=== PATIENT | female | born 1940 | race Caucasian/White ===

== ENCOUNTER → 2017-01-28 | Outpatient (CLI) | payer MEDICARE ==
--- NOTE | 2017-01-28 14:11 | BD ---
EXAMINATION TYPE: MG DEXA axial skeleton. DATE OF EXAM: 01/28/2017 COMPARISON: NONE CLINICAL HISTORY: Height: 62.2 IN Weight: 262 LBS FRAX RISK QUESTIONS: Alcohol (3 or more units per day): NO Family History (Parent hip fracture): NO Glucocorticoids (More than 3mos): NO (Ex: prednisone, prednisolone, methylprednisolone, dexamethasone, and hydrocortisone). History of Fracture in Adulthood: YES FINGER AGE 73 Secondary Osteoporosis: 1. Type 1 Diabetes: NO 2. Hyperthyroidism: NO 3. Menopause before 45: NO 4. Malnutrition: NO 5. Chronic liver disease: NO Rheumatoid Arthritis: NO Current Tobacco Use: NO RISK FACTORS HISTORY OF: Active: YES Diet low in dairy products/other sources of calcium: YES Postmenopausal woman: AGE 45 Frequent falls: YES PT HAS HISTORY OF FRACTURE OF FINGER AGE 73. MEDICATIONS: Thyroid Medications: YES Which medication: Levothyroxine How Lon + YRS Additional Medications: VIT D,LEVOTHYROXINE, CENTRUM, POTASSIUM, BUPROPIN, FISH OIL, VIT B12, FIBER 5 00, LOW DOSE ASPIRIN, [place] SOD, METOPROLOL, LOSARTAN HCTZ, ALLOPURINAL, STOOL SOFTENER, ALLERG Y RELIEF, GLIMEPIRIDE, GABAPENTIN, WELLBUTRIN, LASIX, AMLODIPINE EXAM MEASUREMENTS: Bone mineral densitometry was performed using the [facility]. Bone mineral density as measured about the Lumbar spine is: ----- L1-L4(G/cm2): 1.442 T Score Values are as follows: ----- L2: 3.6 ----- L3: 1.8 ----- L4: 1.3 ----- L1-L4: 2.2 Bone mineral density BASELINE Bone mineral density about the R hip (g/cm2): 0.820 Bone mineral density about the L hip (g/cm2): 0.854 T Score values are as follows: -----R Neck: -1.6 -----L Neck: -1.3 -----R Total: -0.5 -----L Total: -0.3 Bone mineral density BASELINE IMPRESSION: Localized osteopenia involving the right femoral neck. NOTE: T-SCORE=SD OF THE YOUNG ADULT MEAN.
--- NOTE | 2017-01-29 09:56 | MM ---
Reason for exam: screening (asymptomatic). Last mammogram was performed 1 year and 5 months ago. History: Patient is postmenopausal, history of other cancer, and had first child at age 35. Benign US biopsy breast VAD LT of the left breast, March 17, 2015. Benign right mammotome panel of the right breast, April 10, 2010. Took estrogen beginning at age 45. Took progesterone beginning at age 45. Physical Findings: A clinical breast exam by your physician is recommended on an annual basis and results should be correlated with mammographic findings. MG Screening Mammo w CAD Bilateral CC and MLO view(s) were taken. Prior study comparison: August 31, 2015, bilateral MG 3d diag mammo w/cad KENNY. March 17, 2015, left breast MG diagnostic mammo LT w CAD. There are scattered fibroglandular densities. No significant changes when compared with prior studies. ASSESSMENT: Benign, BI-RAD 2 RECOMMENDATION: Routine screening mammogram of both breasts in 1 year. Manage on a clinical basis with regard to pain in the right breast.
== END | disposition home or self-care (01) ==
LOC: RADMAMWWP 10:00
PROVIDERS: ATTEND Family Medicine
DX: Z12.31 Encounter for screening mammogram for malignant neoplasm of breast (principal); M85.80 Other specified disorders of bone density and structure, unspecified site; N95.1 Menopausal and female climacteric states; Z78.0 Asymptomatic menopausal state
CPT/HCPCS: 77080; G0202

== ENCOUNTER → 2017-10-16 | Outpatient (CLI) | payer MEDICARE ==
--- NOTE | 2017-10-16 10:24 | US ---
EXAMINATION TYPE: US carotid duplex BILAT DATE OF EXAM: 10/16/2017 COMPARISON: NONE CLINICAL HISTORY: R42 Vertigo. Vertigo, HTN, DM EXAM MEASUREMENTS: RIGHT: Peak Systolic Velocity (PSV) cm/sec ----- Right CCA: 52.7 ----- Right ICA: 61.6 ----- Right ECA: 93.3 ICA/CCA ratio: 1.2 RIGHT: End Diastole cm/sec ----- Right CCA: 13.7 ----- Right ICA: 17.4 ----- Right ECA: 9.7 LEFT: Peak Systolic Velocity (PSV) cm/sec ----- Left CCA: 62.1 ----- Left ICA: 54.6 ----- Left ECA: 97.3 ICA/CCA ratio: 0.9 LEFT: End Diastole cm/sec ----- Left CCA: 13.1 ----- Left ICA: 14.5 ----- Left ECA: 11.7 VERTEBRALS (direction of flow): Right Vertebral: Antegrade Left Vertebral: Antegrade Rhythm: Normal Difficult study due to patient's thick neck and deep vessels IMPRESSION: No elevated velocities, no significant stenosis. Criteria for Assigning % of Stenosis / Diameter reduction (Estimation based on the indirect measurements of the internal carotid artery velocities (ICA PSV). 1. Normal (no stenosis)=ICA PSV < 125 cm/s: ratio < 2.0: ICA EDV<40 cm/s. 2. Less than 50% stenosis=ICA PSV < 125 cm/s: ratio < 2.0: ICA EDV<40 cm/s. 3. 50 to 69% stenosis=ICA PSV of 125 to 230 cm/s: ration 2.0 ? 4.0: ICA EDV 40-100 cm/s. 4. Greater than 70% stenosis to near occlusion= ICA PSV > 230 cm/s: ratio > 4.0: ICA EDV > 100 cm/s. 5. Near occlusion= ICA PSV velocities may be low or undetectable: variable ratio and ICA EDV. 6. Total occlusion=unable to detect flow.
== END | disposition home or self-care (01) ==
LOC: RADUSWWP 09:27
PROVIDERS: ATTEND Family Medicine
DX: R42 Dizziness and giddiness (principal)
CPT/HCPCS: 93880

== ENCOUNTER → 2017-10-18 | Outpatient (CLI) | payer MEDICARE ==
--- NOTE | 2017-10-18 11:02 | MR ---
EXAMINATION TYPE: MR brain wo/w con DATE OF EXAM: 10/18/2017 COMPARISON: NONE HISTORY: Sixth [abducent] nerve palsy, left eye TECHNIQUE: Multiplanar, multisequence images of the brain and brainstem is performed without and with IV contras t, utilizing 12 mL intravenous Gadavist . FINDINGS: Diffusion weighted images demonstrate no evidence of a recent infarct or other diffusion ab normality. There is mild generalized degenerative change. There are numerous areas of abnormal signal involving the white matter bilaterally measuring greater than 20. No callosal lesions. No enhancing lesions. Th ere are changes of chronic sinusitis with nasal septal deviation noted. Abnormal signal within the left thalamus most likely related to prominent Virchow-Kash space or zena te lacunar infarction. Venous angioma left occipital parietal junction. Midline structures demonstrate normal morphology. The craniocervical junction appears within normal limits. Post contrast images demonstrate no abnormal enhancement. The dural venous sinuses appear pa tent. The visualized sinuses are clear and the globes are intact. IMPRESSION: 1. Mild degenerative change and findings compatible with nonspecific diffuse white matter changes mos t typical remote microvascular anemia. 2. Incidental note is made of a venous angioma within the left occipital parietal junction
== END | disposition home or self-care (01) ==
LOC: RADMRIMAIN 08:27
PROVIDERS: ATTEND Family Medicine
DX: G31.9 Degenerative disease of nervous system, unspecified (principal); H49.22 Sixth [abducent] nerve palsy, left eye
CPT/HCPCS: 82565; 84520; 70553; A9581

== ENCOUNTER → 2017-11-06 | Outpatient (CLI) | payer MEDICARE ==
--- NOTE | 2017-11-08 16:38 | EEG ---
ELECTROENCEPHALOGRAM REPORT ATTENDING PHYSICIAN: Dr. Bo and Dr. Fam. VNG INDICATIONS: Dizziness, vertigo, sudden onset in August 2017, improving. Dizziness can be provoked by positional changes such as going from a lying to a seated position, looking up or head back position, bending over or head down position or other movements of the head. Has difficulty with hearing bilaterally starting less than 5 years ago with ringing in both ears of a steady nature. VNG FINDINGS: Saccades shows intact peak velocities accuracies and latencies. Gaze with fixation shows no nystagmus in any of the directions of gaze including centrally with vision denied. Tracking is fairly smooth without significant break-ups. Optokinetic nystagmus shows no significant asymmetry. Static position testing shows no nystagmus in any of the positions tested with eyes open and then with vision denied. Shirley-Hallpike maneuvers were not able to be done due to patient back and neck issues. Caloric testing shows a 28% unilateral left caloric weakness. Fixation index negative. IMPRESSION: Mild chronic, well-compensated left vestibulopathy. Other features of this VNG are unremarkable. Note that [place]-Hallpike maneuver could not be done due to neck and back issues. MMODL / IJN: [id number] /
== END | disposition home or self-care (01) ==
LOC: NEUROMAIN 08:46
PROVIDERS: ATTEND Family Medicine
DX: H81.22 Vestibular neuronitis, left ear (principal)
CPT/HCPCS: 92537; 92540

== ENCOUNTER → 2018-05-05 | Outpatient (CLI) | payer MEDICARE ==
--- NOTE | 2018-05-07 11:03 | MM ---
Reason for exam: screening (asymptomatic). Last mammogram was performed 1 year and 3 months ago. History: Patient is postmenopausal, history of other cancer, and had first child at age 35. Benign US biopsy breast VAD LT of the left breast, March 17, 2015. Benign right mammotome panel of the right breast, April 10, 2010. Took estrogen beginning at age 45. Took progesterone beginning at age 45. Physical Findings: A clinical breast exam by your physician is recommended on an annual basis and results should be correlated with mammographic findings. MG 3D Screening Mammo W/Cad Bilateral CC and MLO view(s) were taken. Prior study comparison: January 28, 2017, bilateral MG screening mammo w CAD. August 31, 2015, bilateral MG 3d diag mammo w/cad KENNY. There are scattered fibroglandular densities. There is chronic nodularity in the left breast. Prominent axillary adipose tissue. Scattered groups of calcifications are unchanged. No significant changes when compared with prior studies. ASSESSMENT: Benign, BI-RAD 2 RECOMMENDATION: Routine screening mammogram of both breasts in 1 year. Manage on a clinical basis with regard to lateral left breast pain.
== END ==
LOC: RADMAMWWP 12:29
PROVIDERS: ATTEND Family Medicine
DX: Z12.31 Encounter for screening mammogram for malignant neoplasm of breast (principal)
CPT/HCPCS: 77063; 77067

== ENCOUNTER → 2019-05-26 | Outpatient (CLI) | payer MEDICARE ==
--- NOTE | 2019-05-26 14:48 | BD ---
EXAMINATION TYPE: Axial Bone Density DATE OF EXAM: 05/26/2019 COMPARISON: 2017 CLINICAL HISTORY: N 95.1 Height: 5 FT 2 1/2IN Weight: 248 FRAX RISK QUESTIONS: History of Fracture in Adulthood: YES Secondary Osteoporosis: 3. Menopause before 45: YES RISK FACTORS HISTORY OF: Active: NO Postmenopausal woman: PT THINKS HER TOTAL HYST AGE 43 Take estrogen and/or progesterone medications: SHE DID TAKE HRT FOR A WHILE NO LONGER TAKES Lost more than 2 inches in height since high school: YES Poor Health: FAIR MEDICATIONS: Thyroid Medications: YES Which medication: SYNTHROID How Long: OVER 7 YEARS Additional Medications: VIT D, LEVOTHYROXINE, MUSCLE RELAXER, BABY ASPIRIN, METOPROLOL, LOSARTAN, ALL OPURINAL, ALLERGY RELIEF, GLIMEPIRIDE, WELLBUTRIN, AMLODIPINE Additional History: EXAM MEASUREMENTS: Bone mineral densitometry was performed using the [employer] [facility]. Bone mineral density as measured about the Lumbar spine is: ----- L1-L4(G/cm2): 1.488 T Score Values are as follows: ----- L2: 3.6 ----- L3: 2.4 ----- L4: 1.7 ----- L1-L4: 2.6 Bone mineral density has: INCREASED 3.1 % since study of: 2016 Bone mineral density about the R hip (g/cm2): 0.808 Bone mineral density about the L hip (g/cm2): 0.864 T Score values are as follows: -----R Neck: -1.7 -----L Neck: -1.2 -----R Total: -0.5 -----L Total: -0.4 Bone mineral density has: DECREASED -0.6 % since study of: 2017 IMPRESSION: Osteopenia (T Score between -2.5 and -1). There is slightly increased risk of fracture and the patient may be considered for treatment. Re-Screen 2-5 years. NOTE: T-SCORE=SD OF THE YOUNG ADULT MEAN.
--- NOTE | 2019-05-29 09:36 | MM ---
Reason for exam: screening (asymptomatic). Last mammogram was performed 1 year and 1 month ago. History: Patient is postmenopausal, history of other cancer, and had first child at age 35. Benign US biopsy breast VAD LT of the left breast, March 17, 2015. Benign right mammotome panel of the right breast, April 10, 2010. Took estrogen beginning at age 45. Took progesterone beginning at age 45. Physical Findings: A clinical breast exam by your physician is recommended on an annual basis and results should be correlated with mammographic findings. MG 3D Screening Mammo W/Cad Bilateral CC and MLO view(s) were taken. Prior study comparison: May 05, 2018, bilateral MG 3d screening mammo w/cad. January 28, 2017, bilateral MG screening mammo w CAD. There is chronic nodularity bilaterally. No significant changes when compared with prior studies. ASSESSMENT: Benign, BI-RAD 2 RECOMMENDATION: Routine screening mammogram of both breasts in 1 year.
== END | disposition home or self-care (01) ==
LOC: RADMAMWWP 13:25
PROVIDERS: ATTEND Family Medicine
DX: M85.80 Other specified disorders of bone density and structure, unspecified site (principal); N95.1 Menopausal and female climacteric states; Z12.31 Encounter for screening mammogram for malignant neoplasm of breast; Z85.89 Personal history of malignant neoplasm of other organs and systems
CPT/HCPCS: 77063; 77067; 77080

== ENCOUNTER → 2020-02-08 | Outpatient (CLI) | payer MEDICARE ==
--- NOTE | 2020-02-08 13:02 | XR ---
EXAMINATION TYPE: XR cervical spine limited DATE OF EXAM: 02/08/2020 TECHNIQUE: Frontal, lateral, swimmers, and open mouth view of the cervical spine are obtained. HISTORY: M54.12 Cervical Radiculopathy fall injury 4 weeks ago with pain. COMPARISON: None FINDINGS: The cervical spine is visualized only from C1 thru mid C6 level despite attempted swimmer 's view due to osseous overlap. There is slight grade 1 anterolisthesis C4 on C5. There is mild disc space narrowing and spurring C4-C5 level. There is moderate disc space narrowing and spurring C5-C6 l evel. Suboptimal evaluation of C6 vertebra and below levels. Vertebral body heights are maintained. M ultilevel uncovertebral facet degenerative changes are felt bilaterally. C1-C2 articulation satisfact ory and open mouth frontal view. Overlying soft tissue unremarkable. IMPRESSION: As above.
== END | disposition home or self-care (01) ==
LOC: RADXRMAIN 12:18
PROVIDERS: ATTEND Family Medicine
DX: M99.71 Connective tissue and disc stenosis of intervertebral foramina of cervical region (principal); M43.12 Spondylolisthesis, cervical region; M47.22 Other spondylosis with radiculopathy, cervical region
CPT/HCPCS: 72040

== ENCOUNTER → 2020-10-11 | Outpatient (CLI) | payer MEDICARE ==
--- NOTE | 2020-10-13 14:15 | MM ---
Reason for exam: screening (asymptomatic). Last mammogram was performed 1 year and 4 months ago. History: Patient is postmenopausal, has history of other cancer at age 58, and had first child at age 35. Benign US biopsy breast VAD LT of the left breast, March 17, 2015. Benign right mammotome panel of the right breast, April 10, 2010. Took estrogen beginning at age 45. Took progesterone beginning at age 45. Physical Findings: A clinical breast exam by your physician is recommended on an annual basis and results should be correlated with mammographic findings. MG 3D Screening Mammo W/Cad Bilateral CC and MLO view(s) were taken. Prior study comparison: May 26, 2019, bilateral MG 3d screening mammo w/cad. May 05, 2018, bilateral MG 3d screening mammo w/cad. The breast tissue is heterogeneously dense. This may lower the sensitivity of mammography. Previous mammotome biopsy in the left breast. There is chronic nodularity in the left breast. Scattered benign round and punctate calcifications. Possible architectural distortion on 3D images 9 o'clock right breast. ASSESSMENT: Incomplete: need additional imaging evaluation, BI-RAD 0 RECOMMENDATION: Special view mammogram of the right breast. (3D) If lesion persists on supplemental views, image directed ultrasound is recommended. [facility] will attempt to contact patient to return for supplemental views and ultrasound if indicated.
== END | disposition home or self-care (01) ==
LOC: RADMAMWWP 10:50
PROVIDERS: ATTEND Family Medicine
DX: Z12.31 Encounter for screening mammogram for malignant neoplasm of breast (principal)
CPT/HCPCS: 77063; 77067

== ENCOUNTER → 2020-10-17 | Outpatient (CLI) | payer MEDICARE ==
--- NOTE | 2020-10-17 11:12 | MM ---
Reason for exam: additional evaluation requested from abnormal screening. Last mammogram was performed less than 1 month ago. History: Patient is postmenopausal, has history of other cancer at age 58, and had first child at age 35. Benign US biopsy breast VAD LT of the left breast, March 17, 2015. Benign right mammotome panel of the right breast, April 10, 2010. Took estrogen beginning at age 45. Took progesterone beginning at age 45. Physical Findings: Nurse Summary: 1cm nodule in the right breast at 9 o'clock (nurse db). MG 3D Work Up W/Cad RT Spot compression CC, spot compression MLO, and ML view(s) were taken of the right breast. Prior study comparison: October 11, 2020, bilateral MG 3d screening mammo w/cad. May 26, 2019, bilateral MG 3d screening mammo w/cad. The breast tissue is heterogeneously dense. This may lower the sensitivity of mammography. 9-10 o'clock architectural distortion persists. These results were verbally communicated with the patient and result sheet given to the patient on 10/17/20. ASSESSMENT: Incomplete: need additional imaging evaluation, BI-RAD 0 RECOMMENDATION: Ultrasound of the right breast.
--- NOTE | 2020-10-17 11:15 | USB ---
Reason for exam: additional evaluation requested from abnormal screening. History: Patient is postmenopausal, has history of other cancer at age 58, and had first child at age 35. Benign US biopsy breast VAD LT of the left breast, March 17, 2015. Benign right mammotome panel of the right breast, April 10, 2010. Took estrogen beginning at age 45. Took progesterone beginning at age 45. US Breast Workup RT Right complete breast ultrasound includes all four quadrants, the retroareolar region and axilla. Finding demonstrates a 0.3 x 0.3 x 0.3cm cystic, benign lesion at 8 o'clock and a 1.0 x 1.8 x 0.8cm irregular, solid, hypoechoic, vascular lesion at 9 o'clock. No axillary adenopathy. These results were verbally communicated with the patient and result sheet given to the patient on 10/17/20. ASSESSMENT: Highly suggestive of malignancy, BI-RAD 5 RECOMMENDATION: Surgical consultation and ultrasound core biopsy of the right breast. Called office with mammographic findings and has scheduled an appointment for the patient for 11/14/20 at 3:[address] Fam. Biopsy scheduled for 11/02/20 at 10:30. PRELIMINARY REPORT CALLED AND FAXED TO DR. FAM ON 10/17/20.
== END ==
LOC: RADMAMWWP 08:35
PROVIDERS: ATTEND Family Medicine
DX: N60.01 Solitary cyst of right breast (principal); R92.2 Inconclusive mammogram; Z78.0 Asymptomatic menopausal state
CPT/HCPCS: 77065; 76641; G0279; 77061

== ENCOUNTER → 2020-11-02 | Day surgery (SDC) | payer MEDICARE ==
[2020-11-02 10:08] VITALS: RESP 12
[2020-11-02 11:30] VITALS: BP 149/86; PULSE 75; TEMP 98.7
--- NOTE | 2020-11-02 11:52 | USB ---
EXAMINATION TYPE: US biopsy breast VAD RT DATE OF EXAM: 11/02/2020 CLINICAL HISTORY: R92.8 abnormal mammogram. TECHNIQUE: Ultrasound guided vaccuum assisted core biopsy of right breast. COMPARISON: 10/17/2020 FINDINGS: The ultrasound guided core biopsy procedure was explained to the patient. The risks, benefits, alternatives were discussed. An informed consent was then obtained. Timeout was performed. The patient was placed in supine positioning for imaging and for the procedure. The overlying skin was prepped with betadine and sterilely draped in usual sterile fashion. Lidocaine 1% was used as anesthetic into the skin and deeper breast tissue up to area of concern in the breast. A small skin eli was made with surgical scalpel. Under ultrasound guidance, a 12-gauge vacuum assisted biopsy device was used to obtain 5 core samples. A biopsy clip was left in lesion. Wing clip was utilized. Sample container was evaluated. There appears to be inadequate sample present. Vacuum-assisted Celero needle was utilized to obtain 3 additional core samples. Entire samples were placed in the sample container labeled and transferred to pathology for additional evaluation. Good hemostasis was obtained with direct pressure. Mild bleeding was evident at the entrance site measuring less than 10 mL. This was controlled with direct pressure. Discharge instructions were discussed with the patient. The patient will follow up with the referring physician for results. Postprocedure mammogram: The patient was transferred to mammography for physician ordered post procedure mammogram for clip placement verification. The clip is in the expected region of the biopsy. The patient tolerated the procedure well without any immediate complication. The patient was discharged to home in stable condition. IMPRESSION: 1. Successful ultrasound guided biopsy right breast. Recommendations: 1. Recommendations are pending pathology results. Pathology Results: Malignant RIGHT BREAST, CORE BIOPSY: Invasive lobular carcinoma, Grade 1, with focal lobular carcinoma in situ (LCIS). See Surgical Pathology Cancer Case Summary and Comment. Recommendation Surgical consult of the right breast. BAUDILIO
== END ==
LOC: RADUSWWP 09:31
PROVIDERS: ATTEND Family Medicine
DX: D05.01 Lobular carcinoma in situ of right breast (principal); Z17.0 Estrogen receptor positive status [ER+]
CPT/HCPCS: 88305; 88342; 88341; 77065; 19083; A4648; J2001

== ENCOUNTER → 2020-11-15 | Outpatient (CLI) | payer MEDICARE ==
--- NOTE | 2020-11-15 15:20 | XR ---
EXAMINATION TYPE: XR chest 2V DATE OF EXAM: 11/15/2020 COMPARISON: 03/25/2014 HISTORY: 80-year-old female preoperative exam for breast surgery, CAD, DM2. TECHNIQUE: Frontal and lateral views FINDINGS: Heart upper limits of normal in size. Mild atherosclerotic arch calcifications. Some strandy atelecta sis in the lower lungs. Mild interstitial prominence is unchanged. No consolidation or pleural effusi on. Patient within the mid thoracic spine. IMPRESSION: Borderline heart size. Some strandy atelectasis in the lower lungs. No definite acute process.
== END | disposition home or self-care (01) ==
LOC: RADXRMAIN 11:43
PROVIDERS: ATTEND Family Medicine
DX: Z01.818 Encounter for other preprocedural examination (principal); I25.10 Atherosclerotic heart disease of native coronary artery without angina pectoris
CPT/HCPCS: 71046

== ENCOUNTER → 2020-11-17 | Outpatient (CLI) | payer MEDICARE ==
[2020-11-17 15:14] VITALS: BP 150/84; PULSE 66; RESP 20; TEMP 97.4
--- NOTE | 2020-11-17 16:27 | P.GSHP ---
History of Present Illness H&P Date: 11/17/20 Chief Complaint: right breast invasive lobular cancer Delmi Kaur is an 80 year old female seen in consultation for Dr. Fam regarding the radiographic abnormality noted in her right breast which was biopsy-proven to be invasive lobular carcinoma. She underwent a bilateral screening mammogram and 220 321. This was felt to be incomplete and special views of the right breast were recommended. The area of concern was some possible architectural distortion at the 9 o'clock position of the right breast. Spot compression views were then obtained of the right breast and 3121. The distortion persisted and an ultrasound was recommended. An ultrasound was performed on the same date. This revealed a 0.3 cystic lesion at 8:00 and a 1 x 1.8 x 0.8 cm irregular solid lesion at 9:00. The lesion at 9:00 was recommended to [place]. [place] [address]. This was positive for invasive lobular carcinoma grade 1. The tumor is ER +100%, P a +90%, and HER-2/michelet negative. The patient had not felt any lumps masses or nodules in her breast. She is not complaining of any nipple discharge or skin changes. This was a routine screening mammogram. No lesions of concern were noted at this time in the left breast. She has had a stereotactic core biopsy of the left breast in the remote past but this was benign. Caffeine: tea occasional nicotine: none chocolate: daily hormones: not at this time; used to take Premarin following a hysterectomy a pproximately 3 years, she stopped many years ago Family history: mother: bone cancer, lung cancer patient: SCC face and shoulder Hormonal History: menarche: 9 M2, breast fed: yes, first live : 35 menopause: hysterectomy at 43 took both ovaries, no cancer BCP: used for about 3 years Surgical History: 1. hysterectomy bilateral oophrectomys 2. bilateral knee replacement 3. left little finger 4. gallbladder 5. appy 6. SCC face, and shoulder Medical History: 1. asthma 2. HTN 3. DM 4. gout 5. arthritis 6. CPAP 7. depression 8. early dementia 9. chronic kidney disease Social History: nicotine: (age [age] occasional) not now alcohol: stopped at 53; used to drink occasional drugs: none - Constitutional Constitutional: Denies chills, Denies fever - EENT Comment: wears glasses Eyes: denies blurred vision, denies pain Ears: bilateral: decreased hearing, tinnitus Ears, nose, mouth and throat: Denies headache, Denies sore throat - Breasts Breasts: bilateral: as per HPI - Cardiovascular Comment: enlarged heart, HTN - Respiratory Comment: sleep apnea, asthma - Gastrointestinal Gastrointestinal: Reports constipation - Genitourinary (Female) Comment: chronic kidney disease stage 3 Genitourinary: Denies dysuria, Denies hematuria - Menstruation Menstruation: Reports post hysterectomy - Musculoskeletal Musculoskeletal: Reports myalgias - Integumentary Comment: dry skin, yeast infections - Neurological Neurological: Reports weakness - Psychiatric Psychiatric: Reports depression - Endocrine Comment: diabetic, hypothyroid Endocrine: Denies fatigue, Denies weight change - Hematologic/Lymphatic Comment: aspirin daily - Allergic/Immunologic Allergic/Immunologic: Reports as per HPI Past Medical History Past Medical History: Asthma, Chest Pain / Angina, Diabetes Mellitus, Hyperlipidemia, Hypertension, Sleep Apnea/CPAP/BIPAP, Thyroid Disorder Additional Past Medical History / Comment(s): hx mograines, gout arthritis, diverticulitis, skin cancer History of Any Multi-Drug Resistant Organisms: None Reported Past Surgical History: Cholecystectomy, Heart Catheterization, Hysterectomy, Joint Replacement Additional Past Surgical History / Comment(s): mena knee replacements, cataracts, fx finger left hand,skin cancer removed left and right ear forehead nose shoulder Past Anesthesia/Blood Transfusion Reactions: Previous Problems w/ Anesthesia, Motion Sickness Additional Past Anesthesia/Blood Transfusion Reaction / Comment(s): high BP Past Psychological History: Depression Smoking Status: Never smoker Past Alcohol Use History: Occasional Past Drug Use History: None Reported - Past Family History Mother Family Medical History: Cancer Additional Family Medical History / Comment(s): bone cancer Medications and Allergies Home Medications Medication Instructions Recorded Confirmed Type Aspirin 81 mg PO DAILY 03/29/14 11/17/20 History Docusate [Colace] 100 mg PO DAILY 03/29/14 11/17/20 History Glimepiride [Amaryl] 2 mg PO HS 03/29/14 11/17/20 History Levothyroxine Sodium [Synthroid] 100 mcg PO DAILY 03/29/14 11/17/20 History Losartan/Hydrochlorothiazide 100 mg PO DAILY 03/29/14 11/17/20 History [Losartan-Hctz 100-25 mg Tab] Metoprolol Succinate [Toprol XL] 50 mg PO DAILY 03/29/14 11/17/20 History Montelukast [Singulair] 10 mg PO DAILY 03/29/14 11/17/20 History Zyrtec(Dose Unknown) 10 mg PO DAILY 03/29/14 11/17/20 History allopurinoL [Zyloprim] 300 mg PO DAILY 03/29/14 11/17/20 History amLODIPine/ATORVASTATIN [Caduet 10 1 each PO HS 03/29/14 11/17/20 History mg-10 mg Tablet] buPROPion HCL [Wellbutrin] 200 mg PO DAILY 03/29/14 11/17/20 History traMADol HCL [Ultram] 1 tab PO DAILY 10/17/20 11/17/20 History Ammonium Lactate Cream [Lac-Hydrin 1 applic TOPICAL BID 11/17/20 11/17/20 History 12% Cream] Cholecalciferol [Vitamin D3 (25 25 mcg PO DAILY 11/17/20 11/17/20 History Mcg = 1000 Iu)] Cranberry Fruit Extract [Cranberry] 200 mg PO DAILY 11/17/20 11/17/20 History Cyclobenzaprine [Flexeril] 5 mg PO HS 11/17/20 11/17/20 History Fish Oil/Dha/Epa [Fish Oil 1,200 1 each PO DAILY 11/17/20 11/17/20 History mg Fish Oil] Fluticasone Propionate [Flonase 1 spray EA NOSTRIL DAILY 11/17/20 11/17/20 History Allergy Relief] Furosemide [Lasix] 20 mg PO DAILY 11/17/20 11/17/20 History Inulin/Chromium Picolinate [Fiber 1 each PO DAILY 11/17/20 11/17/20 History Gummies Chew] Multivitamin/Iron/Folic Acid 1 each PO DAILY 11/17/20 11/17/20 History [Centrum Women Tablet] Potassium Chloride ER [K-Dur 10] 10 meq PO BID 11/17/20 11/17/20 History Allergies Allergy/AdvReac Type Severity Reaction Status Date / Time shellfish derived Allergy Unknown Verified 11/17/20 15:01 adhesive AdvReac blisters Verified 11/17/20 15:01 gluten AdvReac Unknown Verified 11/17/20 15:01 Penicillins AdvReac Rash/Hives Verified 11/17/20 15:01 antibiotics AdvReac Diarrhea Uncoded 11/17/20 15:01 Surgical - Exam Vital Signs Temp Pulse Resp BP Pulse Ox 97.4 F L 66 20 150/84 97 11/17/20 15:11 11/17/20 15:11 11/17/20 15:11 11/17/20 15:11 11/17/20 15:11 BMI 46.1 - General no distress - Eyes wears glasses - ENT decreased hearing normal nares - Neck no masses, trachea midline - Respiratory normal respiratory effort, clear to auscultation - Cardiovascular Rhythm: regular Heart Sounds: normal: S1, S2 - Integumentary normal turgor - Neurologic no disoriented, no combative - Musculoskeletal uses a walker - Psychiatric oriented to time, oriented to person, oriented to place, speech is normal, memory intact breast exam: BRA: 48C inspection: Grade 3 ptosis bilateral Palpation: Right breast: fibrocystic changes, 9 o'clock position is approximately 2 cm area of nodularity, ecchymosis is noted at this site Right axilla: No adenopathy of concern Left breast: Fibrocystic changes, no dominant masses or nodules of concern Left axilla: No adenopathy of concern Results Mammogram and ultrasound results reviewed personally with Dr. Albarran Assessment and Plan Assessment: Impression: 1. Stage I a right breast invasive lobular carcinoma Multiple medical problems 1. asthma 2. HTN 3. DM 4. gout 5. arthritis 6. CPAP 7. depression 8. early dementia 9. chronic kidney disease Plan: 1. needle localization lumpectomy, onco-plastic tissue transfer, sentinel node injection, sentinel node biopsy, possible axillary node dissection 2. Medical clearance 3. Presentation of case at tumor board The benefits of the procedure discussed with the patient and her daughter. Options including mastectomy versus lumpectomy were discussed and the patient would like to have a lumpectomy if possible. She understands if the margins were positive we may need to do further tissue resection. [place] node injection sentinel node biopsy with possible axillary node dissection to be performed. The understand and wish to proceed. CC: Dr. Fam Dx: 1. right breast cancer 2. asthma 3. DM 4. gout 5. HTN 6. arthrits 7. CPAP 8. depression 9. early dementia 9. chronic kidney disease Data reviewed: Mammogram and ultrasound. Because of reviewed with Dr. Deion Fam office note reviewed Pathology report reviewed Presentation of case at tumor board Management: After discussion and clearance the patient most likely undergo a needle localization lumpectomy with onco-plastic tissue transfer, sentinel node injection sentinel node biopsy possible axillary node dissection.
== END ==
LOC: WWCWWP 14:42
PROVIDERS: ATTEND Surgery
DX: C50.911 Malignant neoplasm of unspecified site of right female breast (principal); J45.909 Unspecified asthma, uncomplicated; I12.9 Hypertensive chronic kidney disease with stage 1 through stage 4 chronic kidney disease, or unspecified chronic kidney disease; N18.9 Chronic kidney disease, unspecified; E11.22 Type 2 diabetes mellitus with diabetic chronic kidney disease; M10.9 Gout, unspecified; M19.90 Unspecified osteoarthritis, unspecified site; F32.9 Major depressive disorder, single episode, unspecified; F03.90 Unspecified dementia, unspecified severity, without behavioral disturbance, psychotic disturbance, mood disturbance, and anxiety; Z17.0 Estrogen receptor positive status [ER+]; E78.5 Hyperlipidemia, unspecified; Z99.89 Dependence on other enabling machines and devices; E03.9 Hypothyroidism, unspecified

== ENCOUNTER → 2020-12-16 | Outpatient (CLI) | payer MEDICARE | END | disposition home or self-care (01) | LOC: RADMRIMAIN 15:14 | PROVIDERS: ATTEND Surgery | DX: Z53.9 Procedure and treatment not carried out, unspecified reason (principal) ==

== ENCOUNTER → 2020-12-23 | Outpatient (CLI) | payer MEDICARE ==
[2020-12-23 10:35] VITALS: BP 131/80; PULSE 62; RESP 14; TEMP 97
--- NOTE | 2020-12-23 10:57 | P.PN ---
Subjective Progress Note Date: 12/23/20 Principal diagnosis: stage IA invasive lobular carcinoma right breast Natasha is an 80 year old female seen in consultation for Dr. Fam regarding the radiographic abnormality noted in her right breast which was biopsy-proven to be invasive lobular carcinoma. She underwent a bilateral screening mammogram on 220 321. This was felt to be incomplete and special views of the right breast were recommended. The area of concern was some possible architectural distortion at the 9 o'clock position of the right breast. Spot compression views were then obtained of the right breast on 3121. The distortion persisted and an ultrasound was recommended. An ultrasound was performed on the same date. This revealed a 0.3 cystic lesion at 8:00 and a 1 x 1.8 x 0.8 cm irregular solid lesion at 9:00. The lesion at 9:00 was recommended to be [place]. [place] [address]. This was positive for invasive lobular carcinoma grade 1. The tumor is ER +100%, DC +90%, and HER-2/michelet negative. The patient had not felt any lumps masses or nodules in her breast. She is not complaining of any nipple discharge or skin changes. This was a routine screening mammogram. No lesions of concern were noted at this time in the left breast. She has had a stereotactic core biopsy of the left breast in the remote past but this was benign. The patient's mammogram and ultrasound results were reviewed with Dr. Albarran from radiology. An attempt at an MRI was made secondary to the fact that this was invasive lobular carcinoma and difficult to see on the mammogram, however the patient was unable to physically get on the MRI table. Therefore the MRI was canceled. Secondary to the fact that this is an invasive lobular carcinoma was not seen well on the mammogram is been recommended that she have an ultrasound of the left breast was fully evaluate Breast as well. The patient has been scheduled for a lumpectomy on the right side however prior to proceeding we would like to get the ultrasound of the left breast as well for complete evaluation. Impression/Plan 1. Stage IA right breast invasive lobular carcinoma not seen well on mammogram seen best on ultrasound 2. Patient unable to undergo MRI secondary difficulty being situated on the MRI table therefore after review with radiology we have recommended that an ultrasound be performed of the left breast. As long as this is stable not showing any new lesions will proceed with lumpectomy on the right side. Patient and her daughter understand this and this is been scheduled for the near future. 3. Patient was medically cleared by Dr. Fam 4. Needle localization lumpectomy, plastic tissue transfer, sentinel node injection sentinel node biopsy possible axillary node dissection A skin benefits of the procedure discussed with the patient and her daughter. They understand and wish to proceed. CC: Dr. Fam Objective - Vital Signs Vital signs: Vital Signs Temp 97 F L 12/23/20 10:28 Pulse 62 12/23/20 10:28 Resp 14 12/23/20 10:28 BP 131/80 12/23/20 10:28 Pulse Ox 93 L 12/23/20 10:28 Intake & Output 12/22/20 12/23/20 12/23/20 18:59 06:59 18:59 Weight 106.594 kg
--- NOTE | 2020-12-23 12:03 | USB ---
Reason for exam: clinical finding. History: Patient is postmenopausal, has history of breast cancer at age 80, has history of other cancer at age 58, and had first child at age 35. Malignant US biopsy breast VAD RT of the right breast, November 02, 2020. Benign US biopsy breast VAD LT of the left breast, March 17, 2015. Benign right mammotome panel of the right breast, April 10, 2010. Took estrogen beginning at age 45. Took progesterone beginning at age 45. US Breast LT Technologist: Gerri Dexter Left complete breast ultrasound includes all four quadrants, the retroareolar region and axilla. Finding demonstrates no cystic or solid lesion seen. These results were verbally communicated with the patient and result sheet given to the patient on 12/23/20. ASSESSMENT: Negative, BI-RAD 1
== END ==
LOC: WWCWWP 10:00
PROVIDERS: ATTEND Surgery
DX: C50.911 Malignant neoplasm of unspecified site of right female breast (principal); Z17.0 Estrogen receptor positive status [ER+]; Z87.891 Personal history of nicotine dependence

== ENCOUNTER 2021-01-24 07:32 | Day surgery (SDC) | payer MEDICARE ==
--- NOTE | 2021-01-20 17:17 | P.PN ---
Subjective Progress Note Date: 01/20/21 Principal diagnosis: Stage IA invasive lobular carcinoma right breast ill is an 80 year old female seen in consultation for Dr. Fam regarding the radiographic abnormality noted in her right breast which was biopsy-proven to be invasive lobular carcinoma. She underwent a bilateral screening mammogram and . This was felt to be incomplete and special views of the right breast were recommended. The area of concern was some possible architectural distortion at the 9 o'clock position of the right breast. Spot compression views were then obtained of the right breast on 3120. The distortion persisted and an ultrasound was recommended. An ultrasound was performed on the same date. This revealed a 0.3 cystic lesion at 8:00 and a 1 x 1.8 x 0.8 cm irregular solid lesion at 9:00. The lesion at 9:00 was recommended to be biopsied. Biopsy was performed on . This was positive for invasive lobular carcinoma grade 1. The tumor is ER +100%, P a +90%, and HER-2/michelet negative. The patient had not felt any lumps masses or nodules in her breast. She is not complaining of any nipple discharge or skin changes. This was a routine screening mammogram. No lesions of concern were noted at this time in the left breast. She has had a stereotactic core biopsy of the left breast in the remote past but this was benign. An attempt at an MRI was made however secondary to the patient's inability to plan the MRI table this was canceled. Ultrasound of the right breast was performed and 3120 this revealed the 1 x 1.8 x 0.8 cm irregular solid lesion at 9:00. No other lesions of concern were identified. The left breast ultrasound was performed on 5720 and this was felt to be benign. She was evaluated by medical oncology and it was felt that she was ready for surgical intervention prior to any neoadjuvant therapy. Caffeine: tea occasional nicotine: none chocolate: daily hormones: not at this time; used to take Premarin following a hysterectomy approximately 3 years, she stopped many years ago Family history: mother: bone cancer, lung cancer patient: SCC face and shoulder Hormonal History: menarche: 9 M2, breast fed: yes, first live : 35 menopause: hysterectomy at 43 took both ovaries, no cancer BCP: used for about 3 years Surgical History: 1. hysterectomy bilateral oophrectomys 2. bilateral knee replacement 3. left little finger 4. gallbladder 5. appy 6. SCC face, and shoulder Medical History: 1. asthma 2. HTN 3. DM 4. gout 5. arthritis 6. CPAP 7. depression 8. early dementia 9. chronic kidney disease Social History: nicotine: (age [age] occasional) not now alcohol: stopped at 53; used to drink occasional drugs: none - Constitutional Constitutional: Denies chills, Denies fever - EENT Comment: wears glasses Eyes: denies blurred vision, denies pain Ears: bilateral: decreased hearing, tinnitus Ears, nose, mouth and throat: Denies headache, Denies sore throat - Breasts Breasts: bilateral: as per HPI - Cardiovascular Comment: enlarged heart, HTN - Respiratory Comment: sleep apnea, asthma - Gastrointestinal Gastrointestinal: Reports constipation - Genitourinary (Female) Comment: chronic kidney disease stage 3 Genitourinary: Denies dysuria, Denies hematuria - Menstruation Menstruation: Reports post hysterectomy - Musculoskeletal Musculoskeletal: Reports myalgias - Integumentary Comment: dry skin, yeast infections - Neurological Neurological: Reports weakness - Psychiatric Psychiatric: Reports depression - Endocrine Comment: diabetic, hypothyroid Endocrine: Denies fatigue, Denies weight change - Hematologic/Lymphatic Comment: aspirin daily - Allergic/Immunologic Allergic/Immunologic: Reports as per HPI Objective - Exam BMI 46.1 - Constitutional General appearance: Present: cooperative - EENT Eyes: Present: EOMI ENT: Present: hard of hearing - Neck Neck: Present: normal ROM - Respiratory Respiratory: bilateral: CTA - Cardiovascular Rhythm: regular Heart sounds: normal: S1, S2 - Integumentary Integumentary: Present: normal turgor - Musculoskeletal Musculoskeletal Comment(s): uses a walker - Psychiatric Psychiatric: Present: A&O x's 3, appropriate affect, intact judgment & insight - Additional findings Additional findings: Breast examination: Matt: 40 8C Inspection: Grade 3 ptosis bilaterally Palpation: Right breast: Fibrocystic changes 9 o'clock position approximately 2 cm area of nodularity, ecchymosis noted at the site Right axilla: No adenopathy of concern Left breast: Fibrocystic changes, no dominant masses or nodules of concern Left axilla: No adenopathy of concern Mammogram and ultrasound reviewed personally with Dr. Albarran Assessment and Plan Assessment: Impression: 1. Stage IA right breast invasive lobular carcinoma 2. Asthma 3. Hypertension 4. Diabetes 5. Gout 6. Arthritis 7. CPAP 8. Depression 9. Early dementia 10. Chronic kidney disease Plan: 1. right breast Needle localization excisional lumpectomy, possible onco- plastic tissue transfer, sentinel node injection, sentinel node biopsy, possible axillary node dissection 2. Medical clearance from Dr. Fam Benefits and risks of the procedure were discussed with the patient and her daughter. Options including mastectomy versus lumpectomy were discussed and the patient will like to have a lumpectomy if possible. She understands if the margins are positive we may need to do further tissue resection. [place] node injection and sentinel node biopsy with possible axillary node dissection are to be performed. The understand and wish to proceed. They understand she may need radiation therapy following the lumpectomy. She was seen by medical oncology and not felt to be a candidate for systemic chemotherapy and therefore an oncotype dx was not performed. She will have possible endocrine therapy post procedure.
[2021-01-23 09:28] VITALS: BMI 45.7
[~2021-01-24 07:32] MED LIST: DEXAMETHASONE SOD PHOSPHATE 4 MG/ML 1 ML VIAL IV ONE; HEPARIN SODIUM,PORCINE/PF 5,000 UNIT/0.5 ML SYRINGE SQ PRN; LACTATED RINGERS 1,000 ML IV SCH; LIDOCAINE 1% (10MG/ML) FOR IV START INTRADERMA PRN; MIDAZOLAM 2 MG/2 ML VIAL IV PRN; ONDANSETRON 4 MG/2 ML VIAL IVP ONE; Pre Op ABX Message 1 EACH MISC MISCELLANE ONE
[2021-01-24] MEDS ORDERED: ALPRAZolam 0.25 MG TAB ONE (08:11)
[2021-01-24 08:50] LABS: Glucose,Whole Blood 133 mg/dL (75-99)
[2021-01-24] MEDS ORDERED: LIDOCAINE 1% INJ 10MG/ML (20 ML MDV) SQ ONE (08:58)
--- NOTE | 2021-01-24 09:32 | P.NAPBC ---
NAPBC Queries - NAPBC Queries Was patient's case review presented at [facility] tumor board? If no, comment.: Yes Was patient's pathology reviewed at [facility]? If no, comment.: Yes Was breast conservation surgery offered? If no, comment.: Yes Was sentinel node biopsy offered? If no, comment.: Yes Was diagnosis confirmed by percutaneous core biopsy? If no, comment.: Yes Is patient mastectomy patient?: No Clinical Stage: stage 1A
[2021-01-24] MEDS ORDERED: ROCURONIUM 10 MG/ML (5 ML VIAL) IV ONE (09:49)
[2021-01-24] MEDS ORDERED: SUCCINYLCHOLINE CHLORIDE VIAL 200 MG/10 ML VIAL IV ONE (09:49)
[2021-01-24] MEDS ORDERED: ePHEDrine SULFATE/0.9% NACL/PF 50 MG/5 ML SYRINGE IV ONE (09:49)
[2021-01-24] MEDS ORDERED: KETAMINE 10 MG/ML 20 ML VIAL ONE (09:49)
[2021-01-24] MEDS ORDERED: PROPOFOL 10 MG/ML 20 ML VIAL IV ONE (09:49)
[2021-01-24] MEDS ORDERED: fentaNYL (PF) 50 MCG/ML 2 ML AMP ONE (09:49)
[2021-01-24] MEDS ORDERED: LIDOCAINE 1% INJ 10MG/ML (20 ML MDV) ONE (09:49)
[2021-01-24] MEDS ORDERED: PHENYLEPHRINE-0.9% NACL SYG 1,000 MCG/10 ML SYRINGE ONE (09:49)
[2021-01-24] MEDS ORDERED: METHYLENE BLUE 50 MG/10 ML AMPUL MISCELLANE ONE (10:30)
--- NOTE | 2021-01-24 11:31 | NM ---
EXAMINATION TYPE: NM sentinel node injection DATE OF EXAM: 01/24/2021 COMPARISON: NONE INDICATION: Abnormal mammogram. Informed consent was obtained. A timeout was performed. The area around the right nipple was cleansed with alcohol. In a single dose, a total of 3 uCi Tech netium 99m Tilmanocept was injected. The patient tolerated the procedure very well. IMPRESSIONS: 1. Successful injection for sentinel node evaluation.
--- NOTE | 2021-01-24 11:34 | MM ---
EXAMINATION TYPE: MG pre op needle loc RT DATE OF EXAM: 01/24/2021 COMPARISON: NONE CLINICAL HISTORY: Biopsy-proven malignancy right breast TECHNIQUE: Needle localization with wire placement and surgical excision of area of concern in the right breast. FINDINGS: The procedure of needle localization with wire placement for surgical excision was explained to the patient. Risk, benefits, and alternatives were discussed. An informed consent was then obtained. A timeout was performed. The overlying skin was prepped and draped in usual sterile fashion. Lidocaine 1% was used as anesthetic into the skin and subcutaneous tissue up to the level of area of concern. A 5 cm needle was used. This was placed via a lateral approach under mammographic guidance. Subsequent 90 degrees mammogram show the needle to be in satisfactory position relative to the targeted area. The wire was placed through the needle and the needle was withdrawn. The wire was fixed to patient's skin. Images were marked for surgeon. The patient tolerated the procedure well without any immediate complication. Specimen: The wire and the targeted wing clip is identified within the specimen mammogram. IMPRESSION: 1. Successful wire localization and excision. Recommendations: 1. Recommendations are pending pathology results. Pathology Results: Malignant A. RIGHT BREAST, LUMPECTOMY: Invasive lobular carcinoma involving the posterior/lateral and superior margins. Other margins negative for malignancy. 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 Focal ADH less than 1 mm from the anterior margin. See Surgical Pathology Cancer Case Summary and Comment. B. RIGHT AXILLARY SENTINAL LYMPH NODE: Lymph node positive for isolated tumor cells. CK7 and JERSON immunoperoxidase stains are confirmatory (controls appropriate). C. RIGHT AXILLARY CONTENTS: Two lymph nodes negative for metastasis. CK7 and JERSON immunoperoxidase stains are confirmatory (controls appropriate). D. RIGHT BREAST, NEW POSTERIOR SURFACE, EXCISION: Focal atypical lobular hyperplasia (ALH), fibrocystic changes including usual type ductal hyperplasia, and small intraductal papilloma. Negative for invasive malignancy. Recommendation Surgical consult of the right breast. GIOVANNAD
--- NOTE | 2021-01-24 11:50 | P.OP ---
Date of Procedure: 01/24/21 Preoperative Diagnosis: Right breast invasive lobular carcinoma Postoperative Diagnosis: Same Procedure(s) Performed: Needle localization right breast lumpectomy, onco-plastic tissue transfer 62 cm, methylene blue injection for lymphatic mapping, sentinel node biopsy Anesthesia: CHELSEY Surgeon: Elizabeth Bustamante Estimated Blood Loss (ml): 10 IV fluids (ml): 700 Pathology: other ([place] node biopsy, breast tissue) Condition: stable Disposition: same day Indications for Procedure: Invasive lobular carcinoma right breast Operative Findings: Dense breast tissue Description of Procedure: Natasha is an 80-year-old white female who was diagnosed with invasive lobular right breast cancer. Risk and benefits of lumpectomy versus mastectomy were discussed with the patient she understood and wished to proceed. The patient was first seen in the radiology department. The radioactive substance was injected in the periareolar area for sentinel node biopsy. Localization was performed of the invasive lobular cancer. The patient was then brought to the operative suite and following induction of anesthesia the neoprobe was used to interrogate the axilla. No increased radioactivity was identified. 10 mL of half percent methylene blue was injected in the periareolar area. The breast was massaged. Following this the breast and axilla were prepped and draped in a sterile fashion. An incision was made in the axilla. This was carried down to the axillary fatty tissue. A blue lymph node was identified. Upon identification interrogation of the node did reveal it to be radioactive. The lymph node was removed. The blue sentinel node 10 second radioactive count was 280, the background radioactive count was 11. Following this the wound was well irrigated. The deep tissues were closed using 3-0 Vicryl suture. The skin was closed using 4-0 Monocryl and then a nylon skin suture. The nylon skin suture secondary to the fact that the patient states she is ALLERGIC to adhesives. The breast was then approached. The area of the needle localization was evaluated. An incision was made and was brought into the area of bladder. The tissue was excised widely around the needle. Radiograph of the specimen revealed the area of concern had been removed as well as the clip. Dissection was performed down to the pectoralis muscle posteriorly and a new posterior margin was obtained. The tissues were then mobilized. Superiorly the tissue was mobilized 6 cm x 2 cm inferiorly 3.5 cm x 4 cm in size of the specimen was a centimeters by 4.5 cm. onco-plastic tissue mobolized was 62 cm. Was then examined for hemostasis. Titanium clips were placed. Surgicel and pyriform was placed. The superior inferior pillars were brought together and secured using 3-0 Vicryl suture. This was followed by closure of the subcutaneous tissue with 3-0 Vicryl suture. The skin was closed with 4-0 Monocryl followed by Steri- Strips. The patient tolerated the procedure in stable condition. All instrument and sponge counts were correct at the end of the case.
--- NOTE | 2021-01-24 11:57 | P.DS ---
Providers Attending physician: Elizabeth Bustamante Primary care physician: Milvia Fam Plan - Discharge Summary Discharge Rx Participant: No New Discharge Prescriptions: No Action Aspirin 81 mg PO DAILY buPROPion HCL [Wellbutrin] 200 mg PO DAILY amLODIPine/ATORVASTATIN [Caduet 10 mg-10 mg Tablet] 1 each PO HS Montelukast [Singulair] 10 mg PO HS Metoprolol Succinate [Toprol XL] 50 mg PO DAILY allopurinoL [Zyloprim] 300 mg PO DAILY Levothyroxine Sodium [Synthroid] 100 mcg PO DAILY Glimepiride [Amaryl] 2 mg PO DAILY Docusate [Colace] 100 mg PO DAILY traMADol HCL [Ultram] 1 tab PO DAILY Inulin/Chromium Picolinate [Fiber Gummies Chew] 1 each PO DAILY Cyclobenzaprine [Flexeril] 5 mg PO HS PRN PRN Reason: Muscle Pain Cranberry Fruit Extract [Cranberry] 200 mg PO DAILY Fish Oil/Dha/Epa [Fish Oil 1,200 mg Fish Oil] 1 each PO DAILY Galantamine [Razadyne] 4 mg PO AC-BID Carboxymethylcellulose Sodium [Refresh Tears] 15 ml BOTH EYES DAILY PRN PRN Reason: dry eyes Fluticasone Propionate [Flonase Allergy Relief] 1 spray EA NOSTRIL DAILY Multivitamin/Iron/Folic Acid [Centrum Women Tablet] 1 each PO DAILY Furosemide [Lasix] 20 mg PO MOWEFR Potassium Chloride ER [K-Dur 10] 10 meq PO DAILY Ammonium Lactate Cream [Lac-Hydrin 12% Cream] 1 applic TOPICAL BID PRN PRN Reason: Dry Skin Losartan Potassium [Cozaar] 100 mg PO DAILY Glimepiride [Amaryl] 1 mg PO HS Cyanocobalamin (Vitamin B-12) [Vitamin B-12] 1,000 mcg PO DAILY Cetirizine HCl [Zyrtec] 10 mg PO DAILY Discharge Medication List Aspirin 81 mg PO DAILY 03/29/14 [History] Docusate [Colace] 100 mg PO DAILY 03/29/14 [History] Glimepiride [Amaryl] 2 mg PO DAILY 03/29/14 [History] Levothyroxine Sodium [Synthroid] 100 mcg PO DAILY 03/29/14 [History] Metoprolol Succinate [Toprol XL] 50 mg PO DAILY 03/29/14 [History] Montelukast [Singulair] 10 mg PO HS 03/29/14 [History] allopurinoL [Zyloprim] 300 mg PO DAILY 03/29/14 [History] amLODIPine/ATORVASTATIN [Caduet 10 mg-10 mg Tablet] 1 each PO HS 03/29/14 [History] buPROPion HCL [Wellbutrin] 200 mg PO DAILY 03/29/14 [History] traMADol HCL [Ultram] 1 tab PO DAILY 10/17/20 [History] Ammonium Lactate Cream [Lac-Hydrin 12% Cream] 1 applic TOPICAL BID PRN 11/17/20 [History] Cranberry Fruit Extract [Cranberry] 200 mg PO DAILY 11/17/20 [History] Cyclobenzaprine [Flexeril] 5 mg PO HS PRN 11/17/20 [History] Fish Oil/Dha/Epa [Fish Oil 1,200 mg Fish Oil] 1 each PO DAILY 11/17/20 [History] Fluticasone Propionate [Flonase Allergy Relief] 1 spray EA NOSTRIL DAILY 11/17/20 [History] Furosemide [Lasix] 20 mg PO MOWEFR 11/17/20 [History] Inulin/Chromium Picolinate [Fiber Gummies Chew] 1 each PO DAILY 11/17/20 [History] Multivitamin/Iron/Folic Acid [Centrum Women Tablet] 1 each PO DAILY 11/17/20 [History] Potassium Chloride ER [K-Dur 10] 10 meq PO DAILY 11/17/20 [History] Carboxymethylcellulose Sodium [Refresh Tears] 15 ml BOTH EYES DAILY PRN 01/23/21 [History] Cetirizine HCl [Zyrtec] 10 mg PO DAILY 01/23/21 [History] Cyanocobalamin (Vitamin B-12) [Vitamin B-12] 1,000 mcg PO DAILY 01/23/21 [History] Galantamine [Razadyne] 4 mg PO AC-BID 01/23/21 [History] Glimepiride [Amaryl] 1 mg PO HS 01/23/21 [History] Losartan Potassium [Cozaar] 100 mg PO DAILY 01/23/21 [History] Follow up Appointment(s)/Referral(s): Elizabeth Bustamante MD [STAFF PHYSICIAN] - 1 Week Activity/Diet/Wound Care/Special Instructions: may shower after 48 ours wear bra at all times so nor drive if taking narcotic pain medication Discharge Disposition: HOME SELF-CARE
[2021-01-24 12:08] VITALS: TEMP 97
[2021-01-24 12:15] LABS: Glucose,Whole Blood 120 mg/dL (75-99)
[2021-01-24 12:17] VITALS: RESP 16
[2021-01-24] MEDS: HYDROmorphone 0.5 MG/0.5 ML SYRINGE IVP PRN ×3 (12:24→12:47)
[2021-01-24 13:57] VITALS: BP 111/67; PULSE 61
[2021-01-24] MEDS ORDERED: ONDANSETRON 4 MG/2 ML VIAL IVP ONE (14:20)
[2021-01-24] MEDS ORDERED: ONDANSETRON 4 MG/2 ML VIAL ONE (14:24)
--- NOTE | 2021-02-02 10:09 | MM ---
MG Surgical Specimen RT EXAMINATION TYPE: MG pre op needle loc RT DATE OF EXAM: 01/24/2021 COMPARISON: NONE CLINICAL HISTORY: Biopsy-proven malignancy right breast TECHNIQUE: Needle localization with wire placement and surgical excision of area of concern in the right breast. FINDINGS: The procedure of needle localization with wire placement for surgical excision was explained to the patient. Risk, benefits, and alternatives were discussed. An informed consent was then obtained. A timeout was performed. The overlying skin was prepped and draped in usual sterile fashion. Lidocaine 1% was used as anesthetic into the skin and subcutaneous tissue up to the level of area of concern. A 5 cm needle was used. This was placed via a lateral approach under mammographic guidance. Subsequent 90 degrees mammogram show the needle to be in satisfactory position relative to the targeted area. The wire was placed through the needle and the needle was withdrawn. The wire was fixed to patient's skin. Images were marked for surgeon. The patient tolerated the procedure well without any immediate complication. Specimen: The wire and the targeted wing clip is identified within the specimen mammogram. IMPRESSION: 1. Successful wire localization and excision. Recommendations: 1. Recommendations are pending pathology results. RECOMMENDATION: Surgical consultation of the right breast. BAUDILIO
== END 2021-01-24 15:00 | disposition home or self-care (01) ==
LOC: OR 07:32
PROVIDERS: ATTEND Surgery
DX: C50.911 Malignant neoplasm of unspecified site of right female breast (principal); Z17.0 Estrogen receptor positive status [ER+]; I51.7 Cardiomegaly; J45.909 Unspecified asthma, uncomplicated; I13.0 Hypertensive heart and chronic kidney disease with heart failure and stage 1 through stage 4 chronic kidney disease, or unspecified chronic kidney disease; E11.22 Type 2 diabetes mellitus with diabetic chronic kidney disease; N18.30 Chronic kidney disease, stage 3 unspecified; I50.30 Unspecified diastolic (congestive) heart failure; G47.30 Sleep apnea, unspecified; E03.9 Hypothyroidism, unspecified; M10.9 Gout, unspecified; M19.90 Unspecified osteoarthritis, unspecified site; F32.9 Major depressive disorder, single episode, unspecified; F03.90 Unspecified dementia, unspecified severity, without behavioral disturbance, psychotic disturbance, mood disturbance, and anxiety; M79.10 Myalgia, unspecified site; H93.19 Tinnitus, unspecified ear; Z80.1 Family history of malignant neoplasm of trachea, bronchus and lung; Z80.8 Family history of malignant neoplasm of other organs or systems; Z90.710 Acquired absence of both cervix and uterus; Z90.722 Acquired absence of ovaries, bilateral; Z96.653 Presence of artificial knee joint, bilateral; Z98.890 Other specified postprocedural states; Z90.49 Acquired absence of other specified parts of digestive tract; Z90.89 Acquired absence of other organs; Z87.891 Personal history of nicotine dependence; K59.00 Constipation, unspecified; Z91.048 Other nonmedicinal substance allergy status; Z79.82 Long term (current) use of aspirin; Z79.890 Hormone replacement therapy; Z79.4 Long term (current) use of insulin; Z79.899 Other long term (current) drug therapy; Z88.5 Allergy status to narcotic agent; Z88.0 Allergy status to penicillin; Z88.8 Allergy status to other drugs, medicaments and biological substances
CPT/HCPCS: 19301; 38525; 88342; 88307; 88341; 76098; 38792; A9520; J0330; J1100; J2405; J2001; J3010; J2370; J2704; Q9968; J1170; J1644

== ENCOUNTER 2021-01-25 09:40 | Emergency (ER) | payer MEDICARE ==
[2021-01-25 09:45] VITALS: BP 134/67; PULSE 79; RESP 18; TEMP 97.5
[2021-01-25] MEDS ORDERED: KETOROLAC 15 MG/ML 1 ML VIAL IM STA (10:06)
--- NOTE | 2021-01-25 10:09 | ED ---
General Adult HPI - General Chief complaint: Extremity Injury, Lower Stated complaint: leg pain, post surgery Time Seen by Provider: 01/25/21 09:48 Source: patient, RN notes reviewed Mode of arrival: ambulatory Limitations: no limitations - History of Present Illness Initial comments: 80-year-old female with a past medical history of asthma, skin cancer, diabetes mellitus, hyperlipidemia, hypertension presents to the emergency room for right leg pain. Patient reports this just started this morning. She reports that the pain rates from her buttock down to her right foot. Patient states she has had sciatica in the past and this does feel similar. Patient recently had lumpectomy and her doctor recommended they rule out blood clot. Patient denies any chest pain or shortness of breath.Patient has no other complaints at this time including shortness of breath, chest pain, abdominal pain, nausea or vomiting, headache, or visual changes. - Related Data Home Medications Medication Instructions Recorded Confirmed Aspirin 81 mg PO DAILY 03/29/14 01/23/21 Docusate [Colace] 100 mg PO DAILY 03/29/14 01/23/21 Glimepiride [Amaryl] 2 mg PO DAILY 03/29/14 01/23/21 Levothyroxine Sodium [Synthroid] 100 mcg PO DAILY 03/29/14 01/23/21 Metoprolol Succinate [Toprol XL] 50 mg PO DAILY 03/29/14 01/23/21 Montelukast [Singulair] 10 mg PO HS 03/29/14 01/23/21 allopurinoL [Zyloprim] 300 mg PO DAILY 03/29/14 01/23/21 amLODIPine/ATORVASTATIN [Caduet 10 1 each PO HS 03/29/14 01/23/21 mg-10 mg Tablet] buPROPion HCL [Wellbutrin] 200 mg PO DAILY 03/29/14 01/23/21 traMADol HCL [Ultram] 1 tab PO DAILY 10/17/20 01/23/21 Ammonium Lactate Cream [Lac-Hydrin 1 applic TOPICAL BID PRN 11/17/20 01/23/21 12% Cream] Cranberry Fruit Extract [Cranberry] 200 mg PO DAILY 11/17/20 01/23/21 Cyclobenzaprine [Flexeril] 5 mg PO HS PRN 11/17/20 01/23/21 Fish Oil/Dha/Epa [Fish Oil 1,200 1 each PO DAILY 11/17/20 01/23/21 mg Fish Oil] Fluticasone Propionate [Flonase 1 spray EA NOSTRIL DAILY 11/17/20 01/23/21 Allergy Relief] Furosemide [Lasix] 20 mg PO MOWEFR 11/17/20 01/23/21 Inulin/Chromium Picolinate [Fiber 1 each PO DAILY 11/17/20 01/23/21 Gummies Chew] Multivitamin/Iron/Folic Acid 1 each PO DAILY 11/17/20 01/23/21 [Centrum Women Tablet] Potassium Chloride ER [K-Dur 10] 10 meq PO DAILY 11/17/20 01/23/21 Carboxymethylcellulose Sodium 15 ml BOTH EYES DAILY PRN 01/23/21 01/23/21 [Refresh Tears] Cetirizine HCl [Zyrtec] 10 mg PO DAILY 01/23/21 01/23/21 Cyanocobalamin (Vitamin B-12) 1,000 mcg PO DAILY 01/23/21 01/23/21 [Vitamin B-12] Galantamine [Razadyne] 4 mg PO AC-BID 01/23/21 01/23/21 Glimepiride [Amaryl] 1 mg PO HS 01/23/21 01/23/21 Losartan Potassium [Cozaar] 100 mg PO DAILY 01/23/21 01/23/21 Allergies Allergy/AdvReac Type Severity Reaction Status Date / Time shellfish derived Allergy Unknown Verified 01/25/21 09:41 adhesive AdvReac blisters Verified 01/25/21 09:41 gluten AdvReac Unknown Verified 01/25/21 09:41 Penicillins AdvReac Rash/Hives Verified 01/25/21 09:41 antibiotics AdvReac Diarrhea Uncoded 01/24/21 08:02 Review of Systems ROS Statement: Those systems with pertinent positive or pertinent negative responses have been documented in the HPI. ROS Other: All systems not noted in ROS Statement are negative. Past Medical History Past Medical History: Asthma, Cancer, Chest Pain / Angina, Diabetes Mellitus, Hyperlipidemia, Hypertension, Memory Impairment, Sleep Apnea/CPAP/BIPAP, Thyroid Disorder Additional Past Medical History / Comment(s): hx migraines,gout, arthritis, diverticulitis, skin cancer, has cpap, vertigo History of Any Multi-Drug Resistant Organisms: None Reported Past Surgical History: Cholecystectomy, Heart Catheterization, Hysterectomy, Joint Replacement Additional Past Surgical History / Comment(s): mena knee replacements, cataracts, fx finger left hand,skin cancer removed left and right ear forehead nose shoulder, colonoscopy, lt breast biopsy, rt breast biopsy, R breast lumpectomy Past Anesthesia/Blood Transfusion Reactions: Previous Problems w/ Anesthesia, Motion Sickness Additional Past Anesthesia/Blood Transfusion Reaction / Comment(s): high BP. daughter PONV Past Psychological History: Depression Smoking Status: Never smoker Past Alcohol Use History: None Reported Past Drug Use History: None Reported - Past Family History Mother Family Medical History: Blood Disorder, Cancer Additional Family Medical History / Comment(s): bone cancer Sister(s) Family Medical History: Blood Disorder General Exam Limitations: no limitations General appearance: alert, in no apparent distress Head exam: Present: atraumatic, normocephalic, normal inspection Eye exam: Present: normal appearance, PERRL, EOMI. Absent: scleral icterus, conjunctival injection, periorbital swelling ENT exam: Present: normal exam Neck exam: Present: normal inspection, full ROM. Absent: tenderness Respiratory exam: Present: normal lung sounds bilaterally. Absent: respiratory distress, wheezes Cardiovascular Exam: Present: regular rate, normal rhythm, normal heart sounds GI/Abdominal exam: Present: soft, normal bowel sounds. Absent: distended, tenderness, guarding, rebound, rigid Extremities exam: Present: normal capillary refill (Capillary refill less than 2 seconds, DP pulse 2+ right lower extremity), other (Sensation intact right foot.). Absent: full ROM (Patient has about 45 flexion of the right hip which elicits pain.), tenderness (No tenderness of the right hip knee or calf.), calf tenderness (No tenderness in the calf, negative Homans sign. No edema or erythema. No increased warmth.) Course Vital Signs 01/25/21 09:42 Temperature 97.5 F L Pulse Rate 79 Respiratory 18 Rate Blood Pressure 134/67 O2 Sat by Pulse 98 Oximetry Medical Decision Making - Medical Decision Making Vitals are stable. Patient is well appearing. Neurovascular status intact in the right lower extremity. She does have some pain with movement of the right hip. X-ray showed no fracture however there is arthritis and chronic changes. Lumbar spine x-ray was obtained given I suspect her symptoms are radicular in nature. This did show significant chronic changes in the back which patient is aware of. Ultrasound was obtained which showed no acute DVT. Patient with assessment to follow up with primary care. Will return here for any worsening symptoms., Patient was evaluated by Dr. Zimmer. Disposition Clinical Impression: Leg pain Disposition: HOME SELF-CARE Condition: Good Instructions (If sedation given, give patient instructions): Leg Pain (ED) Additional Instructions: Please take Tylenol for pain. Please follow-up with your primary care doctor. If symptoms worsen return to the emergency room. Is patient prescribed a controlled substance at d/c from ED?: No Referrals: Milvia Fam MD [Primary Care Provider] - 1-2 days Time of Disposition: 12:02
--- NOTE | 2021-01-25 10:40 | XR ---
EXAMINATION TYPE: XR Hip Complete RT DATE OF EXAM: 01/25/2021 CLINICAL HISTORY: Pain. TECHNIQUE: AP and frogleg views of the right hip are obtained. COMPARISON: None. FINDINGS: There is no acute fracture/dislocation evident in the right hip. Mild to moderate axial kelvin int space loss right hip with mild acetabular spurring. Right-sided pelvic phleboliths. IMPRESSION: As above.
--- NOTE | 2021-01-25 10:42 | XR ---
EXAMINATION TYPE: XR lumbar spine 2 or 3V DATE OF EXAM: 01/25/2021 CLINICAL HISTORY: Low back pain. TECHNIQUE: Frontal and lateral images of the lumbar spine are obtained. COMPARISON: None FINDINGS: There are 6 lumbar type vertebral bodies identified. The lumbar spine shows dextroconvex scoliosis centered at L4-L5 level. There is grade 1 anterolisthesis L5 on L6. Slight grade 1 retrolis thesis L6 on S1. Mild to moderate disc space narrowing L6-S1 level. [id number] disc space narro wing with vacuum disc phenomenon and mild to moderate spurring about L2-L3 and L3-L4 levels. Multilev el spinous process hypertrophy. Multilevel mild to moderate anterior and lateral spurring. Multilevel facet arthropathy in the mid to lower lumbar spine. Moderate to severe calcified plaque of overlying abdominal aorta. IMPRESSION: As above.
--- NOTE | 2021-01-25 11:49 | US ---
EXAMINATION TYPE: US venous doppler duplex LE RT DATE OF EXAM: 01/25/2021 10:48 AM COMPARISON: None. CLINICAL HISTORY: pain. No redness. No swelling. Pain. No hx DVT. On baby aspirin. SIDE PERFORMED: Right TECHNIQUE: The lower extremity deep venous system is examined utilizing real time linear array sonog laura with graded compression, doppler sonography and color-flow sonography. VESSELS IMAGED: Common Femoral Vein Deep Femoral Vein Greater Saphenous Vein * Femoral Vein Popliteal Vein Small Saphenous Vein * Proximal Calf Veins (* superficial vessels) Suboptimal visualization due to patient body habitus Right Leg: Negative for acute DVT Grayscale, color doppler, spectral doppler imaging performed of the deep veins of the right lower ext remity. There is normal flow, compressibility, vascular waveforms. IMPRESSION: Suboptimal study without acute DVT in the right lower extremity identified.
== END 2021-01-25 12:13 | disposition home or self-care (01) ==
LOC: EC 09:40
DX: M25.551 Pain in right hip (principal); E11.9 Type 2 diabetes mellitus without complications; E78.5 Hyperlipidemia, unspecified; I10 Essential (primary) hypertension; F32.9 Major depressive disorder, single episode, unspecified; J45.909 Unspecified asthma, uncomplicated; G47.30 Sleep apnea, unspecified; M19.90 Unspecified osteoarthritis, unspecified site; G43.909 Migraine, unspecified, not intractable, without status migrainosus; Z79.4 Long term (current) use of insulin; Z79.82 Long term (current) use of aspirin; Z88.0 Allergy status to penicillin
CPT/HCPCS: 72100; 73502; 93971; 99284; 96372; J1885; 96374

== ENCOUNTER → 2021-02-03 | Outpatient (CLI) | payer MEDICARE ==
[2021-02-03 14:17] VITALS: BP 135/80; PULSE 75; RESP 18; TEMP 98.2
--- NOTE | 2021-02-03 14:28 | P.PN ---
Subjective Progress Note Date: 02/03/21 Principal diagnosis: Invasive lobular carcinoma right breast Natasha is postop day #10 blade breast lumpectomy and sentinel node biopsy. Pathology revealed isolated tumor cells in sentinel lymph node, and posterior lateral and superior margins positive for invasive lobular carcinoma. She tolerated the operation without difficulty. She did have methylene blue injection at the site of methylene blue there is some erythema of the breast. Objective - Vital Signs Vital signs: Vital Signs Temp 98.2 F 02/03/21 14:14 Pulse 75 02/03/21 14:14 Resp 18 02/03/21 14:14 BP 135/80 02/03/21 14:14 Pulse Ox 96 02/03/21 14:14 Intake & Output 02/02/21 02/03/21 02/03/21 18:59 06:59 18:59 Weight 112.491 kg - Exam BMI 43.9 - Constitutional General appearance: Present: cooperative - Respiratory Respiratory: bilateral: CTA - Cardiovascular Rhythm: regular Heart sounds: normal: S1, S2 - Integumentary Integumentary Comment(s): Mild erythema at the methylene blue injection site, other incisions clean and dry - Musculoskeletal Musculoskeletal Comment(s): uses a walker - Psychiatric Psychiatric: Present: A&O x's 3, appropriate affect, intact judgment & insight Assessment and Plan Assessment: Impression: 1. Patient status post right breast lumpectomy and sentinel node biopsy. Pathology positive superior and lateral margins posterior margin had been reexcised I discussed with the patient the option of reexcision of the superior and lateral margin versus mastectomy. She understands of lateral superior margin would be positive then a mastectomy would be recommended. She would prefer to attempt a lumpectomy. Plan: 1. Reexcision of superior and lateral lumpectomy margins 2. Clearance from Dr. Fam 3. At this time patient is going to be given a prescription for Keflex secondary to some erythema near the methylene blue injection site CC: Dr. Fam
== END ==
LOC: WWCWWP 13:31
PROVIDERS: ATTEND Surgery
DX: C50.911 Malignant neoplasm of unspecified site of right female breast (principal); Z98.890 Other specified postprocedural states; Z88.0 Allergy status to penicillin; Z88.1 Allergy status to other antibiotic agents; Z91.048 Other nonmedicinal substance allergy status; Z91.018 Allergy to other foods; Z91.013 Allergy to seafood; Z87.891 Personal history of nicotine dependence

== ENCOUNTER → 2021-02-09 | Outpatient (CLI) | payer MEDICARE ==
--- NOTE | 2021-02-09 10:32 | P.PN ---
Progress Note - Text Progress Note Date: 02/09/21 Invasive lobular carcinoma right breast Natasha is postop day # 16 right breast lumpectomy and sentinel node biopsy. Pathology revealed isolated tumor cells in sentinel lymph node, and posterior lateral and superior margins positive for invasive lobular carcinoma. She tolerated the operation without difficulty. She did have methylene blue injection at the site of methylene blue there is some erythema of the breast. She is not complaining of any fever or chills. She is not complaining of any pain or changes in the breast. lungs : clear heart: RRR incision: Right breast decreased erythema Right axillary incision clean and dry Impression: 1. Remove sutures right axilla 2. Reexcision of lumpectomy site lateral and superior margin 3. Follow-up approximately one week prior to reexcision of the lumpectomy site CC: Dr. Fam
[2021-02-09 11:10] VITALS: BP 127/67; PULSE 76; RESP 20; TEMP 97.5
== END ==
LOC: WWCWWP 10:22
PROVIDERS: ATTEND Surgery
DX: Z48.02 Encounter for removal of sutures (principal); C50.911 Malignant neoplasm of unspecified site of right female breast; Z87.891 Personal history of nicotine dependence; Z88.0 Allergy status to penicillin; Z88.1 Allergy status to other antibiotic agents; Z91.048 Other nonmedicinal substance allergy status; Z91.018 Allergy to other foods; Z91.013 Allergy to seafood

== ENCOUNTER 2021-03-16 10:11 | Day surgery (SDC) | payer MEDICARE ==
--- NOTE | 2021-03-10 13:16 | P.PN ---
Subjective Progress Note Date: 03/10/21 Principal diagnosis: Invasive lobular carcinoma status post lumpectomy posterior lateral and superior margins were positive on resection Natasha is an 80 year old female seen in consultation for Dr. Fam regarding the radiographic abnormality noted in her right breast which was biopsy-proven to be invasive lobular carcinoma. She underwent a bilateral screening mammogram and [id number]. This was felt to be incomplete and special views of the right breast were recommended. The area of concern was some possible architectural distortion at the 9 o'clock position of the right breast. Spot compression views were then obtained of the right breast and 3121. The distortion pe rsisted and an ultrasound was recommended. An ultrasound was performed on the same date. This revealed a 0.3 cystic lesion at 8:00 and a 1 x 1.8 x 0.8 cm irregular solid lesion at 9:00. The lesion at 9:00 was recommended to [place]. [place] [address]. This was positive for invasive lobular carcinoma grade 1. The tumor is ER +100%, P a +90%, and HER-2/michelet negative. The patient had not felt any lumps masses or nodules in her breast. She is not complaining of any nipple discharge or skin changes. This was a routine screening mammogram. No lesions of concern were noted at this time in the left breast. She has had a stereotactic core biopsy of the left breast in the remote past but this was benign. She underwent a lumpectomy and sentinel node biopsy and 6821. The posterior/lateral and superior margins of the lumpectomy were positive for invasive lobular carcinoma. [place] node biopsy revealed isolated tumor cells 2 additional nodes were negative for cancer Her case was presented at tumor board and after presentation it was recommended that she undergo reexcision of the positive margins. Caffeine: tea occasional nicotine: none chocolate: daily hormones: not at this time; used to take Premarin following a hysterectomy approximately 3 years, she stopped many years ago Family history: mother: bone cancer, lung cancer patient: SCC face and shoulder Hormonal History: menarche: 9 M2, breast fed: yes, first live : 35 menopause: hysterectomy at 43 took both ovaries, no cancer BCP: used for about 3 years Surgical History: 1. hysterectomy bilateral oophrectomys 2. bilateral knee replacement 3. left little finger 4. gallbladder 5. appy 6. SCC face, and shoulder Medical History: 1. asthma 2. HTN 3. DM 4. gout 5. arthritis 6. CPAP 7. depression 8. early dementia 9. chronic kidney disease Social History: nicotine: (age [age] occasional) not now alcohol: stopped at 53; used to drink occasional drugs: none - Constitutional Constitutional: Denies chills, Denies fever - EENT Comment: wears glasses Eyes: denies blurred vision, denies pain Ears: bilateral: decreased hearing, tinnitus Ears, nose, mouth and throat: Denies headache, Denies sore throat - Breasts Breasts: bilateral: as per HPI - Cardiovascular Comment: enlarged heart, HTN - Respiratory Comment: sleep apnea, asthma - Gastrointestinal Gastrointestinal: Reports constipation - Genitourinary (Female) Comment: chronic kidney disease stage 3 Genitourinary: Denies dysuria, Denies hematuria - Menstruation Menstruation: Reports post hysterectomy - Musculoskeletal Musculoskeletal: Reports myalgias - Integumentary Comment: dry skin, yeast infections - Neurological Neurological: Reports weakness - Psychiatric Psychiatric: Reports depression - Endocrine Comment: diabetic, hypothyroid Endocrine: Denies fatigue, Denies weight change - Hematologic/Lymphatic Comment: aspirin daily - Allergic/Immunologic Allergic/Immunologic: Reports as per HPI Objective - Exam BMI: 46.1 - Constitutional General appearance: Present: morbidly obese - EENT EENT Comment(s): wears glasses ENT: Present: hard of hearing - Respiratory Respiratory: bilateral: CTA - Cardiovascular Heart sounds: normal: S1, S2 - Integumentary Integumentary: Present: normal turgor - Musculoskeletal Musculoskeletal Comment(s): Uses a walker - Psychiatric Psychiatric: Present: A&O x's 3, appropriate affect, intact judgment & insight - Additional findings Additional findings: Breast examination Matt: 48 mL Inspection: Grade 3 ptosis bilaterally Palpation: Right breast status post lumpectomy and sentinel node biopsy No evidence of infection Right axilla: Incision healing well Left breast: Fibrocystic changes or dominant masses or nodules of concern Left axilla: No adenopathy of concern Assessment and Plan Assessment: Impression: 1. asthma 2. HTN 3. DM 4. gout 5. arthritis 6. CPAP 7. depression 8. early dementia 9. chronic kidney disease 10. Status post lumpectomy for invasive lobular right breast cancer positive po sterior lateral and superior margin Plan: Reexcision of posterior lateral and superior margin from lumpectomy site right breast Her case was presented at tumor board and this was the recommendation Possible onco plastic tissue transfer Risk and benefits of the procedure discussed with the patient and her daughter. The risks include but are not limited to bleeding, infection, reaction to the a nesthetic. Additionally if the margins were to be positive again may be recommended she undergo a mastectomy. They understand and wish to proceed.
[2021-03-14 13:15] VITALS: BMI 45.3
[~2021-03-16 10:11] MED LIST changes: -DEXAMETHASONE SOD PHOSPHATE 4 MG/ML 1 ML VIAL IV ONE; -LIDOCAINE 1% (10MG/ML) FOR IV START INTRADERMA PRN; -MIDAZOLAM 2 MG/2 ML VIAL IV PRN
[2021-03-16 10:55] LABS: Glucose,Whole Blood 114 mg/dL (75-99)
[2021-03-16] MEDS ORDERED: fentaNYL (PF) 50 MCG/ML 2 ML AMP ONE (11:54)
[2021-03-16] MEDS ORDERED: HEPARIN SODIUM,PORCINE 5,000 UNIT/ML 1 ML VIAL ONE (11:54)
[2021-03-16] MEDS ORDERED: SUCCINYLCHOLINE CHLORIDE 100 MG/5 ML SYR IV ONE (11:54)
[2021-03-16] MEDS ORDERED: PHENYLEPHRINE-0.9% NACL SYG 1,000 MCG/10 ML SYRINGE ONE (11:54)
[2021-03-16] MEDS ORDERED: LIDOCAINE 1% INJ 10MG/ML (20 ML MDV) ONE (11:54)
[2021-03-16] MEDS ORDERED: PROPOFOL 10 MG/ML 20 ML VIAL IV ONE (11:54)
[2021-03-16] MEDS ORDERED: SODIUM CHLORIDE 0.9% 100 ML with ceFAZolin 2,000 MG IV ONE ×2 (12:10)
--- NOTE | 2021-03-16 12:45 | P.OP ---
Date of Procedure: 03/16/21 Preoperative Diagnosis: Invasive lobular carcinoma status post lumpectomy with positive posterior superior and lateral margins/posterior dissection was onto the pectoralis muscle Postoperative Diagnosis: Excision superior and lateral margins Procedure(s) Performed: Reexcision of lumpectomy margin superior and lateral Anesthesia: CHELSEY Surgeon: Elizabeth Bustamante Estimated Blood Loss (ml): 5 IV fluids (ml): 700 Pathology: other (Breast tissue) Condition: stable Disposition: same day Indications for Procedure: Prior lumpectomy invasive lobular carcinoma with positive superior-lateral and posterior margins/posterior margins could not be obtained as there were down to the pectoralis muscle Operative Findings: Fibrofatty breast tissue/lumpectomy cavity Description of Procedure: The patient was taken to the operative suite and following induction of anesthesia the right breast was prepped and draped in a sterile fashion. An incision was made through the prior incision site and carried down to the lumpectomy cavity. Reexcision of the superior and lateral margins was performed. This was dissected down to the pectoralis muscle posterior dissection had previously been to the pectoralis muscle. Following this the deep tissues were brought together by a 3-0 Vicryl suture. This was followed by 4-0 Monocryl and a running nylon skin suture. This was done after assured that hemostasis was attained. The patient tolerated the procedure in stable condition. The specimen was sent for pathology after was painted for orientation.
--- NOTE | 2021-03-16 12:46 | P.DS ---
Providers Attending physician: Elizabeth Bustamante Primary care physician: Milvia Fam Plan - Discharge Summary Discharge Rx Participant: Yes New Discharge Prescriptions: No Action Aspirin 81 mg PO DAILY buPROPion HCL [Wellbutrin] 200 mg PO DAILY amLODIPine/ATORVASTATIN [Caduet 10 mg-10 mg Tablet] 1 each PO HS Montelukast [Singulair] 10 mg PO HS Metoprolol Succinate [Toprol XL] 50 mg PO DAILY allopurinoL [Zyloprim] 300 mg PO DAILY Levothyroxine Sodium [Synthroid] 100 mcg PO DAILY Glimepiride [Amaryl] 2 mg PO DAILY Docusate [Colace] 100 mg PO DAILY traMADol HCL [Ultram] 50 mg PO DAILY PRN PRN Reason: Pain Cyclobenzaprine [Flexeril] 5 mg PO HS PRN PRN Reason: Muscle Pain Cranberry Fruit Extract [Cranberry] 200 mg PO DAILY Fish Oil/Dha/Epa [Fish Oil 1,200 mg Fish Oil] 1 each PO DAILY Galantamine [Razadyne] 4 mg PO AC-BID Carboxymethylcellulose Sodium [Refresh Tears] 15 ml BOTH EYES DAILY PRN PRN Reason: dry eyes Fiber Tablet 1 tab PO DAILY Fluticasone Propionate [Flonase Allergy Relief] 1 spray EA NOSTRIL DAILY Multivitamin/Iron/Folic Acid [Centrum Women Tablet] 1 each PO DAILY Furosemide [Lasix] 20 mg PO MOWEFR Losartan Potassium [Cozaar] 100 mg PO HS Glimepiride [Amaryl] 0.5 mg PO HS Cyanocobalamin (Vitamin B-12) [Vitamin B-12] 1,000 mcg PO DAILY Cetirizine HCl [Zyrtec] 10 mg PO DAILY Potassium Chloride 10 meq PO DAILY Discharge Medication List Aspirin 81 mg PO DAILY 03/29/14 [History] Docusate [Colace] 100 mg PO DAILY 03/29/14 [History] Glimepiride [Amaryl] 2 mg PO DAILY 03/29/14 [History] Levothyroxine Sodium [Synthroid] 100 mcg PO DAILY 03/29/14 [History] Metoprolol Succinate [Toprol XL] 50 mg PO DAILY 03/29/14 [History] Montelukast [Singulair] 10 mg PO HS 03/29/14 [History] allopurinoL [Zyloprim] 300 mg PO DAILY 03/29/14 [History] amLODIPine/ATORVASTATIN [Caduet 10 mg-10 mg Tablet] 1 each PO HS 03/29/14 [History] buPROPion HCL [Wellbutrin] 200 mg PO DAILY 03/29/14 [History] traMADol HCL [Ultram] 50 mg PO DAILY PRN 10/17/20 [History] Cranberry Fruit Extract [Cranberry] 200 mg PO DAILY 11/17/20 [History] Cyclobenzaprine [Flexeril] 5 mg PO HS PRN 11/17/20 [History] Fish Oil/Dha/Epa [Fish Oil 1,200 mg Fish Oil] 1 each PO DAILY 11/17/20 [History] Fluticasone Propionate [Flonase Allergy Relief] 1 spray EA NOSTRIL DAILY 11/17/20 [History] Furosemide [Lasix] 20 mg PO MOWEFR 11/17/20 [History] Multivitamin/Iron/Folic Acid [Centrum Women Tablet] 1 each PO DAILY 11/17/20 [History] Carboxymethylcellulose Sodium [Refresh Tears] 15 ml BOTH EYES DAILY PRN 01/23/21 [History] Cetirizine HCl [Zyrtec] 10 mg PO DAILY 01/23/21 [History] Cyanocobalamin (Vitamin B-12) [Vitamin B-12] 1,000 mcg PO DAILY 01/23/21 [History] Galantamine [Razadyne] 4 mg PO AC-BID 01/23/21 [History] Glimepiride [Amaryl] 0.5 mg PO HS 01/23/21 [History] Losartan Potassium [Cozaar] 100 mg PO HS 01/23/21 [History] Fiber Tablet 1 tab PO DAILY 03/14/21 [History] Potassium Chloride 10 meq PO DAILY 03/15/21 [History] Follow up Appointment(s)/Referral(s): Elizabeth Bustamante MD [STAFF PHYSICIAN] - 1 Week Activity/Diet/Wound Care/Special Instructions: do not drive today or if taking narcotic pain medication may shower after 48 hours wear bra at all times Discharge Disposition: HOME SELF-CARE
[2021-03-16 13:05] VITALS: RESP 16; TEMP 96.8
[2021-03-16] MEDS: HYDROmorphone 0.5 MG/0.5 ML SYRINGE IVP PRN ×3 (13:09→13:35)
[2021-03-16 13:15] LABS: Glucose,Whole Blood 102 mg/dL (75-99)
[2021-03-16] MEDS ORDERED: diphenhydrAMINE 50 MG/ML 1 ML VIAL ONE (14:07)
[2021-03-16] MEDS ORDERED: diphenhydrAMINE 50 MG/ML 1 ML VIAL IVP ONE (14:12)
[2021-03-16] MEDS ORDERED: NALBUPHINE 10 MG/ML (1 ML AMP) IV ONE (14:40)
[2021-03-16] MEDS ORDERED: LACTATED RINGERS 1,000 ML IV ONE (15:00)
[2021-03-16 15:14] VITALS: BP 127/74; PULSE 52
== END 2021-03-16 15:50 | disposition home or self-care (01) ==
LOC: OR 10:11
PROVIDERS: ATTEND Surgery
DX: C50.911 Malignant neoplasm of unspecified site of right female breast (principal); I10 Essential (primary) hypertension; E78.5 Hyperlipidemia, unspecified; G47.33 Obstructive sleep apnea (adult) (pediatric); E11.9 Type 2 diabetes mellitus without complications; N28.9 Disorder of kidney and ureter, unspecified; Z88.0 Allergy status to penicillin; Z79.84 Long term (current) use of oral hypoglycemic drugs; Z79.82 Long term (current) use of aspirin; Z79.890 Hormone replacement therapy
CPT/HCPCS: 19301; 84132; J1200; J1644; J2300; J2405; J0690; J2001; J3010; J2370; J0330; J2704; J1170; 88307

== ENCOUNTER → 2021-03-23 | Outpatient (CLI) | payer MEDICARE ==
[2021-03-23 12:18] VITALS: BP 145/76; PULSE 62; RESP 18; TEMP 97.7
--- NOTE | 2021-03-23 12:19 | P.PN ---
Subjective Progress Note Date: 03/23/21 Principal diagnosis: Invasive lobular carcinoma right breast, sentinel node biopsy isolated tumor cells Natasha is an 80-year-old white female status post right breast lumpectomy and sentinel node biopsy. The right breast lumpectomy was initially performed on 68. She was noted to have posterior lateral and superior margins positive for invasive lobular carcinoma. She went back to surgery on 720 [id number]. Pathology of the right lateral reexcision margin did not reveal any residual invasive cancer, pathology of the superior margin did not reveal any residual cancer. The posterior margin was onto the chest wall. The patient in the immediate postoperative period developed hives question there was question as to what this was related to. These have subsequently resolved. She used Benadryl cream. The hives were on the mid chest and left chest. Objective - Constitutional General appearance: Present: cooperative - EENT Eyes: Present: EOMI ENT: Present: hearing grossly normal - Neck Neck: Present: normal ROM - Respiratory Respiratory: bilateral: CTA - Cardiovascular Heart sounds: normal: S1, S2 - Integumentary Integumentary Comment(s): incision clean and dry - Psychiatric Psychiatric: Present: A&O x's 3, appropriate affect, intact judgment & insight Assessment and Plan Assessment: Impression: Patient status post right breast lumpectomy and sentinel node biopsy Lumpectomy for invasive lobular carcinoma, sentinel node isolated tumor cells Plan: Follow-up with radiation oncology Patient will follow with Dr. Valladares she was started on an antiestrogen, anestrazole Follow-up here in 4 months CC: Dr. Fam
== END ==
LOC: WWCWWP 11:55
PROVIDERS: ATTEND Surgery
DX: Z08 Encounter for follow-up examination after completed treatment for malignant neoplasm (principal); Z98.890 Other specified postprocedural states; Z85.3 Personal history of malignant neoplasm of breast; Z87.891 Personal history of nicotine dependence; Z88.1 Allergy status to other antibiotic agents; Z91.040 Latex allergy status; Z88.8 Allergy status to other drugs, medicaments and biological substances; Z91.013 Allergy to seafood; Z91.048 Other nonmedicinal substance allergy status; Z91.018 Allergy to other foods; Z88.0 Allergy status to penicillin

== ENCOUNTER → 2021-07-28 | Outpatient (CLI) | payer MEDICARE ==
[2021-07-28 13:44] VITALS: BP 111/56; PULSE 63; RESP 20; TEMP 98.1
--- NOTE | 2021-07-28 14:08 | P.PN ---
Subjective Progress Note Date: 07/28/21 Principal diagnosis: invasive lobular cancer right breast Natasha is an 81 year old white female status post right breast lumpectomy and sentinel node biopsy on 6820. She was noted to have posterior lateral and superior margins positive for invasive lobular carcinoma. She went back to surgery on . Pathology of the right lateral excision margin did not reveal any residual invasive cancer, pathology of the superior margin did not reveal any residual cancer. The posterior margin was on the chest wall. She completed radiation therapy approximately 6 weeks ago. At this time she is not complaining of any lumps masses or nodules in either breast. She is not complaining of any breast discomfort or nipple discharge. She has not started back on Arimidex. Caffeine: tea occasional nicotine: none chocolate: daily hormones: not at this time; used to take Premarin following a hysterectomy approximately 3 years, she stopped many years ago Family history: mother: bone cancer, lung cancer patient: SCC face and shoulder Hormonal History: menarche: 9 M2, breast fed: yes, first live : 35 menopause: hysterectomy at 43 took both ovaries, no cancer BCP: used for about 3 years Surgical History: 1. hysterectomy bilateral oophrectomys 2. bilateral knee replacement 3. left little finger 4. gallbladder 5. appy 6. SCC face, and shoulder 7. right breast lumpectomy and SNB Medical History: 1. asthma 2. HTN 3. DM 4. gout 5. arthritis 6. CPAP 7. depression 8. early dementia 9. chronic kidney disease Social History: nicotine: (age [age] occasional) not now alcohol: stopped at 53; used to drink occasional drugs: none - Constitutional Constitutional: Denies chills, Denies fever - EENT Comment: wears glasses Eyes: denies blurred vision, denies pain Ears: bilateral: decreased hearing, tinnitus Ears, nose, mouth and throat: Denies headache, Denies sore throat - Breasts Breasts: bilateral: as per HPI - Cardiovascular Comment: enlarged heart, HTN - Respiratory Comment: sleep apnea, asthma - Gastrointestinal Gastrointestinal: Reports constipation - Genitourinary (Female) Comment: chronic kidney disease stage 3 Genitourinary: Denies dysuria, Denies hematuria - Menstruation Menstruation: Reports post hysterectomy - Musculoskeletal Musculoskeletal: Reports myalgias - Integumentary Comment: dry skin, yeast infections - Neurological Neurological: Reports weakness - Psychiatric Psychiatric: Reports depression - Endocrine Comment: diabetic, hypothyroid Endocrine: Denies fatigue, Denies weight change - Hematologic/Lymphatic Comment: aspirin daily - Allergic/Immunologic Allergic/Immunologic: Reports as per HPI Objective - Vital Signs Vital signs: Vital Signs Temp 98.1 F 07/28/21 13:41 Pulse 63 07/28/21 13:41 Resp 20 07/28/21 13:41 BP 111/56 07/28/21 13:41 Pulse Ox 97 07/28/21 13:41 Intake & Output 07/27/21 07/28/21 07/28/21 18:59 06:59 18:59 Weight 104.78 kg - Exam BMI 42.3 - Constitutional General appearance: Present: cooperative - EENT Eyes: Present: EOMI ENT: Present: hearing grossly normal - Neck Neck: Present: normal ROM - Respiratory Respiratory: bilateral: CTA - Cardiovascular Heart sounds: normal: S1, S2 - Integumentary Integumentary: Present: normal turgor - Musculoskeletal Musculoskeletal Comment(s): uses a walker - Psychiatric Psychiatric Comment(s): seen with her daughter Psychiatric: Present: A&O x's 3, appropriate affect, intact judgment & insight - Additional findings Additional findings: Breast exam: 48C inspection: Asymmetry of the breast related to right lumpectomy and patient therapy Palpation: Right breast: Well-healed scar from prior surgery, no dominant masses or nodules of concern redundant right axillary tissue Right axilla: No adenopathy of concern Left breast: No dominant masses or nodules of concern Left axilla: No adenopathy of concern Redundant left axillary tissue symmetric to that on the right Assessment and Plan Assessment: Impression: 1. Invasive lobular carcinoma right breast status post sentinel node biopsy isolated tumor cells identified and lumpectomy patient status post radiation therapy 2. Patient was previously on an aromatase inhibitor is going to follow with medical oncology to restart this 3. asthma 4. HTN 5. diabetes 6. BMI 42.3 7. ? pinched nerve left shoulder Plan: 1. MRI of left shoulder 2. Follow-up with medical oncology 3. Bilateral mammogram in October 2021 4. Follow-up here in 4 months CC: Dr. Fam
== END ==
LOC: WWCWWP 12:49
PROVIDERS: ATTEND Surgery
DX: C50.911 Malignant neoplasm of unspecified site of right female breast (principal); J45.909 Unspecified asthma, uncomplicated; Z98.890 Other specified postprocedural states; M19.90 Unspecified osteoarthritis, unspecified site; F32.A Depression, unspecified; I12.9 Hypertensive chronic kidney disease with stage 1 through stage 4 chronic kidney disease, or unspecified chronic kidney disease; E11.22 Type 2 diabetes mellitus with diabetic chronic kidney disease; N18.9 Chronic kidney disease, unspecified; Z87.891 Personal history of nicotine dependence; Z92.3 Personal history of irradiation; Z88.1 Allergy status to other antibiotic agents; Z91.041 Radiographic dye allergy status; Z88.8 Allergy status to other drugs, medicaments and biological substances; Z91.048 Other nonmedicinal substance allergy status; Z91.018 Allergy to other foods; Z88.0 Allergy status to penicillin; Z91.013 Allergy to seafood

== ENCOUNTER → 2021-08-02 | Outpatient (CLI) | payer MEDICARE ==
[2021-08-02 20:48] LABS: African American GFR (CKD) 68.5 (60.0-200.0); Non-African American GFR(CKD) 59.1 (60.0-200.0)
== END | disposition home or self-care (01) ==
LOC: LABWHC1 13:22
PROVIDERS: ATTEND Family Medicine
DX: M54.12 Radiculopathy, cervical region (principal)
CPT/HCPCS: 36415; 82565; 84520

== ENCOUNTER → 2021-08-04 | Outpatient (CLI) | payer MEDICARE ==
--- NOTE | 2021-08-05 04:34 | MR ---
EXAMINATION TYPE: MR cervical spine wo con DATE OF EXAM: 08/04/2021 COMPARISON: None HISTORY: Breast cancer, and skin cancer. Neck and left shoulder pain Multiplanar multiecho imaging of the cervical spine without contrast. The cervical vertebra have normal alignment. There is some degenerative disc space narrowing at C5-6 with spurring of the endplates. There is small posterior cervical disc herniation at C5-6. There is d evelopmentally adequate spinal canal. Spinal canal measures 8 mm at C5-6 which is the narrowest point . The cervical spinal cord shows normal signal pattern. There is no edema. Brainstem is intact. There is no compression fracture. There is mild multilevel hypertrophic cervical facet arthropathy. There is no cervical paraspinal mass. I see no focal bone destruction. IMPRESSION: C5-6 spondylotic changes with small posterior disc herniation. No spinal stenosis. No evidence of met astatic disease.
--- NOTE | 2021-08-05 05:11 | MR ---
EXAMINATION TYPE: MR brain wo/w con DATE OF EXAM: 08/04/2021 COMPARISON: October 18, 2017 HISTORY: Breast cancer, and skin cancer. Neck and left shoulder pain CONTRAST: Standard multiplanar, multisequence MRI departmental protocol images were obtained without contrast a nd with 10 mL intravenous Gadavist gadolinium contrast. There is diffuse cerebral cortical atrophy. There is no mass effect nor midline shift. Diffusion imag es show no evidence of an acute infarct. There is patchy numerous foci of increased signal in the per iventricular white matter measuring up to 1 cm. Total number is more than 30. The brainstem is intact . Cerebellum is intact. The contrast images show no pathologic enhancement. There is normal enhanceme nt of the venous sinuses. Sella turcica is intact. There is no pathologic meningeal enhancement. IMPRESSION: Cerebral atrophy. Moderate white matter signal changes consistent with microvascular ischemia or demy elinating disease. No significant change compared to old exam. No evidence of metastatic disease.
== END | disposition home or self-care (01) ==
LOC: RADMRIMAIN 17:01
PROVIDERS: ATTEND Family Medicine
DX: C50.919 Malignant neoplasm of unspecified site of unspecified female breast (principal); M47.812 Spondylosis without myelopathy or radiculopathy, cervical region; M50.222 Other cervical disc displacement at C5-C6 level; G31.9 Degenerative disease of nervous system, unspecified
CPT/HCPCS: 70553; 72141; A9585

== ENCOUNTER → 2021-09-21 | Outpatient (CLI) | payer MEDICARE ==
--- NOTE | 2021-09-21 15:23 | BD ---
EXAMINATION TYPE: Axial Bone Density DATE OF EXAM: 09/21/2021 COMPARISON: 05.26.2019 CLINICAL HISTORY: 81 YR OLD FEMALE.......ICD-10 CODE: MENOPAUSAL Height: 61.5 PT IN WHEELIE WALKER, UNSTEADY Weight: 248 FRAX RISK QUESTIONS: Glucocorticoids (More than 3mos): YES (Ex: prednisone, prednisolone, methylprednisolone, dexamethasone, and hydrocortisone). 5. Chronic liver disease: 50/50 SLUGGISH RISK FACTORS HISTORY OF: Postmenopausal woman: AT AGE 43 YRS OLD, HYST Take estrogen and/or progesterone medications: YES, FOR ABOUT 5 YRS Lost more than 2 inches in height since high school: YES Frequent falls: YES, WALKER, UNSTEADY Hyperparathyroidism: NO Adrenal Insufficiency: NO MEDICATIONS: Prednisone or other steroids: YES, ASTHMA FOR MANY YRS Thyroid Medications: YES, SYNTHROID, FOR 25 YRS Additional Medications: BP MEDS, WELLBUTRIN, HX OF RADIATION, RT BREAST CANCER, ANASTROZOLE, DIABETIC MED, STATIN FOR CHOLESTEROL, VIT D AND CALCIUM IN MULTIVITAMIN, TYLENOL, ARTHRITIS, CBD OINTMENT, BI OFREEZE Additional History: ARTHRITIS, ANXIETY, DIABETES, HX OF BREAST CA, CHOLESTEROL, HYPERTENSION, EXAM MEASUREMENTS: Bone mineral densitometry was performed using the [employer] System. Bone mineral density as measured about the Lumbar spine is: ----- L1-L4(G/cm2): 1.488 T Score Values are as follows: ----- L1: 2.9 ----- L2: 3.3 ----- L3: 2.6 ----- L4: 1.6 ----- L1-L4: 2.6 Bone mineral density has: Decreased -0.8% since study of: 05.26.2019 Bone mineral density about the R hip (g/cm2): 0.923 Bone mineral density about the L hip (g/cm2): 0.957 T Score values are as follows: -----R Neck: -1.2 -----L Neck: -1.1 -----R Total: -0.7 -----L Total: -0.4 Bone mineral density has: Decreased -1.5% since study of: 05.26.2019 FRAX: THERE IS A 15.1% CHANCE FOR A MAJOR OSTEOPOROTIC FX AND A 3.7% FOR HIP.....PROBABILITY FOR FX IN 10 YRS TIME IMPRESSION: Osteopenia (T Score between -2.5 and -1). There is slightly increased risk of fracture and the patient may be considered for treatment. Re-Screen 2-5 years. NOTE: T-SCORE=SD OF THE YOUNG ADULT MEAN.
== END | disposition home or self-care (01) ==
LOC: RADBDWWP 10:01
PROVIDERS: ATTEND Internal Medicine Hematology & Oncology
DX: M85.89 Other specified disorders of bone density and structure, multiple sites (principal); C50.811 Malignant neoplasm of overlapping sites of right female breast; Z79.810 Long term (current) use of selective estrogen receptor modulators (SERMs); Z78.0 Asymptomatic menopausal state
CPT/HCPCS: 77080

== ENCOUNTER → 2022-03-16 | Outpatient (CLI) | payer MEDICARE ==
[2022-03-16 10:21] VITALS: BP 137/77; PULSE 67; RESP 17; TEMP 97.9
--- NOTE | 2022-03-16 10:56 | P.PN ---
Subjective Progress Note Date: 03/16/22 Principal diagnosis: invasive lobular carcinoma left breast [id number]- invasive lobular cancer right breast Natasha is an 81 year old white female status post right breast lumpectomy and sentinel node biopsy on 6820. She was noted to have posterior lateral and superior margins positive for invasive lobular carcinoma. She went back to surgery on . Pathology of the right lateral excision margin did not reveal any residual invasive cancer, pathology of the superior margin did not reveal any residual cancer. The posterior margin was on the chest wall. She completed radiation therapy approximately 6 weeks ago. note from medical oncology 09-04-21 reviewed She had a bilateral mammogram and 5422 at [facility] and was reportedly normal. I do not have the official report. She is not complaining of any new lumps masses or nodules of concern in either breast. She does complain of some discomfort in the right breast as well as a rash under the right arm. Taking Arimidex with no problems. Caffeine: tea occasional nicotine: none chocolate: daily hormones: not at this time; used to take Premarin following a hysterectomy approximately 3 years, she stopped many years ago Family history: mother: bone cancer, lung cancer patient: SCC face and shoulder Hormonal History: menarche: 9 M2, breast fed: yes, first live : 35 menopause: hysterectomy at 43 took both ovaries, no cancer BCP: used for about 3 years Surgical History: 1. hysterectomy bilateral oophrectomys 2. bilateral knee replacement 3. left little finger 4. gallbladder 5. appy 6. SCC face, and shoulder 7. right breast lumpectomy and SNB Medical History: 1. asthma 2. HTN 3. DM 4. gout 5. arthritis 6. CPAP 7. depression 8. early dementia 9. chronic kidney disease Social History: nicotine: (age [age] occasional) not now alcohol: stopped at 53; used to drink occasional drugs: none - Constitutional Constitutional: Denies chills, Denies fever - EENT Comment: wears glasses Eyes: denies blurred vision, denies pain Ears: bilateral: decreased hearing, tinnitus Ears, nose, mouth and throat: Denies headache, Denies sore throat - Breasts Breasts: bilateral: as per HPI - Cardiovascular Comment: enlarged heart, HTN - Respiratory Comment: sleep apnea, asthma - Gastrointestinal Gastrointestinal: Reports constipation - Genitourinary (Female) Comment: chronic kidney disease stage 3 Genitourinary: Denies dysuria, Denies hematuria - Menstruation Menstruation: Reports post hysterectomy - Musculoskeletal Musculoskeletal: Reports myalgias - Integumentary Comment: dry skin, yeast infections - Neurological Neurological: Reports weakness - Psychiatric Psychiatric: Reports depression - Endocrine Comment: diabetic, hypothyroid Endocrine: Denies fatigue, Denies weight change - Hematologic/Lymphatic Comment: aspirin daily - Allergic/Immunologic Allergic/Immunologic: Reports as per HPI Objective - Vital Signs Vital signs: Vital Signs Temp 97.9 F 03/16/22 10:18 Pulse 67 03/16/22 10:18 Resp 17 03/16/22 10:18 BP 137/77 03/16/22 10:18 Pulse Ox 98 03/16/22 10:18 FiO2 Intake & Output 03/15/22 03/16/22 03/16/22 18:59 06:59 18:59 Weight 108.862 kg - Exam BMI: 45.3 - Constitutional General appearance: Present: cooperative - EENT Eyes: Present: EOMI ENT: Present: hearing grossly normal - Neck Neck: Present: normal ROM - Respiratory Respiratory: bilateral: CTA - Cardiovascular Heart sounds: normal: S1, S2 - Integumentary Integumentary: Present: normal turgor - Musculoskeletal Musculoskeletal Comment(s): uses a walker - Psychiatric Psychiatric: Present: A&O x's 3, appropriate affect, intact judgment & insight - Additional findings Additional findings: Breast Exam: BRA: 48C inspection: Fungal infection under both breasts and in the axillas, asymmetry secondary to prior surgery and radiation therapy right breast smaller than the left breast Palpation: Right breast: Multi-positional exam no dominant masses or nodules of concern Right axilla: Fungal infection no adenopathy of concern Left breast: Examination no dominant masses or nodules of concern, fibrocystic breast changes Left axilla: Fungal infection no adenopathy of concern Assessment and Plan Assessment: Impression: 1. asthma 2. HTN 3. DM 4. gout 5. arthritis 6. CPAP 7. depression 8. early dementia 9. chronic kidney disease 10. Status post lumpectomy right breast for invasive lobular carcinoma no evidence of recurrence Plan: Continue anastrozole Repeat mammogram in 1 year Follow-up. 6 months Continue to follow with medical and radiation oncology CC: Dr. Salinas
== END ==
LOC: WWCWWP 10:08
PROVIDERS: ATTEND Surgery
DX: Z08 Encounter for follow-up examination after completed treatment for malignant neoplasm (principal); Z85.3 Personal history of malignant neoplasm of breast; R92.8 Other abnormal and inconclusive findings on diagnostic imaging of breast; J45.909 Unspecified asthma, uncomplicated; M19.90 Unspecified osteoarthritis, unspecified site; Z99.89 Dependence on other enabling machines and devices; F32.A Depression, unspecified; E11.22 Type 2 diabetes mellitus with diabetic chronic kidney disease; I12.9 Hypertensive chronic kidney disease with stage 1 through stage 4 chronic kidney disease, or unspecified chronic kidney disease; N18.9 Chronic kidney disease, unspecified; M10.9 Gout, unspecified; Z88.1 Allergy status to other antibiotic agents; Z88.0 Allergy status to penicillin; Z91.041 Radiographic dye allergy status; Z91.018 Allergy to other foods; Z88.8 Allergy status to other drugs, medicaments and biological substances; Z87.891 Personal history of nicotine dependence

== ENCOUNTER → 2022-04-02 | Outpatient (CLI) | payer MEDICARE ==
--- NOTE | 2022-04-02 17:05 | CT ---
EXAMINATION TYPE: CT angio neck CT DLP: 419.50 mGycm, Automated exposure control for dose reduction was used. DATE OF EXAM: 04/02/2022 4:30 PM COMPARISON: None. CLINICAL INDICATION:Female, 81 years old with history of R42 VERTIGO; PHH, vertigo and dizziness. Pt also states she has a lump on RT back side of neck TECHNIQUE: Axially acquired helical CT angiogram of the neck was obtained with contrast utilizing 60 cc of Isovue-370 administered intravenously. Axial images are supplemented with 3D reconstructions wh ich were post-processed at an independent workstation. NASCET criteria used. FINDINGS: CTA NECK: Right Carotid System: The common carotid artery and external carotid artery are patent. The carotid bifurcation demonstrate s mild calcified plaque with no evidence of hemodynamically significant stenosis. Medial deviation of common carotid artery. The remaining portions of the internal carotid artery demonstrate normal size without significant narrowing. Left Carotid System: The common carotid artery and external carotid artery are patent. The carotid bifurcation demonstrate s mild calcified and noncalcified plaque with no evidence of hemodynamically significant stenosis. Me dial deviation of the common carotid artery. The remaining portions of the internal carotid artery de monstrate normal size without significant narrowing. Vertebral arteries are patent without evidence hemodynamically significant stenosis. There is a three-vessel aortic arch. The origins of the great vessels are patent. Mild calcified and noncalcified plaque at the origin of the left subclavian artery. No evidence of hemodynamically signi ficant stenosis. Multilevel degenerative changes of the cervical spine. A few subcentimeter hypoattenuating thyroid no dules identified with one demonstrating peripheral dystrophic calcification in the inferior left lowe r lobe. IMPRESSION: No evidence of dissection of the cervical internal carotid arteries or vertebral arteries or any evid ence of significant stenosis at the carotid bifurcations.
== END | disposition home or self-care (01) ==
LOC: RADCTMAIN 14:13
PROVIDERS: ATTEND Family Medicine
DX: R42 Dizziness and giddiness (principal); R22.1 Localized swelling, mass and lump, neck
CPT/HCPCS: 82565; 84520; 70498; 36415; Q9967

== ENCOUNTER → 2022-09-06 | Outpatient (CLI) | payer MEDICARE ==
--- NOTE | 2022-09-06 10:51 | P.PN ---
Subjective Progress Note Date: 09/06/22 invasive lobular cancer right breast Natasha is an 81 year old white female status post right breast lumpectomy and sentinel node biopsy on 6820. She was noted to have posterior lateral and superior margins positive for invasive lobular carcinoma. She went back to surgery on . Pathology of the right lateral excision margin did not reveal any residual invasive cancer, pathology of the superior margin did not reveal any residual cancer. The posterior margin was on the chest wall. She completed radiation therapy. She had a bilateral mammogram on [address] [facility] which was BIRADS 2. She is not complaining of any new lumps masses or nodules of concern in either breast. She does complain of some discomfort in the right breast as well as a rash under the right arm. Note from [id number] Dr. Jolly reviewed. Secondary to osteopenia she was recommended to start on Prolia in addition to calcium and vitamin D3. Taking Arimidex with no problems. She has not noted any new lumps masses or nodules of concern on either breast or chest wall. She does have redundant axillary tissue bilaterally. She states she has not been eating well and having difficulty sleeping recently. She has lost 15 pounds since the surgery. Caffeine: tea occasional nicotine: none chocolate: daily hormones: not at this time; used to take Premarin following a hysterectomy approximately 3 years, she stopped many years ago Family history: mother: bone cancer, lung cancer patient: SCC face and shoulder Hormonal History: menarche: 9 M2, breast fed: yes, first live : 35 menopause: hysterectomy at 43 took both ovaries, no cancer BCP: used for about 3 years Surgical History: 1. hysterectomy bilateral oophrectomys 2. bilateral knee replacement 3. left little finger 4. gallbladder 5. appy 6. SCC face, and shoulder 7. right breast lumpectomy and SNB Medical History: 1. asthma 2. HTN 3. DM 4. gout 5. arthritis 6. CPAP 7. depression 8. early dementia 9. chronic kidney disease Social History: nicotine: (age [age] occasional) not now alcohol: stopped at 53; used to drink occasional drugs: none - Constitutional Constitutional: Denies chills, Denies fever - EENT Comment: wears glasses Eyes: denies blurred vision, denies pain Ears: bilateral: decreased hearing, tinnitus Ears, nose, mouth and throat: Denies headache, Denies sore throat - Breasts Breasts: bilateral: as per HPI - Cardiovascular Comment: enlarged heart, HTN - Respiratory Comment: sleep apnea, asthma - Gastrointestinal Gastrointestinal: Reports constipation - Genitourinary (Female) Comment: chronic kidney disease stage 3 Genitourinary: Denies dysuria, Denies hematuria - Menstruation Menstruation: Reports post hysterectomy - Musculoskeletal Musculoskeletal: Reports myalgias - Integumentary Comment: dry skin, yeast infections - Neurological Neurological: Reports weakness - Psychiatric Psychiatric: Reports depression - Endocrine Comment: diabetic, hypothyroid Endocrine: Denies fatigue, Denies weight change - Hematologic/Lymphatic Comment: aspirin daily - Allergic/Immunologic Allergic/Immunologic: Reports as per HPI Objective - Constitutional General appearance: Present: cooperative - EENT Eyes: Present: EOMI ENT: Present: hearing grossly normal - Neck Neck: Present: normal ROM - Respiratory Respiratory: bilateral: CTA - Cardiovascular Rhythm: regular Heart sounds: normal: S1, S2 - Gastrointestinal General gastrointestinal: Present: soft - Integumentary Integumentary: Present: normal turgor - Musculoskeletal Musculoskeletal: Present: gait normal - Psychiatric Psychiatric: Present: A&O x's 3, appropriate affect, intact judgment & insight - Additional findings Additional findings: Breast Exam: BRA: 48C inspection: Fungal infection under both breasts and in the axillas resolved asymmetry secondary to prior surgery and radiation therapy right breast smaller than the left breast Palpation: Right breast: Multi-positional exam no dominant masses or nodules of concern Right axilla: no adenopathy of concern Left breast: Examination no dominant masses or nodules of concern, fibrocystic breast changes Left axilla: no adenopathy of concern Assessment and Plan Assessment: Impression: Invasive lobular carcinoma right breast No evidence of recurrence Plan: Bilateral mammogram in December 2022 with a physician exam at that time Continue aromatase inhibitor Continue to follow with medical oncology and radiation oncology CC: Dr. Fam
[2022-09-06 10:57] VITALS: BP 128/69; PULSE 73; RESP 17; TEMP 97.9
== END ==
LOC: WWCWWP 09:58
PROVIDERS: ATTEND Surgery
DX: D05.01 Lobular carcinoma in situ of right breast (principal); J45.909 Unspecified asthma, uncomplicated; M19.90 Unspecified osteoarthritis, unspecified site; Z99.89 Dependence on other enabling machines and devices; F32.1 Major depressive disorder, single episode, moderate; N18.9 Chronic kidney disease, unspecified; Z88.0 Allergy status to penicillin; Z91.041 Radiographic dye allergy status; Z91.013 Allergy to seafood; Z91.048 Other nonmedicinal substance allergy status; Z88.1 Allergy status to other antibiotic agents; I12.9 Hypertensive chronic kidney disease with stage 1 through stage 4 chronic kidney disease, or unspecified chronic kidney disease; Z88.8 Allergy status to other drugs, medicaments and biological substances; E11.22 Type 2 diabetes mellitus with diabetic chronic kidney disease

== ENCOUNTER → 2023-02-07 | Outpatient (CLI) | payer MEDICARE ==
[2023-02-07 11:30] VITALS: BP 128/74; PULSE 63; RESP 19; TEMP 97.9
--- NOTE | 2023-02-07 11:40 | P.PN ---
Subjective Progress Note Date: 02/07/23 invasive lobular cancer right breast stage IA Natasha is an 81 year old white female status post right breast lumpectomy and sentinel node biopsy on 6820. She was noted to have posterior lateral and superior margins positive for invasive lobular carcinoma. She went back to surgery on . Pathology of the right lateral excision margin did not reveal any residual invasive cancer, pathology of the superior margin did not reveal any residual cancer. The posterior margin was on the chest wall. She completed radiation therapy. She had a bilateral mammogram on at [facility] which was BIRADS 2. She is not complaining of any new lumps masses or nodules of concern in either breast. She does complain of some discomfort in the right breast as well as a rash under the right arm. Secondary to osteopenia she was recommended to start on alendronate in addition to calcium and vitamin D3. Taking Arimidex with no problems. She has not noted any new lumps masses or nodules of concern on either breast or chest wall. She does have redundant axillary tissue bilaterally. She is seen with her daughter. Caffeine: tea occasional nicotine: none chocolate: daily hormones: not at this time; used to take Premarin following a hysterectomy approximately 3 years, she stopped many years ago Family history: mother: bone cancer, lung cancer patient: SCC face and shoulder Hormonal History: menarche: 9 M2, breast fed: yes, first live : 35 menopause: hysterectomy at 43 took both ovaries, no cancer BCP: used for about 3 years Surgical History: 1. hysterectomy bilateral oophrectomys 2. bilateral knee replacement 3. left little finger 4. gallbladder 5. appy 6. SCC face, and shoulder 7. right breast lumpectomy and SNB Medical History: 1. asthma 2. HTN 3. DM 4. gout 5. arthritis 6. CPAP 7. depression 8. early dementia 9. chronic kidney disease Social History: nicotine: (age [age] occasional) not now alcohol: stopped at 53; used to drink occasional drugs: none - Constitutional Constitutional: Denies chills, Denies fever - EENT Comment: wears glasses Eyes: denies blurred vision, denies pain Ears: bilateral: decreased hearing, tinnitus Ears, nose, mouth and throat: Denies headache, Denies sore throat - Breasts Breasts: bilateral: as per HPI - Cardiovascular Comment: enlarged heart, HTN - Respiratory Comment: sleep apnea, asthma - Gastrointestinal Gastrointestinal: Reports constipation - Genitourinary (Female) Comment: chronic kidney disease stage 3 Genitourinary: Denies dysuria, Denies hematuria - Menstruation Menstruation: Reports post hysterectomy - Musculoskeletal Musculoskeletal: Reports myalgias - Integumentary Comment: dry skin, yeast infections - Neurological Neurological: Reports weakness - Psychiatric Psychiatric: Reports depression - Endocrine Comment: diabetic, hypothyroid Endocrine: Denies fatigue, Denies weight change - Hematologic/Lymphatic Comment: aspirin daily - Allergic/Immunologic Allergic/Immunologic: Reports as per HPI Objective - Vital Signs Vital signs: Vital Signs Temp 97.9 F 02/07/23 11:27 Pulse 63 02/07/23 11:27 Resp 19 02/07/23 11:27 BP 128/74 02/07/23 11:27 Pulse Ox 95 02/07/23 11:27 FiO2 Intake & Output 02/06/23 02/07/23 02/07/23 18:59 06:59 18:59 Weight 108.862 kg - Constitutional General appearance: Present: cooperative - EENT Eyes: Present: EOMI ENT: Present: hearing grossly normal - Neck Neck: Present: normal ROM - Respiratory Respiratory: bilateral: CTA - Cardiovascular Rhythm: regular Heart sounds: normal: S1, S2 - Gastrointestinal General gastrointestinal: Present: soft - Integumentary Integumentary: Present: normal turgor - Musculoskeletal Musculoskeletal Comment(s): uses a walker - Psychiatric Psychiatric: Present: A&O x's 3, appropriate affect, intact judgment & insight - Additional findings Additional findings: Breast Exam: BRA: 48C inspection: asymmetry secondary to prior surgery and radiation therapy right breast smaller than the left breast Palpation: Right breast: Multi-positional exam no dominant masses or nodules of concern Right axilla: no adenopathy of concern Left breast: Examination no dominant masses or nodules of concern, fibrocystic breast changes Left axilla: no adenopathy of concern fungal infection under both breast Assessment and Plan Assessment: Impression: Invasive lobular carcinoma right breast No evidence of recurrence Plan: Bilateral mammogram in December 2022 with a physician exam at that time Continue aromatase inhibitor Continue to follow with medical oncology and radiation oncology nystatin under each breast CC: Dr. Fam
== END ==
LOC: WWCWWP 11:04
PROVIDERS: ATTEND Surgery
DX: C50.911 Malignant neoplasm of unspecified site of right female breast (principal); J45.909 Unspecified asthma, uncomplicated; I12.9 Hypertensive chronic kidney disease with stage 1 through stage 4 chronic kidney disease, or unspecified chronic kidney disease; E11.22 Type 2 diabetes mellitus with diabetic chronic kidney disease; N18.9 Chronic kidney disease, unspecified; M10.9 Gout, unspecified; C76.0 Malignant neoplasm of head, face and neck; M19.90 Unspecified osteoarthritis, unspecified site; F32.A Depression, unspecified; G47.33 Obstructive sleep apnea (adult) (pediatric); Z99.89 Dependence on other enabling machines and devices; F03.90 Unspecified dementia, unspecified severity, without behavioral disturbance, psychotic disturbance, mood disturbance, and anxiety; Z92.3 Personal history of irradiation; Z96.653 Presence of artificial knee joint, bilateral; Z87.891 Personal history of nicotine dependence; Z88.0 Allergy status to penicillin; Z91.048 Other nonmedicinal substance allergy status; Z91.018 Allergy to other foods; Z88.1 Allergy status to other antibiotic agents; Z91.013 Allergy to seafood; Z88.8 Allergy status to other drugs, medicaments and biological substances; Z79.899 Other long term (current) drug therapy; Z79.890 Hormone replacement therapy; Z79.82 Long term (current) use of aspirin; Z79.84 Long term (current) use of oral hypoglycemic drugs

== ENCOUNTER 2023-04-27 09:26 | Observation (INO) | payer MEDICARE ==
[2023-04-27] MEDS ORDERED: MORPHINE SULFATE 2 MG/ML SYRINGE IVP STA ×2 (09:59→11:40)
--- NOTE | 2023-04-27 10:06 | ED ---
General Adult HPI - General Chief complaint: Weakness Stated complaint: Left arm Time Seen by Provider: 04/27/23 09:52 Source: patient, family, RN notes reviewed Mode of arrival: wheelchair Limitations: physical limitation - History of Present Illness Initial comments: Patient is a pleasant 82-year-old female presenting to the emergency Department with several complaints. Onset of symptoms was this morning. Patient has discomfort of her left upper arm. Patient states it is increased with movement. Patient has mild ache in her chest when questioned regarding this. Patient did have some difficulty with walking today. Patient states she felt weak. Patient needed to hold onto family member to help her with walking. - Related Data Home Medications Medication Instructions Recorded Confirmed Aspirin 81 mg PO DAILY 03/29/14 02/07/23 Docusate [Colace] 100 mg PO HS 03/29/14 02/07/23 Glimepiride [Amaryl] 2 mg PO DAILY 03/29/14 02/07/23 Metoprolol Succinate [Toprol XL] 50 mg PO DAILY 03/29/14 02/07/23 Montelukast [Singulair] 10 mg PO HS 03/29/14 02/07/23 amLODIPine/ATORVASTATIN [Caduet 10 1 tab PO HS 03/29/14 02/07/23 mg-10 mg Tablet] traMADol HCL [Ultram] 50 mg PO Q8H PRN 10/17/20 02/07/23 Cranberry Fruit Extract [Cranberry] 200 mg PO DAILY 11/17/20 02/07/23 Fish Oil/Dha/Epa [Fish Oil 1,200 1 cap PO BID 11/17/20 02/07/23 mg Fish Oil] Fluticasone Propionate [Flonase 1 spray EA NOSTRIL DAILY PRN 11/17/20 02/07/23 Allergy Relief] Furosemide [Lasix] 20 mg PO MOWEFR 11/17/20 02/07/23 Carboxymethylcellulose Sodium 1 drop BOTH EYES QID PRN 01/23/21 02/07/23 [Refresh Tears] Cetirizine HCl [Zyrtec] 10 mg PO HS 01/23/21 02/07/23 Cyanocobalamin (Vitamin B-12) 1,000 mcg PO MOTUWETHFR 01/23/21 02/07/23 [Vitamin B-12] Losartan Potassium [Cozaar] 100 mg PO HS 01/23/21 02/07/23 Fiber Tablet 500 mg PO DAILY 03/14/21 02/07/23 Potassium Chloride [Potassium 20 meq PO MOWEFR 03/15/21 02/07/23 Chloride ER] Anastrozole [Arimidex] 1 mg PO HS 03/23/21 02/07/23 Meclizine [Antivert] 12.5 mg PO TID PRN 03/16/22 02/07/23 Menthol [Biofreeze] 1 applic TOPICAL QID PRN 03/16/22 02/07/23 Acetaminophen Tab [Tylenol Tab] 1,000 mg PO Q6HR PRN 09/30/22 02/07/23 Alendronate Sodium [Fosamax] 70 mg PO Q7D 09/30/22 02/07/23 Cholecalciferol [Vitamin D3 (25 50 mcg PO DAILY 09/30/22 02/07/23 Mcg = 1000 Iu)] Galantamine HBr [Galantamine ER] 16 mg PO HS 09/30/22 02/07/23 Glimepiride [Amaryl] 1 mg PO HS 09/30/22 02/07/23 Gluten Digestive Aid 1 tab PO DAILY PRN 09/30/22 02/07/23 Levothyroxine Sodium [Synthroid] 100 mcg PO DAILY 09/30/22 02/07/23 Multivit-Min/Iron/Folic/Lutein 1 tab PO DAILY 09/30/22 02/07/23 [Centrum Silver Women Tablet] Pioglitazone [Actos] 15 mg PO DAILY 09/30/22 02/07/23 allopurinoL 300 mg PO DAILY 09/30/22 02/07/23 buPROPion HCL [Wellbutrin SR] 200 mg PO DAILY 09/30/22 02/07/23 Previous Rx's Medication Instructions Recorded Nystatin/Triamcin 1 applic TOPICAL PC-BID #30 gram 02/07/23 [Nystatin-Triamcinolone Cream] Allergies Allergy/AdvReac Type Severity Reaction Status Date / Time amoxicillin Allergy Unknown TAKEN FROM Verified 04/27/23 09:32 DR OLIVER'S NOTES Iodine and Iodide Containing Allergy Unknown TESTED Verified 04/27/23 09:32 Produc POSITIVE FOR SHELLFISH prednisone Allergy Unknown TAKEN FROM Verified 04/27/23 09:32 DR FISHER NOTES shellfish derived Allergy TESTED Verified 04/27/23 09:32 POSITIVE WITH ALLERGY TESTING. adhesive AdvReac blisters, Verified 04/27/23 09:32 itching gluten AdvReac vomiting, Verified 04/27/23 09:32 diarrhea Penicillins AdvReac Rash/Hives Verified 04/27/23 09:32 antibiotics AdvReac Diarrhea Uncoded 04/27/23 09:32 Review of Systems ROS Statement: Those systems with pertinent positive or pertinent negative responses have been documented in the HPI. ROS Other: All systems not noted in ROS Statement are negative. Constitutional: Denies: fever Eyes: Denies: eye pain ENT: Denies: ear pain Respiratory: Denies: dyspnea Cardiovascular: Reports: as per HPI Endocrine: Denies: fatigue Gastrointestinal: Denies: abdominal pain Genitourinary: Denies: dysuria Musculoskeletal: Denies: back pain Neurological: Reports: as per HPI, weakness. 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 History of Any Multi-Drug Resistant Organisms: None Reported Past Surgical History: Appendectomy, Breast Surgery, Cholecystectomy, Heart Catheterization, Hysterectomy, Joint Replacement Additional Past Surgical History / Comment(s): mena knee replacements, cataracts, surgery for fx finger left hand,skin cancer removed ears, forehead, nose & shoulder, colonoscopy, lt breast biopsy, rt breast biopsy, R breast lumpectomy Past Anesthesia/Blood Transfusion Reactions: Previous Problems w/ Anesthesia, Motion Sickness Additional Past Anesthesia/Blood Transfusion Reaction / Comment(s): high BP. daughter PONV Past Psychological History: Depression Smoking Status: Never smoker Past Alcohol Use History: None Reported Past Drug Use History: None Reported - Past Family History Mother Family Medical History: Blood Disorder, Cancer Additional Family Medical History / Comment(s): bone cancer , pt unsure if mother or sister had blood disorder with "vitamin k" Sister(s) Family Medical History: Blood Disorder General Exam Limitations: physical limitation General appearance: alert, in no apparent distress Head exam: Present: normocephalic Eye exam: Present: normal appearance ENT exam: Present: normal oropharynx Neck exam: Present: normal inspection. Absent: tenderness, meningismus Respiratory exam: Present: normal lung sounds bilaterally Cardiovascular Exam: Present: regular rate, normal rhythm Expanded Peripheral pulses: 2+: Radial (R), Radial (L), Posterior Tibialis (R), Posterior Tibialis (L) GI/Abdominal exam: Present: soft. Absent: tenderness Extremities exam: Present: full ROM (Mild discomfort with range of motion), tenderness (Mild tenderness left upper arm. Moderate tenderness left sh oulder.). Absent: pedal edema, calf tenderness Neurological exam: Present: alert, oriented X3, CN II-XII intact. 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 Low QRS voltage. Poor R-wave progression. Nonspecific T waves.), sinus rhythm Medical Decision Making - Medical Decision Making Was pt. sent in by a medical professional or institution (, PA, STENCIL CUTTER MACHINE, urgent care, hospital, or usp...) When possible be specific @ -No Did you speak to anyone other than the patient for history (EMS, parent, family, police, friend...)? What history was obtained from this source @ -Family is present and helps right history including difficulty with walking this morning Did you review nursing and triage notes (agree or disagree)? Why? @ -I reviewed and agree with nursing and triage notes Were old charts reviewed (outside hosp., previous admission, EMS record, old EKG, old radiological studies, urgent care reports/EKG's, usp records)? Report findings @ -No old charts were reviewed Differential Diagnosis (chest pain, altered mental status, abdominal pain women, abdominal pain men, vaginal bleeding, weakness, fever, dyspnea, syncope, headache, dizziness, GI bleed, back pain, seizure, CVA, palpatations, mental health, musculoskeletal)? @ -Differential Chest Pain: Stable Angina, Unstable Angina, STEMI, NSTEMI Aortic Dissection, Pneumothorax, Musculoskeletal, Esophageal Spasm GERD, Cholecystitis, Pancreatitis, Zoster, thi s is not meant to be an all-inclusive list. EKG interpreted by me (3pts min.). @ -As above X-rays interpreted by me (1pt min.). @ -Chest x-ray does not reveal acute osseous. X-ray left shoulder shows arth ritic changes without acute process. CT interpreted by me (1pt min.). @ -Report reviewed U/S interpreted by me (1pt. min.). @ -None done What testing was considered but not performed or refused? (CT, X-rays, U/S, labs)? Why? @ -None What meds were considered but not given or refused? Why? @ -None Did you discuss the management of the patient with other professionals (professionals i.e. , PA, STENCIL CUTTER MACHINE, lab, RT, psych nurse, social worker masters, hunting and fishing guide, teacher, first officer, case hardener)? Give summary @ -Case was discussed with Dr. Phan who did evaluate patient and will admit covering Dr. Oliver Was smoking cessation discussed for >3mins.? @ -No Was critical care preformed (if so, how long)? @ -No Were there social determinants of health that impacted care today? How? (Homelessness, low income, unemployed, alcoholism, drug addiction, transportation, low edu. Level, literacy, decrease access to med. care, senior living, rehab)? @ -No Was there de-escalation of care discussed even if they declined (Discuss DNR or withdrawal of care, Hospice)? DNR status @ -No What co-morbidities impacted this encounter? (DM, HTN, Smoking, COPD, CAD, Cancer, CVA, ARF, Chemo, Hep., AIDS, mental health diagnosis, sleep apnea, morbid obesity)? @ -None Was patient admitted / discharged? Hospital course, mention meds given and route, prescriptions, significant lab abnormalities, going to OR and other pertinent info. @ -Patient reevaluated and resting comfortably in bed. Patient states she though feels unwell however unable to describe any symptoms. Patient and family updated on results and plan. Patient will be admitted. Admission orders written. Undiagnosed new problem with uncertain prognosis? @ -No Drug Therapy requiring intensive monitoring for toxicity (Heparin, Nitro, Insulin, Cardizem)? @ -No Were any procedures done? @ -No Diagnosis/symptom? @ -Chest pain, weakness Acute, or Chronic, or Acute on Chronic? @ -Acute, acute Uncomplicated (without systemic symptoms) or Complicated (systemic symptoms)? @ -default Side effects of treatment? @ -No Exacerbation, Progression, or Severe Exacerbation? @ -No Poses a threat to life or bodily function? How? (Chest pain, [place], [place], pneumonia, PE, COPD, DKA, ARF, appy, cholecystitis, CVA, Diverticulitis, Homicidal, S uicidal, threat to staff... and all critical care pts) @ -No - Lab Data Result diagrams: 04/27/23 10:51 04/27/23 10:51 Lab Results 04/27/23 04/27/23 04/27/23 Range/Units 10:51 10:51 10:51 WBC 4.5 (3.8-10.6) k/uL RBC 4.70 (3.80-5.40) m/uL Hgb 13.6 (11.4-16.0) gm/dL Hct 42.0 (34.0-46.0) % MCV 89.3 (80.0-100.0) fL MCH 29.0 (25.0-35.0) pg MCHC 32.5 (31.0-37.0) g/dL RDW 15.0 (11.5-15.5) % Plt Count 238 (150-450) k/uL MPV 8.7 Neutrophils % 58 % Lymphocytes % 25 % Monocytes % 12 % Eosinophils % 3 % Basophils % 0 % Neutrophils # 2.6 (1.3-7.7) k/uL Lymphocytes # 1.1 (1.0-4.8) k/uL Monocytes # 0.5 (0-1.0) k/uL Eosinophils # 0.1 (0-0.7) k/uL Basophils # 0.0 (0-0.2) k/uL PT 9.7 (9.0-12.0) sec INR 0.9 (<1.2) APTT 24.0 (22.0-30.0) sec Sodium 141 (137-145) mmol/L Potassium 4.3 (3.5-5.1) mmol/L Chloride 108 H (98-107) mmol/L Carbon Dioxide 22 (22-30) mmol/L Anion Gap 11 mmol/L BUN 20 H (7-17) mg/dL Creatinine 0.98 (0.52-1.04) mg/dL Est GFR (CKD-EPI)AfAm 61 (>60 ml/min/1.73 sqM) Est GFR (CKD-EPI)NonAf 53 (>60 ml/min/1.73 sqM) Glucose 105 H (74-99) mg/dL Plasma Lactic Acid Adalberto (0.7-2.0) mmol/L Calcium 10.0 (8.4-10.2) mg/dL Magnesium 2.0 (1.6-2.3) mg/dL Total Bilirubin 0.8 (0.2-1.3) mg/dL AST 33 (14-36) U/L ALT 23 (4-34) U/L Alkaline Phosphatase 71 (38-126) U/L Troponin I (0.000-0.034) ng/mL Total Protein 7.4 (6.3-8.2) g/dL Albumin 4.3 (3.5-5.0) g/dL 04/27/23 04/27/23 Range/Units 10:51 10:51 WBC (3.8-10.6) k/uL RBC (3.80-5.40) m/uL Hgb (11.4-16.0) gm/dL Hct (34.0-46.0) % MCV (80.0-100.0) fL MCH (25.0-35.0) pg MCHC (31.0-37.0) g/dL RDW (11.5-15.5) % Plt Count (150-450) k/uL MPV Neutrophils % % Lymphocytes % % Monocytes % % Eosinophils % % Basophils % % Neutrophils # (1.3-7.7) k/uL Lymphocytes # (1.0-4.8) k/uL Monocytes # (0-1.0) k/uL Eosinophils # (0-0.7) k/uL Basophils # (0-0.2) k/uL PT (9.0-12.0) sec INR (<1.2) APTT (22.0-30.0) sec Sodium (137-145) mmol/L Potassium (3.5-5.1) mmol/L Chloride (98-107) mmol/L Carbon Dioxide (22-30) mmol/L Anion Gap mmol/L BUN (7-17) mg/dL Creatinine (0.52-1.04) mg/dL Est GFR (CKD-EPI)AfAm (>60 ml/min/1.73 sqM) Est GFR (CKD-EPI)NonAf (>60 ml/min/1.73 sqM) Glucose (74-99) mg/dL Plasma Lactic Acid Adalberto 1.6 (0.7-2.0) mmol/L Calcium (8.4-10.2) mg/dL Magnesium (1.6-2.3) mg/dL Total Bilirubin (0.2-1.3) mg/dL AST (14-36) U/L ALT (4-34) U/L Alkaline Phosphatase (38-126) U/L Troponin I <0.012 (0.000-0.034) ng/mL Total Protein (6.3-8.2) g/dL Albumin (3.5-5.0) g/dL Disposition Clinical Impression: Chest pain, Weakness Disposition: ADMITTED IP TO THIS HOSP Is patient prescribed a controlled substance at d/c from ED?: No Referrals: Milvia Oliver MD [Primary Care Provider] - 1-2 days Time of Disposition: 12:36
[2023-04-27 11:16] LABS: Basophils % (A) 0 %; Eosinophils # (A) 0.1 k/uL (0-0.7); Eosinophils % (A) 3 %; HGB 13.6 gm/dL (11.4-16.0); Lymphocytes # (A) 1.1 k/uL (1.0-4.8); Lymphocytes % (A) 25 %; MCHC 32.5 g/dL (31.0-37.0); MCV 89.3 fL (80.0-100.0); Mean Platelet Volume 8.7; Monocytes # (A) 0.5 k/uL (0-1.0); Monocytes % (A) 12 %; Neutrophils # (A) 2.6 k/uL (1.3-7.7); Neutrophils % (A) 58 %; Platelet Count 238 k/uL (150-450); WBC 4.5 k/uL (3.8-10.6)
[2023-04-27 11:30] LABS: INR 0.9 (<1.2); Prothrombin Time 9.7 sec (9.0-12.0)
[2023-04-27 11:35] LABS: ALT 23 U/L (4-34); AST 33 U/L (14-36); African American GFR (CKD) 61 (>60 ml/min/1.73 sqM); Albumin 4.3 g/dL (3.5-5.0); Alkaline Phosphatase 71 U/L (38-126); Anion Gap 11 mmol/L; Blood Urea Nitrogen 20 mg/dL (7-17); Carbon Dioxide 22 mmol/L (22-30); Chloride 108 mmol/L (98-107); Glucose 105 mg/dL (74-99); Non-African American GFR(CKD) 53 (>60 ml/min/1.73 sqM); Potassium 4.3 mmol/L (3.5-5.1); Sodium 141 mmol/L (137-145); Total Bilirubin 0.8 mg/dL (0.2-1.3); Total Protein 7.4 g/dL (6.3-8.2)
--- NOTE | 2023-04-27 12:11 | CT ---
EXAMINATION TYPE: CT brain wo con DATE OF EXAM: 04/27/2023 COMPARISON: 04/06/2010 INDICATION: Weakness. DLP: 1232.4 mGycm, Automated exposure control for dose reduction was used. CONTRAST: None CT of the brain is performed utilizing 3 mm thick sections through the posterior fossa and 3 mm thick sections through the remaining calvarium. Study is performed within 24 hours of arrival to the hosp ital. No abnormal hyperdensity is present to suggest an acute intracranial hemorrhage. No mass lesion is evident. No acute infarcts are evident. There is periventricular white matter hypodensity, likely on the basis of chronic white matter ischemic changes. Findings are progressive from the comparison Ventricles and sulci are prominent for the patient age. Paranasal sinuses and mastoid air cells within the [id number] are clear. IMPRESSION: 1. Atrophy with chronic appearing periventricular white matter ischemic-type changes.
--- NOTE | 2023-04-27 12:12 | XR ---
EXAMINATION TYPE: XR shoulder complete LT DATE OF EXAM: 04/27/2023 COMPARISON: 09/30/2022 HISTORY: Pain TECHNIQUE: Shoulder examined in 3 projections. FINDINGS: The humeral head articulates with the glenoid. There is loss of the glenohumeral junction. Some subch ondral cyst formation may be within the humeral head. Large humeral head spurs are present. The acromio-clavicular junction is normal. No acute fractures or dislocations are evident. A follow up study can be performed 7-10 days from acute trauma for continued pain. MRI can be perfor med if soft tissue evaluation would be of benefit. IMPRESSION: 1. 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 2. No acute osseous abnormality radiographically apparent
--- NOTE | 2023-04-27 12:14 | XR ---
EXAMINATION TYPE: XR chest 2V DATE OF EXAM: 04/27/2023 COMPARISON: 11/15/2020 INDICATION: Weakness, chest pain TECHNIQUE: Frontal and lateral views of the chest are obtained. FINDINGS: The heart size is normal. The pulmonary vasculature is normal. No suspicious focal consolidations are evident.. IMPRESSION: 1. No acute pulmonary process.
[2023-04-27] MEDS ORDERED: NALOXONE 0.4 MG/ML 1 ML VIAL IV PRN (12:36)
[2023-04-27] MEDS ORDERED: MORPHINE SULFATE 4 MG/ML SYRINGE IV PRN (12:36)
[2023-04-27] MEDS ORDERED: traMADol 50 MG TAB PO PRN ×2 (12:36→18:22)
[2023-04-27] MEDS ORDERED: ASPIRIN 325 MG TAB PO SCH (12:45)
--- NOTE | 2023-04-27 12:55 | HP ---
HISTORY AND PHYSICAL CHIEF COMPLAINT: Weakness and left arm pain. HISTORY OF PRESENT ILLNESS: This is an 82-year-old woman with past medical history of multiple medical problems, was admitted with discomfort in the left arm as well as significant weakness. The patient came to [facility], was admitted for further treatment. Workup is underway. There is no history of any fever, rigors, or chills. The patient also felt unsteady. PAST MEDICAL HISTORY: Reviewed, include asthma, diabetes mellitus, hypertension multiple medical issues reviewed. Rest of history and rest of chart are also reviewed. HOME MEDICATIONS: Reviewed, include Ultram, dose and rest of medications reviewed. ALLERGIES: Multiple allergies reviewed and include amoxicillin, rest of allergies reviewed. FAMILY HISTORY: History of blood disorder, bone cancer. SOCIAL HISTORY: No history of smoking. REVIEW OF SYSTEMS: 14-point review of systems is negative except as mentioned earlier. PHYSICAL EXAMINATION: VITAL SIGNS: Pulse is 101, blood pressure n, respirations 20. HEENT: Conjunctivae normal. Oral mucosa is dry. NECK: No jugular venous distention. CARDIOVASCULAR: S1, S2. LUNGS: Decreased breath sounds at the bases. No rhonchi. No crackles. ABDOMEN: Soft and nontender. LEGS: No edema. NERVOUS SYSTEM: Diffusely weak. No focal deficit. SKIN: No ulcer, rash, or bleeding. LABORATORY DATA: Labs are awaited. ASSESSMENT: 1. Generalized weakness, for evaluation, rule out transient ischemic attack. 2. Left arm discomfort, rule out coronary artery disease. 3. History of diabetes mellitus type 2. 4. History of asthma. 5. Hypertension. 6. Hyperlipidemia. 7. Multiple complex medical issues. RECOMMENDATIONS AND DISCUSSION: This is an 82-year-old woman, who presented with multiple complex medical issues. We will monitor the patient closely. We will obtain the basic labs including troponin, EKG, and x-rays. Obtain Cardiology and Neurology consultations. Prognosis guarded because of multiple complex medical issues. See orders for details. Discussed with the ER physician. Discussed with family. Further recommendations to follow. MMODL / IJN: [id number] / MTDD
[2023-04-27 18:09] LABS: Glucose,Whole Blood 85 mg/dL (70-110)
[2023-04-27] MEDS ORDERED: MECLIZINE 12.5 MG TAB PO PRN (18:22)
[2023-04-27] MEDS ORDERED: MAG HYDROX/AL HYDROX/SIMETH 30 ML CUP PO PRN (18:57)
[2023-04-27] MEDS: CYANOCOBALAMIN 500 MCG TAB PO SCH (18:59)
[2023-04-27] MEDS: SODIUM CHLORIDE 0.9% 1,000 ML IV SCH (19:19)
[2023-04-27] MEDS ORDERED: AMLODIPINE PO SCH (21:00)
[2023-04-27] MEDS ORDERED: ATORVASTATIN PO SCH (21:00)
[2023-04-27] MEDS ORDERED: FAMOTIDINE 20 MG TAB PO SCH (21:00)
[2023-04-27] MEDS: ANASTROZOLE 1 MG TAB PO SCH (21:49)
[2023-04-27] MEDS: buPROPion SR 100 MG TABLET.ER PO SCH (21:49)
[2023-04-27] MEDS: GLIMEPIRIDE 1 MG TAB PO SCH (21:49)
[2023-04-27] MEDS: FAMOTIDINE 20 MG TAB PO SCH (21:53)
[2023-04-27] MEDS: amLODIPine 10 MG TAB PO SCH (21:53)
[2023-04-27] MEDS: MONTELUKAST 10 MG TAB PO SCH (21:53)
[2023-04-27] MEDS: LOSARTAN 50 MG TAB PO SCH (21:53)
[2023-04-27] MEDS: ATORVASTATIN 10 MG TAB PO SCH (21:55)
[2023-04-28 05:44] LABS: Glucose,Whole Blood 100 mg/dL (70-110)
[2023-04-28] MEDS: LEVOTHYROXINE 100 MCG TAB PO SCH (06:50)
[2023-04-28] MEDS: allopurinoL 300 MG TAB PO SCH (08:33)
[2023-04-28] MEDS: ASPIRIN 81 MG PO SCH (08:33)
[2023-04-28] MEDS: MULTIVITAMINS, THERA 1 EACH TAB PO SCH (08:33)
[2023-04-28] MEDS: GLIMEPIRIDE 2 MG TAB PO SCH (08:33)
[2023-04-28] MEDS: CYANOCOBALAMIN 500 MCG TAB PO SCH (08:34)
[2023-04-28] MEDS: METOPROLOL SUCCINATE (ER) 50 MG TAB.ER.24H PO SCH (08:34)
[2023-04-28] MEDS: PIOGLITAZONE 15 MG TAB PO SCH (08:38)
[2023-04-28] MEDS: buPROPion SR 100 MG TABLET.ER PO SCH ×2 (08:38→20:31)
[2023-04-28] MEDS: CHOLECALCIFEROL 25 MCG (1000 IU) TABLET PO SCH (08:41)
[2023-04-28] MEDS: SODIUM CHLORIDE 0.9% 1,000 ML IV SCH (09:46)
[2023-04-28 11:37] LABS: Glucose,Whole Blood 89 mg/dL (70-110)
--- NOTE | 2023-04-28 12:48 | P.CRDCN ---
History of Present Illness Consult date: 04/28/23 Consult reason: chest pain Chief complaint: left arm and left leg pain History of present illness: History of present illness: Patient is a pleasant 82-year-old female with significant past medical history of hypertension, diabetes type 2, asthma, restless leg syndrome, and vertigo who presents with left arm and left leg discomfort. She reports that the other night her left leg was cramping and she wasn't feeling right. She was then having left arm and shoulder pain, however, this is not new for her. She does r eport having a fall a couple weeks ago due to dizziness and feeling off balance. Denies any syncopal or near syncopal events. She denies having any chest pain or pressure. She does report feeling short of breath now and she relates to anxiety or her allergies. She is still having some pain in her left leg. Head CT was negative with no acute findings. Left shoulder x-ray with no acute findings, shows arthritis. Chest x-ray with no acute findings. EKG was sinus rhythm with no significant ST or T wave changes. Troponins were negative 3. She did have a prior heart catheterization March [address] Shah with no significant disease, 3540% LAD stenosis. REVIEW OF SYSTEMS: No fever or chills. No cough or expectoration. No diaphoresis. Patient denies headache, dizziness, blurred vision, double vision. Patient denies any stomach discomfort. No nausea, vomiting. No hematochezia. No hematemesis. Denies any black stools or blood in his stools. Denies dysuria or hematuria. Reports left arm and left leg pains. No muscle weakness or numbness. No chest pain or pressure. PHYSICAL EXAMINATION: This is a 82-year-old female in no apparent distress at the time of my examination. HEENT: Head is atraumatic, normocephalic. Pupils are equal, round. Sclerae anicteric. Conjunctivae are clear. Mucous membranes of the mouth are moist. Neck is supple. There is no jugular venous distention. No carotid bruit is heard. CHEST EXAMINATION: Lungs are clear to auscultation, on 2L NC. No chest wall tenderness is noted on palpation or with deep breathing. HEART EXAMINATION: Heart regular rate and rhythm. S1, S2 heard. No murmurs, gallops or rub. ABDOMEN: Soft, nontender. Bowel sounds are heard. No organomegaly noted. EXTREMITIES: 2+ peripheral pulses with no evidence of peripheral edema and no calf tenderness noted. NEUROLOGIC EXAMINATION: Patient is awake, alert and oriented x3. IMPRESSION AND PLAN: Hypertension Diabetes type 2 Dizziness, likely related to vertigo Shortness of breath Restless leg syndrome PLAN: EKG with no significant findings, troponins are negative, symptoms are less likely cardiac in nature. Okay to proceed with cardiac workup as an outpatient with echocardiogram and stress testing. However, patient would like to have this done inpatient if she is still in the hospital tomorrow. If patient is still in the hospital for Lexiscan stress test in a.m. as well as echo. Given shortness of breath, DC IV fluids and check BNP. I am dictating on behalf of Dr. Jose R Singh's history/physical and assessment/plan. 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 History of Any Multi-Drug Resistant Organisms: None Reported Past Surgical History: Appendectomy, Breast Surgery, Cholecystectomy, Heart Catheterization, Hysterectomy, Joint Replacement Additional Past Surgical History / Comment(s): mena knee replacements, cataracts, surgery for fx finger left hand,skin cancer removed ears, forehead, nose & shoulder, colonoscopy, lt breast biopsy, rt breast biopsy, R breast lumpectomy Past Anesthesia/Blood Transfusion Reactions: Previous Problems w/ Anesthesia, Motion Sickness Additional Past Anesthesia/Blood Transfusion Reaction / Comment(s): high BP. daughter PONV Past Psychological History: Depression Smoking Status: Never smoker Past Alcohol Use History: None Reported Additional Past Alcohol Use History / Comment(s): smoked age 16 -19. Past Drug Use History: None Reported - Past Family History Mother Family Medical History: Blood Disorder, Cancer Additional Family Medical History / Comment(s): bone cancer , pt unsure if mother or sister had blood disorder with "vitamin k" Sister(s) Family Medical History: Blood Disorder Medications and Allergies Home Medications Medication Instructions Recorded Confirmed Type Aspirin 81 mg PO DAILY 03/29/14 04/27/23 History Glimepiride [Amaryl] 2 mg PO DAILY 03/29/14 04/27/23 History Metoprolol Succinate [Toprol XL] 25 mg PO DAILY 03/29/14 04/27/23 History Montelukast [Singulair] 10 mg PO HS 03/29/14 04/27/23 History amLODIPine/ATORVASTATIN [Caduet 10 1 tab PO HS 03/29/14 04/27/23 History mg-10 mg Tablet] traMADol HCL [Ultram] 50 mg PO Q8H PRN 10/17/20 04/27/23 History Fluticasone Propionate [Flonase 1 spr EA NOSTRIL HS 11/17/20 04/27/23 History Allergy Relief] Furosemide [Lasix] 20 mg PO DAILY 11/17/20 04/27/23 History Carboxymethylcellulose Sodium 1 drop BOTH EYES QID PRN 01/23/21 04/27/23 History [Refresh Tears] Cetirizine HCl [Zyrtec] 10 mg PO DAILY 01/23/21 04/27/23 History Cyanocobalamin (Vitamin B-12) [facility] 01/23/21 04/27/23 History [Vitamin B-12] Losartan Potassium [Cozaar] 100 mg PO HS 01/23/21 04/27/23 History Potassium Chloride [Potassium 20 meq PO DAILY PRN 03/15/21 04/27/23 History Chloride ER] Anastrozole [Arimidex] 1 mg PO HS 03/23/21 04/27/23 History Meclizine [Antivert] 12.5 mg PO BID PRN 03/16/22 04/27/23 History Menthol [Biofreeze] 1 applic TOPICAL QID PRN 03/16/22 04/27/23 History Alendronate Sodium [Fosamax] 70 mg PO MO 09/30/22 04/27/23 History Cholecalciferol [Vitamin D3 (25 50 mcg PO DAILY 09/30/22 04/27/23 History Mcg = 1000 Iu)] Galantamine HBr [Galantamine ER] 16 mg PO HS 09/30/22 04/27/23 History Glimepiride [Amaryl] 1 mg PO HS 09/30/22 04/27/23 History Levothyroxine Sodium [Synthroid] 100 mcg PO DAILY 09/30/22 04/27/23 History Multivit-Min/Iron/Folic/Lutein 1 tab PO DAILY 09/30/22 04/27/23 History [Centrum Silver Women Tablet] Pioglitazone [Actos] 15 mg PO DAILY 09/30/22 04/27/23 History allopurinoL 300 mg PO DAILY 09/30/22 04/27/23 History buPROPion HCL [Wellbutrin SR] 200 mg PO BID 09/30/22 04/27/23 History Nystatin/Triamcin 1 applic TOPICAL PC-BID #30 gram 02/07/23 04/27/23 Rx [Nystatin-Triamcinolone Cream] Citrucel Caplets 1 tab PO DAILY 04/27/23 04/27/23 History Cranberry 4200mg W/Vitamin C 1 tab PO DAILY 04/27/23 04/27/23 History Lanolin/Mineral Oil [Eucerin 1 applic TOPICAL DAILY 04/27/23 04/27/23 History Original Lotion] rOPINIRole HCL [Requip] 0.5 mg PO BID@1800,2100 04/27/23 04/27/23 History Allergies Allergy/AdvReac Type Severity Reaction Status Date / Time amoxicillin Allergy Unknown TAKEN FROM Verified 04/27/23 14:39 DR OLIVER'S NOTES Iodine and Iodide Containing Allergy Unknown TESTED Verified 04/27/23 14:39 Produc POSITIVE FOR SHELLFISH prednisone Allergy Unknown TAKEN FROM Verified 04/27/23 14:39 DR FISHER NOTES adhesive Allergy blisters, Verified 04/27/23 14:39 itching shellfish derived Allergy TESTED Verified 04/27/23 14:39 POSITIVE WITH ALLERGY TESTING. gluten AdvReac vomiting, Verified 04/27/23 14:39 diarrhea Penicillins AdvReac Rash/Hives Verified 04/27/23 14:39 antibiotics AdvReac Diarrhea Uncoded 04/27/23 14:39 Physical Exam Vitals: Vital Signs Temp Pulse Pulse Resp BP BP Pulse Ox 04/28/23 11:56 97.4 F L 67 16 124/71 99 04/28/23 09:43 99 04/28/23 08:00 67 18 04/28/23 07:00 97.7 F 83 16 132/79 100 04/28/23 04:00 98.2 F 82 18 126/60 97 04/28/23 02:00 69 18 04/28/23 00:00 97.6 F 69 18 155/82 97 04/27/23 21:35 97.8 F 86 18 139/76 96 04/27/23 21:04 88 20 133/82 96 04/27/23 16:45 98.0 F 89 18 158/84 94 L 04/27/23 14:29 97.7 F 84 20 155/73 97 Intake and Output 04/27/23 04/28/23 04/28/23 22:59 06:59 14:59 Intake Total 240 Output Total 0 400 Balance 0 -400 240 Intake: Oral 240 Output: Urine 0 400 Other: Voiding Method External Catheter # Voids 0 1 # Bowel Movements 0 Weight 109.316 kg Results 04/27/23 10:51 04/27/23 10:51 Cardiac Enzymes 04/27/23 04/27/23 Range/Units 15:40 21:14 Troponin I <0.012 0.013 (0.000-0.034) ng/mL Current Medications Generic Name Dose Route Start Last Admin Trade Name Freq PRN Reason Stop Dose Admin Acetaminophen 650 mg 04/27/23 12:36 Acetaminophen Tab 325 Mg Tab PO Q6HR PRN Mild Pain or Fever > 100.5 Al Hydroxide/Mg Hydroxide 30 ml 04/27/23 18:57 Mag Hydrox/Al Hydrox/Simeth 30 Ml Cup PO Q4HR PRN GI Upset Allopurinol 300 mg 04/28/23 09:00 04/28/23 08:33 Allopurinol 300 Mg Tab PO 300 mg DAILY PAULINE Administration Amlodipine Besylate 10 mg 04/27/23 21:00 04/27/23 21:53 Amlodipine 10 Mg Tab PO 10 mg HS PAULINE Administration Anastrozole 1 mg 04/27/23 21:00 04/27/23 21:49 Anastrozole 1 Mg Tab PO 1 mg HS PAULINE Administration Aspirin 81 mg 04/28/23 09:00 04/28/23 08:33 Aspirin 81 Mg PO 81 mg DAILY PAULINE Administration Atorvastatin Calcium 10 mg 04/27/23 21:00 04/27/23 21:55 Atorvastatin 10 Mg Tab PO Not Given HS PAULINE Bupropion HCl 200 mg 04/27/23 21:00 04/28/23 08:38 Bupropion Sr 100 Mg Tablet.Er PO 200 mg BID PAULINE Administration Cholecalciferol 50 mcg 04/28/23 09:00 04/28/23 08:41 Cholecalciferol 25 Mcg (1000 Iu) Tablet PO 50 mcg DAILY PAULINE Administration Cyanocobalamin 1,000 mcg 04/27/23 18:30 04/28/23 08:34 Cyanocobalamin 500 Mcg Tab PO 1,000 mcg SuSa@0900 PAULINE Administration Famotidine 20 mg 04/27/23 21:00 04/27/23 21:53 Famotidine 20 Mg Tab PO 20 mg HS PAULINE Administration Glimepiride 2 mg 04/28/23 09:00 04/28/23 08:33 Glimepiride 2 Mg Tab PO 2 mg DAILY PAULINE Administration Glimepiride 1 mg 04/27/23 21:00 04/27/23 21:49 Glimepiride 1 Mg Tab PO 1 mg HS PAULINE Administration Levothyroxine Sodium 100 mcg 04/28/23 06:30 04/28/23 06:50 Levothyroxine 100 Mcg Tab PO 100 mcg 0630 PAULINE Administration Losartan Potassium 100 mg 04/27/23 21:00 04/27/23 21:53 Losartan 50 Mg Tab PO 100 mg HS PAULINE Administration Meclizine HCl 12.5 mg 04/27/23 18:22 Meclizine 12.5 Mg Tab PO BID PRN Vertigo Metoprolol Succinate 50 mg 04/28/23 09:00 04/28/23 08:34 Metoprolol Succinate (Er) 50 Mg Tab.Er.24h PO 50 mg DAILY PAULINE Administration Montelukast Sodium 10 mg 04/27/23 21:00 04/27/23 21:53 Montelukast 10 Mg Tab PO 10 mg HS PAULINE Administration Morphine Sulfate 4 mg 04/27/23 12:36 Morphine Sulfate 4 Mg/Ml Syringe IV Q4HR PRN Severe Pain (Scale 7 to 10) Multivitamins 1 each 04/28/23 09:00 04/28/23 08:33 Multivitamins, Thera 1 Each Tab PO 1 each DAILY PAULINE Administration Naloxone HCl 0.2 mg 04/27/23 12:36 Naloxone 0.4 Mg/Ml 1 Ml Vial IV Q2M PRN Opioid Reversal Pioglitazone HCl 15 mg 04/28/23 09:00 04/28/23 08:38 Pioglitazone 15 Mg Tab PO 15 mg DAILY PAULINE Administration Ropinirole HCl 0.5 mg 04/27/23 21:00 04/27/23 21:50 Ropinirole Hcl 0.25 Mg Tab PO 0.5 mg BID@1800,2100 PAULINE Administration Tramadol HCl 50 mg 04/27/23 18:22 Tramadol 50 Mg Tab PO Q8H PRN Pain Intake and Output 04/27/23 04/28/23 04/28/23 22:59 06:59 14:59 Intake Total 240 Output Total 0 400 Balance 0 -400 240 Intake: Oral 240 Output: Urine 0 400 Other: Voiding Method External Catheter # Voids 0 1 # Bowel Movements 0 Weight 109.316 kg 04/27/23 10:51 04/27/23 10:51
[2023-04-28 13:06] LABS: African American GFR (CKD) 71 (>60 ml/min/1.73 sqM); Anion Gap 11 mmol/L; Blood Urea Nitrogen 18 mg/dL (7-17); Calcium 9.6 mg/dL (8.4-10.2); Carbon Dioxide 19 mmol/L (22-30); Chloride 110 mmol/L (98-107); Glucose 79 mg/dL (74-99); HCT 39.9 % (34.0-46.0); HGB 13.3 gm/dL (11.4-16.0); MCH 29.8 pg (25.0-35.0); MCHC 33.4 g/dL (31.0-37.0); MCV 89.1 fL (80.0-100.0); Mean Platelet Volume 10.6; Non-African American GFR(CKD) 62 (>60 ml/min/1.73 sqM); Platelet Count 185 k/uL (150-450); Potassium 5.3 mmol/L (3.5-5.1); RBC 4.48 m/uL (3.80-5.40); RDW 14.7 % (11.5-15.5); Sodium 140 mmol/L (137-145); WBC 4.3 k/uL (3.8-10.6)
[2023-04-28 13:28] LABS: Glucose,Whole Blood 151 mg/dL (70-110)
[2023-04-28 14:29] LABS: Eosinophils # (M) 0.09 k/uL (0-0.7); Lymphocytes # (M) 0.99 k/uL (1.0-4.8); Monocytes # (M) 0.69 k/uL (0-1.0); Neutrophils # (M) 2.54 k/uL (1.3-7.7); Neutrophils % (M) 59 %; Nucleated Red Blood Cells 0 /100 WBC (0-0); RBC Morphology Normal; Total Cells Counted 100
[2023-04-28] MEDS ORDERED: POTASSIUM CHLORIDE ER 20 MEQ TAB.ER PO PRN (15:02)
--- NOTE | 2023-04-28 16:04 | P.CNNES ---
History of Present Illness Consult date: 04/28/23 History of Present Illness: The pt is an 82 y/o female who is seen in neurologic consultation on 2022, in collaboration with Lucy Guerrier, via teleneurology. The pt reportedly presented to the ER with complaints of left arm and leg pain and difficulty ambulating. The pt reported generalized weakness. The pt states that she had sudden tightening and shaking of her left leg. She then began to have pain and difficulty ambulating. The pt reports ongoing issues with her left shoulder-pain and limited movements. However, in addition to these old issues, the pt reports decreased strength in her left hand. Today, the pt reports continued tingling of her left lower extremity. It seems that these are all old issues, which have worsened recently. The pt reports falling recently, secondary to lightheadedness. CT scan of the brain was performed in the ER. There is no evidence of acute hemorrhage or infarct. 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 History of Any Multi-Drug Resistant Organisms: None Reported Past Surgical History: Appendectomy, Breast Surgery, Cholecystectomy, Heart Catheterization, Hysterectomy, Joint Replacement Additional Past Surgical History / Comment(s): mena knee replacements, cataracts, surgery for fx finger left hand,skin cancer removed ears, forehead, nose & shoulder, colonoscopy, lt breast biopsy, rt breast biopsy, R breast lumpectomy Past Anesthesia/Blood Transfusion Reactions: Previous Problems w/ Anesthesia, Motion Sickness Additional Past Anesthesia/Blood Transfusion Reaction / Comment(s): high BP. daughter PONV Past Psychological History: Depression Smoking Status: Never smoker Past Alcohol Use History: None Reported Additional Past Alcohol Use History / Comment(s): smoked age 16 -19. Past Drug Use History: None Reported - Past Family History Mother Family Medical History: Blood Disorder, Cancer Additional Family Medical History / Comment(s): bone cancer , pt unsure if mother or sister had blood disorder with "vitamin k" Sister(s) Family Medical History: Blood Disorder Medications and Allergies Home Medications Medication Instructions Recorded Confirmed Type Aspirin 81 mg PO DAILY 03/29/14 04/27/23 History Glimepiride [Amaryl] 2 mg PO DAILY 03/29/14 04/27/23 History Metoprolol Succinate [Toprol XL] 25 mg PO DAILY 03/29/14 04/27/23 History Montelukast [Singulair] 10 mg PO HS 03/29/14 04/27/23 History amLODIPine/ATORVASTATIN [Caduet 10 1 tab PO HS 03/29/14 04/27/23 History mg-10 mg Tablet] traMADol HCL [Ultram] 50 mg PO Q8H PRN 10/17/20 04/27/23 History Fluticasone Propionate [Flonase 1 spr EA NOSTRIL HS 11/17/20 04/27/23 History Allergy Relief] Furosemide [Lasix] 20 mg PO DAILY 11/17/20 04/27/23 History Carboxymethylcellulose Sodium 1 drop BOTH EYES QID PRN 01/23/21 04/27/23 History [Refresh Tears] Cetirizine HCl [Zyrtec] 10 mg PO DAILY 01/23/21 04/27/23 History Cyanocobalamin (Vitamin B-12) 1,000 mcg PO [facility]USA 01/23/21 04/27/23 History [Vitamin B-12] Losartan Potassium [Cozaar] 100 mg PO HS 01/23/21 04/27/23 History Potassium Chloride [Potassium 20 meq PO DAILY PRN 03/15/21 04/27/23 History Chloride ER] Anastrozole [Arimidex] 1 mg PO HS 03/23/21 04/27/23 History Meclizine [Antivert] 12.5 mg PO BID PRN 03/16/22 04/27/23 History Menthol [Biofreeze] 1 applic TOPICAL QID PRN 03/16/22 04/27/23 History Alendronate Sodium [Fosamax] 70 mg PO MO 09/30/22 04/27/23 History Cholecalciferol [Vitamin D3 (25 50 mcg PO DAILY 09/30/22 04/27/23 History Mcg = 1000 Iu)] Galantamine HBr [Galantamine ER] 16 mg PO HS 09/30/22 04/27/23 History Glimepiride [Amaryl] 1 mg PO HS 09/30/22 04/27/23 History Levothyroxine Sodium [Synthroid] 100 mcg PO DAILY 09/30/22 04/27/23 History Multivit-Min/Iron/Folic/Lutein 1 tab PO DAILY 09/30/22 04/27/23 History [Centrum Silver Women Tablet] Pioglitazone [Actos] 15 mg PO DAILY 09/30/22 04/27/23 History allopurinoL 300 mg PO DAILY 09/30/22 04/27/23 History buPROPion HCL [Wellbutrin SR] 200 mg PO BID 09/30/22 04/27/23 History Nystatin/Triamcin 1 applic TOPICAL PC-BID #30 gram 02/07/23 04/27/23 Rx [Nystatin-Triamcinolone Cream] Citrucel Caplets 1 tab PO DAILY 04/27/23 04/27/23 History Cranberry 4200mg W/Vitamin C 1 tab PO DAILY 04/27/23 04/27/23 History Lanolin/Mineral Oil [Eucerin 1 applic TOPICAL DAILY 04/27/23 04/27/23 History Original Lotion] rOPINIRole HCL [Requip] 0.5 mg PO BID@1800,2100 04/27/23 04/27/23 History Allergies Allergy/AdvReac Type Severity Reaction Status Date / Time amoxicillin Allergy Unknown TAKEN FROM Verified 04/27/23 14:39 DR OLIVER'S NOTES Iodine and Iodide Containing Allergy Unknown TESTED Verified 04/27/23 14:39 Produc POSITIVE FOR SHELLFISH prednisone Allergy Unknown TAKEN FROM Verified 04/27/23 14:39 DR FISHER NOTES adhesive Allergy blisters, Verified 04/27/23 14:39 itching shellfish derived Allergy TESTED Verified 04/27/23 14:39 POSITIVE WITH ALLERGY TESTING. gluten AdvReac vomiting, Verified 04/27/23 14:39 diarrhea Penicillins AdvReac Rash/Hives Verified 04/27/23 14:39 antibiotics AdvReac Diarrhea Uncoded 04/27/23 14:39 Physical Examination - Vital Signs Vital Signs: Vital Signs Temp Pulse Pulse Resp BP BP Pulse Ox 04/28/23 09:43 99 04/28/23 07:00 97.7 F 83 16 132/79 100 04/28/23 04:00 98.2 F 82 18 126/60 97 04/28/23 02:00 69 18 04/28/23 00:00 97.6 F 69 18 155/82 97 04/27/23 21:35 97.8 F 86 18 139/76 96 04/27/23 21:04 88 20 133/82 96 04/27/23 16:45 98.0 F 89 18 158/84 94 L 04/27/23 14:29 97.7 F 84 20 155/73 97 04/27/23 11:42 74 Intake and Output 04/27/23 04/28/23 04/28/23 22:59 06:59 14:59 Intake Total 240 Output Total 0 400 Balance 0 -400 240 Intake: Oral 240 Output: Urine 0 400 Other: Voiding Method External Catheter # Voids 0 1 # Bowel Movements 0 Weight 109.316 kg General: The pt is seated in the bedside chair. She is obese and in no acute distress. HEENT: Atraumatic, normocephalic. There is no scleral icterus. Fundus not visualized. Mucous membranes moist Neck: Supple, without carotid bruits Heart: Regular rate and rhythm. No murmur Lungs: Essentially clear to auscultation Extremities: Without edema Neurological examination Mental status: The pt is awake, alert and oriented to name, date of , age, year, month, location. Speech is clear. There is no dysarthria or anomia. Cranial Nerves: Pupils are equal at 4mm and reactive. Visual burns are full to confrontation. Extraocular movements are intact. Facial sensation is intact. There is no facial asymmetry. Hearing is grossly intact. Uvula and palate are midline. Shoulder shrug is symmetric. Tongue protrudes midline. Motor: Strength (right/left) Compliance Mgr 5/5. Triceps 5/4. Biceps 4/3. Hip flexors 5/5. Sensation: Decreased touch to left arm and leg. There is no extinction with double simultaneous stimulation. Coordination: Finger to nose, rapid alternating movements and heel to peralta testing is intact. There is no pronator drift. Deep Tendon reflexes: 2+/4+ in the right upper extremity. 3+/4+ in the left upper. Lowers unobtainable. Plantar responses are downgoing Gait: Wide based with walker assistance Toward the end of the exam, the pt suddenly stopped talking. She appeared to be awake and alert. She was able to respond appropriately. She reported feeling a sudden "hot, then cold" sensation. She also reportedly felt dizzy. Vitals at that time: HR 67-O2 sat 97% on 3 liters-134/82-blood sugar 151 Results - Laboratory Findings CBC and BMP: 04/28/23 11:57 04/28/23 11:57 Abnormal Lab Findings: Abnormal Labs 04/27/23 10:51 Chloride 108 H BUN 20 H Glucose 105 H - Diagnostic Findings Comments: CT scan of brain was personally reviewed Assessment and Plan Assessment: 1. The pt is an 82 y/o female presenting with left upper and lower extremity pain and associated difficulty ambulating Exam and symptoms suggest possible right cerebral ischemia 2. Possible orthostatic hypotension 3. Possible muscle spasm left lower extremity 4. Hx of Diabetes Mellitus 5. Hx HTN 6. Hx RLS Plan: 1. Agree with stroke work up 2. Orthostatic vitals have been ordered 3. Appreciate cardiology input 4. MRI brain has been ordered Thank you for allowing us to participate in the care of this pt. Dr. Remington Charles will assume neurologic coverage of this pt as of 2022 Time with Patient: Greater than 30 (55 minutes were spent caring for this pt today, including obtaining a history, examining the pt, reviewed imaging, labs, chart documentation, placing orders and creating this note)
[2023-04-28 16:26] LABS: Glucose,Whole Blood 98 mg/dL (70-110)
[2023-04-28 20:01] LABS: Glucose,Whole Blood 101 mg/dL (70-110)
[2023-04-28] MEDS: FAMOTIDINE 20 MG TAB PO SCH (20:30)
[2023-04-28] MEDS: DONEPEZIL 10 MG TAB PO SCH (20:30)
[2023-04-28] MEDS: ATORVASTATIN 10 MG TAB PO SCH (20:30)
[2023-04-28] MEDS: ANASTROZOLE 1 MG TAB PO SCH (20:31)
[2023-04-28] MEDS: amLODIPine 10 MG TAB PO SCH (20:31)
[2023-04-28] MEDS: GLIMEPIRIDE 1 MG TAB PO SCH (20:31)
[2023-04-28] MEDS: LOSARTAN 50 MG TAB PO SCH (20:31)
[2023-04-28] MEDS: MONTELUKAST 10 MG TAB PO SCH (20:32)
[2023-04-28] MEDS: FLUTICASONE 50MCG/SPRAY NASAL 16GM EA NOSTRIL SCH (20:43)
--- NOTE | 2023-04-29 02:13 | PN ---
PROGRESS NOTE DATE OF SERVICE: 04/28/2023 SUBJECTIVE: This is an 82-year-old woman, who was admitted with generalized weakness, being evaluated by Cardiology, Neurology. No chest pain. No palpitation. OBJECTIVE: VITAL SIGNS: Pulse is 67, blood pressure 130/70, respirations 16. CHEST: Clear to auscultation. CARDIOVASCULAR: S1, S2. ABDOMEN: Soft. NERVOUS SYSTEM: Nonfocal. LABORATORY DATA: Reviewed. ASSESSMENT: 1. Generalized weakness, for evaluation, rule out transient ischemic attack. 2. Left arm discomfort, rule out coronary artery disease. 3. Diabetes mellitus, type 2. 4. Asthma. 5. Hypertension. 6. Hyperlipidemia. 7. Multiple medical issues. RECOMMENDATIONS: Recommend to continue current management and continue symptomatic treatment. Closely follow with Neurology and Cardiology. Guarded prognosis. Further recommendations to follow. MMODL / IJN: [id number] /
[2023-04-29] MEDS: ACETAMINOPHEN TAB 325 MG TAB PO PRN (03:58)
[2023-04-29 05:58] LABS: Glucose,Whole Blood 88 mg/dL (70-110)
[2023-04-29] MEDS: LEVOTHYROXINE 100 MCG TAB PO SCH (06:18)
[2023-04-29] MEDS: CHOLECALCIFEROL 25 MCG (1000 IU) TABLET PO SCH ×2 (08:12→08:13)
[2023-04-29] MEDS: GLIMEPIRIDE 2 MG TAB PO SCH (08:12)
[2023-04-29] MEDS: METOPROLOL SUCCINATE (ER) 50 MG TAB.ER.24H PO SCH (08:12)
[2023-04-29] MEDS: MULTIVITAMINS, THERA 1 EACH TAB PO SCH (08:13)
[2023-04-29] MEDS: ASPIRIN 81 MG PO SCH (08:13)
[2023-04-29] MEDS: allopurinoL 300 MG TAB PO SCH (08:13)
[2023-04-29] MEDS: FUROSEMIDE 20 MG TAB PO SCH (08:13)
[2023-04-29] MEDS: buPROPion SR 100 MG TABLET.ER PO SCH ×2 (08:14→20:00)
[2023-04-29] MEDS: PIOGLITAZONE 15 MG TAB PO SCH (08:14)
[2023-04-29 08:18] LABS: Basophils % (A) 0 %; Eosinophils # (A) 0.1 k/uL (0-0.7); Eosinophils % (A) 2 %; HCT 41.7 % (34.0-46.0); HGB 13.6 gm/dL (11.4-16.0); Lymphocytes # (A) 1.2 k/uL (1.0-4.8); Lymphocytes % (A) 28 %; MCH 29.8 pg (25.0-35.0); MCHC 32.6 g/dL (31.0-37.0); MCV 91.3 fL (80.0-100.0); Monocytes # (A) 0.5 k/uL (0-1.0); Monocytes % (A) 11 %; Neutrophils # (A) 2.5 k/uL (1.3-7.7); Neutrophils % (A) 56 %; Platelet Count 227 k/uL (150-450); RBC 4.57 m/uL (3.80-5.40); RDW 14.6 % (11.5-15.5); WBC 4.5 k/uL (3.8-10.6)
[2023-04-29 08:45] LABS: African American GFR (CKD) 65 (>60 ml/min/1.73 sqM); Anion Gap 11 mmol/L; Blood Urea Nitrogen 19 mg/dL (7-17); Carbon Dioxide 24 mmol/L (22-30); Chloride 106 mmol/L (98-107); Glucose 82 mg/dL (74-99); Non-African American GFR(CKD) 56 (>60 ml/min/1.73 sqM); Potassium 4.3 mmol/L (3.5-5.1); Sodium 141 mmol/L (137-145)
[2023-04-29] MEDS ORDERED: Alendronate Sodium [Fosamax] 70 MG Tablet PO SCH (10:00)
[2023-04-29 11:05] LABS: Glucose,Whole Blood 92 mg/dL (70-110)
[2023-04-29 15:27] LABS: Glucose,Whole Blood 124 mg/dL (70-110)
[2023-04-29 16:03] LABS: Appearance,Urine Cloudy (Clear); Bacteria,Urine Rare /hpf; Bilirubin,Urine Negative (Negative); Blood,Urine Negative (Negative); Color,Urine Colorless; Glucose,Urine (UA) Negative (Negative); Hyaline Casts,Urine 1 /lpf (0-2); Ketones,Urine Negative (Negative); Leukocyte Esterase,Urine Large (Negative); Mucus,Urine Rare /hpf; Nitrite,Urine Negative (Negative); Protein,Urine Negative (Negative); RBC,Urine 3 /hpf (0-5); Specific Gravity,Urine 1.009 (1.001-1.035); Squamous Epithelial Cell,Urine <1 /hpf (0-4); Urobilinogen,Urine <2.0 mg/dL (<2.0); WBC,Urine 14 /hpf (0-5)
[2023-04-29 16:46] LABS: Glucose,Whole Blood 118 mg/dL (70-110)
--- NOTE | 2023-04-29 17:23 | P.PN ---
Subjective Progress Note Date: 04/29/23 I am seeing the patient for the first time during this admission. She is accompanied with her daughter who is at bedside. Please refer to Dr. Morales's notes for further details. Per the patient she came in because of pain in left foot. She has chronic lower back. Per Dr. Morales's note it seems she had left sided pain associated with weakness but per nurse who had for the past 3 days she had generalized weakness and no focal deficit. Per the daughter who she resides with, stated she was complaining of pain and was standing up and had no focal deficits. She has old left shoulder pain. Denies of any focal weakness. It seems that overnight she was confused and was talking about bugs and is tadeo r today. Also per nurse she had acute UTI. Objective - Vital Signs Vital signs: Vital Signs Temp 97.4 F L 04/29/23 12:00 Pulse 57 L 04/29/23 12:00 Resp 16 04/29/23 12:00 BP 103/64 04/29/23 12:00 Pulse Ox 95 04/29/23 12:00 FiO2 Intake & Output 04/28/23 04/29/23 04/29/23 18:59 06:59 18:59 Intake Total 240 350 598 Output Total 1150 300 Balance 240 -800 298 Intake: Oral 240 350 598 Output: Urine 1150 300 Other: Voiding Method Toilet External Catheter # Voids 1 - Exam GENERAL: The patient is sitting in a recliner chair and is not in acute distress. NEUROLOGICAL: Higher mental function: The patient is awake, alert, oriented to self, place and time. Initially she mentioned her daughter was her mother then later laugh and stated no that's my daughter. She is able to name objects correctly (pen and watch). Patient is following simple commands. No aphasia and no neglect. Cranial nerves: The pupils are round, equal and reactive to light. Visual burns are full to confrontation throughout. Extraocular movement is iI felt she has some ?nystagmus looking to left. Facial sensation is normal to touch throughout. The facial strength is normal throughout. Hearing is very hard of hearing bilaterally. Tongue is midline and moved [id number] without any difficulty. No dysarthria is noted. Motor: The strength is 5 over 5 throughout. Normal tone and bulk. Cerebellum: Normal finger to nose bilaterally. Sensation: Sensation is normal to touch throughout. SOME OF THE WORK-UP DURING THIS ADMISSION CONSISTED OF: Orthostatic vitals: BP lying 103/64, sitting 141/82 and standing is 136/78 Potassium is 5.3 U/A: cloudy, large, urine wbc 14 CT head is reported as Atrophy with chronic appearing periventricular white matter ischemic type changes. I personally reviewed it and felt she had old lacunar stroke over the left thalamus. - Labs CBC & Chem 7: 04/29/23 07:10 04/29/23 07:10 Labs: Abnormal Lab Results - Last 24 Hours (Table) 04/29/23 04/29/23 04/29/23 Range/Units 07:10 15:14 15:20 BUN 19 H (7-17) mg/dL POC Glucose (mg/dL) 124 H (70-110) mg/dL Urine Appearance Cloudy H (Clear) Ur Leukocyte Esterase Large H (Negative) Urine WBC 14 H (0-5) /hpf Urine WBC Clumps Occasional H (None) /hpf Urine Bacteria Rare H (None) /hpf Urine Mucus Rare H (None) /hpf 04/29/23 Range/Units 16:44 BUN (7-17) mg/dL POC Glucose (mg/dL) 118 H (70-110) mg/dL Urine Appearance (Clear) Ur Leukocyte Esterase (Negative) Urine WBC (0-5) /hpf Urine WBC Clumps (None) /hpf Urine Bacteria (None) /hpf Urine Mucus (None) /hpf Assessment and Plan Assessment: Left sided pain due to her left shoulder pain and chronic low back pain. Unsure if truly head left sided weakness. Per daughter she was standing up at home and did not have any weakness. 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 If she does have acute/subacute ischemic stroke, I will get rest of stroke work-up. I ordered TSH, ammonia level, Vitamin B12/folte and routine EEG because of confusion. She is on ASA 81mg daily, Lipitor 10mg qhs. Continue neuro checks. PT and OT are consulted. Will defer the rest of medical management to the primary team. The plan is discussed with patient, her daughter who is at bedside and her nurse. Time with Patient: Less than 30
[2023-04-29 19:56] LABS: Glucose,Whole Blood 112 mg/dL (70-110)
[2023-04-29] MEDS: amLODIPine 10 MG TAB PO SCH (19:59)
[2023-04-29] MEDS: ANASTROZOLE 1 MG TAB PO SCH (19:59)
[2023-04-29] MEDS: ATORVASTATIN 10 MG TAB PO SCH (19:59)
[2023-04-29] MEDS: GLIMEPIRIDE 1 MG TAB PO SCH (20:00)
[2023-04-29] MEDS: DONEPEZIL 10 MG TAB PO SCH (20:00)
[2023-04-29] MEDS: FAMOTIDINE 20 MG TAB PO SCH (20:00)
[2023-04-29] MEDS: MONTELUKAST 10 MG TAB PO SCH (20:00)
[2023-04-29] MEDS: LOSARTAN 50 MG TAB PO SCH (20:00)
[2023-04-29] MEDS: FLUTICASONE 50MCG/SPRAY NASAL 16GM EA NOSTRIL SCH (20:06)
--- NOTE | 2023-04-30 06:02 | PN ---
PROGRESS NOTE SUBJECTIVE: This is an 82-year-old lady. Ms. Wu is in sinus rhythm, comfortable. She came in with very atypical symptoms of sharp pains in the chest which have resolved. She complains of generalized weakness, was seen by Neurology. No focal neurological deficits. Troponins are unremarkable. EKG does not reveal acute changes. She was advised that after discharge she will have stress testing as outpatient, but if she is here, consider a Lexiscan stress test, but the patient is quite asymptomatic, no further chest pain. I am recommending that she can be discharged after checking oxygen saturation on room air and increasing activity. She will follow with Dr. Singh in 1 week. She is asymptomatic. Resting comfortably without symptoms at the time of my evaluation. She does have comorbid conditions in the form of type 2 diabetes, hypertension, hyperlipidemia, and nonspecific ST-T changes on the EKG. OBJECTIVE: VITAL SIGNS: Stable. NECK: No JVD. CARDIOVASCULAR: S1, S2 heard normally. Short systolic murmur in left sternal border. LUNGS: Clear. ABDOMEN: Soft, nontender. EXTREMITIES: Lower extremities reveal palpable pulses. No edema. CENTRAL NERVOUS SYSTEM: Normal. MMODL / IJN: [id number] /
[2023-04-30 06:22] LABS: Glucose,Whole Blood 101 mg/dL (70-110)
[2023-04-30] MEDS: LEVOTHYROXINE 100 MCG TAB PO SCH (06:54)
[2023-04-30] MEDS: MULTIVITAMINS, THERA 1 EACH TAB PO SCH (08:27)
[2023-04-30] MEDS: ASPIRIN 81 MG PO SCH (08:27)
[2023-04-30] MEDS: GLIMEPIRIDE 2 MG TAB PO SCH (08:28)
[2023-04-30] MEDS: allopurinoL 300 MG TAB PO SCH (08:28)
[2023-04-30] MEDS: METOPROLOL SUCCINATE (ER) 25 MG TAB.ER.24H PO SCH (08:28)
[2023-04-30] MEDS: FUROSEMIDE 20 MG TAB PO SCH (08:28)
[2023-04-30] MEDS: buPROPion SR 100 MG TABLET.ER PO SCH ×2 (08:29→20:47)
[2023-04-30] MEDS: PIOGLITAZONE 15 MG TAB PO SCH (08:29)
[2023-04-30 09:04] LABS: Basophils % (A) 0 %; Eosinophils # (A) 0.1 k/uL (0-0.7); Eosinophils % (A) 3 %; HCT 41.8 % (34.0-46.0); HGB 13.5 gm/dL (11.4-16.0); Lymphocytes % (A) 27 %; MCH 29.1 pg (25.0-35.0); MCHC 32.4 g/dL (31.0-37.0); MCV 90.1 fL (80.0-100.0); Mean Platelet Volume 8.5; Monocytes # (A) 0.5 k/uL (0-1.0); Monocytes % (A) 12 %; Neutrophils # (A) 2.1 k/uL (1.3-7.7); Neutrophils % (A) 56 %; Platelet Count 235 k/uL (150-450); RBC 4.64 m/uL (3.80-5.40); RDW 14.6 % (11.5-15.5); WBC 3.8 k/uL (3.8-10.6)
[2023-04-30 09:44] LABS: African American GFR (CKD) 59 (>60 ml/min/1.73 sqM); Anion Gap 11 mmol/L; Blood Urea Nitrogen 21 mg/dL (7-17); Calcium 9.7 mg/dL (8.4-10.2); Carbon Dioxide 23 mmol/L (22-30); Chloride 105 mmol/L (98-107); Glucose 99 mg/dL (74-99); Non-African American GFR(CKD) 51 (>60 ml/min/1.73 sqM); Potassium 4.5 mmol/L (3.5-5.1); Sodium 139 mmol/L (137-145)
--- NOTE | 2023-04-30 10:05 | P.PN ---
Subjective Progress Note Date: 04/29/23 Patient is a 82-year-old female presents to ER with complaints of generalized weakness. Patient also complaining of left shoulder pain and chronic back pain. Denied any complaints of fever or chills. No compressive chest pain. Patient does require 2 L oxygen via nasal cannula. Does use CPAP at home. 04/29/2023 Patient is currently sitting in a chair. Awake alert and oriented 3. Denied any complaints of chest pain or shortness of breath. Currently maintaining sinus rhythm. Cardiology recommends outpatient follow-up for stress test. Patient is symptomatic otherwise. No nausea vomiting. Patient is still requiring 2 L oxygen via nasal cannula. Patient is not on home oxygen. Patient was confused overnight but mentation is better this morning.. BUN 19 and creatinine 0.94. Urinalysis showed cloudy with large leukocyte esterase with elevated WBCs. Patient was started on antibiotics, ceftriaxone 1 g every 24 hours. Neurology recommends MRI which was ordered. Current medications reviewed. Objective - Vital Signs Vital signs: Vital Signs Temp 98 F 04/30/23 08:00 Pulse 66 04/30/23 08:00 Resp 18 04/30/23 08:00 BP 130/74 04/30/23 08:00 Pulse Ox 96 04/30/23 08:00 FiO2 Intake & Output 04/29/23 04/30/23 04/30/23 18:59 06:59 18:59 Intake Total 598 50 180 Output Total 300 900 Balance 298 -850 180 Intake: IV 50 0.9 50 Oral 598 180 Output: Urine 300 900 Other: Voiding Method Toilet # Voids 1 - Exam PHYSICAL EXAMINATION: Patient is lying in the bed comfortably, no acute distress, awake alert and oriented.. HEENT: Normocephalic. Neck is supple. Pupils reactive. Nostrils clear. Oral c avity is moist. Neck reveals no JVD, carotid bruits, or thyromegaly. CHEST EXAMINATION: Trachea is central. Symmetrical expansion. Lung burns clear to auscultation and percussion. CARDIAC: Normal S1, S2 with no gallops. No murmurs ABDOMEN: Soft. Bowel sounds normal. No organomegaly. No abdominal bruits. Extremities: reveal no edema. No clubbing or cyanosis Neurologically awake, alert, oriented 2-3 with well-coordinated movements. No focal deficits noted Skin: No rash or skin lesions. Psychiatric: Coperative. Nonsuicidal Musculoskeletal: No joint swelling or deformity. Normal range of motion. - Labs CBC & Chem 7: 04/30/23 07:33 04/30/23 07:33 Labs: Abnormal Lab Results - Last 24 Hours (Table) 04/29/23 04/29/23 04/29/23 Range/Units 15:14 15:20 16:44 BUN (7-17) mg/dL POC Glucose (mg/dL) 124 H 118 H (70-110) mg/dL Urine Appearance Cloudy H (Clear) Ur Leukocyte Esterase Large H (Negative) Urine WBC 14 H (0-5) /hpf Urine WBC Clumps Occasional H (None) /hpf Urine Bacteria Rare H (None) /hpf Urine Mucus Rare H (None) /hpf 04/29/23 04/30/23 Range/Units 19:55 07:33 BUN 21 H (7-17) mg/dL POC Glucose (mg/dL) 112 H (70-110) mg/dL Urine Appearance (Clear) Ur Leukocyte Esterase (Negative) Urine WBC (0-5) /hpf Urine WBC Clumps (None) /hpf Urine Bacteria (None) /hpf Urine Mucus (None) /hpf Assessment and Plan Assessment: left-sided pain and left shoulder pain. No focal weakness Altered mental status possible delirium. Improving. Acute urinary tract infection Hyperkalemia resolved history of left thalamus lacunar stroke due to chronic small wasn't disease. Chronic low back pain [id number] Anxiety restless leg syndrome asthma Obstructive sleep apnea on CPAP at home Morbid obesity BMI 41.4 DVT prophylaxis with heparin subcu Plan: patient will be continued on aspirin and statins. Stroke workup including EEG a nd MRI of the brain was ordered. B12, folate and TSH levels within normal limits. Ammonia level is not elevated. Cardiology and neurology is on board. Cardiology recommends outpatient follow- up for stress test. Patient will be continued on ceftriaxone .urine culture will be sent.follow up closely. Time with Patient: Greater than 30
[2023-04-30 11:36] LABS: Glucose,Whole Blood 112 mg/dL (70-110)
--- NOTE | 2023-04-30 15:15 | P.PN ---
Subjective Progress Note Date: 04/30/23 I am following up with the patient and the she feels she is about the same. She denies of any new weakness numbness visual disturbance difficulty getting her words out. Objective - Vital Signs Vital signs: Vital Signs Temp 97.7 F 04/30/23 12:00 Pulse 58 L 04/30/23 12:00 Resp 18 04/30/23 12:00 BP 127/76 04/30/23 12:00 Pulse Ox 97 04/30/23 12:00 FiO2 Intake & Output 04/29/23 04/30/23 04/30/23 18:59 06:59 18:59 Intake Total 598 50 360 Output Total 300 900 200 Balance 298 -850 160 Intake: IV 50 0.9 50 Oral 598 360 Output: Urine 300 900 200 Other: Voiding Method Toilet # Voids 1 - Exam GENERAL: The patient is sitting in a recliner chair and is not in acute distress. NEUROLOGICAL: Higher mental function: The patient is awake, alert, oriented to self, place and time. Initially she mentioned her daughter was her mother then later laugh and stated no that's my daughter. She is able to name objects correctly (pen and watch). Patient is following simple commands. No aphasia and no neglect. Cranial nerves: The pupils are round, equal and reactive to light. Visual burns are full to confrontation throughout. Extraocular movement is iI felt she has some ?nystagmus looking to left. Facial sensation is normal to touch throughout. The facial strength is normal throughout. Hearing is very hard of hearing bilaterally. Tongue is midline and moved [id number] without any difficulty. No dysarthria is noted. Motor: The strength is 5 over 5 throughout. Normal tone and bulk. Cerebellum: Normal finger to nose bilaterally. Sensation: Sensation is normal to touch throughout. SOME OF THE WORK-UP DURING THIS ADMISSION CONSISTED OF: Orthostatic vitals: BP lying 103/64, sitting 141/82 and standing is 136/78 Potassium is 5.3 B12 742 Folate is 28.40 Ammonia level is 13. U/A: cloudy, large, urine wbc 14 CT head is reported as Atrophy with chronic appearing periventricular white matter ischemic type changes. I personally reviewed it and felt she had old lacunar stroke over the left thalamus. - Labs CBC & Chem 7: 04/30/23 07:33 04/30/23 07:33 Labs: Abnormal Lab Results - Last 24 Hours (Table) 04/29/23 04/29/23 04/29/23 Range/Units 15:14 15:20 16:44 BUN (7-17) mg/dL POC Glucose (mg/dL) 124 H 118 H (70-110) mg/dL Urine Appearance Cloudy H (Clear) Ur Leukocyte Esterase Large H (Negative) Urine WBC 14 H (0-5) /hpf Urine WBC Clumps Occasional H (None) /hpf Urine Bacteria Rare H (None) /hpf Urine Mucus Rare H (None) /hpf 04/29/23 04/30/23 04/30/23 Range/Units 19:55 07:33 11:33 BUN 21 H (7-17) mg/dL POC Glucose (mg/dL) 112 H 112 H (70-110) mg/dL Urine Appearance (Clear) Ur Leukocyte Esterase (Negative) Urine WBC (0-5) /hpf Urine WBC Clumps (None) /hpf Urine Bacteria (None) /hpf Urine Mucus (None) /hpf Assessment and Plan Assessment: Left sided pain due to her left shoulder pain and chronic low back pain. Unsure if truly head left sided weakness. Per daughter she was standing up at home and did not have any weakness. 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 If she does have acute/subacute ischemic stroke, I will get rest of stroke work-up. Pending TSH and routine EEG because of confusion. She is on ASA 81mg daily, Lipitor 10mg qhs. Continue neuro checks. PT and OT are consulted. Will defer the rest of medical management to the primary team. Time with Patient: Less than 30
[2023-04-30 16:20] LABS: Glucose,Whole Blood 67 mg/dL (70-110)
[2023-04-30 20:25] LABS: Glucose,Whole Blood 134 mg/dL (70-110)
[2023-04-30] MEDS: MONTELUKAST 10 MG TAB PO SCH (20:46)
[2023-04-30] MEDS: LOSARTAN 50 MG TAB PO SCH (20:46)
[2023-04-30] MEDS: amLODIPine 10 MG TAB PO SCH (20:46)
[2023-04-30] MEDS: ATORVASTATIN 10 MG TAB PO SCH (20:46)
[2023-04-30] MEDS: FLUTICASONE 50MCG/SPRAY NASAL 16GM EA NOSTRIL SCH (20:47)
[2023-04-30] MEDS: GLIMEPIRIDE 1 MG TAB PO SCH (20:47)
[2023-04-30] MEDS: FAMOTIDINE 20 MG TAB PO SCH (20:47)
[2023-04-30] MEDS: ANASTROZOLE 1 MG TAB PO SCH (20:47)
[2023-04-30] MEDS: DONEPEZIL 10 MG TAB PO SCH (20:47)
--- NOTE | 2023-04-30 21:57 | EEG ---
ELECTROENCEPHALOGRAM REPORT CLINICAL HISTORY: This is an 82-year-old woman with altered mental status. The video EEG is obtained to evaluate for seizure and epileptiform activity. RELEVANT MEDICATIONS: 1. Wellbutrin. 2. Aricept. 3. Ropinirole. EEG TYPE: A routine 21-channel EEG is performed with video using the 10/20 electrode placement system. DESCRIPTION: Wakefulness, drowsiness, and stage II sleep architecture are obtained. During awake state, the background consists of low voltage of 10 Hz activity, that is somewhat poorly modulated and sustained. During stage II sleep, there is diffuse K complex with sleep spindles. There is no focal slowing. INTERICTAL AND ICTAL: None. ACTIVATION PROCEDURE: Photic stimulation did evoke a posterior driving response at 12 Hz activity. There is no abnormality during the photic stimulation. Hyperventilation is not performed. CLINICAL INTERPRETATION: This is a normal routine EEG during awake and sleep state. There is no focal slowing, epileptiform discharges, or seizure on the EEG. A normal routine EEG does not rule out underlying epilepsy. Clinical correlation is recommended. MAIA / BLADIMIR: [id number] /
[2023-05-01] MEDS: LEVOTHYROXINE 100 MCG TAB PO SCH (05:57)
[2023-05-01 06:27] LABS: Glucose,Whole Blood 106 mg/dL (70-110)
--- NOTE | 2023-05-01 07:18 | CA ---
Transthoracic Echo Report Name: Natasha Wu Age: 82 Gender: F : 1940 Exam Date: 04/30/2023 13:50 Exam Location: [facility] Ht (in): 64 Wt (lb): 241 Ordering Physician: Kyler Phan MD Attending/Referring Phys: Sales Management Trainee Noel Munroe Procedure CPT: Indications: possible TIA Cardiac Hx: Technical Quality: Fair Contrast 1: Total Dose (mL): Contrast 2: Total Dose (mL): MEASUREMENTS (Male / Female) Normal Values 2D ECHO LV Diastolic Diameter PLAX 4.8 cm 4.2 - 5.9 / 3.9 - 5.3 cm LV Systolic Diameter PLAX 3.7 cm IVS Diastolic Thickness 0.8 cm 0.6 - 1.0 / 0.6 - 0.9 cm LVPW Diastolic Thickness 1.1 cm 0.6 - 1.0 / 0.6 - 0.9 cm LV Relative Wall Thickness 0.4 RV Internal Dim ED PLAX 3.3 cm LVOT Diameter 2.3 cm Aortic Root Diameter 3.2 cm LA Systolic Diameter LX 3.4 cm 3.0 - 4.0 / 2.7 - 3.8 cm LV Diastolic Volume MOD BP 42.3 cm??? 67 - 155 / 56 - 104 cm??? LV Systolic Volume MOD BP 25.5 cm??? - 58 / 19 - 49 cm??? LV Ejection Fraction MOD BP 39.7 % >= 55 % LV Cardiac Index MOD BP 420.0 cm???/min???m??? LV Diastolic Volume MOD 4C 44.9 cm??? LV Systolic Volume MOD 4C 22.4 cm??? LV Ejection Fraction MOD 4C 50.1 % LV Cardiac Index MOD 4C 562.9 cm???/min???m??? LV Diastolic Length 4C 6.9 cm LV Systolic Length 4C 6.1 cm LV Diastolic Volume MOD 2C 36.4 cm??? LV Systolic Volume MOD 2C 22.4 cm??? LV Ejection Fraction MOD 2C 38.5 % LV Cardiac Index MOD 2C 351.0 cm???/min???m??? LV Diastolic Length 2C 6.3 cm LV Systolic Length 2C 6.0 cm LA Volume 48.7 cm??? 18 - 58 / 22 - 52 cm??? Ascending Aorta Diameter 2.9 cm DOPPLER AV Peak Velocity 120.7 cm/s AV Peak Gradient 5.8 mmHg AV Mean Velocity 86.2 cm/s AV Mean Gradient 3.4 mmHg AV Velocity Time Integral 29.8 cm LVOT Peak Velocity 79.6 cm/s LVOT Peak Gradient 2.5 mmHg LVOT Velocity Time Integral 19.3 cm LVOT Stroke Volume 77.7 cm??? LVOT Stroke Volume Index 36.7 ml/m??? LVOT Cardiac Index 1942.3 cm???/min???m??? AV Area Cont Eq vti 2.6 cm??? AV Area Cont Eq pk 2.7 cm??? MV Peak Velocity 103.2 cm/s MV Peak Gradient 4.3 mmHg MV Mean Velocity 51.1 cm/s MV Mean Gradient 1.4 mmHg MV Velocity Time Integral 48.3 cm MR Peak Velocity 320.8 cm/s MR Peak Gradient 41.2 mmHg Mitral E Point Velocity 91.1 cm/s Mitral A Point Velocity 94.3 cm/s Mitral E to A Ratio 1.0 MV Deceleration Time 338.4 ms MV E' Velocity 5.1 cm/s Mitral E to MV E' Ratio 17.7 TR Peak Velocity 272.6 cm/s TR Peak Gradient 29.7 mmHg Right Ventricular Systolic Press 34.7 mmHg PV Peak Velocity 82.7 cm/s PV Peak Gradient 2.7 mmHg FINDINGS Left Ventricle Normal LV size and wall thickness. Left ventricular ejection fraction is estimated at 50-55 %. Right Ventricle Normal right ventricular size. RVSP= 35mmHg. Right Atrium Normal right atrial size. Left Atrium Normal left atrial size. LA volume index= 23ml/m2 Mitral Valve Structurally normal mitral valve. No mitral stenosis, trace regurgitation. Aortic Valve Trileaflet aortic valve. No aortic valve stenosis or regurgitation. Tricuspid Valve Structurally normal tricuspid valve. Mild TR. Pulmonic Valve Pulmonic valve not well visualized. Trace PI. Pericardium Normal pericardium. Aorta Normal size aortic root and proximal ascending aorta. CONCLUSIONS Negative agitated saline study. Left ventricle systolic function borderline normal Mild tricuspid with trace pulmonic and mitral regurgitation Previewed by: Dr. Rafy Sofia MD (Electronically Signed) Final Date: 01 May 2023 07:17
[2023-05-01] MEDS: GLIMEPIRIDE 2 MG TAB PO SCH (08:16)
[2023-05-01] MEDS: ASPIRIN 81 MG PO SCH (08:16)
[2023-05-01] MEDS: allopurinoL 300 MG TAB PO SCH (08:16)
[2023-05-01] MEDS: buPROPion SR 100 MG TABLET.ER PO SCH (08:16)
[2023-05-01] MEDS: PIOGLITAZONE 15 MG TAB PO SCH (08:16)
[2023-05-01] MEDS: METOPROLOL SUCCINATE (ER) 25 MG TAB.ER.24H PO SCH (08:16)
[2023-05-01] MEDS: FUROSEMIDE 20 MG TAB PO SCH (08:16)
[2023-05-01] MEDS: CHOLECALCIFEROL 25 MCG (1000 IU) TABLET PO SCH (08:16)
[2023-05-01] MEDS: ACETAMINOPHEN TAB 325 MG TAB PO PRN (08:17)
[2023-05-01] MEDS: MULTIVITAMINS, THERA 1 EACH TAB PO SCH (08:17)
[2023-05-01 08:22] VITALS: BP 131/80; PULSE 64; RESP 16; TEMP 98
--- NOTE | 2023-05-01 10:08 | MR ---
EXAMINATION TYPE: MR brain wo con DATE OF EXAM: 05/01/2023 7:06 AM CLINICAL INDICATION:Female, 82 years old with history of CVA; PHH, CVA COMPARISON: 08/04/2021, CT 04/27/2023. TECHNIQUE: Multi planar, multi sequence imaging was performed through the brain including: T1, T2, In version recovery, Diffusion weighted imaging, and gradient echo imaging. No gadolinium was given. FINDINGS: The yoo-white junctions, ventricular system, and cisterns appear unremarkable. Scattered foci of hi gh T2 signal intensity are seen within the periventricular white matter. Midline structures show no a bnormality. Diffusion-weighted imaging shows no evidence of restricted diffusion. The susceptibility weighted images do not reveal any evidence for micro-hemorrhage. Left posterior parietal/occipital de velopmental venous anomaly. The bone marrow signal is within normal limits. Paranasal sinuses and mastoid air cells: No significant paranasal sinus disease. Visualized orbits: Orbital contents are intact. IMPRESSION: 1. No evidence of intracranial mass or acute/subacute infarct. 2. Nonspecific white matter changes, likely secondary to small vessel ischemic disease. 3. 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
[2023-05-01 11:26] LABS: Glucose,Whole Blood 173 mg/dL (70-110)
--- NOTE | 2023-05-01 11:51 | P.PN ---
Subjective Progress Note Date: 05/01/23 I am following up with the patient and she feels she is doing about the same today compared to yesterday. Denies of any new neurological issues. Denies of any focal deficit. Objective - Vital Signs Vital signs: Vital Signs Temp 98.0 F 05/01/23 08:20 Pulse 64 05/01/23 08:20 Resp 16 05/01/23 08:20 BP 131/80 05/01/23 08:20 Pulse Ox 97 05/01/23 08:20 FiO2 Intake & Output 04/30/23 05/01/23 05/01/23 18:59 06:59 18:59 Intake Total 540 250 200 Output Total 200 Balance 340 250 200 Intake: IV 20 Invasive Line 1 10 Invasive Line 3 10 Oral 540 250 180 Output: Urine 200 Other: Voiding Method Toilet # Voids 1 1 - Exam GENERAL: The patient is sitting in a recliner chair and is not in acute distress . NEUROLOGICAL: Higher mental function: The patient is awake, alert, oriented to self, place and time. Initially she mentioned her daughter was her mother then later laugh and stated no that's my daughter. She is able to name objects correctly (pen and watch). Patient is following simple commands. No aphasia and no neglect. Cranial nerves: The pupils are round, equal and reactive to light. Visual burns are full to confrontation throughout. Extraocular movement is iI felt she has some ?nystagmus looking to left. Facial sensation is normal to touch throughout. The facial strength is normal throughout. Hearing is very hard of hearing bilaterally. Tongue is midline and moved [id number] without any difficulty. No dysarthria is noted. Motor: The strength is 5 over 5 throughout. Normal tone and bulk. Cerebellum: Normal finger to nose bilaterally. Sensation: Sensation is normal to touch throughout. SOME OF THE WORK-UP DURING THIS ADMISSION CONSISTED OF: Orthostatic vitals: BP lying 103/64, sitting 141/82 and standing is 136/78 Potassium is 5.3 B12 742 Folate is 28.40 Ammonia level is 13. TSH: 1.270 U/A: cloudy, large, urine wbc 14 CT head is reported as Atrophy with chronic appearing periventricular white matter ischemic type changes. I personally reviewed it and felt she had old lacunar stroke over the left thalamus. Routine EEG on 04/30/2023 is normal MR the brain is reported as no evidence of intracranial mass or acute/subacute infarct. Nonspecific white matter changes likely secondary due to small vessel ischemic disease. 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 2-D echo was reported as negative agitated saline study. Left ventricle systolic function borderline normal. Mild tricuspid with trace pulmonary and m itral regurgitation. - Labs CBC & Chem 7: 04/30/23 07:33 04/30/23 07:33 Labs: Abnormal Lab Results - Last 24 Hours (Table) 04/30/23 04/30/23 05/01/23 Range/Units 16:18 20:22 11:25 POC Glucose (mg/dL) 67 L 134 H 173 H (70-110) mg/dL Assessment and Plan Assessment: Left sided pain due to her left shoulder pain and chronic low back pain. Unsure if truly had left sided weakness. Per daughter she was standing up at home and did not have any weakness. 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 She is on ASA 81mg daily, Lipitor 10mg qhs. Continue neuro checks. PT and OT are consulted. Will defer the rest of medical management to the primary team. There is no further neurological workup. I'll sign off. Please reconsult as needed. Time with Patient: Less than 30
== END 2023-05-01 11:58 | disposition home or self-care (01) ==
LOC: EC 09:26 → 6NMEDSUR 12:37 → 3SCARD 20:55
PROVIDERS: ADMIT Hospitalist; ATTEND Hospitalist
DX: I10 Essential (primary) hypertension (principal); E11.9 Type 2 diabetes mellitus without complications; R42 Dizziness and giddiness; R06.02 Shortness of breath; G25.81 Restless legs syndrome; H91.90 Unspecified hearing loss, unspecified ear; E78.5 Hyperlipidemia, unspecified; R41.3 Other amnesia; M19.90 Unspecified osteoarthritis, unspecified site; Z87.448 Personal history of other diseases of urinary system; E07.9 Disorder of thyroid, unspecified; G47.30 Sleep apnea, unspecified; M10.9 Gout, unspecified; Z85.828 Personal history of other malignant neoplasm of skin; Z85.3 Personal history of malignant neoplasm of breast; I12.9 Hypertensive chronic kidney disease with stage 1 through stage 4 chronic kidney disease, or unspecified chronic kidney disease; E11.22 Type 2 diabetes mellitus with diabetic chronic kidney disease; N18.30 Chronic kidney disease, stage 3 unspecified; R29.6 Repeated falls; F32.A Depression, unspecified; E66.9 Obesity, unspecified; Z68.41 Body mass index [BMI] 40.0-44.9, adult; Z79.84 Long term (current) use of oral hypoglycemic drugs; Z79.82 Long term (current) use of aspirin; Z79.891 Long term (current) use of opiate analgesic; Z79.83 Long term (current) use of bisphosphonates; Z79.890 Hormone replacement therapy; Z79.899 Other long term (current) drug therapy; Z88.0 Allergy status to penicillin; Z88.8 Allergy status to other drugs, medicaments and biological substances; Z91.048 Other nonmedicinal substance allergy status; Z91.09 Other allergy status, other than to drugs and biological substances; Z90.49 Acquired absence of other specified parts of digestive tract; Z86.11 Personal history of tuberculosis; Z87.19 Personal history of other diseases of the digestive system; Z90.710 Acquired absence of both cervix and uterus; Z96.653 Presence of artificial knee joint, bilateral; Z98.49 Cataract extraction status, unspecified eye; Z80.8 Family history of malignant neoplasm of other organs or systems; Z83.2 Family history of diseases of the blood and blood-forming organs and certain disorders involving the immune mechanism
CPT/HCPCS: 96365; 96366; 99285; 36415; 94760 ×2; 95819; 93005; 93306; 97116; 97162; 97530; 97166; 83880; 80053; 80048 ×3; 84443; 82607; 82140; 82746; 83605; 83735; 84484; 85025 ×4; 85610; 85730; 81001; 73030; 71046; 70450; 70551; G0378 ×6; S0106 ×5; J0696 ×2; S0170 ×4; J2270

== ENCOUNTER 2023-05-07 04:39 | Emergency (ER) | payer MEDICARE ==
[2023-05-07] MEDS ORDERED: ONDANSETRON 4 MG/2 ML VIAL IVP STA (06:20)
[2023-05-07] MEDS ORDERED: HYDROmorphone 0.5 MG/0.5 ML SYRINGE IVP STA (06:20)
--- NOTE | 2023-05-07 06:34 | ED ---
Back Pain HPI - General Chief Complaint: Back Pain/Injury Stated Complaint: Back pain Time Seen by Provider: 05/07/23 05:57 Source: family, RN notes reviewed Limitations: no limitations - History of Present Illness Initial Comments: 82-year-old female presents emergency department she went low back pain. Patient states she was recently in the hospital for UTI, weakness. Patient was discharged last week and states that she fell into or Saturday. She states that she started getting worse with the weekend Department where she has very limited mobility, pain of her lower back from her fall. Patient denies any chest pain shortness of breath. Patient states his been treated for UTI which is not sent home on oral antibiotics. - Related Data Home Medications Medication Instructions Recorded Confirmed Aspirin 81 mg PO DAILY 03/29/14 04/27/23 Glimepiride [Amaryl] 2 mg PO DAILY 03/29/14 04/27/23 Montelukast [Singulair] 10 mg PO HS 03/29/14 04/27/23 amLODIPine/ATORVASTATIN [Caduet 10 1 tab PO HS 03/29/14 04/27/23 mg-10 mg Tablet] traMADol HCL [Ultram] 50 mg PO Q8H PRN 10/17/20 04/27/23 Fluticasone Propionate [Flonase 1 spr EA NOSTRIL HS 11/17/20 04/27/23 Allergy Relief] Furosemide [Lasix] 20 mg PO DAILY 11/17/20 04/27/23 Carboxymethylcellulose Sodium 1 drop BOTH EYES QID PRN 01/23/21 04/27/23 [Refresh Tears] Cyanocobalamin (Vitamin B-12) 1,000 mcg PO SUSA 01/23/21 04/27/23 [Vitamin B-12] Losartan Potassium [Cozaar] 100 mg PO HS 01/23/21 04/27/23 Potassium Chloride [Potassium 20 meq PO DAILY PRN 03/15/21 04/27/23 Chloride ER] Anastrozole [Arimidex] 1 mg PO HS 03/23/21 04/27/23 Meclizine [Antivert] 12.5 mg PO BID PRN 03/16/22 04/27/23 Menthol [Biofreeze] 1 applic TOPICAL QID PRN 03/16/22 04/27/23 Alendronate Sodium [Fosamax] 70 mg PO MO 09/30/22 04/27/23 Cholecalciferol [Vitamin D3 (25 50 mcg PO DAILY 09/30/22 04/27/23 Mcg = 1000 Iu)] Galantamine HBr [Galantamine ER] 16 mg PO HS 09/30/22 04/27/23 Glimepiride [Amaryl] 1 mg PO HS 09/30/22 04/27/23 Levothyroxine Sodium [Synthroid] 100 mcg PO DAILY 09/30/22 04/27/23 Multivit-Min/Iron/Folic/Lutein 1 tab PO DAILY 09/30/22 04/27/23 [Centrum Silver Women Tablet] Pioglitazone [Actos] 15 mg PO DAILY 09/30/22 04/27/23 allopurinoL 300 mg PO DAILY 09/30/22 04/27/23 buPROPion HCL [Wellbutrin SR] 200 mg PO BID 09/30/22 04/27/23 Citrucel Caplets 1 tab PO DAILY 04/27/23 04/27/23 Cranberry 4200mg W/Vitamin C 1 tab PO DAILY 04/27/23 04/27/23 Lanolin/Mineral Oil [Eucerin 1 applic TOPICAL DAILY 04/27/23 04/27/23 Original Lotion] rOPINIRole HCL [Requip] 0.5 mg PO BID@1800,2100 04/27/23 04/27/23 Previous Rx's Medication Instructions Recorded Nystatin/Triamcin 1 applic TOPICAL PC-BID #30 gram 02/07/23 [Nystatin-Triamcinolone Cream] Metoprolol Succinate (ER) [Toprol 25 mg PO DAILY #30 tab 05/01/23 XL] Nitrofurantoin Monohyd/M-Cryst 100 mg PO Q12HR #14 cap 05/07/23 [Macrobid] Allergies Allergy/AdvReac Type Severity Reaction Status Date / Time amoxicillin Allergy Unknown TAKEN FROM Verified 05/07/23 04:43 DR OLIVER'S NOTES Iodine and Iodide Containing Allergy Unknown TESTED Verified 05/07/23 04:43 Produc POSITIVE FOR SHELLFISH prednisone Allergy Unknown TAKEN FROM Verified 05/07/23 04:43 DR FISHER NOTES adhesive Allergy blisters, Verified 05/07/23 04:43 itching shellfish derived Allergy TESTED Verified 05/07/23 04:43 POSITIVE WITH ALLERGY TESTING. gluten AdvReac vomiting, Verified 05/07/23 04:43 diarrhea Penicillins AdvReac Rash/Hives Verified 05/07/23 04:43 antibiotics AdvReac Diarrhea Uncoded 05/07/23 04:43 Review of Systems ROS Statement: Those systems with pertinent positive or pertinent negative responses have been documented in the HPI. ROS Other: All systems not noted in ROS Statement are negative. 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 History of Any Multi-Drug Resistant Organisms: None Reported Past Surgical History: Appendectomy, Breast Surgery, Cholecystectomy, Heart Catheterization, Hysterectomy, Joint Replacement Additional Past Surgical History / Comment(s): mena knee replacements, cataracts, surgery for fx finger left hand,skin cancer removed ears, forehead, nose & shoulder, colonoscopy, lt breast biopsy, rt breast biopsy, R breast lumpectomy Past Anesthesia/Blood Transfusion Reactions: Previous Problems w/ Anesthesia, Motion Sickness Additional Past Anesthesia/Blood Transfusion Reaction / Comment(s): high BP. daughter PONV Past Psychological History: Depression Smoking Status: Never smoker Past Alcohol Use History: None Reported Past Drug Use History: None Reported - Past Family History Mother Family Medical History: Blood Disorder, Cancer Additional Family Medical History / Comment(s): bone cancer , pt unsure if mother or sister had blood disorder with "vitamin k" Sister(s) Family Medical History: Blood Disorder General Exam Limitations: no limitations General appearance: alert, in no apparent distress Head exam: Present: atraumatic, normocephalic, normal inspection Eye exam: Present: normal appearance, PERRL, EOMI. Absent: scleral icterus, conjunctival injection, periorbital swelling Respiratory exam: Present: normal lung sounds bilaterally. Absent: respiratory distress, wheezes, rales, rhonchi, stridor Cardiovascular Exam: Present: regular rate, normal rhythm, normal heart sounds. Absent: systolic murmur, diastolic murmur, rubs, gallop, clicks GI/Abdominal exam: Present: soft, normal bowel sounds. Absent: distended, tenderness, guarding, rebound, rigid Extremities exam: Present: normal inspection. Absent: full ROM (Limited range of motion lower extremity, strength 3/5 neurovascular intact) Back exam: Present: tenderness, paraspinal tenderness, vertebral tenderness. Absent: full ROM Neurological exam: Present: alert, oriented X3 Course Vital Signs 05/07/23 05/07/23 05/07/23 04:41 06:27 07:45 Temperature 97.8 F 98.5 F Pulse Rate 74 67 60 Respiratory 18 18 16 Rate Blood Pressure 148/72 133/66 134/58 O2 Sat by Pulse 95 95 100 Oximetry 05/07/23 05/07/23 08:28 09:55 Temperature 97.7 F Pulse Rate 62 63 Respiratory 18 18 Rate Blood Pressure 128/54 129/62 O2 Sat by Pulse 98 97 Oximetry Medical Decision Making - Medical Decision Making Was pt. sent in by a medical professional or institution (Dr. PA, BELT SPLICER, urgent care, hospital, or penitentiary...) When possible be specific @ -No Did you speak to anyone other than the patient for history (EMS, parent, family, police, friend...)? What history was obtained from this source @ -Documented in the room providing severe past medical history Did you review nursing and triage notes (agree or disagree)? Why? @ -I reviewed and agree with nursing and triage notes Were old charts reviewed (outside hosp., previous admission, EMS record, old EKG, old radiological studies, urgent care reports/EKG's, penitentiary records)? Report findings @ -Reviewed her recent inpatient laboratory studies, cardiology evaluation, neurology evaluation Differential Diagnosis (chest pain, altered mental status, abdominal pain women, abdominal pain men, vaginal bleeding, weakness, fever, dyspnea, syncope, headache, dizziness, GI bleed, back pain, seizure, CVA, palpatations, mental health, musculoskeletal)? @ -Fall, lumbar fracture, weakness, UTI EKG interpreted by me (3pts min.). @ -None X-rays interpreted by me (1pt min.). @ -None done CT interpreted by me (1pt min.). @ -CT lumbar spine showing degenerative changes no acute fracture. U/S interpreted by me (1pt. min.). @ -None done What testing was considered but not performed or refused? (CT, X-rays, U/S, labs)? Why? @ -None What meds were considered but not given or refused? Why? @ -None Did you discuss the management of the patient with other professionals (professionals i.e. , PA, BELT SPLICER, lab, RT, psych nurse, director social welfare, wheel cleaner, teacher, sports development officer, outpatient case manager)? Give summary @ -Case management setting up home health care and discuss other options including private duty at home. Family agrees to plan of discharge. Was smoking cessation discussed for >3mins.? @ -No Was critical care preformed (if so, how long)? @ -No Were there social determinants of health that impacted care today? How? (Homelessness, low income, unemployed, alcoholism, drug addiction, transportation, low edu. Level, literacy, decrease access to med. care, long term, rehab)? @ -No Was there de-escalation of care discussed even if they declined (Discuss DNR or withdrawal of care, Hospice)? DNR status @ -No What co-morbidities impacted this encounter? (DM, HTN, Smoking, COPD, CAD, Cancer, CVA, ARF, Chemo, Hep., AIDS, mental health diagnosis, sleep apnea, morbid obesity)? @ -None Was patient admitted / discharged? Hospital course, mention meds given and route, prescriptions, significant lab abnormalities, going to OR and other pertinent info. @ -Discharge patient discharged with home health care, visiting nurses. Patient does complain of dysuria with noted 10 white cells with urinalysis. Patient from culture will be obtained. Patient we discharged with adequate pain control return parameters discussed. Undiagnosed new problem with uncertain prognosis? @ -No Drug Therapy requiring intensive monitoring for toxicity (Heparin, Nitro, Ins ulin, Cardizem)? @ -No Were any procedures done? @ -No Diagnosis/symptom? @ -Fall, back pain, UTI Acute, or Chronic, or Acute on Chronic? @ -Acute Uncomplicated (without systemic symptoms) or Complicated (systemic symptoms)? @ -Complicated Side effects of treatment? @ -No Exacerbation, Progression, or Severe Exacerbation? @ -No Poses a threat to life or bodily function? How? (Chest pain, [place], [place], pneumonia, PE, COPD, DKA, ARF, appy, cholecystitis, CVA, Diverticulitis, Homicidal, Suicidal, threat to staff... and all critical care pts) @ -No - Lab Data Result diagrams: 05/07/23 06:22 05/07/23 06:22 Lab Results 05/07/23 05/07/23 05/07/23 Range/Units 06:22 06:22 08:03 WBC 6.6 (3.8-10.6) k/uL RBC 4.30 (3.80-5.40) m/uL Hgb 12.6 (11.4-16.0) gm/dL Hct 38.3 (34.0-46.0) % MCV 89.1 (80.0-100.0) fL MCH 29.3 (25.0-35.0) pg MCHC 32.8 (31.0-37.0) g/dL RDW 14.6 (11.5-15.5) % Plt Count 207 (150-450) k/uL MPV 8.7 Neutrophils % 62 % Lymphocytes % 17 % Monocytes % 18 % Eosinophils % 1 % Basophils % 0 % Neutrophils # 4.1 (1.3-7.7) k/uL Lymphocytes # 1.1 (1.0-4.8) k/uL Monocytes # 1.2 H (0-1.0) k/uL Eosinophils # 0.1 (0-0.7) k/uL Basophils # 0.0 (0-0.2) k/uL Sodium 137 (137-145) mmol/L Potassium 4.5 (3.5-5.1) mmol/L Chloride 105 (98-107) mmol/L Carbon Dioxide 21 L (22-30) mmol/L Anion Gap 11 mmol/L BUN 19 H (7-17) mg/dL Creatinine 0.99 (0.52-1.04) mg/dL Est GFR (CKD-EPI)AfAm 61 (>60 ml/min/1.73 sqM) Est GFR (CKD-EPI)NonAf 53 (>60 ml/min/1.73 sqM) Glucose 110 H (74-99) mg/dL Calcium 9.7 (8.4-10.2) mg/dL Magnesium 1.9 (1.6-2.3) mg/dL Total Bilirubin 0.9 (0.2-1.3) mg/dL AST 26 (14-36) U/L ALT 19 (4-34) U/L Alkaline Phosphatase 65 (38-126) U/L Total Protein 6.8 (6.3-8.2) g/dL Albumin 4.0 (3.5-5.0) g/dL Urine Color Light Yellow Urine Appearance Clear (Clear) Urine pH 5.0 (5.0-8.0) Ur Specific [place] 1.011 (1.001-1.035) Urine Protein Negative (Negative) Urine Glucose (UA) Negative (Negative) Urine Ketones Negative (Negative) Urine Blood Negative (Negative) Urine Nitrite Negative (Negative) Urine Bilirubin Negative (Negative) Urine Urobilinogen <2.0 (<2.0) mg/dL Ur Leukocyte Esterase Moderate H (Negative) Urine WBC 11 H (0-5) /hpf Ur Squamous Epith Cells 1 (0-4) /hpf Urine Mucus Rare H (None) /hpf Disposition Clinical Impression: Fall, Weakness, UTI (urinary tract infection), Back pain Disposition: HOME SELF-CARE Condition: Stable Instructions (If sedation given, give patient instructions): Acute Low Back Bree n (ED) Additional Instructions: Please return to the Emergency Department if symptoms worsen or any other concerns. Prescriptions: Nitrofurantoin Monohyd/M-Cryst [Macrobid] 100 mg PO Q12HR #14 cap Is patient prescribed a controlled substance at d/c from ED?: No Referrals: [facility], [NON-STAFF] - 1-2 days Milvia Oliver MD [Primary Care Provider] - 05/09/23 Forms: [facility], Personal Chief Librarian Branch Time of Disposition: 09:19
[2023-05-07 06:46] LABS: Basophils % (A) 0 %; Eosinophils # (A) 0.1 k/uL (0-0.7); Eosinophils % (A) 1 %; HCT 38.3 % (34.0-46.0); HGB 12.6 gm/dL (11.4-16.0); Lymphocytes # (A) 1.1 k/uL (1.0-4.8); Lymphocytes % (A) 17 %; MCH 29.3 pg (25.0-35.0); MCHC 32.8 g/dL (31.0-37.0); MCV 89.1 fL (80.0-100.0); Mean Platelet Volume 8.7; Monocytes # (A) 1.2 k/uL (0-1.0); Monocytes % (A) 18 %; Neutrophils # (A) 4.1 k/uL (1.3-7.7); Neutrophils % (A) 62 %; Platelet Count 207 k/uL (150-450); RDW 14.6 % (11.5-15.5); WBC 6.6 k/uL (3.8-10.6)
[2023-05-07 07:01] LABS: ALT 19 U/L (4-34); AST 26 U/L (14-36); African American GFR (CKD) 61 (>60 ml/min/1.73 sqM); Alkaline Phosphatase 65 U/L (38-126); Anion Gap 11 mmol/L; Blood Urea Nitrogen 19 mg/dL (7-17); Calcium 9.7 mg/dL (8.4-10.2); Carbon Dioxide 21 mmol/L (22-30); Chloride 105 mmol/L (98-107); Glucose 110 mg/dL (74-99); Magnesium 1.9 mg/dL (1.6-2.3); Non-African American GFR(CKD) 53 (>60 ml/min/1.73 sqM); Potassium 4.5 mmol/L (3.5-5.1); Sodium 137 mmol/L (137-145); Total Bilirubin 0.9 mg/dL (0.2-1.3); Total Protein 6.8 g/dL (6.3-8.2)
[2023-05-07] MEDS ORDERED: KETOROLAC 15 MG/ML 1 ML VIAL IVP STA (07:55)
[2023-05-07 08:12] LABS: Appearance,Urine Clear (Clear); Bilirubin,Urine Negative (Negative); Blood,Urine Negative (Negative); Color,Urine Light Yellow; Glucose,Urine (UA) Negative (Negative); Ketones,Urine Negative (Negative); Leukocyte Esterase,Urine Moderate (Negative); Mucus,Urine Rare /hpf; Nitrite,Urine Negative (Negative); Protein,Urine Negative (Negative); Specific Gravity,Urine 1.011 (1.001-1.035); Squamous Epithelial Cell,Urine 1 /hpf (0-4); Urobilinogen,Urine <2.0 mg/dL (<2.0); WBC,Urine 11 /hpf (0-5)
--- NOTE | 2023-05-07 08:17 | CT ---
EXAMINATION TYPE: CT lumbar spine wo con DATE OF EXAM: 05/07/2023 COMPARISON: None HISTORY: Fall, low back pain CT DLP: 1835.1 mGycm CONTRAST: None TECHNIQUE: CT of the lumbar spine is performed on a spiral scan at 3 mm thick sections. Reconstructed images are performed in the coronal and sagittal planes. FINDINGS: There is a grade 1 spondylolisthesis of L4 anteriorly on L5. Some endplate spurring from th e superior endplate of L3 is present. There is loss of disc height and vacuum disc phenomenon present L1-L2 3 L4-5 and L5-S1. Some mild narrowing of the L3-4 disc height is present. Note is made of sacr oiliac joint degenerative changes. T12-L1: No focal disc herniation or significant disc bulge is evident. No spinal canal stenosis or neural foraminal stenosis is present. There is a sclerotic lesion within the mid vertebral body of L1 . L1-L2: No focal disc herniation or significant disc bulge is evident. No spinal canal stenosis or n eural foraminal stenosis is present L2-L3: No focal disc herniation or significant disc bulge is evident. No spinal canal stenosis or n eural foraminal stenosis is present L3-L4: Disc bulge is present with anterior thecal sac flattening. Facet hypertrophy is present. Some spinal canal narrowing is present. L4-L5: Disc uncovering is present. Facet hypertrophy is present. This is contributing to severe spina l canal stenosis. Lateral recess stenosis appears to be present. L5-S1: No focal disc herniation or significant disc bulge is evident. No spinal canal stenosis or n eural foraminal stenosis is present IMPRESSION: 1. Multilevel degenerative disc changes with vacuum disc phenomenon. 2. Grade 1 spondylolisthesis of L4 anteriorly on L5 3. Spinal canal narrowing due to facet hypertrophy and disc bulging L3-4. 4. Severe Spinal canal stenosis due to disc uncovering and facet hypertrophy. 5. No acute osseous abnormality.
[2023-05-07 08:33] VITALS: RESP 18
[2023-05-07] MEDS ORDERED: ACET/COD 300 MG/30 MG STARTER PACK 6 TAB BTL PO STA (09:12)
[2023-05-07 10:03] VITALS: BP 129/62; PULSE 63; TEMP 97.7
== END 2023-05-07 10:11 | disposition home or self-care (01) ==
LOC: EC 04:39
DX: N39.0 Urinary tract infection, site not specified (principal); R53.1 Weakness; E11.22 Type 2 diabetes mellitus with diabetic chronic kidney disease; I12.9 Hypertensive chronic kidney disease with stage 1 through stage 4 chronic kidney disease, or unspecified chronic kidney disease; N18.30 Chronic kidney disease, stage 3 unspecified; J45.909 Unspecified asthma, uncomplicated; E78.5 Hyperlipidemia, unspecified; M19.90 Unspecified osteoarthritis, unspecified site; E07.9 Disorder of thyroid, unspecified; M10.9 Gout, unspecified; F32.A Depression, unspecified; Z79.82 Long term (current) use of aspirin; Z79.84 Long term (current) use of oral hypoglycemic drugs; Z79.890 Hormone replacement therapy; Z79.899 Other long term (current) drug therapy; Z88.0 Allergy status to penicillin; Z88.1 Allergy status to other antibiotic agents; Z88.8 Allergy status to other drugs, medicaments and biological substances; Z91.013 Allergy to seafood; Z91.041 Radiographic dye allergy status; Z91.09 Other allergy status, other than to drugs and biological substances; Z90.49 Acquired absence of other specified parts of digestive tract; W19.XXXA Unspecified fall, initial encounter
CPT/HCPCS: 36415; 80053; 83735; 85025; 81001; 87086; 72131; 99284; 96374; 96375 ×2; J2405; J1885; J1170

== ENCOUNTER → 2023-06-10 | Outpatient (CLI) | payer MEDICARE ==
--- NOTE | 2023-06-10 15:26 | MR ---
EXAMINATION TYPE: MR lumbar spine wo con DATE OF EXAM: 06/10/2023 COMPARISON: CT lumbar spine 05/07/2023 HISTORY: Low back pain that radiates into left and right buttocks. TECHNIQUE: Multiplanar, multisequence images of the lumbar spine were acquired without IV contrast. FINDINGS: Lumbar segments are intact. No paraspinal masses are identified. Conus medullaris has a normal appe arance. Mild levocurvature of the thoracolumbar spine with apex at L3. Grade 1 anterolisthesis of L4 on L5. Multilevel Schmorl's nodes. Benign bone island identified within the L1 vertebral body. Multil evel disc desiccation. L1-L2: No significant central canal stenosis. No disc herniation. Bilateral facet arthropathy resulti ng in mild to moderate bilateral neural foraminal stenosis. L2-L3: Broad-based disc bulge with mild effacement of the intrathecal sac. Bilateral facet arthropath y. Mild left and severe right neural foraminal stenosis. L3-L4: Broad-based disc bulge with ligamentum flavum buckling and bilateral facet arthropathy contrib uting to mild central canal stenosis. Severe right and mild left neural foraminal stenosis. L4-L5: Grade 1 anterolisthesis with broad-based disc bulge, bilateral facet arthropathy, and ligament flavum buckling resulting in severe central canal stenosis. Severe right and moderate left neural fo raminal stenosis. L5-S1: No herniation, protrusion or disc bulging. No canal stenosis is present. Bilateral facet arth ropathy resulting in mild to moderate bilateral neural foraminal stenosis. IMPRESSION: 1. No disc herniation. 2. Grade 1 anterolisthesis of L4 on L5 with broad-based disc bulge, bilateral facet arthropathy, liga ment of flavum buckling resulting in severe central canal stenosis. There is associated severe right and moderate left neural foraminal stenosis. 3. Multilevel degenerative disc disease and facet arthropathy as described above.
== END | disposition home or self-care (01) ==
LOC: RADMRIMAIN 13:23
PROVIDERS: ATTEND Family Medicine
DX: M43.16 Spondylolisthesis, lumbar region (principal); M51.26 Other intervertebral disc displacement, lumbar region; M47.816 Spondylosis without myelopathy or radiculopathy, lumbar region; M99.73 Connective tissue and disc stenosis of intervertebral foramina of lumbar region; M51.36 Other intervertebral disc degeneration, lumbar region; R29.6 Repeated falls
CPT/HCPCS: 72148

== ENCOUNTER 2024-01-03 23:09 | Emergency (ER) | payer MEDICARE ==
[2024-01-04 00:38] LABS: Basophils % (A) 0 %; Eosinophils # (A) 0.1 k/uL (0-0.7); Eosinophils % (A) 2 %; HCT 38.3 % (34.0-46.0); HGB 12.6 gm/dL (11.4-16.0); Lymphocytes # (A) 0.9 k/uL (1.0-4.8); Lymphocytes % (A) 19 %; MCH 29.2 pg (25.0-35.0); MCHC 32.8 g/dL (31.0-37.0); Mean Platelet Volume 8.6; Monocytes # (A) 0.8 k/uL (0-1.0); Monocytes % (A) 17 %; Neutrophils # (A) 2.9 k/uL (1.3-7.7); Neutrophils % (A) 59 %; Platelet Count 189 k/uL (150-450); RDW 14.9 % (11.5-15.5); WBC 4.9 k/uL (3.8-10.6)
[2024-01-04] MEDS: KETOROLAC 15 MG/ML 1 ML VIAL IVP STA (00:39)
[2024-01-04] MEDS: SODIUM CHLORIDE 0.9% 500 ML 500 ML IV ONE (00:41)
[2024-01-04 00:51] LABS: ALT 15 U/L (4-34); AST 20 U/L (14-36); African American GFR (CKD) 66 (>60 ml/min/1.73 sqM); Albumin 3.4 g/dL (3.5-5.0); Alkaline Phosphatase 73 U/L (38-126); Anion Gap 10 mmol/L; Blood Urea Nitrogen 22 mg/dL (7-17); Calcium 9.1 mg/dL (8.4-10.2); Carbon Dioxide 18 mmol/L (22-30); Chloride 108 mmol/L (98-107); Glucose 118 mg/dL (74-99); Non-African American GFR(CKD) 57 (>60 ml/min/1.73 sqM); Potassium 3.9 mmol/L (3.5-5.1); Sodium 136 mmol/L (137-145); Total Bilirubin 0.8 mg/dL (0.2-1.3); Total Protein 6.5 g/dL (6.3-8.2)
[2024-01-04 01:04] LABS: Appearance,Urine Cloudy (Clear); Bacteria,Urine Rare /hpf; Bilirubin,Urine Negative (Negative); Blood,Urine Negative (Negative); Color,Urine Yellow; Glucose,Urine (UA) Negative (Negative); Hyaline Casts,Urine 5 /lpf (0-2); Ketones,Urine Negative (Negative); Leukocyte Esterase,Urine Large (Negative); Mucus,Urine Rare /hpf; Nitrite,Urine Negative (Negative); Protein,Urine Trace (Negative); RBC,Urine 1 /hpf (0-5); Specific Gravity,Urine 1.017 (1.001-1.035); Squamous Epithelial Cell,Urine 1 /hpf (0-4); Urobilinogen,Urine <2.0 mg/dL (<2.0); WBC,Urine 27 /hpf (0-5)
[2024-01-04 01:14] VITALS: TEMP 98
[2024-01-04] MEDS: MORPHINE SULFATE 4 MG/ML SYRINGE IVP STA (01:29)
--- NOTE | 2024-01-04 01:42 | CT ---
EXAMINATION TYPE: CT lumbar spine wo con CT DLP: 1266.5 mGycm, Automated exposure control for dose reduction was used. DATE OF EXAM: 01/04/2024 12:56 AM COMPARISON: 05/06/2023. CLINICAL INDICATION:Female, 83 years old with history of pain, paresthesias; PHH, Lower back pain no injury TECHNIQUE: Multiple axial images were obtained from the midportion of T11 through the sacroiliac radha nts. Soft tissue and bone windows in coronal and sagittal planes were obtained and reviewed. 3-D ref ormats of the bones were created on a separate workstation and submitted for review. Contrast used: mL of , (None, if empty). Oral contrast used: (None, if empty). FINDINGS: Alignment: There are 5 lumbar type vertebral bodies. Grade 1 anterolisthesis of L4 and L5. Bone: No evidence of fracture is identified. Multilevel degeneration changes with osteophyte formati on, disc space narrowing, facet joint arthropathy. Discs: T12-L1: No spinal canal or neural foraminal stenosis is identified. L1-L2: Facet joint arthropathy and disc bulging result with mild spinal canal stenosis and moderate b ilateral neural foraminal stenosis. L2-L3: Facet joint arthropathy and disc bulging result with moderate spinal canal stenosis and modera te bilateral neural foraminal stenosis. L3-L4: Facet joint arthropathy and disc bulging result with moderate spinal canal stenosis and modera te to severe right and moderate left bilateral neural foraminal stenosis. L4-L5: Grade 1 anterolisthesis with moderate to severe spinal canal stenosis and moderate to severe b ilateral neural foraminal stenosis. L5-S1: Facet joint arthropathy and disc bulging result with mild spinal canal stenosis and moderate bilateral neural foraminal stenosis. Other: None IMPRESSION: Overall findings are not significantly changed from prior in 2022. 1. No evidence for spinal fracture. 2. Grade 1 anterolisthesis of L4 and L5 this results in moderate to severe spinal canal stenosis and moderate to severe bilateral neural foraminal stenosis. 3. Moderate degeneration changes throughout the spine with moderate to severe right L3-L4, moderate bilateral L2-L3 and left L3-L4 Neural foraminal stenosis. foraminal stenosis.
[2024-01-04] MEDS: Acetaminophen-Codeine 300-30mg TAB PO STA (02:02)
--- NOTE | 2024-01-04 02:23 | ED ---
Extremity Problem HPI - General Chief complaint: Extremity Problem,Nontraumatic Stated complaint: Weakness Time Seen by Provider: 01/03/24 23:46 Source: patient, family Mode of arrival: wheelchair Limitations: no limitations - History of Present Illness Initial comments: 83-year-old female presenting with chief complaint of lower back pain and lower extremity numbness. Symptoms have been worsening over the last 2 days. Patient states that her legs have been increasingly weak and she has had increasing pain with walking or any range of motion. She denies any incontinence. She denies any recent fall or injury. She states that she has had lower back pain for years. No fevers or chills. No nausea or vomiting. No abdominal pain. No chest pain or difficulty breathing. - Related Data Home Medications Medication Instructions Recorded Confirmed Aspirin 81 mg PO DAILY 03/29/14 04/27/23 Glimepiride [Amaryl] 2 mg PO DAILY 03/29/14 04/27/23 Montelukast [Singulair] 10 mg PO HS 03/29/14 04/27/23 amLODIPine/ATORVASTATIN [Caduet 10 1 tab PO HS 03/29/14 04/27/23 mg-10 mg Tablet] traMADol HCL [Ultram] 50 mg PO Q8H PRN 10/17/20 04/27/23 Fluticasone Propionate [Flonase 1 spr EA NOSTRIL HS 11/17/20 04/27/23 Allergy Relief] Furosemide [Lasix] 20 mg PO DAILY 11/17/20 04/27/23 Carboxymethylcellulose Sodium 1 drop BOTH EYES QID PRN 01/23/21 04/27/23 [Refresh Tears] Cyanocobalamin (Vitamin B-12) 1,000 mcg PO SUSA 01/23/21 04/27/23 [Vitamin B-12] Losartan Potassium [Cozaar] 100 mg PO HS 01/23/21 04/27/23 Potassium Chloride [Potassium 20 meq PO DAILY PRN 03/15/21 04/27/23 Chloride ER] Anastrozole [Arimidex] 1 mg PO HS 03/23/21 04/27/23 Meclizine [Antivert] 12.5 mg PO BID PRN 03/16/22 04/27/23 Menthol [Biofreeze] 1 applic TOPICAL QID PRN 03/16/22 04/27/23 Alendronate Sodium [Fosamax] 70 mg PO MO 09/30/22 04/27/23 Cholecalciferol [Vitamin D3 (25 50 mcg PO DAILY 09/30/22 04/27/23 Mcg = 1000 Iu)] Galantamine HBr [Razadyne ER] 16 mg PO HS 09/30/22 04/27/23 Glimepiride [Amaryl] 1 mg PO HS 09/30/22 04/27/23 Levothyroxine Sodium [Synthroid] 100 mcg PO DAILY 09/30/22 04/27/23 Multivit-Min/Iron/Folic/Lutein 1 tab PO DAILY 09/30/22 04/27/23 [Centrum Silver Women Tablet] Pioglitazone [Actos] 15 mg PO DAILY 09/30/22 04/27/23 allopurinoL 300 mg PO DAILY 09/30/22 04/27/23 buPROPion HCL [Wellbutrin SR] 200 mg PO BID 09/30/22 04/27/23 Citrucel Caplets 1 tab PO DAILY 04/27/23 04/27/23 Cranberry 4200mg W/Vitamin C 1 tab PO DAILY 04/27/23 04/27/23 Lanolin/Mineral Oil [Eucerin 1 applic TOPICAL DAILY 04/27/23 04/27/23 Original Lotion] rOPINIRole HCL [Requip] 0.5 mg PO BID@1800,2100 04/27/23 04/27/23 Previous Rx's Medication Instructions Recorded Nystatin/Triamcin 1 applic TOPICAL PC-BID #30 gram 02/07/23 [Nystatin-Triamcinolone Cream] Metoprolol Succinate (ER) [Toprol 25 mg PO DAILY #30 tab 05/01/23 XL] Nitrofurantoin Monohyd/M-Cryst 100 mg PO Q12HR #14 cap 05/07/23 [Macrobid] Allergies Allergy/AdvReac Type Severity Reaction Status Date / Time amoxicillin Allergy Unknown TAKEN FROM Verified 01/03/24 23:37 DR OLIVER'S NOTES Iodine and Iodide Containing Allergy Unknown TESTED Verified 01/03/24 23:37 Produc POSITIVE FOR SHELLFISH prednisone Allergy Unknown TAKEN FROM Verified 01/03/24 23:37 DR FISHER NOTES adhesive Allergy blisters, Verified 01/03/24 23:37 itching shellfish derived Allergy TESTED Verified 01/03/24 23:37 POSITIVE WITH ALLERGY TESTING. gluten AdvReac vomiting, Verified 01/03/24 23:37 diarrhea Penicillins AdvReac Rash/Hives Verified 01/03/24 23:37 antibiotics AdvReac Diarrhea Uncoded 01/03/24 23:37 Review of Systems ROS Statement: Those systems with pertinent positive or pertinent negative responses have been documented in the HPI. ROS Other: All systems not noted in ROS Statement are negative. 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 History of Any Multi-Drug Resistant Organisms: None Reported Past Surgical History: Appendectomy, Breast Surgery, Cholecystectomy, Heart Catheterization, Hysterectomy, Joint Replacement Additional Past Surgical History / Comment(s): mena knee replacements, cataracts, surgery for fx finger left hand,skin cancer removed ears, forehead, nose & shoulder, colonoscopy, lt breast biopsy, rt breast biopsy, R breast lumpectomy Past Anesthesia/Blood Transfusion Reactions: Previous Problems w/ Anesthesia, Motion Sickness Additional Past Anesthesia/Blood Transfusion Reaction / Comment(s): high BP. daughter PONV Past Psychological History: Depression Smoking Status: Never smoker Past Alcohol Use History: None Reported Past Drug Use History: None Reported - Past Family History Mother Family Medical History: Blood Disorder, Cancer Additional Family Medical History / Comment(s): bone cancer , pt unsure if mother or sister had blood disorder with "vitamin k" Sister(s) Family Medical History: Blood Disorder General Exam Limitations: no limitations General appearance: alert, in no apparent distress Head exam: Present: atraumatic, normocephalic Eye exam: Present: normal appearance, EOMI Neck exam: Present: normal inspection Respiratory exam: Present: normal lung sounds bilaterally. Absent: respiratory distress, wheezes, rales, rhonchi, stridor Cardiovascular Exam: Present: regular rate, normal rhythm, normal heart sounds. Absent: systolic murmur, diastolic murmur, rubs, gallop, clicks Neurological exam: Present: alert, oriented X3 Expanded Sensory exam: Lower Extremity Light Touch: Abnormal Right, Abnormal Left Motor strength exam: RLE: 4, LLE: 4 Skin exam: Present: warm, dry Course Vital Signs 01/03/24 01/04/24 01/04/24 23:31 02:42 03:04 Temperature 98.0 F Pulse Rate 90 68 62 Respiratory 20 16 16 Rate Blood Pressure 135/78 107/60 114/90 O2 Sat by Pulse 96 96 99 Oximetry Medical Decision Making - Medical Decision Making Was pt. sent in by a medical professional or institution (, PA, MEDICAL RECEPTIONIST ASSISTANT, urgent care, hospital, or long term...) When possible be specific @ -No Did you speak to anyone other than the patient for history (EMS, parent, family, police, friend...)? What history was obtained from this source @ -No Did you review nursing and triage notes (agree or disagree)? Why? @ -I reviewed and agree with nursing and triage notes Were old charts reviewed (outside hosp., previous admission, EMS record, old EKG, old radiological studies, urgent care reports/EKG's, long term records)? Report findings @ -No old charts were reviewed Differential Diagnosis (chest pain, altered mental status, abdominal pain women, abdominal pain men, vaginal bleeding, weakness, fever, dyspnea, syncope, headache, dizziness, GI bleed, back pain, seizure, CVA, palpatations, mental health, musculoskeletal)? @ - [facility] Differential Back Pain: Strain, zoster, cauda equina syndrome, epidural abscess, vertebral osteomyelitis, discitis, fracture, subluxation, disc herniation, DJD, spinal bladimir nosis, dissection, AAA, pancreatitis, peptic ulcer disease, pyelonephritis, kidney stone this is not meant to be an all-inclusive list. EKG interpreted by me (3pts min.). @ -As above X-rays interpreted by me (1pt min.). @ -None done CT interpreted by me (1pt min.). @ -CT shows no evidence for spinal fracture. Grade 1 anteriolisthesis of L4 and L5 this results in moderate to severe spinal canal stenosis and moderate to severe bilateral neural foraminal stenosis. Moderate degeneration changes throughout the spine with moderate to severe right L3-L4, moderate bilateral L2- L3, and left L3-L4 neural foraminal stenosis U/S interpreted by me (1pt. min.). @ -None done What testing was considered but not performed or refused? (CT, X-rays, U/S, labs)? Why? @ -None What meds were considered but not given or refused? Why? @ -None Did you discuss the management of the patient with other professionals (professionals i.e. , PA, MEDICAL RECEPTIONIST ASSISTANT, lab, RT, psych nurse, social work coordinator, special education preschool teacher, teacher, juvenile correctional officer, window caser)? Give summary @ -Spoke with neurosurgery at [facility] who accepted transfer Was smoking cessation discussed for >3mins.? @ -No Was critical care preformed (if so, how long)? @ -No Were there social determinants of health that impacted care today? How? (Homelessness, low income, unemployed, alcoholism, drug addiction, transportation, low edu. Level, literacy, decrease access to med. care, usp, rehab)? @ -No Was there de-escalation of care discussed even if they declined (Discuss DNR or withdrawal of care, Hospice)? DNR status @ -No What co-morbidities impacted this encounter? (DM, HTN, Smoking, COPD, CAD, Cancer, CVA, ARF, Chemo, Hep., AIDS, mental health diagnosis, sleep apnea, morbid obesity)? @ -None Was patient admitted / discharged? Hospital course, mention meds given and route, prescriptions, significant lab abnormalities, going to OR and other pertinent info. @ -83-year-old female presenting with chief complaint of lower extremity numbne ss and lower back pain worsening over the last 2 days. No new injury or trauma. History and physical exam are conducted. Pedal pulses are present and equal bilaterally. CT shows severe spinal canal stenosis at multiple levels. Patient will require transfer for stat MRI. She will be transferred to [facility]. Patient is agreeable with this plan. I discussed this case with my attending Shira prescott Undiagnosed new problem with uncertain prognosis? @ -No Drug Therapy requiring intensive monitoring for toxicity (Heparin, Nitro, Insulin, Cardizem)? @ -No Were any procedures done? @ -No Diagnosis/symptom? @ -Lower extremity numbness, severe spinal canal stenosis Acute, or Chronic, or Acute on Chronic? @ -Acute Uncomplicated (without systemic symptoms) or Complicated (systemic symptoms)? @ -Complicated Side effects of treatment? @ -No Exacerbation, Progression, or Severe Exacerbation? @ -No Poses a threat to life or bodily function? How? (Chest pain, USA, MO, pneumonia, PE, COPD, DKA, ARF, appy, cholecystitis, CVA, Diverticulitis, Homicidal, Suicidal, threat to staff... and all critical care pts) @ -Yes - Lab Data Result diagrams: 01/04/24 00:01/04/24 00:27 Lab Results 01/04/24 01/04/24 01/04/24 Range/Units : 00: 00:27 WBC 4.9 (3.8-10.6) k/uL RBC 4.30 (3.80-5.40) m/uL Hgb 12.6 (11.4-16.0) gm/dL Hct 38.3 (34.0-46.0) % MCV 89.0 (80.0-100.0) fL MCH 29.2 (25.0-35.0) pg MCHC 32.8 (31.0-37.0) g/dL RDW 14.9 (11.5-15.5) % Plt Count 189 (150-450) k/uL MPV 8.6 Neutrophils % 59 % Lymphocytes % 19 % Monocytes % 17 % Eosinophils % 2 % Basophils % 0 % Neutrophils # 2.9 (1.3-7.7) k/uL Lymphocytes # 0.9 L (1.0-4.8) k/uL Monocytes # 0.8 (0-1.0) k/uL Eosinophils # 0.1 (0-0.7) k/uL Basophils # 0.0 (0-0.2) k/uL Sodium 136 L (137-145) mmol/L Potassium 3.9 (3.5-5.1) mmol/L Chloride 108 H (98-107) mmol/L Carbon Dioxide 18 L (22-30) mmol/L Anion Gap 10 mmol/L BUN 22 H (7-17) mg/dL Creatinine 0.92 (0.52-1.04) mg/dL Est GFR (CKD-EPI)AfAm 66 (>60 ml/min/1.73 sqM) Est GFR (CKD-EPI)NonAf 57 (>60 ml/min/1.73 sqM) Glucose 118 H (74-99) mg/dL Plasma Lactic Acid Adalberto 1.9 (0.7-2.0) mmol/L Calcium 9.1 (8.4-10.2) mg/dL Total Bilirubin 0.8 (0.2-1.3) mg/dL AST 20 (14-36) U/L ALT 15 (4-34) U/L Alkaline Phosphatase 73 (38-126) U/L Total Protein 6.5 (6.3-8.2) g/dL Albumin 3.4 L (3.5-5.0) g/dL Urine Color Urine Appearance (Clear) Urine pH (5.0-8.0) Ur Specific [place] (1.001-1.035) Urine Protein (Negative) Urine Glucose (UA) (Negative) Urine Ketones (Negative) Urine Blood (Negative) Urine Nitrite (Negative) Urine Bilirubin (Negative) Urine Urobilinogen (<2.0) mg/dL Ur Leukocyte Esterase (Negative) Urine RBC (0-5) /hpf Urine WBC (0-5) /hpf Urine WBC Clumps (None) /hpf Ur Squamous Epith Cells (0-4) /hpf Urine Bacteria (None) /hpf Hyaline Casts (0-2) /lpf Urine Mucus (None) /hpf 01/04/24 Range/Units 00:37 WBC (3.8-10.6) k/uL RBC (3.80-5.40) m/uL Hgb (11.4-16.0) gm/dL Hct (34.0-46.0) % MCV (80.0-100.0) fL MCH (25.0-35.0) pg MCHC (31.0-37.0) g/dL RDW (11.5-15.5) % Plt Count (150-450) k/uL MPV Neutrophils % % Lymphocytes % % Monocytes % % Eosinophils % % Basophils % % Neutrophils # (1.3-7.7) k/uL Lymphocytes # (1.0-4.8) k/uL Monocytes # (0-1.0) k/uL Eosinophils # (0-0.7) k/uL Basophils # (0-0.2) k/uL Sodium (137-145) mmol/L Potassium (3.5-5.1) mmol/L Chloride (98-107) mmol/L Carbon Dioxide (22-30) mmol/L Anion Gap mmol/L BUN (7-17) mg/dL Creatinine (0.52-1.04) mg/dL Est GFR (CKD-EPI)AfAm (>60 ml/min/1.73 sqM) Est GFR (CKD-EPI)NonAf (>60 ml/min/1.73 sqM) Glucose (74-99) mg/dL Plasma Lactic Acid Adalberto (0.7-2.0) mmol/L Calcium (8.4-10.2) mg/dL Total Bilirubin (0.2-1.3) mg/dL AST (14-36) U/L ALT (4-34) U/L Alkaline Phosphatase (38-126) U/L Total Protein (6.3-8.2) g/dL Albumin (3.5-5.0) g/dL Urine Color Yellow Urine Appearance Cloudy H (Clear) Urine pH 5.0 (5.0-8.0) Ur Specific [place] 1.017 (1.001-1.035) Urine Protein Trace H (Negative) Urine Glucose (UA) Negative (Negative) Urine Ketones Negative (Negative) Urine Blood Negative (Negative) Urine Nitrite Negative (Negative) Urine Bilirubin Negative (Negative) Urine Urobilinogen <2.0 (<2.0) mg/dL Ur Leukocyte Esterase Large H (Negative) Urine RBC 1 (0-5) /hpf Urine WBC 27 H (0-5) /hpf Urine WBC Clumps Rare H (None) /hpf Ur Squamous Epith Cells 1 (0-4) /hpf Urine Bacteria Rare H (None) /hpf Hyaline Casts 5 H (0-2) /lpf Urine Mucus Rare H (None) /hpf Disposition Clinical Impression: Anterolisthesis of lumbar spine, Lower extremity numbness Disposition: OTHER INSTITUTION NOT DEFINED Condition: Serious Referrals: Milvia Oliver MD [Primary Care Provider] - 1-2 days Time of Disposition: 02:22 - Out of Hospital Transfer - Req. Specs Out of Hospital Transfer - Requested Specifics: Other Emergency Center ([facility])
[2024-01-04] MEDS: ONDANSETRON 4 MG/2 ML VIAL IVP STA (02:34)
[2024-01-04] MEDS: HYDROmorphone 1 MG/ML 1 ML SYRINGE IVP STA (02:38)
[2024-01-04] MEDS: cefTRIAXone IN SWFI 1,000 MG/10 ML SYRINGE IVP STA (02:51)
[2024-01-04 03:01] VITALS: RESP 16
[2024-01-04 03:50] VITALS: BP 114/90; PULSE 62
== END 2024-01-04 03:14 | disposition other institution (70) ==
LOC: EC 23:09
DX: M43.16 Spondylolisthesis, lumbar region (principal); M48.061 Spinal stenosis, lumbar region without neurogenic claudication; M51.36 Other intervertebral disc degeneration, lumbar region; Z88.0 Allergy status to penicillin; Z91.041 Radiographic dye allergy status; Z91.09 Other allergy status, other than to drugs and biological substances; Z91.013 Allergy to seafood; Z91.018 Allergy to other foods
CPT/HCPCS: 36415; 80053; 83605; 85025; 81001; 87086; 72131; 99285; 96374; 96375 ×3; J2405; J0696; J1170; J1885; 87077; 87186

== ENCOUNTER 2024-04-21 06:52 | Emergency (ER) | payer MEDICARE ==
--- NOTE | 2024-04-21 07:34 | ED ---
Back Pain HPI - General Chief Complaint: Back Pain/Injury Stated Complaint: Back Pain Time Seen by Provider: 04/21/24 07:05 Source: patient, EMS, RN notes reviewed Limitations: no limitations - History of Present Illness Initial Comments: 83-year-old female presents emergency department with chief complaint of low back pain. She states she has been moving stuff trying clean up her house over the last few days states that she is aggravated her low back pain which is chronic. Patient states she has had multiple imaging including CT MRI and has seen multiple surgeons and advised that she may require surgery at some point. Patient denies any bowel, bladder and cons retention she states she has chronic symptoms down her right leg which is unchanged she denies any new weakness. Denies abdominal pain she does admit to urinary frequency and dysuria denies fevers or chills she states she is only taken aspirin for the pain she has not taken any other pain medication is not prescribed anything. - Related Data Home Medications Medication Instructions Recorded Confirmed Aspirin 81 mg PO DAILY 03/29/14 04/27/23 Glimepiride [Amaryl] 2 mg PO DAILY 03/29/14 04/27/23 Montelukast [Singulair] 10 mg PO HS 03/29/14 04/27/23 amLODIPine/ATORVASTATIN [Caduet 10 1 tab PO HS 03/29/14 04/27/23 mg-10 mg Tablet] traMADol HCL [Ultram] 50 mg PO Q8H PRN 10/17/20 04/27/23 Fluticasone Propionate [Flonase 1 spr EA NOSTRIL HS 11/17/20 04/27/23 Allergy Relief] Furosemide [Lasix] 20 mg PO DAILY 11/17/20 04/27/23 Carboxymethylcellulose Sodium 1 drop BOTH EYES QID PRN 01/23/21 04/27/23 [Refresh Tears] Cyanocobalamin (Vitamin B-12) 1,000 mcg PO SUSA 01/23/21 04/27/23 [Vitamin B-12] Losartan Potassium [Cozaar] 100 mg PO HS 01/23/21 04/27/23 Potassium Chloride [Potassium 20 meq PO DAILY PRN 03/15/21 04/27/23 Chloride ER] Anastrozole [Arimidex] 1 mg PO HS 03/23/21 04/27/23 Meclizine [Antivert] 12.5 mg PO BID PRN 03/16/22 04/27/23 Menthol [Biofreeze] 1 applic TOPICAL QID PRN 03/16/22 04/27/23 Alendronate Sodium [Fosamax] 70 mg PO MO 09/30/22 04/27/23 Cholecalciferol [Vitamin D3 (25 50 mcg PO DAILY 09/30/22 04/27/23 Mcg = 1000 Iu)] Galantamine HBr [Razadyne ER] 16 mg PO HS 09/30/22 04/27/23 Glimepiride [Amaryl] 1 mg PO HS 09/30/22 04/27/23 Levothyroxine Sodium [Synthroid] 100 mcg PO DAILY 09/30/22 04/27/23 Multivit-Min/Iron/Folic/Lutein 1 tab PO DAILY 09/30/22 04/27/23 [Centrum Silver Women Tablet] Pioglitazone [Actos] 15 mg PO DAILY 09/30/22 04/27/23 allopurinoL 300 mg PO DAILY 09/30/22 04/27/23 buPROPion HCL [Wellbutrin SR] 200 mg PO BID 09/30/22 04/27/23 Citrucel Caplets 1 tab PO DAILY 04/27/23 04/27/23 Cranberry 4200mg W/Vitamin C 1 tab PO DAILY 04/27/23 04/27/23 Lanolin/Mineral Oil [Eucerin 1 applic TOPICAL DAILY 04/27/23 04/27/23 Original Lotion] rOPINIRole HCL [Requip] 0.5 mg PO BID@1800,2100 04/27/23 04/27/23 Previous Rx's Medication Instructions Recorded Nystatin/Triamcin 1 applic TOPICAL PC-BID #30 gram 02/07/23 [Nystatin-Triamcinolone Cream] Metoprolol Succinate (ER) [Toprol 25 mg PO DAILY #30 tab 05/01/23 XL] Nitrofurantoin Monohyd/M-Cryst 100 mg PO Q12HR #14 cap 05/07/23 [Macrobid] Ibuprofen [Motrin] 600 mg PO Q8HR PRN #20 tab 04/21/24 Nitrofurantoin Monohyd/M-Cryst 100 mg PO Q12HR #14 cap 04/21/24 [Macrobid] Allergies Allergy/AdvReac Type Severity Reaction Status Date / Time amoxicillin Allergy Unknown TAKEN FROM Verified 04/21/24 07:01 DR OLIVER'S NOTES Iodine and Iodide Containing Allergy Unknown TESTED Verified 04/21/24 07:01 Produc POSITIVE FOR SHELLFISH prednisone Allergy Unknown TAKEN FROM Verified 04/21/24 07:01 DR FISHER NOTES adhesive Allergy blisters, Verified 04/21/24 07:01 itching shellfish derived Allergy TESTED Verified 04/21/24 07:01 POSITIVE WITH ALLERGY TESTING. gluten AdvReac vomiting, Verified 04/21/24 07:01 diarrhea Penicillins AdvReac Rash/Hives Verified 04/21/24 07:01 antibiotics AdvReac Diarrhea Uncoded 04/21/24 07:01 Review of Systems ROS Statement: Those systems with pertinent positive or pertinent negative responses have been documented in the HPI. ROS Other: All systems not noted in ROS Statement are negative. 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 History of Any Multi-Drug Resistant Organisms: None Reported Past Surgical History: Appendectomy, Breast Surgery, Cholecystectomy, Heart Catheterization, Hysterectomy, Joint Replacement Additional Past Surgical History / Comment(s): mena knee replacements, cataracts, surgery for fx finger left hand,skin cancer removed ears, forehead, nose & shoulder, colonoscopy, lt breast biopsy, rt breast biopsy, R breast lumpectomy Past Anesthesia/Blood Transfusion Reactions: Previous Problems w/ Anesthesia, Motion Sickness Additional Past Anesthesia/Blood Transfusion Reaction / Comment(s): high BP. daughter PONV Past Psychological History: Depression Smoking Status: Never smoker Past Alcohol Use History: None Reported Past Drug Use History: None Reported - Past Family History Mother Family Medical History: Blood Disorder, Cancer Additional Family Medical History / Comment(s): bone cancer , pt unsure if mother or sister had blood disorder with "vitamin k" Sister(s) Family Medical History: Blood Disorder General Exam Limitations: no limitations General appearance: alert, in no apparent distress Head exam: Present: atraumatic, normocephalic, normal inspection Neck exam: Present: normal inspection. Absent: tenderness, meningismus, lymphadenopathy Respiratory exam: Present: normal lung sounds bilaterally. Absent: respiratory distress, wheezes, rales, rhonchi, stridor Cardiovascular Exam: Present: regular rate, normal rhythm, normal heart sounds. Absent: systolic murmur, diastolic murmur, rubs, gallop, clicks GI/Abdominal exam: Present: soft, normal bowel sounds. Absent: distended, tenderness, guarding, rebound, rigid Extremities exam: Present: normal inspection, full ROM, normal capillary refill, other (Patient ankle lower extremity strength equal 4/5). Absent: tenderness, pedal edema, joint swelling, calf tenderness Back exam: Present: full ROM (With range of motion), tenderness (Lumbar), paraspinal tenderness. Absent: vertebral tenderness Neurological exam: Present: alert, reflexes normal. Absent: motor sensory deficit Skin exam: Present: warm, dry, intact, normal color. Absent: rash Course Vital Signs 04/21/24 04/21/24 06:56 08:28 Temperature 97.5 F L 97.7 F Pulse Rate 57 L 61 Respiratory 18 16 Rate Blood Pressure 130/60 121/74 O2 Sat by Pulse 99 96 Oximetry Medical Decision Making - Medical Decision Making Was pt. sent in by a medical professional or institution (Dr. PA, [employer], urgent care, hospital, or assisted...) When possible be specific @ -No Did you speak to anyone other than the patient for history (EMS, parent, family, police, friend...)? What history was obtained from this source @ -No Did you review nursing and triage notes (agree or disagree)? Why? @ -I reviewed and agree with nursing and triage notes Were old charts reviewed (outside hosp., previous admission, EMS record, old EKG, old radiological studies, urgent care reports/EKG's, assisted records)? Report findings @ -Reviewed CT lumbar spine from December 2023 Differential Diagnosis (chest pain, altered mental status, abdominal pain women, abdominal pain men, vaginal bleeding, weakness, fever, dyspnea, syncope, headache, dizziness, GI bleed, back pain, seizure, CVA, palpatations, mental health, musculoskeletal)? @ -Differential Back Pain: Strain, zoster, cauda equina syndrome, epidural abscess, vertebral osteomyelitis, discitis, fracture, subluxation, disc herniation, DJD, spinal stenosis, dissection, AAA, pancreatitis, peptic ulcer disease, pyelonephritis, kidney stone, this is not meant to be an all-inclusive list. EKG interpreted by me (3pts min.). @ -none X-rays interpreted by me (1pt min.). @ -None done CT interpreted by me (1pt min.). @ -None done U/S interpreted by me (1pt. min.). @ -None done What testing was considered but not performed or refused? (CT, X-rays, U/S, labs)? Why? @ -None What meds were considered but not given or refused? Why? @ -None Did you discuss the management of the patient with other professionals (professionals i.e. , PA, [employer], lab, RT, psych nurse, social sciences research scientist, mental health case manager, teacher, special officer, heel caser)? Give summary @ -No Was smoking cessation discussed for >3mins.? @ -No Was critical care preformed (if so, how long)? @ -No Were there social determinants of health that impacted care today? How? (Homelessness, low income, unemployed, alcoholism, drug addiction, transportation, low edu. Level, literacy, decrease access to med. care, detention, rehab)? @ -No Was there de-escalation of care discussed even if they declined (Discuss DNR or withdrawal of care, Hospice)? DNR status @ -No What co-morbidities impacted this encounter? (DM, HTN, Smoking, COPD, CAD, Cancer, CVA, ARF, Chemo, Hep., AIDS, mental health diagnosis, sleep apnea, morbid obesity)? @ -None Was patient admitted / discharged? Hospital course, mention meds given and route, prescriptions, significant lab abnormalities, going to OR and other pertinent info. @ -Discharged patient feels great improved after analgesics, patient is symptomatic UTI will treat with Macrobid discharged with analgesics and close follow-up return transfer discussed patient has no red flag symptoms. Undiagnosed new problem with uncertain prognosis? @ -No Drug Therapy requiring intensive monitoring for toxicity (Heparin, Nitro, Insulin, Cardizem)? @ -No Were any procedures done? @ -No Diagnosis/symptom? @ -Lumbar pain, UTI Acute, or Chronic, or Acute on Chronic? @ -Acute Uncomplicated (without systemic symptoms) or Complicated (systemic symptoms)? @ -uncomplicated Side effects of treatment? @ -No Exacerbation, Progression, or Severe Exacerbation? @ -No Poses a threat to life or bodily function? How? (Chest pain, [place], [place], pneumonia, PE, COPD, DKA, ARF, appy, cholecystitis, CVA, Diverticulitis, Homicidal, Suicidal, threat to staff... and all critical care pts) @ -No - Lab Data Lab Results 04/21/24 Range/Units 07:48 Urine Color Light Yellow Urine Appearance Clear (Clear) Urine pH 6.0 (5.0-8.0) Ur Specific Teller 1.020 (1.001-1.035) Urine Protein Negative (Negative) Urine Glucose (UA) Negative (Negative) Urine Ketones Negative (Negative) Urine Blood Negative (Negative) Urine Nitrite Negative (Negative) Urine Bilirubin Negative (Negative) Urine Urobilinogen <2.0 (<2.0) mg/dL Ur Leukocyte Esterase Moderate H (Negative) Urine RBC 1 (0-5) /hpf Urine WBC 7 H (0-5) /hpf Ur Squamous Epith Cells 1 (0-4) /hpf Urine Mucus Rare H (None) /hpf Disposition Clinical Impression: UTI (urinary tract infection), Back pain Disposition: HOME SELF-CARE Condition: Stable Instructions (If sedation given, give patient instructions): Acute Low Back Pain (ED) Additional Instructions: Please return to the Emergency Department if symptoms worsen or any other concerns. Prescriptions: Nitrofurantoin Monohyd/M-Cryst [Macrobid] 100 mg PO Q12HR #14 cap Ibuprofen [Motrin] 600 mg PO Q8HR PRN #20 tab PRN Reason: Pain Is patient prescribed a controlled substance at d/c from ED?: No Referrals: Milvia Oliver MD [Primary Care Provider] - 1-2 days Time of Disposition: 08:32
[2024-04-21] MEDS: HYDROmorphone 1 MG/ML 1 ML SYRINGE IM STA (07:38)
[2024-04-21 08:03] LABS: Appearance,Urine Clear (Clear); Bilirubin,Urine Negative (Negative); Blood,Urine Negative (Negative); Color,Urine Light Yellow; Glucose,Urine (UA) Negative (Negative); Ketones,Urine Negative (Negative); Leukocyte Esterase,Urine Moderate (Negative); Mucus,Urine Rare /hpf; Nitrite,Urine Negative (Negative); Protein,Urine Negative (Negative); RBC,Urine 1 /hpf (0-5); Squamous Epithelial Cell,Urine 1 /hpf (0-4); Urobilinogen,Urine <2.0 mg/dL (<2.0); WBC,Urine 7 /hpf (0-5)
[2024-04-21 08:30] VITALS: BP 121/74; PULSE 61; RESP 16; TEMP 97.7
[2024-04-21] MEDS: ACET/COD 300 MG/30 MG STARTER PACK 6 TAB BTL PO STA (08:52)
== END 2024-04-21 09:00 | disposition home or self-care (01) ==
LOC: EC 06:52
CPT/HCPCS: 81001; 96372; 99283

== ENCOUNTER 2024-04-25 18:01 | Observation (INO) | payer MEDICARE ==
--- NOTE | 2024-04-25 18:12 | ED ---
General Adult HPI - General Stated complaint: back pain Time Seen by Provider: 04/25/24 18:08 - History of Present Illness Initial comments: Patient is an 83-year-old female past medical history of diabetes, chronic back pain, diabetes, hyperlipidemia, hypertension presenting for chronic back pain. Patient states that she presented to the ER about 3 days ago for similar. Pain has not changed since then however due to persistence of pain she has not been able to get out of bed for 3 days. Due to this she presents covered in urine. She does live with her daughter however her daughter has been able to get the patient out of bed to care for her. Patient taking tramadol, Tylenol at home without improvement in pain. She denies any recent trauma or falls. No new numbness or weakness no saddle anesthesia, urinary incontinence or difficulty urinating. Of note patient hypoxic for EMS 88% on room air this did occur after being given fentanyl however is a 89% on room air here. Denies chest pain or shortness of breath. Patient is currently alert and oriented x 4 however patient's daughter states that the patient is more confused than usual and the patient states that she does not feel like she is alert as she normally is. - Related Data Home Medications Medication Instructions Recorded Confirmed Montelukast [Singulair] 10 mg PO HS 03/29/14 04/25/24 amLODIPine/ATORVASTATIN [Caduet 10 1 tab PO HS 03/29/14 04/25/24 mg-10 mg Tablet] Furosemide [Lasix] 20 mg PO DAILY 11/17/20 04/25/24 Losartan Potassium [Cozaar] 100 mg PO HS 01/23/21 04/25/24 Potassium Chloride [Potassium 10 meq PO DAILY 03/15/21 04/25/24 Chloride ER] Anastrozole [Arimidex] 1 mg PO HS 03/23/21 04/25/24 Meclizine [Antivert] 12.5 mg PO DAILY 03/16/22 04/25/24 Alendronate Sodium [Fosamax] 70 mg PO MO 09/30/22 04/25/24 Galantamine HBr [Razadyne ER] 16 mg PO HS 09/30/22 04/25/24 Levothyroxine Sodium [Synthroid] 100 mcg PO DAILY 09/30/22 04/25/24 Pioglitazone [Actos] 15 mg PO DAILY 09/30/22 04/25/24 allopurinoL 300 mg PO DAILY 09/30/22 04/25/24 buPROPion HCL [Wellbutrin SR] 200 mg PO DAILY 09/30/22 04/25/24 rOPINIRole HCL [Requip] 0.5 mg PO HS 04/27/23 04/25/24 Cetirizine HCl [Zyrtec] 10 mg PO DAILY 04/25/24 04/25/24 Glimepiride [Amaryl] 2 mg PO DAILY 04/25/24 04/25/24 Metoprolol Succinate (ER) [Toprol 50 mg PO DAILY 04/25/24 04/25/24 XL] Previous Rx's Medication Instructions Recorded Ibuprofen [Motrin] 600 mg PO Q8HR PRN #20 tab 04/21/24 Nitrofurantoin Monohyd/M-Cryst 100 mg PO Q12HR #14 cap 04/21/24 [Macrobid] INSULIN ASPART (NovoLOG) [NovoLOG 0 unit SQ ACHS each 04/28/24 (formulary)] Nystatin 100,000 Unit/gm Powd 1 applic TOPICAL BID each 04/28/24 [Mycostatin Powder] Pregabalin [Lyrica] 25 mg PO BID #20 cap 04/28/24 Ramelteon 8 mg PO HS #30 tab 04/28/24 traMADol HCl [Ultram] 50 mg PO Q8H PRN #30 tab 04/28/24 Allergies Allergy/AdvReac Type Severity Reaction Status Date / Time amoxicillin Allergy Unknown TAKEN FROM Verified 04/25/24 19:24 DR OLIVER'S NOTES Iodine and Iodide Containing Allergy Unknown TESTED Verified 04/25/24 19:24 Produc POSITIVE FOR SHELLFISH prednisone Allergy Unknown TAKEN FROM Verified 04/25/24 19:24 DR FISHER NOTES adhesive Allergy blisters, Verified 04/25/24 19:24 itching shellfish derived Allergy TESTED Verified 04/25/24 19:24 POSITIVE WITH ALLERGY TESTING. gluten AdvReac vomiting, Verified 04/25/24 19:24 diarrhea Penicillins AdvReac Rash/Hives Verified 04/25/24 19:24 antibiotics AdvReac Diarrhea Uncoded 04/25/24 18:26 Review of Systems ROS Statement: Those systems with pertinent positive or pertinent negative responses have been documented in the HPI. 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 History of Any Multi-Drug Resistant Organisms: None Reported Past Surgical History: Appendectomy, Breast Surgery, Cholecystectomy, Heart Catheterization, Hysterectomy, Joint Replacement Additional Past Surgical History / Comment(s): mena knee replacements, cataracts, surgery for fx finger left hand,skin cancer removed ears, forehead, nose & shoulder, colonoscopy, lt breast biopsy, rt breast biopsy, R breast lumpectomy Past Anesthesia/Blood Transfusion Reactions: Previous Problems w/ Anesthesia, Motion Sickness Additional Past Anesthesia/Blood Transfusion Reaction / Comment(s): high BP. daughter PONV Past Psychological History: Depression Smoking Status: Never smoker Past Alcohol Use History: None Reported Past Drug Use History: None Reported - Past Family History Mother Family Medical History: Blood Disorder, Cancer Additional Family Medical History / Comment(s): bone cancer , pt unsure if mother or sister had blood disorder with "vitamin k" Sister(s) Family Medical History: Blood Disorder General Exam - General Exam Comments Initial Comments: PE: CONSTITUTIONAL: Chronically ill-appearing, smell strongly of urine, disheveled SKIN: Warm, dry, no jaundice, hives or petechiae EYES: Pupils are equally round, extraocular movements intact without nystagmus, clear conjunctiva, non-icteric sclera HENT: Normocephalic, atraumatic, moist mucus membranes, oropharynx clear without exudates NECK: , Full range of motion, normal appearance PULMONARY: Clear to auscultation without wheezes, rhonchi, or rales, normal excursion, no accessory muscle use and no stridor CARDIOVASCULAR: Regular rate, rhythm, normal S1 and S2. No appreciated murmurs, rubs or gallops. Strong radial pulses with intact distal perfusion. 1+ bilateral lower extremity edema GASTROINTESTINAL: Soft, non-tender, non-distended, no palpable masses, no rebound or guarding. No hepatosplenomegaly MUSCULOSKELETAL: Extremities have no gross deformity, no edema, redness, or sw elling. No midline spinal tenderness palpation, tenderness to patient of the right SI joint NEUROLOGIC:_a/o x 3, GCS 15, normal mentation and speech. Moves all extremities x 4 without motor or sensory deficit PSYCHIATRIC:_normal mood and affect, thought process is clear and linear Course Vital Signs 04/25/24 04/25/24 04/25/24 18:17 18:26 19:56 Temperature 98.1 F 97.4 F L Pulse Rate 71 53 L 65 Respiratory 19 19 16 Rate Blood Pressure 150/116 151/62 159/84 O2 Sat by Pulse 95 97 97 Oximetry 04/25/24 22:56 Temperature 97.1 F L Pulse Rate 57 L Respiratory 16 Rate Blood Pressure 141/69 O2 Sat by Pulse 96 Oximetry EKG Findings - EKG Comments: EKG Findings:: Sinus bradycardia, rate 49 bpm, TX interval 146 ms, QRS duration 105 ms, QT/QTc 442/413 ms, left axis deviation, no ST elevation or depression, no arrhythmia Medical Decision Making - Medical Decision Making Was pt. sent in by a medical professional or institution (, PA, HAND POLISHER, urgent care, hospital, or jail...) When possible be specific @ -No Did you speak to anyone other than the patient for history (EMS, parent, family, police, friend...)? What history was obtained from this source @ -No Did you review nursing and triage notes (agree or disagree)? Why? @ -I reviewed and agree with nursing and triage notes Were old charts reviewed (outside hosp., previous admission, EMS record, old EKG, old radiological studies, urgent care reports/EKG's, jail records)? Report findings @Reviewed ED note summary from visit on 04/21/2024, patient presented for acute on chronic low back pain, pain was controlled with oral analgesics, treated for UTI and ultimately discharged Differential Diagnosis (chest pain, altered mental status, abdominal pain women, abdominal pain men, vaginal bleeding, weakness, fever, dyspnea, syncope, headache, dizziness, GI bleed, back pain, seizure, CVA, palpatations, mental health, musculoskeletal)? @ Differential diagnosis remains broad however top considerations include sc iatica, degenerative disc disease, compression fracture this is not all inclusive list. There is no midline spinal TTP, patient has not had any recent falls or trauma and pain is chronic, has not changed from prior presentation, there for I do not feel additional imaging is indicated at this time EKG interpreted by me (3pts min.). @ -As above X-rays interpreted by me (1pt min.). @ -As noted below CT interpreted by me (1pt min.). @ -No evidence of hemorrhage U/S interpreted by me (1pt. min.). @ -None done What testing was considered but not performed or refused? (CT, X-rays, U/S, labs)? Why? @ -As noted above, considered CT lumbar spine however due to chronicity of complaint, no changes, no trauma, no midline spinal TTP, do not feel this is indicated at this point, additionally patient denies red flag symptoms including saddle anesthesia, urinary retention or incontinence, difficulty passing stool, fevers What meds were considered but not given or refused? Why? @ -None Did you discuss the management of the patient with other professionals (professionals i.e. , PA, HAND POLISHER, lab, RT, psych nurse, social science teacher, denture processor, teacher, parcel post officer, medical case manager)? Give summary @ -No Was smoking cessation discussed for >3mins.? @ -No Was critical care preformed (if so, how long)? @ -No Were there social determinants of health that impacted care today? How? (Homelessness, low income, unemployed, alcoholism, drug addiction, transportation, low edu. Level, literacy, decrease access to med. care, prison, rehab)? @ -No Was there de-escalation of care discussed even if they declined (Discuss DNR or withdrawal of care, Hospice)? @ -No What co-morbidities impacted this encounter? (DM, HTN, Smoking, COPD, CAD, Cancer, CVA, ARF, Chemo, Hep., AIDS, mental health diagnosis, sleep apnea, morbi d obesity)? @ -Obesity, hypertension, diabetes, osteoarthritis Was patient admitted / discharged? Hospital course, mention meds given and route, prescriptions, significant lab abnormalities, going to OR and other pertinent info. @ -Hospital course Patient is an 83-year-old female past medical history diabetes, hypertension, osteoarthritis, chronic back pain presenting for uncontrolled chronic back pain. Presented 3 days previously for similar and attempted to control pain at home however has been unable to. Patient has been in bed for the last 3 days and has had difficulty caring for herself secondary to this. Of note during recent ED visit UTI. Patient seen and assessed on arrival, smelled strongly of urine has urine soaked nightgown, disheveled in appearance. Exam significant for no midline spinal tenderness to palpation, tenderness to palpation of the right SI joint. Soft and nontender abdomen. Patient is alert and oriented x 4 however due to patient and daughter stated the patient is more "confused than usual" altered mental status workup will be included with patient's workup today. Pain control ordered. Comprehensive labs, CT brain and chest x-ray, EKG. I anticipate admission due to patient's inability to care for self at home due to her pain. Labs reviewed, significant for BNP of approximately 2000. Chest x-ray pending read however on my review does appear to show cardiomegaly with some pulmonary edema. Patient currently on 1 to 2 L oxygen nasal cannula. Due to inability to care for self at home due to persistent back pain and CHF exacerbation will adm it. Discussed with Dr. Munoz who kindly except for admission. Undiagnosed new problem with uncertain prognosis? @ -No Drug Therapy requiring intensive monitoring for toxicity (Heparin, Nitro, Insuli n, Cardizem)? @ -No Were any procedures done? @ -No Diagnosis/symptom? @ -Acute on chronic back pain, CHF exacerbation Acute, or Chronic, or Acute on Chronic? @ -Acute Uncomplicated (without systemic symptoms) or Complicated (systemic symptoms)? @Complicated Side effects of treatment? @ -No Exacerbation, Progression, or Severe Exacerbation? @ -Exacerbation of chronic pain Poses a threat to life or bodily function? How? (Chest pain, USA, NC, pneumonia, PE, COPD, DKA, ARF, appy, cholecystitis, CVA, Diverticulitis, Homicidal, Suicidal, threat to staff... and all critical care pts) @ -Yes, potentially, if CHF exacerbation allowed to worsen and could result in espiratory failure - Lab Data Result diagrams: 04/28/24 02:38 04/28/24 02:38 Lab Results 04/25/24 04/25/24 04/25/24 Range/Units 18:27 18:27 18:27 WBC 3.9 (3.8-10.6) k/uL RBC 4.80 (3.80-5.40) m/uL Hgb 13.9 (11.4-16.0) gm/dL Hct 42.6 (34.0-46.0) % MCV 88.8 (80.0-100.0) fL MCH 28.9 (25.0-35.0) pg MCHC 32.5 (31.0-37.0) g/dL RDW 15.2 (11.5-15.5) % Plt Count 200 (150-450) k/uL MPV 8.0 Neutrophils % 55 % Lymphocytes % 26 % Monocytes % 14 % Eosinophils % 2 % Basophils % 0 % Neutrophils # 2.1 (1.3-7.7) k/uL Lymphocytes # 1.0 (1.0-4.8) k/uL Monocytes # 0.5 (0-1.0) k/uL Eosinophils # 0.1 (0-0.7) k/uL Basophils # 0.0 (0-0.2) k/uL PT 10.3 (10.0-12.5) sec INR 0.9 (<1.2) APTT 20.0 L (22.0-30.0) sec Sodium 141 (137-145) mmol/L Potassium 3.9 (3.5-5.1) mmol/L Chloride 108 H (98-107) mmol/L Carbon Dioxide 24 (22-30) mmol/L Anion Gap 9 mmol/L BUN 20 H (7-17) mg/dL Creatinine 0.97 (0.52-1.04) mg/dL Est GFR (CKD-EPI)AfAm 62 (>60 ml/min/1.73 sqM) Est GFR (CKD-EPI)NonAf 54 (>60 ml/min/1.73 sqM) Glucose 83 (74-99) mg/dL POC Glucose (mg/dL) (70-110) mg/dL POC Glu Perioperative Tech ID Calcium 9.7 (8.4-10.2) mg/dL Ionized Calcium Manas 5.1 (4.5-5.3) mg/dL Phosphorus 3.7 (2.5-4.5) mg/dL Magnesium 1.8 (1.6-2.3) mg/dL Total Bilirubin 0.9 (0.2-1.3) mg/dL AST 33 (14-36) U/L ALT 12 (4-34) U/L Alkaline Phosphatase 58 (38-126) U/L Creatine Kinase 253 H (30-135) U/L Troponin I (0.000-0.034) ng/mL NT-Pro-B Natriuret Pep 2160 pg/mL Total Protein 7.2 (6.3-8.2) g/dL Albumin 4.1 (3.5-5.0) g/dL Salicylates <1.0 mg/dL Acetaminophen <10.0 ug/mL Serum Alcohol <10 mg/dL Influenza Type A (PCR) (Not Detectd) Influenza Type B (PCR) (Not Detectd) RSV (PCR) (Not Detectd) SARS-CoV-2 (PCR) (Not Detectd) 04/25/24 04/25/24 04/25/24 Range/Units 18:27 18:28 18:50 WBC (3.8-10.6) k/uL RBC (3.80-5.40) m/uL Hgb (11.4-16.0) gm/dL Hct (34.0-46.0) % MCV (80.0-100.0) fL MCH (25.0-35.0) pg MCHC (31.0-37.0) g/dL RDW (11.5-15.5) % Plt Count (150-450) k/uL MPV Neutrophils % % Lymphocytes % % Monocytes % % Eosinophils % % Basophils % % Neutrophils # (1.3-7.7) k/uL Lymphocytes # (1.0-4.8) k/uL Monocytes # (0-1.0) k/uL Eosinophils # (0-0.7) k/uL Basophils # (0-0.2) k/uL PT (10.0-12.5) sec INR (<1.2) APTT (22.0-30.0) sec Sodium (137-145) mmol/L Potassium (3.5-5.1) mmol/L Chloride (98-107) mmol/L Carbon Dioxide (22-30) mmol/L Anion Gap mmol/L BUN (7-17) mg/dL Creatinine (0.52-1.04) mg/dL Est GFR (CKD-EPI)AfAm (>60 ml/min/1.73 sqM) Est GFR (CKD-EPI)NonAf (>60 ml/min/1.73 sqM) Glucose (74-99) mg/dL POC Glucose (mg/dL) 90 (70-110) mg/dL POC Glu Perioperative Tech ID Pj Hansen Calcium (8.4-10.2) mg/dL Ionized Calcium Manas (4.5-5.3) mg/dL Phosphorus (2.5-4.5) mg/dL Magnesium (1.6-2.3) mg/dL Total Bilirubin (0.2-1.3) mg/dL AST (14-36) U/L ALT (4-34) U/L Alkaline Phosphatase (38-126) U/L Creatine Kinase (30-135) U/L Troponin I 0.032 (0.000-0.034) ng/mL NT-Pro-B Natriuret Pep pg/mL Total Protein (6.3-8.2) g/dL Albumin (3.5-5.0) g/dL Salicylates mg/dL Acetaminophen ug/mL Serum Alcohol mg/dL Influenza Type A (PCR) Not Detected (Not Detectd) Influenza Type B (PCR) Not Detected (Not Detectd) RSV (PCR) Not Detected (Not Detectd) SARS-CoV-2 (PCR) Not Detected (Not Detectd) Disposition Clinical Impression: Sciatica, CHF exacerbation Disposition: ADMITTED IP TO THIS HOSP
[2024-04-25 18:52] LABS: Glucose,Whole Blood 90 mg/dL (70-110)
[2024-04-25 19:01] LABS: Basophils % (A) 0 %; Eosinophils # (A) 0.1 k/uL (0-0.7); Eosinophils % (A) 2 %; HCT 42.6 % (34.0-46.0); HGB 13.9 gm/dL (11.4-16.0); Lymphocytes % (A) 26 %; MCH 28.9 pg (25.0-35.0); MCHC 32.5 g/dL (31.0-37.0); MCV 88.8 fL (80.0-100.0); Monocytes # (A) 0.5 k/uL (0-1.0); Monocytes % (A) 14 %; Neutrophils # (A) 2.1 k/uL (1.3-7.7); Neutrophils % (A) 55 %; Platelet Count 200 k/uL (150-450); RDW 15.2 % (11.5-15.5); WBC 3.9 k/uL (3.8-10.6)
[2024-04-25] MEDS: LIDOCAINE 4% PATCH TOPICAL ONE (19:07)
[2024-04-25] MEDS: SODIUM CHLORIDE 0.9% 500 ML 500 ML IV ONE (19:12)
[2024-04-25 19:14] LABS: Ionized Calcium 5.1 mg/dL (4.5-5.3)
[2024-04-25 19:18] LABS: INR 0.9 (<1.2); Prothrombin Time 10.3 sec (10.0-12.5)
[2024-04-25] MEDS: CYCLOBENZAPRINE 5 MG TAB PO STA (19:21)
[2024-04-25 19:24] LABS: ALT 12 U/L (4-34); AST 33 U/L (14-36); Acetaminophen <10.0 ug/mL; African American GFR (CKD) 62 (>60 ml/min/1.73 sqM); Albumin 4.1 g/dL (3.5-5.0); Alcohol <10 mg/dL; Alkaline Phosphatase 58 U/L (38-126); Anion Gap 9 mmol/L; Blood Urea Nitrogen 20 mg/dL (7-17); Calcium 9.7 mg/dL (8.4-10.2); Carbon Dioxide 24 mmol/L (22-30); Chloride 108 mmol/L (98-107); Creatine Kinase 253 U/L (30-135); Glucose 83 mg/dL (74-99); Magnesium 1.8 mg/dL (1.6-2.3); Non-African American GFR(CKD) 54 (>60 ml/min/1.73 sqM); Phosphorus 3.7 mg/dL (2.5-4.5); Potassium 3.9 mmol/L (3.5-5.1); Salicylate <1.0 mg/dL; Sodium 141 mmol/L (137-145); Total Bilirubin 0.9 mg/dL (0.2-1.3); Total Protein 7.2 g/dL (6.3-8.2)
[2024-04-25 19:32] LABS: NT-Pro-B-Type Natriuretic Pept 2160 pg/mL
--- NOTE | 2024-04-25 20:14 | CT ---
EXAMINATION TYPE: CT brain wo con CT DLP: 1127.4 mGycm, Automated exposure control for dose reduction was used. DATE OF EXAM: 04/25/2024 7:05 PM COMPARISON: MRI brain 05/01/2023, CT brain 04/27/2023. CLINICAL INDICATION:Female, 83 years old with history of altered mental status, ams TECHNIQUE: Brain: Axial CT images of the brain were obtained with coronal and sagittal reformats created and rev iewed. Contrast used: None. Oral contrast used: None. FINDINGS: Extra-axial spaces: No abnormal extra-axial fluid collections. Basilar cisterns are patent. Calcific ations noted along the falx. Ventricular system: Ventricles appear dilated in proportion to the degree of cerebral atrophy. Cerebral parenchyma: No increased attenuation to suggest acute intraparenchymal hemorrhage. The gra y-white matter interface appears maintained. Moderate generalized brain atrophy. Scattered hypoatte nuating areas are seen within the cerebral white matter, nonspecific but most often seen with chronic microvascular ischemic changes; moderate in degree. Removed left thalamic lacunar infarct. Similar appearance of band of hypoattenuation in the superior left cerebral hemisphere medially, likely remot e infarct in the MARTA distribution. Cerebellum: No acute abnormality. Mass effect: No evidence of mass effect or midline shift. Intracranial vasculature: Atherosclerotic calcifications of the larger arteries near the skull base. Soft tissues: No acute or concerning abnormality. Visualized orbits: Orbital contents appear grossly intact. Calvarium/osseous structures: No evidence of calvarial fracture. Paranasal sinuses and mastoid air cells: Mild scattered paranasal sinus mucosal thickening. MRI is more sensitive for detecting acute processes such as infarct, and may be considered if clinica lly warranted. IMPRESSION: 1. No CT evidence of an acute intracranial abnormality. 2. Atrophy and chronic microvascular ischemic white matter changes.
[2024-04-25] MEDS ORDERED: NALOXONE 0.4 MG/ML 1 ML VIAL IV PRN (21:56)
--- NOTE | 2024-04-25 21:56 | XR ---
EXAMINATION TYPE: XR chest 2V DATE OF EXAM: 04/25/2024 7:36 PM CLINICAL INDICATION:Female, 83 years old with history of altered mental status, hypoxia; [facility] COMPARISON: 04/27/2023 TECHNIQUE: XR chest 2V. Frontal and lateral views of the chest.. FINDINGS: Lines/Tubes/Devices: EKG leads overlie the chest. No indwelling lines are seen. Heart/mediastinum: Heart appears mildly to moderately enlarged. Mildly tortuous unfolded aorta. Pulmonary vascularity: Mild pulmonary vascular congestion. Mild diffuse increased interstitial markin gs can be seen with edema or pneumonitis, superimposed on chronic changes. Lungs/Pleura: And small bilateral pleural effusions and bibasilar atelectasis suggested. No visualize d pneumothorax. Musculoskeletal: No acute osseous abnormality demonstrated in the limits of the exam. Degenerative c hanges of the spine and shoulders, greatest in the left shoulder. Couple surgical clips suggested ove r the soft tissues of the right lateral chest wall. Other findings: None. IMPRESSION: Cardiomegaly with additional findings suggesting mild/moderate CHF. Correlate clinically with BNP.
[2024-04-25] MEDS: traMADol 50 MG TAB PO PRN (22:48)
[2024-04-25] MEDS: CEFEPIME 2 GM in SODIUM CHLORIDE 0.9% 100 ML IVPB STA (22:52)
[2024-04-25] MEDS: FUROSEMIDE 10 MG/ML 2 ML VIAL IV ONE (22:53)
[2024-04-25 22:58] LABS: Appearance,Urine Clear (Clear); Bilirubin,Urine Negative (Negative); Blood,Urine Negative (Negative); Color,Urine Colorless; Glucose,Urine (UA) Negative (Negative); Ketones,Urine 1+ (Negative); Leukocyte Esterase,Urine Negative (Negative); Nitrite,Urine Negative (Negative); PH, Urine 5.5 (5.0-8.0); Protein,Urine Negative (Negative); Specific Gravity,Urine 1.017 (1.001-1.035); Urobilinogen,Urine <2.0 mg/dL (<2.0)
[2024-04-25 23:21] LABS: Amphetamine Screen,Urine Not Detected (NotDetected); Barbiturate Screen,Urine Not Detected (NotDetected); Benzodiazepines Screen,Urine Not Detected (NotDetected); Cocaine Screen,Urine Not Detected (NotDetected); Methadone Screen, Urine Not Detected (NotDetected); Opiate Screen,Urine Not Detected (NotDetected); Oxycodone Screen, Urine Not Detected (NotDetected); Phencyclidine Screen,Urine Not Detected (NotDetected); Tricyclic Antidepressant,Urine Not Detected (NotDetected); Urn Cannabinoid Scrn Not Detected (NotDetected)
--- NOTE | 2024-04-25 23:26 | P.HPIM ---
History of Present Illness H&P Date: 04/25/24 Patient is a 83-year-old female with a PMH of chronic low back pain, hypertension, diabetes, breast cancer (in remission), CKD (stage III), hyperlipidemia, memory impairment, presents to the ED with acute on chronic lower back pain. She states this pain started 2 days ago and describes it as a constant sharp pain that radiates down the right leg all the way down to her toes. She describes it as 9/10 pain at maximal intensity. She says she feels a tingling sensation that was described as feeling like as if her foot was falling asleep. She also states that she feels some numbness down her entire right leg. She tried ibuprofen for relief without success. No exacerbating features. She has been bedridden only today and finds it difficult making it to the bathroom to urinate, so she wears a pad. She denies any urinary or fecal incontinence. Last void was this morning. Patient denies any chest pain, shortness of breath, abdominal pain, nausea, vomiting. She also denies any recent falls. Last fall was 6 months ago. EKG independently interpreted showed sinus bradycardia with rate of 49 bpm, QTc 413 ms with L axis deviation and T-wave inversions diffusely. CXR on independent interpretation displayed right-sided pleural effusion, pulmonary vascular congestion significant for pulmonary edema, cardiomegaly CT head showed no acute intracranial abnormality, atrophy and chronic nancy rovascular ischemic white matter changes UA unremarkable, 1+ ketone proBNP 2160, creatine kinase 253, troponin 0.032, CBC within normal limits, aPTT 20, INR 0.9, sodium 141, potassium 3.9, chloride 108, BUN 20, creatinine 0.97, glucose 83, T 97.4 F, NH 65, RR 16, BP 159/84, O2 sat 97% 2.5 L nasal cannula ED documentation reviewed Review of systems: Pertinent positives and negatives as discussed in HPI, a complete review of systems was performed and all other systems are negative. Social history: Tobacco: Never smoker Alcohol: Denies alcohol use Recreational drugs: Denies illicit drug use Travel: No recent travel Occupation: Did not obtain Physical examination: Vital signs reviewed General: non toxic, no distress, appears at stated age, morbidly obese Derm: no unusual rashes/lesions, warm Head: atraumatic, normocephalic, symmetric Eyes: EOMI, anicteric sclera, pupils equal round reactive to light ENT: Nose and ears atraumatic Mouth: no lip lesion, mucus membranes moist Cardiovascular: S1S2 reg, no murmur, positive dorsalis pedis pulse bilateral, no LE edema noted Lungs: CTA bilateral, no rhonchi, no rales, no accessory muscle use Abdominal: soft, nontender to palpation, no guarding Ext: muscle strength 3/5 on right lower extremity hip flexion and extension, 4/5 on left lower extremity hip flexion/extension, strength 5/5 mena LEs at the ankle, 5/5 muscle strength bilateral upper extremities, right lumbar paraspinal tenderness Neuro: CN II-XI grossly intact, no gross focal neuro deficits Psych: Alert, oriented, appropriate affect Assessment/Plan: Patient is a 83-year-old female with a PMH of chronic low back pain, hypertension, diabetes, CKD (stage III), hyperlipidemia presents to the ED with acute on chronic lower back pain. Active: #. Acute on chronic low back pain w/ RLE paresthesias and mild proximal RLE weakness (suspect due to pain) Patient denies fecal/urinary incontinence Order Lumbosacral CT scan Pain management: Acetaminophen 650 mg PO q6hr PRN, tramadol 50 mg PO q8hr PRN, lidocaine patch Continue with pregabalin 25 mg p.o. twice daily - Consult PT and Orthospine surgery #. Pulmonary edema, secondary to suspected heart failure (no prior history), mild, with acute hypoxic respiratory failure #. 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 Elevated CK levels - Monitor for now - Likely due to poor physical activity over the past few days Chronic problems: #. Hypertension Continue with amlodipine 10 mg p.o. at bedtime Hold metoprolol succinate due to bradycardia Continue with losartan potassium 100 mg p.o. at bedtime #. CKD (stage III) Continue with Lasix 40 mg p.o. bid #. Hyperlipidemia Continue with Lipitor 10 mg p.o. at bedtime #. Type 2 diabetes Hold home oral diabetic medications Insulin subcu sliding scale Monitor glucose for hypoglycemia #. Hypothyroidism Continue with Synthroid 100 mcg p.o. daily at 0630 #. Gout Continue with allopurinol 300 mg p.o. daily #. Breast cancer (in remission) Continue anastrozole 1 mg p.o. at bedtime #. Memory impairment Continue donepezil 10 mg p.o. at bedtime Continue Requip 0.5 mg p.o. at bedtime #. History of asthma Continue singular 10 mg p.o. at bedtime DVT prophylaxis: Lovenox 40 SQ daily F: N/A E: replete electrolytes PRN N: consistent carbohydrate A: fall precautions, consult PT/OT The patient is admitted with an anticipated rater than 2 midnight stay for evaluation of acute on chronic lower back pain CODE STATUS: Full code Discussed with: Patient Anticipated discharge place: Home Past Medical History Past Medical History: Asthma, Cancer, Diabetes Mellitus, Hearing Disorder / Deafness, Hyperlipidemia, Hypertension, Memory Impairment, Osteoarthritis (OA), Renal Disease, Sleep Apnea/CPAP/BIPAP, Thyroid Disorder Additional Past Medical History / Comment(s): hx migraines, sleep apnea with c- pap., gout, constipation., diverticulitis, skin cancer, breast cancer, stage 3 kidney disease., vertigo, hx falls -uses walker., states yeast infection in groin., 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 History of Any Multi-Drug Resistant Organisms: None Reported Past Surgical History: Appendectomy, Breast Surgery, Cholecystectomy, Heart Catheterization, Hysterectomy, Joint Replacement Additional Past Surgical History / Comment(s): mena knee replacements, cataracts, surgery for fx finger left hand,skin cancer removed ears, forehead, nose & shoulder, colonoscopy, lt breast biopsy, rt breast biopsy, R breast lumpectomy Past Anesthesia/Blood Transfusion Reactions: Previous Problems w/ Anesthesia, Motion Sickness Additional Past Anesthesia/Blood Transfusion Reaction / Comment(s): high BP. daughter PONV Past Psychological History: Depression Smoking Status: Never smoker Past Alcohol Use History: None Reported Past Drug Use History: None Reported - Past Family History Mother Family Medical History: Blood Disorder, Cancer Additional Family Medical History / Comment(s): bone cancer , pt unsure if mother or sister had blood disorder with "vitamin k" Sister(s) Family Medical History: Blood Disorder Medications and Allergies Home Medications Medication Instructions Recorded Confirmed Type Montelukast [Singulair] 10 mg PO HS 03/29/14 04/25/24 History amLODIPine/ATORVASTATIN [Caduet 10 1 tab PO HS 03/29/14 04/25/24 History mg-10 mg Tablet] traMADol HCL [Ultram] 50 mg PO Q8H PRN 10/17/20 04/25/24 History Furosemide [Lasix] 20 mg PO DAILY 11/17/20 04/25/24 History Losartan Potassium [Cozaar] 100 mg PO HS 01/23/21 04/25/24 History Potassium Chloride [Potassium 10 meq PO DAILY 03/15/21 04/25/24 History Chloride ER] Anastrozole [Arimidex] 1 mg PO HS 03/23/21 04/25/24 History Meclizine [Antivert] 12.5 mg PO DAILY 03/16/22 04/25/24 History Alendronate Sodium [Fosamax] 70 mg PO MO 09/30/22 04/25/24 History Galantamine HBr [Razadyne ER] 16 mg PO HS 09/30/22 04/25/24 History Levothyroxine Sodium [Synthroid] 100 mcg PO DAILY 09/30/22 04/25/24 History Pioglitazone [Actos] 15 mg PO DAILY 09/30/22 04/25/24 History allopurinoL 300 mg PO DAILY 09/30/22 04/25/24 History buPROPion HCL [Wellbutrin SR] 200 mg PO DAILY 09/30/22 04/25/24 History rOPINIRole HCL [Requip] 0.5 mg PO HS 04/27/23 04/25/24 History Ibuprofen [Motrin] 600 mg PO Q8HR PRN #20 tab 04/21/24 04/25/24 Rx Nitrofurantoin Monohyd/M-Cryst 100 mg PO Q12HR #14 cap 04/21/24 04/25/24 Rx [Macrobid] Cetirizine HCl [Zyrtec] 10 mg PO DAILY 04/25/24 04/25/24 History Glimepiride [Amaryl] 2 mg PO DAILY 04/25/24 04/25/24 History Metoprolol Succinate (ER) [Toprol 50 mg PO DAILY 04/25/24 04/25/24 History XL] Pregabalin [Lyrica] 25 mg PO BID 04/25/24 04/25/24 History Ramelteon 8 mg PO HS 04/25/24 04/25/24 History Allergies Allergy/AdvReac Type Severity Reaction Status Date / Time amoxicillin Allergy Unknown TAKEN FROM Verified 04/25/24 19:24 DR OLIVER'S NOTES Iodine and Iodide Containing Allergy Unknown TESTED Verified 04/25/24 19:24 Produc POSITIVE FOR SHELLFISH prednisone Allergy Unknown TAKEN FROM Verified 04/25/24 19:24 DR FISHER NOTES adhesive Allergy blisters, Verified 04/25/24 19:24 itching shellfish derived Allergy TESTED Verified 04/25/24 19:24 POSITIVE WITH ALLERGY TESTING. gluten AdvReac vomiting, Verified 04/25/24 19:24 diarrhea Penicillins AdvReac Rash/Hives Verified 04/25/24 19:24 antibiotics AdvReac Diarrhea Uncoded 04/25/24 18:26 Physical Exam Vitals: Vital Signs Temp Pulse Resp BP Pulse Ox 04/25/24 19:56 97.4 F L 65 16 159/84 97 04/25/24 18:26 53 L 19 151/62 97 04/25/24 18:17 98.1 F 71 19 150/116 95 Intake and Output 04/25/24 04/25/24 04/25/24 06:59 14:59 22:59 Other: Weight 124.738 kg Results CBC & Chem 7: 04/25/24 18:27 04/25/24 18:27 Labs: Abnormal Lab Results - Last 24 Hours (Table) 04/25/24 04/25/24 Range/Units 18:27 18:27 APTT 20.0 L (22.0-30.0) sec Chloride 108 H (98-107) mmol/L BUN 20 H (7-17) mg/dL Creatine Kinase 253 H (30-135) U/L
[2024-04-26 06:14] LABS: Glucose,Whole Blood 76 mg/dL (70-110)
[2024-04-26] MEDS: INSULIN ASPART (NovoLOG) 100 UNIT/ML VIAL SQ SCH (06:18)
--- NOTE | 2024-04-26 08:36 | CT ---
EXAMINATION TYPE: CT lumbar spine wo con DATE OF EXAM: 04/26/2024 8:24 AM COMPARISON: 01/04/2024 HISTORY: lb pain with paresthesias RLE CT DLP: 1430.2 mGycm Automated exposure control for dose reduction was used. Unenhanced CT of the lumbar spine was performed. Bone and soft tissue window settings are submitted as well as coronal and sagittal reconstructions. Findings: The lumbar vertebral segments are normal in height and there is no evidence of fracture. There is a stable grade 1 anterolisthesis of L4 on L5. There is stable multilevel degenerative disc disease severe at the L2-3 level, moderate at the L1-2, L4-5 and L5-S1 level and mild at the L3-4 level. There is no focal lumbar disc herniation. There is multilevel spinal stenosis, mild at the L2-3 level and severe at the L3-4 and L4-5 levels. There is diffuse osteopenia. There is moderate disc severe facet arthropathy at the L4-5 and L5-S1 levels and mild facet arthropat hy at the L1-L2 3 levels and mild facet arthropathy at the L3-4 level. There is moderate to severe bony neural foraminal encroachment at the L2-3, L3-4 and L4-5 levels on t he right and mild bony neural foraminal encroachment at the L5-S1 level on the right. The left neurof oramina are not imaged on this study on the sagittal images. IMPRESSION: 1. No significant interval change compared to previous. 2. Stable multilevel degenerative disc disease throughout the lumbar spine as described above with se akil at the L2-3 level. No lumbar disc herniations. 3. Multilevel spinal stenosis, mild at the L2-3 level and severe at the L3-4 and L4-5 levels. 4. Severe facet arthropathy in the lower lumbar spine. 5. Multilevel neural foraminal encroachment on the right is described above. The left neural foramina are not included on the sagittal images on this study.
[2024-04-26] MEDS: POTASSIUM CHLORIDE ER 10 MEQ TAB.ER.PRT PO SCH (08:42)
[2024-04-26] MEDS: FUROSEMIDE 40 MG TAB PO SCH (08:44)
[2024-04-26] MEDS: ENOXAPARIN 40 MG/0.4 ML SYRINGE SQ SCH (08:44)
[2024-04-26] MEDS: LORATADINE 10 MG TAB PO SCH (08:44)
[2024-04-26] MEDS: LEVOTHYROXINE 100 MCG TAB PO SCH (08:44)
[2024-04-26] MEDS: buPROPion SR 100 MG TABLET.ER PO SCH (08:46)
[2024-04-26] MEDS: allopurinoL 300 MG TAB PO SCH (08:46)
[2024-04-26] MEDS: PREGABALIN 25 MG CAP PO SCH (08:51)
[2024-04-26] MEDS ORDERED: PIOGLITAZONE 15 MG TAB PO SCH (09:00)
[2024-04-26] MEDS ORDERED: FUROSEMIDE 20 MG TAB PO SCH (09:00)
[2024-04-26] MEDS ORDERED: GLIMEPIRIDE 2 MG TAB PO SCH (09:00)
[2024-04-26] MEDS ORDERED: METOPROLOL SUCCINATE (ER) 25 MG TAB.ER.24H PO SCH (09:00)
[2024-04-26] MEDS: MECLIZINE 12.5 MG TAB PO SCH (09:29)
[2024-04-26 09:34] LABS: Basophils # (A) 0.01 X 10*3/uL (0.00-0.10); Basophils % (A) 0.3 %; Eosinophils # (A) 0.05 X 10*3/uL (0.04-0.35); Eosinophils % (A) 1.3 %; Lymphocytes % (A) 25.7 %; MCH 29.3 pg (27.0-32.0); MCHC 32.5 g/dL (32.0-37.0); MCV 90.1 FL (80.0-97.0); Mean Platelet Volume 11.2 FL (9.5-12.2); Monocytes # (A) 0.66 X 10*3/uL (0.20-1.00); NRBC Per 100 WBC 0 X 10*3/uL (0.00-0.01); Neutrophils # (A) 2.04 X 10*3/uL (1.80-7.70); Neutrophils % (A) 52.4 %; Platelet Count 216 X 10*3/uL (140-440); RBC 4.44 X 10*6/uL (4.10-5.20); WBC 3.89 X 10*3/uL (4.50-10.00)
[2024-04-26 10:03] LABS: BUN/Creat Ratio 18.18 Ratio (12.00-20.00); Glucose 90 mg/dL (70-110); Magnesium 1.8 mg/dL (1.5-2.4)
[2024-04-26 10:04] LABS: ALT 10 U/L (8-44); AST 24 U/L (13-35); Albumin 3.9 g/dL (3.8-4.9); Alkaline Phosphatase 56 U/L (41-126); Calcium 8.9 mg/dL (8.7-10.3); Carbon Dioxide 21.9 mmol/L (21.6-31.8); Chloride 104 mmol/L (96-109); Globulin 2.6 g/dL (1.6-3.3); Sodium 140 mmol/L (135-145); Total Bilirubin 0.4 mg/dL (0.3-1.2); Total Protein 6.5 g/dL (6.2-8.2)
[2024-04-26 12:24] LABS: Glucose,Whole Blood 78 mg/dL (70-110)
--- NOTE | 2024-04-26 12:32 | P.CNOR ---
History of Present Illness - [facility] Consult date: 04/26/24 Consult reason: low back pain History of present illness: Patient is an 83-year-old female who was admitted to [facility] with regards to low back pain and right lower extremity radicular symptoms. Imaging and lab tests were obtained while in the emergency room, our orthopedic team was consulted. Patient was evaluated today at bedside, her daughter is present. Patient's had a known history of low back pain for many years. She actually did see a neurosurgeon down at [facility] who was hoping to schedule some decompression type surgery, they had not followed up with this. Patient does live with her daughter at home, she utilizes a walker on occasion. She states over the last 3 to 4 days that the low back pain is worsened with the radicular symptoms into her right lower extremity. Patient denies any loss of bowel or bladder function, she does admit to constipation which is normal for her. She denies any left lower extremity symptoms. She denies any bilateral upper extrem ity symptoms. She denies any acute trauma at this time. Patient normally takes Lyrica at home, she also has utilize tramadol with minimal relief. 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 History of Any Multi-Drug Resistant Organisms: None Reported Past Surgical History: Appendectomy, Breast Surgery, Cholecystectomy, Heart Catheterization, Hysterectomy, Joint Replacement Additional Past Surgical History / Comment(s): mena knee replacements, cataracts, surgery for fx finger left hand,skin cancer removed ears, forehead, nose & shoulder, colonoscopy, lt breast biopsy, rt breast biopsy, R breast lumpectomy Past Anesthesia/Blood Transfusion Reactions: Previous Problems w/ Anesthesia, Motion Sickness Additional Past Anesthesia/Blood Transfusion Reaction / Comm: high BP. daughter PONV Past Psychological History: Depression Smoking Status: Never smoker Past Alcohol Use History: None Reported Past Drug Use History: None Reported - Past Family History Mother Family Medical History: Blood Disorder, Cancer Additional Family Medical History / Comment(s): bone cancer , pt unsure if mother or sister had blood disorder with "vitamin k" Sister(s) Family Medical History: Blood Disorder Medications and Allergies Home Medications Medication Instructions Recorded Confirmed Type Montelukast [Singulair] 10 mg PO HS 03/29/14 04/25/24 History amLODIPine/ATORVASTATIN [Caduet 10 1 tab PO HS 03/29/14 04/25/24 History mg-10 mg Tablet] traMADol HCL [Ultram] 50 mg PO Q8H PRN 10/17/20 04/25/24 History Furosemide [Lasix] 20 mg PO DAILY 11/17/20 04/25/24 History Losartan Potassium [Cozaar] 100 mg PO HS 01/23/21 04/25/24 History Potassium Chloride [Potassium 10 meq PO DAILY 03/15/21 04/25/24 History Chloride ER] Anastrozole [Arimidex] 1 mg PO HS 03/23/21 04/25/24 History Meclizine [Antivert] 12.5 mg PO DAILY 03/16/22 04/25/24 History Alendronate Sodium [Fosamax] 70 mg PO MO 09/30/22 04/25/24 History Galantamine HBr [Razadyne ER] 16 mg PO HS 09/30/22 04/25/24 History Levothyroxine Sodium [Synthroid] 100 mcg PO DAILY 09/30/22 04/25/24 History Pioglitazone [Actos] 15 mg PO DAILY 09/30/22 04/25/24 History allopurinoL 300 mg PO DAILY 09/30/22 04/25/24 History buPROPion HCL [Wellbutrin SR] 200 mg PO DAILY 09/30/22 04/25/24 History rOPINIRole HCL [Requip] 0.5 mg PO HS 04/27/23 04/25/24 History Ibuprofen [Motrin] 600 mg PO Q8HR PRN #20 tab 04/21/24 04/25/24 Rx Nitrofurantoin Monohyd/M-Cryst 100 mg PO Q12HR #14 cap 04/21/24 04/25/24 Rx [Macrobid] Cetirizine HCl [Zyrtec] 10 mg PO DAILY 04/25/24 04/25/24 History Glimepiride [Amaryl] 2 mg PO DAILY 04/25/24 04/25/24 History Metoprolol Succinate (ER) [Toprol 50 mg PO DAILY 04/25/24 04/25/24 History XL] Pregabalin [Lyrica] 25 mg PO BID 04/25/24 04/25/24 History Ramelteon 8 mg PO HS 04/25/24 04/25/24 History Allergies Allergy/AdvReac Type Severity Reaction Status Date / Time amoxicillin Allergy Unknown TAKEN FROM Verified 04/25/24 19:24 DR OLIVER'S NOTES Iodine and Iodide Containing Allergy Unknown TESTED Verified 04/25/24 19:24 Produc POSITIVE FOR SHELLFISH prednisone Allergy Unknown TAKEN FROM Verified 04/25/24 19:24 DR FISHER NOTES adhesive Allergy blisters, Verified 04/25/24 19:24 itching shellfish derived Allergy TESTED Verified 04/25/24 19:24 POSITIVE WITH ALLERGY TESTING. gluten AdvReac vomiting, Verified 04/25/24 19:24 diarrhea Penicillins AdvReac Rash/Hives Verified 04/25/24 19:24 antibiotics AdvReac Diarrhea Uncoded 04/25/24 18:26 Physical Examination Gen: AOx3, NAD VSS stable at this time Integument: No open lesions or sores are visualized throughout the lumbar spine Palpation: Mild tenderness in the paraspinal lumbar region ROM: Full range of motion in all major muscle groups of the bilateral lower extremities, no focal deficits Sensory Exam: Senosry exam to light touch is intact L2-S1 Motor: 4+/5 strength appreciated in the bilateral lower extremities with hip flexion, knee extension, knee flexion, plantarflexion, dorsiflexion, EHL, FHL Reflexes: 2/4 in all UE and LE Negative clonus bilaterally Special Test: Positive straight leg raise right lower extremity Results - Labs Labs: Abnormal Lab Results - Last 24 Hours (Table) 04/25/24 04/25/24 04/25/24 Range/Units 18:27 18:27 22:09 WBC (4.50-10.00) X 10*3/uL RDW (11.5-14.5) % Immature Gran # (0.00-0.04) X 10*3/uL APTT 20.0 L (22.0-30.0) sec Chloride 108 H (98-107) mmol/L Anion Gap (4.00-12.00) mmol/L BUN 20 H (7-17) mg/dL Est GFR (CKD-EPI) (>=60) Creatine Kinase 253 H (30-135) U/L Albumin/Globulin Ratio (1.60-3.17) Ratio Urine Ketones 1+ H (Negative) 04/26/24 04/26/24 Range/Units 03:16 03:16 WBC 3.89 L (4.50-10.00) X 10*3/uL RDW 15.0 H (11.5-14.5) % Immature Gran # 0.13 H (0.00-0.04) X 10*3/uL APTT (22.0-30.0) sec Chloride (98-107) mmol/L Anion Gap 14.10 H (4.00-12.00) mmol/L BUN (7-17) mg/dL Est GFR (CKD-EPI) 49 L (>=60) Creatine Kinase (30-135) U/L Albumin/Globulin Ratio 1.50 L (1.60-3.17) Ratio Urine Ketones (Negative) H & H 04/25/24 04/26/24 Range/Units 18:27 03:16 Hgb 13.9 13.0 (11.4-16.0) gm/dL Hct 42.6 40.0 (34.0-46.0) % Coagulation 04/25/24 Range/Units 18:27 INR 0.9 (<1.2) Result Diagrams: 04/26/24 03:16 04/26/24 03:16 - Diagnostic results CT Scan - lumbar: report reviewed, image reviewed Assessment and Plan Assessment: Low back pain Right lower extremity radiculopathy Multilevel lumbar spondylosis Multilevel lumbar facet arthropathy with neuroforaminal stenosis other medical comorbidities Plan: Imaging: CT scan images and reports were reviewed of the lumbar spine. No acute fractures or dislocations present. There is varying degrees of degenerative disc disease and spondylitic changes throughout the lumbar spine, worse at L2, L3, L3, L4 and L4-L5. Patient has multiple levels of facet arthropathy with neuroforaminal stenosis and mild central canal stenosis Plan: I was able to discuss the case, this to include both physical exam findings and imaging studies my attending Dr. Ascencio's and. No emergent orthopedic spine surgical intervention recommended at this time Recommending conservative measures, I did order 10 mg of IV Decadron to be given followed by 4 mg every 6 hours. We will continue to taper that during hospital stay Flexeril has been ordered by the emergency room staff, would recommend continuing Lyrica. Could also utilize Tylenol. Try to avoid narcotics PT/OT evaluation, recommend use of walker at all times GI and DVT prophylaxis per primary medical service Other medical specialty recommendations appreciated Continue to follow during hospital stay Time with Patient: Less than 30
--- NOTE | 2024-04-26 12:54 | P.HPIM ---
History of Present Illness H&P Date: 04/26/24 HISTORY OF PRESENT ILLNESS: 83-year-old with active medical history of chronic lower back pain, atherosclerotic heart disease, right-sided breast cancer postlumpectomy and ra diation, history of hypertension, hyperlipidemia, history of dementia, who also known to have history of obstructive sleep apnea, hypothyroidism, recurrent diverticulitis, history of skin cancer and history of asthma as well. She presented to the emergency department at [facility] late night on 04/25/2024 with 3 days of worsening intractable lower back pain radiating down to her right leg with slight weakness and numbness with pain quite intense could not control it with outpatient medication management. She become debilitated not been able to ambulate and walk with worsening discomfort with minimum movement. She ended up coming to the emergency department at [facility] or was seen and evaluated CT of the L-spine shows multilevel degenerative disc disease throughout the lumbar spine with severe at the L2/3 with multilevel of spinal stenosis mild at the L2-L3 with severe at the L4-L5 and L3-L4 with severe arthritis of the lumbar spine as well and multilevel neural foraminal encroachment on the right. She was started on dexamethasone pain management including tramadol and Lyrica and admitted to the hospital with CT orthospine surgery along with possible pain management. From what her description sounds like patient seen pain management in the past down at [place] and she is seeing a back specialist as well but no intervention done. With her presentation she found to have slight worsening shortness of breath troponin was negative proBNP was not done at the time UA was negative as well drug screen was completely negative. Chest x-ray shows cardiomegaly with mild to moderate CHF and early pulmonary edema. EKG showed sinus bradycardia with pulse rate running in the 40s still in sinus rhythm. REVIEW OF SYSTEMS: CONSTITUTIONAL: Elderly laying in bed no acute respiratory distress. EYES: No icterus sclerae, no conjunctivitis. EARS, NOSE, MOUTH, THROAT, and FACE: No sore throat, lymphadenopathy, carotid bruits or deformity. RESPIRATORY: Slight shortness of breath no cough or wheezes. CARDIOVASCULAR: Positive PND orthopnea palpitation no angina . PND, Orthopnea, or angina. mild bradycardia with exertional shortness of breath GASTROINTESTINAL: No Abd pain, Nausea or vomiting, no Diarrhea or constipation, No GI Bleed, no distention or masses. GENITOURINARY: Negative for Hematuria or UTI, no kidney stones. INTEGUMENT/BREAST: Negative for any muscular injury with mild osteoarthritis.. HEMATOLOGIC/LYMPHATIC: Negative for bleed or purpura. MUSCULOSKELTAL: Generalized arthralgia and myalgia specially the right lower extremity. NEURLOGICAL: Numbness and weakness in the right leg with significant normal balance and gait and memory loss. BEHAVIORAL/PSYCH: Negative. ENDOCRINE: Negative. PHYSICAL EXAMINATION: General Appearance: Alert, cooperative, no distress, appears stated age. Neck HEENT: Supple, no lymphadenopathy, no thyroid enlargement, no carotid bruits. Lungs: Decreased breath sound bilaterally fine rhonchi no crackles pause mild expiratory wheezes. Chest Wall: Decreased expansion with deep inspiration no tenderness and no deformity was found on exam, no costochondral pain or discomfort. Heart: Regular rate and rhythm, S1, S2 has S3 positive bradycardia mild systolic murmur. Back: Symmetric, no curvature, ROM normal, no CVA tenderness. Abdomen: Soft, non-tender, bowel sounds active all four quadrants, no masses, no organomegaly. Extremities: Extremities normal, atraumatic, no cyanosis or edema. mild osteoarthritis in both knees with Pulses: 2+ and symmetric. Skin: Skin color, texture, tugor normal, no rashes or lesions. Neurologic: Alert oriented with slight confusion cranial nerves II through XII intact, positive slight weakness in the right leg with abnormal balance and gait. ASSESSMENT AND PLAN: _Severe intractable lower back pain with severe spinal stenosis and severe degenerative disc disease: Started Decadron consult orthospine continue Lyrica along with tramadol titrate dose higher if needed patient benefit from physical therapy and eventually probably benefit from epidural injection. _Slight shortness of breath with mild CHF possible systolic dysfunction proBNP will be done, echocardiogram be done, still watching for any further signs of hypoxia with the current complaint of early pulmonary edema on chest x-ray might benefit from doing furosemide up to 40 mg twice a day titrate dose higher quite watch for any worsening pleural effusion or pulmonary edema. Continue monitoring and evaluation advisor will consult cardiology. _Severe bradycardia: She was on metoprolol succinate 50 mg daily which should decrease the dose to 25 if at least for now. _Hypertension: Has been on metoprolol along with losartan and amlodipine cut down metoprolol titrate losartan if needed. _Type 2 diabetes: Remain on pioglitazone 15 mg daily along with glimepiride 2 mg a day Accu-Chek sliding scales coverage to be done. _Dementia mostly Alzheimer disease still on galantamine current medication. _Hypothyroidism: Resume levothyroxine 100 mcg daily. _Chronic pain syndrome: Remain on pregabalin 25 mg twice a day along with tramadol. _History of right-sided breast cancer has been in remission remain on Arimidex still seen oncology. _Chronic depression: Will continue Wellbutrin SR 200 mg a day. _Restless leg syndrome: Has been on ropinirole 0.5 mg nightly. _Chronic recurrent UTI: Still on nitrofurantoin 100 mg daily. GI prophylaxis: Will use Pepcid 20 mg daily. DVT prophylaxis: Early mobilization and knee-high CANDY hose. CODE STATUS: Full code. Admit patient to the inpatient service for more than 2 night stay. 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 History of Any Multi-Drug Resistant Organisms: None Reported Past Surgical History: Appendectomy, Breast Surgery, Cholecystectomy, Heart Catheterization, Hysterectomy, Joint Replacement Additional Past Surgical History / Comment(s): mena knee replacements, cataracts, surgery for fx finger left hand,skin cancer removed ears, forehead, nose & shoulder, colonoscopy, lt breast biopsy, rt breast biopsy, R breast lumpectomy Past Anesthesia/Blood Transfusion Reactions: Previous Problems w/ Anesthesia, Motion Sickness Additional Past Anesthesia/Blood Transfusion Reaction / Comment(s): high BP. daughter PONV Past Psychological History: Depression Smoking Status: Never smoker Past Alcohol Use History: None Reported Past Drug Use History: None Reported - Past Family History Mother Family Medical History: Blood Disorder, Cancer Additional Family Medical History / Comment(s): bone cancer , pt unsure if mother or sister had blood disorder with "vitamin k" Sister(s) Family Medical History: Blood Disorder Medications and Allergies Home Medications Medication Instructions Recorded Confirmed Type Montelukast [Singulair] 10 mg PO HS 03/29/14 04/25/24 History amLODIPine/ATORVASTATIN [Caduet 10 1 tab PO HS 03/29/14 04/25/24 History mg-10 mg Tablet] traMADol HCL [Ultram] 50 mg PO Q8H PRN 10/17/20 04/25/24 History Furosemide [Lasix] 20 mg PO DAILY 11/17/20 04/25/24 History Losartan Potassium [Cozaar] 100 mg PO HS 01/23/21 04/25/24 History Potassium Chloride [Potassium 10 meq PO DAILY 03/15/21 04/25/24 History Chloride ER] Anastrozole [Arimidex] 1 mg PO HS 03/23/21 04/25/24 History Meclizine [Antivert] 12.5 mg PO DAILY 03/16/22 04/25/24 History Alendronate Sodium [Fosamax] 70 mg PO MO 09/30/22 04/25/24 History Galantamine HBr [Razadyne ER] 16 mg PO HS 09/30/22 04/25/24 History Levothyroxine Sodium [Synthroid] 100 mcg PO DAILY 09/30/22 04/25/24 History Pioglitazone [Actos] 15 mg PO DAILY 09/30/22 04/25/24 History allopurinoL 300 mg PO DAILY 09/30/22 04/25/24 History buPROPion HCL [Wellbutrin SR] 200 mg PO DAILY 09/30/22 04/25/24 History rOPINIRole HCL [Requip] 0.5 mg PO HS 04/27/23 04/25/24 History Ibuprofen [Motrin] 600 mg PO Q8HR PRN #20 tab 04/21/24 04/25/24 Rx Nitrofurantoin Monohyd/M-Cryst 100 mg PO Q12HR #14 cap 04/21/24 04/25/24 Rx [Macrobid] Cetirizine HCl [Zyrtec] 10 mg PO DAILY 04/25/24 04/25/24 History Glimepiride [Amaryl] 2 mg PO DAILY 04/25/24 04/25/24 History Metoprolol Succinate (ER) [Toprol 50 mg PO DAILY 04/25/24 04/25/24 History XL] Pregabalin [Lyrica] 25 mg PO BID 04/25/24 04/25/24 History Ramelteon 8 mg PO HS 04/25/24 04/25/24 History Allergies Allergy/AdvReac Type Severity Reaction Status Date / Time amoxicillin Allergy Unknown TAKEN FROM Verified 04/25/24 19:24 DR OLIVER'S NOTES Iodine and Iodide Containing Allergy Unknown TESTED Verified 04/25/24 19:24 Produc POSITIVE FOR SHELLFISH prednisone Allergy Unknown TAKEN FROM Verified 04/25/24 19:24 DR FISHER NOTES adhesive Allergy blisters, Verified 04/25/24 19:24 itching shellfish derived Allergy TESTED Verified 04/25/24 19:24 POSITIVE WITH ALLERGY TESTING. gluten AdvReac vomiting, Verified 04/25/24 19:24 diarrhea Penicillins AdvReac Rash/Hives Verified 04/25/24 19:24 antibiotics AdvReac Diarrhea Uncoded 04/25/24 18:26 Physical Exam Vitals: Vital Signs Temp Pulse Pulse Resp BP BP Pulse Ox 04/26/24 08:00 62 17 04/26/24 06:50 97.6 F 62 17 139/67 95 04/26/24 00:22 97.9 F 61 16 147/72 98 04/25/24 22:56 97.1 F L 57 L 16 141/69 96 04/25/24 19:56 97.4 F L 65 16 159/84 97 04/25/24 18:26 53 L 19 151/62 97 04/25/24 18:17 98.1 F 71 19 150/116 95 Intake and Output 04/25/24 04/26/24 04/26/24 22:59 06:59 14:59 Intake Total 0 Output Total 800 Balance -800 0 Intake: Oral 0 Output: Urine 800 Other: Voiding Method External Catheter External Catheter Weight 124.738 kg 64.5 kg Results CBC & Chem 7: 04/26/24 03:16 04/26/24 03:16 Labs: Abnormal Lab Results - Last 24 Hours (Table) 04/25/24 04/25/24 04/25/24 Range/Units 18:27 18:27 22:09 WBC (4.50-10.00) X 10*3/uL RDW (11.5-14.5) % Immature Gran # (0.00-0.04) X 10*3/uL APTT 20.0 L (22.0-30.0) sec Chloride 108 H (98-107) mmol/L BUN 20 H (7-17) mg/dL Creatine Kinase 253 H (30-135) U/L Urine Ketones 1+ H (Negative) 04/26/24 Range/Units 03:16 WBC 3.89 L (4.50-10.00) X 10*3/uL RDW 15.0 H (11.5-14.5) % Immature Gran # 0.13 H (0.00-0.04) X 10*3/uL APTT (22.0-30.0) sec Chloride (98-107) mmol/L BUN (7-17) mg/dL Creatine Kinase (30-135) U/L Urine Ketones (Negative)
[2024-04-26] MEDS: DEXAMETHASONE SOD PHOSPHATE 10 MG/ML 1 ML VIAL IVP STA (13:38)
[2024-04-26] MEDS ORDERED: DEXAMETHASONE SOD PHOSPHATE 4 MG/ML 1 ML VIAL IVP PRN (15:27)
[2024-04-26] MEDS: NYSTATIN 100,000 UNIT/GM POWD 15 GM TOPICAL SCH (16:54)
[2024-04-26 17:20] LABS: Glucose,Whole Blood 145 mg/dL (70-110)
[2024-04-26 20:05] LABS: Glucose,Whole Blood 179 mg/dL (70-110)
[2024-04-26] MEDS: DONEPEZIL 10 MG TAB PO SCH (21:56)
[2024-04-26] MEDS: MONTELUKAST 10 MG TAB PO SCH (21:56)
[2024-04-26] MEDS: ZOLPIDEM 5 MG TAB PO SCH (21:56)
[2024-04-26] MEDS: ANASTROZOLE 1 MG TAB PO SCH (21:56)
[2024-04-26] MEDS: LOSARTAN 50 MG TAB PO SCH (21:56)
[2024-04-26] MEDS: amLODIPine 10 MG TAB PO SCH (21:57)
[2024-04-26] MEDS: ATORVASTATIN 10 MG TAB PO SCH (21:57)
[2024-04-26] MEDS: DEXAMETHASONE SOD PHOSPHATE 4 MG/ML 1 ML VIAL IVP SCH (22:33)
[2024-04-27 06:02] LABS: Glucose,Whole Blood 146 mg/dL (70-110)
[2024-04-27] MEDS: ACETAMINOPHEN TAB 325 MG TAB PO PRN (08:29)
[2024-04-27] MEDS: NON FORMULARY DRUG (Alendronate Sodium [Fosamax] 70 MG Tablet) PO SCH (11:43)
[2024-04-27 11:53] LABS: Glucose,Whole Blood 241 mg/dL (70-110)
--- NOTE | 2024-04-27 12:22 | P.PN ---
Subjective Progress Note Date: 04/27/24 Principal diagnosis: Low back pain, right lower extremity radiculopathy Patient is evaluated today at bedside, she is sitting up at the side of the bed. Patient was very emotional when entering the room, after discussion with her she seems very worried about being discharged to rehab and her daughter not being around to help her. She states that her daughter is very short with her when it comes to her daily routines. Patient states that the low back pain and right lower extremity pain seems improved today. Denies any headaches, lightheadedness, chest pain or shortness of breath Objective - Vital Signs Vital signs: Vital Signs Temp 97.5 F L 04/27/24 07:00 Pulse 94 04/27/24 07:00 Resp 16 04/27/24 07:00 BP 99/63 04/27/24 07:00 Pulse Ox 96 04/27/24 07:42 FiO2 Intake & Output 04/26/24 04/27/24 04/27/24 18:59 06:59 18:59 Intake Total 708 118 Output Total 900 900 Balance -192 -900 118 Intake: Oral 708 118 Output: Urine 900 900 Stool 0 Other: Voiding Method External Catheter External Catheter External Catheter - Exam Gen: AOx3, NAD VSS stable at this time Integument: No open lesions or sores are visualized throughout the lumbar spine Palpation: Mild tenderness in the paraspinal lumbar region ROM: Full range of motion in all major muscle groups of the bilateral lower extremities, no focal deficits Sensory Exam: Senosry exam to light touch is intact L2-S1 Motor: 4+/5 strength appreciated in the bilateral lower extremities with hip flexion, knee extension, knee flexion, plantarflexion, dorsiflexion, EHL, FHL Reflexes: 2/4 in all UE and LE Negative clonus bilaterally Special Test: Positive straight leg raise right lower extremity - Labs CBC & Chem 7: 04/26/24 03:16 04/26/24 03:16 Labs: Abnormal Lab Results - Last 24 Hours (Table) 04/26/24 04/26/24 04/27/24 Range/Units 17:19 20:03 05:59 POC Glucose (mg/dL) 145 H 179 H 146 H (70-110) mg/dL 04/27/24 Range/Units 11:52 POC Glucose (mg/dL) 241 H (70-110) mg/dL Assessment and Plan Assessment: Low back pain Right lower extremity radiculopathy Multilevel lumbar spondylosis Multilevel lumbar facet arthropathy with neuroforaminal stenosis other medical comorbidities Plan: Plan: Continue conservative measures, I did decrease the Decadron to 2 mg every 6 hours, plan to transition to oral medications tomorrow Continue use of Tylenol as needed PT/OT evaluation, recommend use of walker at all times GI and DVT prophylaxis per primary medical service Other medical specialty recommendations appreciated Discussed with nursing to contact social work with regards to placement options Will continue to follow during hospital stay Time with Patient: Less than 30
--- NOTE | 2024-04-27 17:14 | CA ---
Transthoracic Echo Report Name: Natasha Wu Age: 83 Gender: F : 1940 Exam Date: 04/27/2024 14:33 Exam Location: [facility] Ht (in): 63 Wt (lb): 275 Ordering Physician: Shelton Crow MD Attending/Referring Phys: Deaf And Hard Of Hearing Teacher Etta Ko RDCS Procedure CPT: Indications: Heart failure Cardiac Hx: Technical Quality: Poor Contrast 1: Total Dose (mL): Contrast 2: Total Dose (mL): MEASUREMENTS (Male / Female) Normal Values 2D ECHO LV Diastolic Diameter PLAX 4.0 cm 4.2 - 5.9 / 3.9 - 5.3 cm LV Systolic Diameter PLAX 3.2 cm IVS Diastolic Thickness 1.2 cm 0.6 - 1.0 / 0.6 - 0.9 cm LVPW Diastolic Thickness 1.2 cm 0.6 - 1.0 / 0.6 - 0.9 cm LV Relative Wall Thickness 0.6 M-MODE Aortic Root Diameter MM 3.6 cm DOPPLER LVOT Peak Velocity 85.5 cm/s LVOT Peak Gradient 2.9 mmHg LVOT Velocity Time Integral 12.9 cm MV Area PHT 3.5 cm??? Mitral E Point Velocity 43.6 cm/s Mitral A Point Velocity 74.8 cm/s Mitral E to A Ratio 0.6 MV Deceleration Time 216.7 ms TR Peak Velocity 206.8 cm/s TR Peak Gradient 17.1 mmHg Right Ventricular Systolic Press 21.0 mmHg FINDINGS Left Ventricle Mildly increased left ventricular wall thickness. No obvious regional wall motion abnormalities. Left ventricular ejection fraction is estimated at 50-55 %. Right Ventricle Normal right ventricular size and function. Right Atrium Normal right atrial size. Left Atrium Left atrial dilatation. Mitral Valve Mitral annular calcification. Mild mitral regurgitation. Aortic Valve No aortic valve stenosis or regurgitation. Tricuspid Valve Mild tricuspid regurgitation. Pulmonic Valve Structurally normal pulmonic valve. Trace pulmonic regurgitation. Pericardium No pericardial effusion. Aorta Normal size aortic root and proximal ascending aorta. CONCLUSIONS Technically suboptimal study secondary to poor echo windows Mild mitral regurgitation Normal LV systolic function with an ejection fraction of 55% Previewed by: Dr. David Mays MD (Electronically Signed) Final Date: 27 April 2024 17:13
[2024-04-27 17:19] LABS: Glucose,Whole Blood 190 mg/dL (70-110)
[2024-04-27] MEDS: DEXAMETHASONE SOD PHOSPHATE 4 MG/ML 1 ML VIAL IVP SCH (17:32)
[2024-04-27 20:40] LABS: Glucose,Whole Blood 193 mg/dL (70-110)
--- NOTE | 2024-04-28 05:56 | P.PN ---
Subjective Progress Note Date: 04/27/24 HISTORY OF PRESENT ILLNESS: 83-year-old with active medical history of chronic lower back pain, atherosclerotic heart disease, right-sided breast cancer postlumpectomy and radiation, history of hypertension, hyperlipidemia, history of dementia, who also known to have history of obstructive sleep apnea, hypothyroidism, recurrent diverticulitis, history of skin cancer and history of asthma as well. She presented to the emergency department at [facility] late night on 04/25/2024 with 3 days of worsening intractable lower back pain radiating down to her right leg with slight weakness and numbness with pain quite intense could not control it with outpatient medication management. She become debilitated not been able to ambulate and walk with worsening discomfort with minimum movement. She ended up coming to the emergency department at [facility] or was seen and evaluated CT of the L-spine shows multilevel degenerative disc disease throughout the lumbar spine with severe at the L2/3 with multilevel of spinal stenosis mild at the L2-L3 with severe at the L4-L5 and L3-L4 with severe arthritis of the lumbar spine as well and multilevel neural foraminal encroachment on the right. She was started on dexamethasone pain management including tramadol and Lyrica and admitted to the hospital with CT orthospine surgery along with possible pain management. From what her description sounds like patient seen pain management in the past down at [place] and she is seeing a back specialist as well but no intervention done. With her presentation she found to have slight worsening shortness of breath troponin was negative proBNP was not done at the time UA was negative as well drug screen was completely negative. Chest x-ray shows cardiomegaly with mild to moderate CHF and early pulmonary edema. EKG showed sinus bradycardia with pulse rate running in the 40s still in sinus rhythm. 04/27/2024: She is resting in bed continue to have significant pain and discomfort require pain meds, still on steroid and had a little quite bit confusion without any combative behavior overnight, was seen and evaluated by orthospine: Strength has improved to some degree continue to have significant right-sided radiculopathy with weakness numbness which is again she has more problem with the right side spinal stenosis along with bulging herniation compared to the left side. No plan for aggressive management or intervention of any type at some point might require pain management with epidural injection in the meanwhile we will continue steroids for another day continue pain management and initiate physical therapy and hopefully have social sciences chair helping patient for potential going to rehab for more help with more physical therapy. REVIEW OF SYSTEMS: CONSTITUTIONAL: Elderly laying in bed no acute respiratory distress. EYES: No icterus sclerae, no conjunctivitis. EARS, NOSE, MOUTH, THROAT, and FACE: No sore throat, lymphadenopathy, carotid bruits or deformity. RESPIRATORY: Slight shortness of breath no cough or wheezes. CARDIOVASCULAR: Positive PND orthopnea palpitation no angina . PND, Orthopnea, or angina. mild bradycardia with exertional shortness of breath GASTROINTESTINAL: No Abd pain, Nausea or vomiting, no Diarrhea or constipation, No GI Bleed, no distention or masses. GENITOURINARY: Negative for Hematuria or UTI, no kidney stones. INTEGUMENT/BREAST: Negative for any muscular injury with mild osteoarthritis.. HEMATOLOGIC/LYMPHATIC: Negative for bleed or purpura. MUSCULOSKELTAL: Generalized arthralgia and myalgia specially the right lower extremity. NEURLOGICAL: Numbness and weakness in the right leg with significant normal balance and gait and memory loss. BEHAVIORAL/PSYCH: Negative. ENDOCRINE: Negative. PHYSICAL EXAMINATION: General Appearance: Alert, cooperative, no distress, appears stated age. Neck HEENT: Supple, no lymphadenopathy, no thyroid enlargement, no carotid bruits. Lungs: Decreased breath sound bilaterally fine rhonchi no crackles pause mild expiratory wheezes. Chest Wall: Decreased expansion with deep inspiration no tenderness and no deformity was found on exam, no costochondral pain or discomfort. Heart: Regular rate and rhythm, S1, S2 has S3 positive bradycardia mild systolic murmur. Back: Symmetric, no curvature, ROM normal, no CVA tenderness. Abdomen: Soft, non-tender, bowel sounds active all four quadrants, no masses, no organomegaly. Extremities: Extremities normal, atraumatic, no cyanosis or edema. mild osteoarthritis in both knees with Pulses: 2+ and symmetric. Skin: Skin color, texture, tugor normal, no rashes or lesions. Neurologic: Alert oriented with slight confusion cranial nerves II through XII intact, positive slight weakness in the right leg with abnormal balance and gait. ASSESSMENT AND PLAN: _Severe intractable lower back pain with severe spinal stenosis and severe dege nerative disc disease: Continue steroid use at this point continue pain management patient had slight reaction to it but able to tolerated well while she is in-house and inpatient, continue to see Ortho/spine and meanwhile no plan for any surgical intervention at this point we will titrate physical therapy mobility gradually and prepare hopefully for assisted rehab. _Slight shortness of breath with mild CHF: Echocardiogram was performed with ejection fraction of 50-55 percentile with no obvious regional wall motion abnormality, pretty normal valvular heart disease and no sign of pulmonary hypertension, the patient will be continue to be treated for diastolic congestive heart failure at this point remain on furosemide and again if worsening and increased edema might benefit from adding spironolactone. _Severe bradycardia: She was on metoprolol succinate 50 mg daily which should decrease the dose to 25 if at least for now. Will seem to do very well with pulse rate running in the 70s. _Hypertension: Has been on metoprolol along with losartan and amlodipine cut down metoprolol titrate losartan if needed. No need to titrate medication blood pressure is well-controlled despite her pain. _Type 2 diabetes: Remain on pioglitazone 15 mg daily along with glimepiride 2 mg a day Accu-Chek sliding scales coverage despite being on steroid her blood sugar remained in the mid to high 100s. _Dementia mostly Alzheimer disease still on galantamine current medication. _Hypothyroidism: Resume levothyroxine 100 mcg daily. _Chronic pain syndrome: Remain on pregabalin 25 mg twice a day along with tramadol. _History of right-sided breast cancer has been in remission remain on Arimidex still seen oncology. _Chronic depression: Will continue Wellbutrin SR 200 mg a day. _Restless leg syndrome: Has been on ropinirole 0.5 mg nightly. _Chronic recurrent UTI: Still on nitrofurantoin 100 mg daily. Discussion: Continue to see Ortho/spine, continue steroid, continue current medical management initiate PT OT and titrate activity ask social sciences chair to help patient probably for going to assisted rehab initially and if worsening symptoms at some point might benefit from doing epidural injection. Again no plan and plan for any surgical intervention at this point. Objective - Vital Signs Vital signs: Vital Signs Temp 97.8 F 04/27/24 02:00 Pulse 89 04/27/24 02:00 Resp 17 04/26/24 14:00 BP 125/66 04/27/24 02:00 Pulse Ox 92 L 04/27/24 02:00 FiO2 Intake & Output 04/26/24 04/26/24 04/27/24 06:59 18:59 06:59 Intake Total 708 Output Total 800 900 900 Balance -800 -192 -900 Weight 64.5 kg Intake: Oral 708 Output: Urine 800 900 900 Stool 0 Other: Voiding Method External Catheter External Catheter External Catheter - Labs CBC & Chem 7: 04/26/24 03:16 04/26/24 03:16 Labs: Abnormal Lab Results - Last 24 Hours (Table) 04/26/24 04/26/24 04/26/24 Range/Units 03:16 03:16 17:19 WBC 3.89 L (4.50-10.00) X 10*3/uL RDW 15.0 H (11.5-14.5) % Immature Gran # 0.13 H (0.00-0.04) X 10*3/uL Anion Gap 14.10 H (4.00-12.00) mmol/L Est GFR (CKD-EPI) 49 L (>=60) POC Glucose (mg/dL) 145 H (70-110) mg/dL Albumin/Globulin Ratio 1.50 L (1.60-3.17) Ratio 04/26/24 04/27/24 Range/Units 20:03 05:59 WBC (4.50-10.00) X 10*3/uL RDW (11.5-14.5) % Immature Gran # (0.00-0.04) X 10*3/uL Anion Gap (4.00-12.00) mmol/L Est GFR (CKD-EPI) (>=60) POC Glucose (mg/dL) 179 H 146 H (70-110) mg/dL Albumin/Globulin Ratio (1.60-3.17) Ratio
[2024-04-28 05:57] LABS: Glucose,Whole Blood 159 mg/dL (70-110)
[2024-04-28 07:35] VITALS: TEMP 97.7
[2024-04-28 08:36] LABS: HCT 40.6 % (37.2-46.3); HGB 13.6 g/dL (12.0-15.0); MCH 28.9 pg (27.0-32.0); MCHC 33.5 g/dL (32.0-37.0); MCV 86.2 FL (80.0-97.0); Mean Platelet Volume 11.4 FL (9.5-12.2); NRBC Per 100 WBC 0 X 10*3/uL (0.00-0.01); Platelet Count 244 X 10*3/uL (140-440); RBC 4.71 X 10*6/uL (4.10-5.20); RDW 14.8 % (11.5-14.5); WBC 5.27 X 10*3/uL (4.50-10.00)
[2024-04-28 08:54] LABS: BUN/Creat Ratio 24.61 Ratio (12.00-20.00); Blood Urea Nitrogen 44.3 mg/dL (9.0-27.0); Glucose 178 mg/dL (70-110)
[2024-04-28 08:55] LABS: ALT 9 U/L (8-44); AST 15 U/L (13-35); Albumin/Globulin Ratio 1.33 Ratio (1.60-3.17); Alkaline Phosphatase 61 U/L (41-126); Calcium 9.5 mg/dL (8.7-10.3); Carbon Dioxide 23.4 mmol/L (21.6-31.8); Chloride 98 mmol/L (96-109); Potassium 4.3 mmol/L (3.5-5.5); Sodium 137 mmol/L (135-145); Total Bilirubin 0.2 mg/dL (0.3-1.2)
[2024-04-28 12:15] LABS: Glucose,Whole Blood 185 mg/dL (70-110)
[2024-04-28 14:12] VITALS: BP 120/70; PULSE 88; RESP 17
--- NOTE | 2024-04-28 14:46 | P.DS ---
Providers Date of admission: 04/25/24 21:56 Attending physician: Poli Salinas Consults: 04/26/24 00:57 Consult Physician Urgent Consulting Provider: Woody Patino Consult Reason/Comments: LBP w/ RLE parethesias Do you want consulting provider notified?: Yes Primary care physician: [facility] Course: HISTORY OF PRESENT ILLNESS: 83-year-old with active medical history of chronic lower back pain, atherosclerotic heart disease, right-sided breast cancer postlumpectomy and radiation, history of hypertension, hyperlipidemia, history of dementia, who also known to have history of obstructive sleep apnea, hypothyroidism, recurrent diverticulitis, history of skin cancer and history of asthma as well. She presented to the emergency department at [facility] late night on 04/25/2024 with 3 days of worsening intractable lower back pain radiating down to her right leg with slight weakness and numbness with pain quite intense could not control it with outpatient medication management. She become debilitated not been able to ambulate and walk with worsening discomfort with minimum movement. She ended up coming to the emergency department at [facility] or was seen and evaluated CT of the L-spine shows multilevel degenerative disc disease throughout the lumbar spine with severe at the L2/3 with multilevel of spinal stenosis mild at the L2-L3 with severe at the L4-L5 and L3-L4 with severe arthritis of the lumbar spine as well and multilevel neural foraminal encroachment on the right. She was started on dexamethasone pain management including tramadol and Lyrica and admitted to the hospital with CT orthospine surgery along with possible pain management. From what her description sounds like patient seen pain management in the past down at [place] and she is seeing a back specialist as well but no intervention done. With her presentation she found to have slight worsening shortness of breath troponin was negative proBNP was not done at the time UA was negative as well drug screen was completely negative. Chest x-ray shows cardiomegaly with mild to moderate CHF and early pulmonary edema. EKG showed sinus bradycardia with pulse rate running in the 40s still in sinus rhythm. 04/27/2024: She is resting in bed continue to have significant pain and discomfort require pain meds, still on steroid and had a little quite bit confusion without any combative behavior overnight, was seen and evaluated by orthospine: Strength has improved to some degree continue to have significant right-sided radiculopathy with weakness numbness which is again she has more problem with the right side spinal stenosis along with bulging herniation compared to the left side. No plan for aggressive management or intervention of any type at some point might require pain management with epidural injection in the meanwhile we will continue steroids for another day continue pain management and initiate physical therapy and hopefully have social work supervisor helping patient for potential going to rehab for more help with more physical therapy. 04/28/2024: Patient is doing slightly bit better continue to have significant radiculopathy and mild weakness of the right side, was started on PT OT has done 2 days with steroid IV and discomfort and pain from her spinal stenosis and severe degenerative disc disease has improved to some degree she is still not able to walk and ambulate independent. Talk to patient about the possibility of going to correction rehab for more physical therapy she is agreeable to will continue pain management otherwise and probably eventually titrate her neuropathy management as well. REVIEW OF SYSTEMS: CONSTITUTIONAL: Elderly laying in bed no acute respiratory distress. EYES: No icterus sclerae, no conjunctivitis. EARS, NOSE, MOUTH, THROAT, and FACE: No sore throat, lymphadenopathy, carotid bruits or deformity. RESPIRATORY: Slight shortness of breath no cough or wheezes. CARDIOVASCULAR: Positive PND orthopnea palpitation no angina . PND, Orthopnea, or angina. mild bradycardia with exertional shortness of breath GASTROINTESTINAL: No Abd pain, Nausea or vomiting, no Diarrhea or constipation, No GI Bleed, no distention or masses. GENITOURINARY: Negative for Hematuria or UTI, no kidney stones. INTEGUMENT/BREAST: Negative for any muscular injury with mild osteoarthritis.. HEMATOLOGIC/LYMPHATIC: Negative for bleed or purpura. MUSCULOSKELTAL: Generalized arthralgia and myalgia specially the right lower extremity. NEURLOGICAL: Numbness and weakness in the right leg with significant normal balance and gait and memory loss. BEHAVIORAL/PSYCH: Negative. ENDOCRINE: Negative. PHYSICAL EXAMINATION: General Appearance: Alert, cooperative, no distress, appears stated age. Neck HEENT: Supple, no lymphadenopathy, no thyroid enlargement, no carotid bruits. Lungs: Decreased breath sound bilaterally fine rhonchi no crackles pause mild ex piratory wheezes. Chest Wall: Decreased expansion with deep inspiration no tenderness and no deformity was found on exam, no costochondral pain or discomfort. Heart: Regular rate and rhythm, S1, S2 has S3 positive bradycardia mild systolic murmur. Back: Symmetric, no curvature, ROM normal, no CVA tenderness. Abdomen: Soft, non-tender, bowel sounds active all four quadrants, no masses, no organomegaly. Extremities: Extremities normal, atraumatic, no cyanosis or edema. mild osteoarthritis in both knees with Pulses: 2+ and symmetric. Skin: Skin color, texture, tugor normal, no rashes or lesions. Neurologic: Alert oriented with slight confusion cranial nerves II through XII intact, positive slight weakness in the right leg with abnormal balance and gait. ASSESSMENT AND PLAN: _Severe intractable lower back pain with severe spinal stenosis and severe degenerative disc disease: Continue steroid use at this point continue pain management patient had slight reaction to it but able to tolerated well while she is in-house and inpatient, continue to see Ortho/spine and meanwhile no plan for any surgical intervention at this point we will titrate physical therapy mo bility gradually and prepare hopefully for correction rehab. _Slight shortness of breath with mild CHF: Echocardiogram was performed with ejection fraction of 50-55 percentile with no obvious regional wall motion abnormality, pretty normal valvular heart disease and no sign of pulmonary hypertension, the patient will be continue to be treated for diastolic congestive heart failure at this point remain on furosemide and again if worsening and increased edema might benefit from adding spironolactone. _Severe bradycardia: She was on metoprolol succinate 50 mg daily which should de crease the dose to 25 if at least for now. Will seem to do very well with pulse rate running in the 70s. _Hypertension: Has been on metoprolol along with losartan and amlodipine cut down metoprolol titrate losartan if needed. No need to titrate medication blood pressure is well-controlled despite her pain. _Type 2 diabetes: Remain on pioglitazone 15 mg daily along with glimepiride 2 mg a day Accu-Chek sliding scales coverage despite being on steroid her blood sugar remained in the mid to high 100s. _Dementia mostly Alzheimer disease still on galantamine current medication. _Hypothyroidism: Resume levothyroxine 100 mcg daily. _Chronic pain syndrome: Remain on pregabalin 25 mg twice a day along with tramadol. _History of right-sided breast cancer has been in remission remain on Arimidex still seen oncology. _Chronic depression: Will continue Wellbutrin SR 200 mg a day. _Restless leg syndrome: Has been on ropinirole 0.5 mg nightly. _Chronic recurrent UTI: Still on nitrofurantoin 100 mg daily. Discussion: Continue current management with Ortho/spine with steroid which will be stopped for now also continue pain management and neuropathy patient initiate physical therapy and will titrate PT OT social work supervisor helping patient to go to correction rehab. Hospital course: Patient was hospitalized on 04/25/2024 with severe worsening intractable lower back pain radiating toward the right leg along with weakness and numbness with severe radiculopathy pain impaired above for over 3 days and up not been able to ambulate and walk also has been having slight increase shortness of breath she mated to the emergency department at [facility] CT of the lumbar spine shows degenerative disc disease throughout the lumbar spine with severe level at the L2-L3 with multilevel of spinal stenosis of L2-L3, L3-L4 and, L4-L5 patient ended up seen Ortho/distribution specialist with Dr. Patino and up initiating conservative management by starting steroid IV and switch to oral at some point and continue patient on tramadol along with Lyrica. Her mobility was significantly decreased with initiate and start PT OT titrate management she started feeling slightly better patient still not able to ambulate and walk on her own. On her admission there were concern about mild congestive heart failure patient ended up having slight elevated BNP but her echocardiogram came back with no major abnormality with good ejection fraction and good valvular heart disease. Patient was diagnosed with diastolic congestive heart failure mostly chronic with acute component being on loop diuretics along with spironolactone and her current medication had felt slightly better. Medication brown between pregabalin and tramadol has done very well did not require any further pain management with any IV Dilaudid or morphine. Ambulate with help using walker with assistance patient has done very well and felt to be a good candidate for rehab in one of the correction patient be transferred to [facility] today for probably 1 to 2 weeks afterward she can benefit from doing outpatient physical therapy to go back to see Ortho/spine for follow- up and if no surgery indicated might benefit eventually from doing epidural injection. Patient is stable to be discharged today to [facility]. Time spent on patient discharge was over 35 minutes. Plan - Discharge Summary New Discharge Prescriptions: New Nystatin 100,000 Unit/gm Powd [Mycostatin Powder] 1 applic TOPICAL BID each traMADol HCl [Ultram] 50 mg PO Q8H PRN #30 tab PRN Reason: Pain INSULIN ASPART (NovoLOG) [NovoLOG (formulary)] 0 unit SQ ACHS each Continue amLODIPine/ATORVASTATIN [Caduet 10 mg-10 mg Tablet] 1 tab PO HS Montelukast [Singulair] 10 mg PO HS Meclizine [Antivert] 12.5 mg PO DAILY Levothyroxine Sodium [Synthroid] 100 mcg PO DAILY buPROPion HCL [Wellbutrin SR] 200 mg PO DAILY allopurinoL 300 mg PO DAILY Nitrofurantoin Monohyd/M-Cryst [Macrobid] 100 mg PO Q12HR #14 cap Ibuprofen [Motrin] 600 mg PO Q8HR PRN #20 tab PRN Reason: Pain Glimepiride [Amaryl] 2 mg PO DAILY Cetirizine HCl [Zyrtec] 10 mg PO DAILY Pregabalin [Lyrica] 25 mg PO BID #20 cap Furosemide [Lasix] 20 mg PO DAILY Losartan Potassium [Cozaar] 100 mg PO HS Potassium Chloride [Potassium Chloride ER] 10 meq PO DAILY Anastrozole [Arimidex] 1 mg PO HS Galantamine HBr [Razadyne ER] 16 mg PO HS Alendronate Sodium [Fosamax] 70 mg PO MO Pioglitazone [Actos] 15 mg PO DAILY rOPINIRole HCL [Requip] 0.5 mg PO HS Metoprolol Succinate (ER) [Toprol XL] 50 mg PO DAILY Ramelteon 8 mg PO HS #30 tab Discontinued traMADol HCL [Ultram] 50 mg PO Q8H PRN PRN Reason: Pain Discharge Medication List Montelukast [Singulair] 10 mg PO HS 03/29/14 [History] amLODIPine/ATORVASTATIN [Caduet 10 mg-10 mg Tablet] 1 tab PO HS 03/29/14 [History] Furosemide [Lasix] 20 mg PO DAILY 11/17/20 [History] Losartan Potassium [Cozaar] 100 mg PO HS 01/23/21 [History] Potassium Chloride [Potassium Chloride ER] 10 meq PO DAILY 03/15/21 [History] Anastrozole [Arimidex] 1 mg PO HS 03/23/21 [History] Meclizine [Antivert] 12.5 mg PO DAILY 03/16/22 [History] Alendronate Sodium [Fosamax] 70 mg PO MO 09/30/22 [History] Galantamine HBr [Razadyne ER] 16 mg PO HS 09/30/22 [History] Levothyroxine Sodium [Synthroid] 100 mcg PO DAILY 09/30/22 [History] Pioglitazone [Actos] 15 mg PO DAILY 09/30/22 [History] allopurinoL 300 mg PO DAILY 09/30/22 [History] buPROPion HCL [Wellbutrin SR] 200 mg PO DAILY 09/30/22 [History] rOPINIRole HCL [Requip] 0.5 mg PO HS 04/27/23 [History] Ibuprofen [Motrin] 600 mg PO Q8HR PRN #20 tab 04/21/24 [Rx] Nitrofurantoin Monohyd/M-Cryst [Macrobid] 100 mg PO Q12HR #14 cap 04/21/24 [Rx] Cetirizine HCl [Zyrtec] 10 mg PO DAILY 04/25/24 [History] Glimepiride [Amaryl] 2 mg PO DAILY 04/25/24 [History] Metoprolol Succinate (ER) [Toprol XL] 50 mg PO DAILY 04/25/24 [History] INSULIN ASPART (NovoLOG) [NovoLOG (formulary)] 0 unit SQ ACHS each 04/28/24 [Rx] Nystatin 100,000 Unit/gm Powd [Mycostatin Powder] 1 applic TOPICAL BID each 04/28/24 [Rx] Pregabalin [Lyrica] 25 mg PO BID #20 cap 04/28/24 [Rx] Ramelteon 8 mg PO HS #30 tab 04/28/24 [Rx] traMADol HCl [Ultram] 50 mg PO Q8H PRN #30 tab 04/28/24 [Rx] Follow up Appointment(s)/Referral(s): Milvia Fam MD [Primary Care Provider] - 1-2 days Giovanna Ribeiro NPC [Nurse Practitioner] - 2 Weeks Patient Instructions/Handouts: Pain Management in Older Adults (DC), Pelvic Fracture (DC) Discharge Disposition: TRANSFER TO SNF/ECF
[2024-04-29] MEDS ORDERED: ENOXAPARIN 30 MG/0.3 ML SYRINGE SQ SCH (09:00)
== END 2024-04-28 16:52 ==
LOC: EC 18:01 → 6NMEDSUR 21:56
PROVIDERS: ADMIT Internal Medicine Geriatric Medicine; ATTEND Internal Medicine Geriatric Medicine
DX: M51.16 Intervertebral disc disorders with radiculopathy, lumbar region (principal); M48.061 Spinal stenosis, lumbar region without neurogenic claudication; E78.5 Hyperlipidemia, unspecified; I13.0 Hypertensive heart and chronic kidney disease with heart failure and stage 1 through stage 4 chronic kidney disease, or unspecified chronic kidney disease; I50.32 Chronic diastolic (congestive) heart failure; N18.30 Chronic kidney disease, stage 3 unspecified; F32.A Depression, unspecified; E11.22 Type 2 diabetes mellitus with diabetic chronic kidney disease; R00.1 Bradycardia, unspecified; G89.4 Chronic pain syndrome; G30.9 Alzheimer's disease, unspecified; F02.80 Dementia in other diseases classified elsewhere, unspecified severity, without behavioral disturbance, psychotic disturbance, mood disturbance, and anxiety; J45.909 Unspecified asthma, uncomplicated; G25.81 Restless legs syndrome; J96.01 Acute respiratory failure with hypoxia; M10.9 Gout, unspecified; N39.0 Urinary tract infection, site not specified; G47.33 Obstructive sleep apnea (adult) (pediatric); I25.10 Atherosclerotic heart disease of native coronary artery without angina pectoris; E03.9 Hypothyroidism, unspecified; Z11.52 Encounter for screening for COVID-19; Z85.3 Personal history of malignant neoplasm of breast; Z85.828 Personal history of other malignant neoplasm of skin; Z87.440 Personal history of urinary (tract) infections; Z79.899 Other long term (current) drug therapy; Z79.83 Long term (current) use of bisphosphonates; Z79.890 Hormone replacement therapy; Z79.84 Long term (current) use of oral hypoglycemic drugs; Z79.4 Long term (current) use of insulin; Z88.0 Allergy status to penicillin
CPT/HCPCS: 36415; 70450; 71046; 72131; 80053; 80143; 80179; 80306; 80320; 81003; 82330; 82550; 83735; 83874; 83880; 84100; 84484; 85025; 85027; 85610; 85730; 87636; 93005; 93306; 94760; 96361; 96365; 96366; 96372; 96375; 96376; 99285

== ENCOUNTER 2024-05-12 18:39 | Emergency (ER) | payer MEDICARE ==
[2024-05-12 19:02] VITALS: RESP 18
--- NOTE | 2024-05-12 20:52 | ED ---
General Adult HPI - General Chief complaint: Weakness Stated complaint: Fall Time Seen by Provider: 05/12/24 19:52 Source: patient, family, EMS, RN notes reviewed Mode of arrival: EMS Limitations: no limitations - History of Present Illness Initial comments: This is an 83-year-old female presents emergency department via EMS for chief complaint of a fall and weakness. Patient was discharged today from [facility] AGAINST MEDICAL ADVICE. Patient was walking into the house when she felt her knees were giving way when she had an assisted fall onto the ground. Patient hit her right knee and is complaining of pain of her right ankle. Patient denies hitting her head at the time of this event. Patient's daughter is at bedside and denies patient hitting her head at this time either. Currently patient is denying headache, neck pain, blurry or double vision. Patient denies presyncopal symptoms at the time of the event, states that her legs felt weak. - Related Data Home Medications Medication Instructions Recorded Confirmed Montelukast [Singulair] 10 mg PO HS@209903/29/14 05/12/24 amLODIPine/ATORVASTATIN [Caduet 10 1 tab PO HS@209903/29/14 05/12/24 mg-10 mg Tablet] Furosemide [Lasix] 20 mg PO DAILY@59911/17/20 05/12/24 Losartan Potassium [Cozaar] 100 mg PO HS@209901/23/21 05/12/24 Potassium Chloride [Potassium 10 meq PO DAILY@89903/15/21 05/12/24 Chloride ER] Anastrozole [Arimidex] 1 mg PO HS@209903/23/21 05/12/24 Meclizine [Antivert] 12.5 mg PO HS@209903/16/22 05/12/24 Alendronate Sodium [Fosamax] 70 mg PO TU@89909/30/22 05/12/24 Galantamine HBr [Razadyne ER] 16 mg PO HS@209909/30/22 05/12/24 Levothyroxine Sodium [Synthroid] 100 mcg PO DAILY@59909/30/22 05/12/24 allopurinoL 300 mg PO DAILY@89909/30/22 05/12/24 buPROPion HCL [Wellbutrin SR] 200 mg PO DAILY@89909/30/2224 rOPINIRole HCL [Requip] 0.5 mg PO HS@209904/27/23 05/12/24 Cetirizine HCl [Zyrtec] 10 mg PO DAILY@89904/25/24 05/12/24 Glimepiride [Amaryl] 2 mg PO DAILY@89905/12/24 05/12/24 Metoprolol Succinate (ER) [Toprol 50 mg PO DAILY@89905/12/24 05/12/24 Xl] Pregabalin [Lyrica] 25 mg PO BID@899,209905/12/24 05/12/24 Ramelteon 8 mg PO HS@209905/12/24 05/12/24 Previous Rx's Medication Instructions Recorded traMADol HCl [Ultram] 50 mg PO Q8H PRN #30 tab 04/28/24 Allergies Allergy/AdvReac Type Severity Reaction Status Date / Time amoxicillin Allergy Unknown TAKEN FROM Verified 05/12/24 20:24 DR OLIVER'S NOTES Iodine and Iodide Containing Allergy Unknown TESTED Verified 05/12/24 20:24 Produc POSITIVE FOR SHELLFISH prednisone Allergy Unknown TAKEN FROM Verified 05/12/24 20:24 DR FISHER NOTES adhesive Allergy blisters, Verified 05/12/24 20:24 itching shellfish derived Allergy TESTED Verified 05/12/24 20: POSITIVE WITH ALLERGY TESTING. gluten AdvReac vomiting, Verified 05/12/24 20:24 diarrhea Penicillins AdvReac Rash/Hives Verified 05/12/24 20:24 antibiotics AdvReac Diarrhea Uncoded 05/12/24 19:02 Review of Systems ROS Statement: Those systems with pertinent positive or pertinent negative responses have been documented in the HPI. ROS Other: All systems not noted in ROS Statement are negative. 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 History of Any Multi-Drug Resistant Organisms: None Reported Past Surgical History: Appendectomy, Breast Surgery, Cholecystectomy, Heart Catheterization, Hysterectomy, Joint Replacement Additional Past Surgical History / Comment(s): mena knee replacements, cataracts, surgery for fx finger left hand,skin cancer removed ears, forehead, nose & shoulder, colonoscopy, lt breast biopsy, rt breast biopsy, R breast lumpectomy Past Anesthesia/Blood Transfusion Reactions: Previous Problems w/ Anesthesia, Motion Sickness Additional Past Anesthesia/Blood Transfusion Reaction / Comment(s): high BP. daughter PONV Past Psychological History: Depression Smoking Status: Never smoker Past Alcohol Use History: None Reported Past Drug Use History: None Reported - Past Family History Mother Family Medical History: Blood Disorder, Cancer Additional Family Medical History / Comment(s): bone cancer , pt unsure if mother or sister had blood disorder with "vitamin k" Sister(s) Family Medical History: Blood Disorder General Exam Limitations: no limitations General appearance: alert, in no apparent distress Head exam: Present: atraumatic, normocephalic, normal inspection Eye exam: Present: normal appearance, PERRL, EOMI. Absent: scleral icterus, conjunctival injection, periorbital swelling ENT exam: Present: normal exam, mucous membranes moist Neck exam: Present: normal inspection. Absent: tenderness, meningismus, lymphadenopathy Respiratory exam: Present: normal lung sounds bilaterally. Absent: respiratory distress, wheezes, rales, rhonchi, stridor Cardiovascular Exam: Present: regular rate, normal rhythm, normal heart sounds. Absent: systolic murmur, diastolic murmur, rubs, gallop, clicks GI/Abdominal exam: Present: soft, normal bowel sounds. Absent: distended, tenderness, guarding, rebound, rigid Right Knee exam: Present: normal inspection, full ROM (pain), tenderness, abrasion (anterior knee). Absent: swelling, ecchymosis, deformity, crepitus Ankle exam: Present: normal inspection, full ROM (pain), tenderness (anterior ankle). Absent: swelling, abrasion, laceration, ecchymosis, deformity Neurovascular tendon exam: Present: no vascular compromise Gait: not tested/not observed Neurological exam: Present: alert, oriented X3, CN II-XII intact Skin exam: Present: warm, dry, intact, normal color. Absent: rash Course Vital Signs 05/12/24 05/12/24 18:58 21:57 Temperature 97.9 F 98.3 F Pulse Rate 91 56 L Respiratory 18 18 Rate Blood Pressure 120/61 134/59 O2 Sat by Pulse 95 96 Oximetry Medical Decision Making - Medical Decision Making Was pt. sent in by a medical professional or institution (, PA, OVERLOCK ELASTIC ATTACHER, urgent care, hospital, or skilled nursing...) When possible be specific @ -No Did you speak to anyone other than the patient for history (EMS, parent, family, police, friend...)? What history was obtained from this source @ -Spoke to the patient's daughter at bedside who states the patient did not hit her head there was no loss conscious at the time of the assisted fall Did you review nursing and triage notes (agree or disagree)? Why? @ -I reviewed and agree with nursing and triage notes Were old charts reviewed (outside hosp., previous admission, EMS record, old EKG, old radiological studies, urgent care reports/EKG's, skilled nursing records)? Report findings @ -No old charts were reviewed Differential Diagnosis (chest pain, altered mental status, abdominal pain women, abdominal pain men, vaginal bleeding, weakness, fever, dyspnea, syncope, headache, dizziness, GI bleed, back pain, seizure, CVA, palpatations, mental health, musculoskeletal)? @ -Differential Musculoskeletal Muscular strain, contusion, ligament sprain, fracture, arthritis, septic arthritis, bursitis, cellulitis, muscle spasm, nerve compression, DVT, arterial occlusion, herpes zoster, electrolyte abnormality, tumor.... This is not meant to be in all inclusive list EKG interpreted by me (3pts min.). @ -None X-rays interpreted by me (1pt min.). @ -XR right ankle is negative for acute osseous abnormality with mild soft tissue swelling of the lateral malleolus x-ray of the right knee reveals no acute osseous abnormality CT interpreted by me (1pt min.). @ -None done U/S interpreted by me (1pt. min.). @ -None done What testing was considered but not performed or refused? (CT, X-rays, U/S, labs)? Why? @ -None What meds were considered but not given or refused? Why? @ -None Did you discuss the management of the patient with other professionals (professionals i.e. , PA, OVERLOCK ELASTIC ATTACHER, lab, RT, psych nurse, executive secretary social welfare, workshop manager, teacher, air intelligence officer, disease case manager)? Give summary @ -No Was smoking cessation discussed for >3mins.? @ -No Was critical care preformed (if so, how long)? @ -No Were there social determinants of health that impacted care today? How? (Homelessness, low income, unemployed, alcoholism, drug addiction, transportation, low edu. Level, literacy, decrease access to med. care, fpc, rehab)? @ -No Was there de-escalation of care discussed even if they declined (Discuss DNR or withdrawal of care, Hospice)? DNR status @ -No What co-morbidities impacted this encounter? (DM, HTN, Smoking, COPD, CAD, Cancer, CVA, ARF, Chemo, Hep., AIDS, mental health diagnosis, sleep apnea, morbid obesity)? @ -None Was patient admitted / discharged? Hospital course, mention meds given and route, prescriptions, significant lab abnormalities, going to OR and other pertinent info. @ -Discharged. 83-year-old female with weakness. Patient arrives via EMS and is currently stating that she has pain over the right knee and right ankle. On examination there is noted abrasion over the right knee with mild tenderness to palpation over the anterior ankle. There are no obvious deformities of either joint. X-rays are negative for acute process. As patient just signed out AGAINST MEDICAL ADVICE from rehabilitation center there is minimal clinical concern for further workup at this time and patient's daughter at bedside agrees with patient being discharged home with further support. All questions answe red at bedside and strict return parameters cody the patient she is verbalized understanding. Case discussed with Dr. Bueno Undiagnosed new problem with uncertain prognosis? @ -No Drug Therapy requiring intensive monitoring for toxicity (Heparin, Nitro, Insulin, Cardizem)? @ -No Were any procedures done? @ -No Diagnosis/symptom? @ -fall, Abrasion, ankle sprain Acute, or Chronic, or Acute on Chronic? @ -acute Uncomplicated (without systemic symptoms) or Complicated (systemic symptoms)? @ -Uncomplicated Side effects of treatment? @ -No Exacerbation, Progression, or Severe Exacerbation? @ -No Poses a threat to life or bodily function? How? (Chest pain, [place], [place], pneumonia, PE, COPD, DKA, ARF, appy, cholecystitis, CVA, Diverticulitis, Homicidal, Suicidal, threat to staff... and all critical care pts) @ -No Disposition Clinical Impression: Knee abrasion, Ankle sprain Disposition: HOME SELF-CARE Condition: Good Instructions (If sedation given, give patient instructions): Ankle Sprain (ED) Additional Instructions: Return to the emergency department for any new or worsening symptoms. Is patient prescribed a controlled substance at d/c from ED?: No Referrals: Milvia Oliver MD [Primary Care Provider] - 1-2 days Time of Disposition: 21:42
--- NOTE | 2024-05-12 21:21 | XR ---
EXAMINATION TYPE: XR knee complete RT DATE OF EXAM: 05/12/2024 COMPARISON: None HISTORY: Fall, pain TECHNIQUE: 3 view right knee FINDINGS: Tibial and femoral components are present. No acute fracture is evident. No joint effusion is evident. Follow up exams can be performed 710 days from acute trauma for continued pain. IMPRESSION: 1. No acute osseous abnormality right knee. Knee prosthesis in position. [facility], , 05/12/2024 9:19 PM
--- NOTE | 2024-05-12 21:28 | XR ---
EXAMINATION TYPE: XR ankle complete RT DATE OF EXAM: 05/12/2024 COMPARISON: None HISTORY: Fall, pain TECHNIQUE: 3 view right ankle FINDINGS: Ankle mortise is intact. No acute fracture or dislocation is evident. Mild soft tissue swel ling is over the lateral malleolus. Plantar calcaneal heel spurs present. Follow up exams can be performed 7-10 days from acute trauma for continued pain. IMPRESSION: 1. No acute osseous abnormality right ankle. 2. Mild soft tissue swelling over the lateral malleolus. [facility], , 05/12/2024 9:25 PM
[2024-05-12 21:59] VITALS: BP 134/59; PULSE 56; TEMP 98.3
== END 2024-05-12 21:59 | disposition home or self-care (01) ==
LOC: EC 18:39
DX: W19.XXXA Unspecified fall, initial encounter
CPT/HCPCS: 99283

== ENCOUNTER 2024-05-30 14:57 | Observation (INO) | payer MEDICARE ==
--- NOTE | 2024-05-30 15:32 | ED ---
General Adult HPI - General Chief complaint: Weakness Stated complaint: Weakness Time Seen by Provider: 05/30/24 15:06 Source: patient, family, EMS, RN notes reviewed Mode of arrival: EMS Limitations: no limitations - History of Present Illness Initial comments: Patient is an 83-year-old female presenting to the emergency department with complaints of weakness. [facility]. Patient had a questionable ankle fracture on x-rays a week or 2 ago. Patient did have a couple of falls on the day of discharge and did hurt her right knee. Patient has not walked since that time. Patient has not eaten since that time. Patient has had limited fluid intake. Patient has not taken her medications. Patient was found by EMS laying in her own urine and stool. - Related Data Home Medications Medication Instructions Recorded Confirmed Montelukast [Singulair] 10 mg PO HS 03/29/14 05/30/24 Furosemide [Lasix] 20 mg PO DAILY 11/17/20 05/30/24 Anastrozole [Arimidex] 1 mg PO DAILY 03/23/21 05/30/24 Meclizine [Antivert] 12.5 mg PO DAILY PRN 03/16/22 05/30/24 Galantamine HBr [Razadyne ER] 16 mg PO HS 09/30/22 05/30/24 Levothyroxine Sodium [Synthroid] 100 mcg PO DAILY 09/30/22 05/30/24 allopurinoL 300 mg PO DAILY 09/30/22 05/30/24 buPROPion HCL [Wellbutrin SR] 200 mg PO DAILY 09/30/22 05/30/24 rOPINIRole HCL [Requip] 0.5 mg PO HS 04/27/23 05/30/24 Cetirizine HCl [Zyrtec] 10 mg PO DAILY 04/25/24 05/30/24 Glimepiride [Amaryl] 2 mg PO DAILY 05/12/24 05/30/24 Ramelteon 8 mg PO HS 05/12/24 05/30/24 ALPRAZolam [Xanax] 0.25 mg PO TID PRN 05/30/24 05/30/24 Aspirin EC [Ecotrin Low Dose] 81 mg PO DAILY 05/30/24 05/30/24 Atorvastatin [Lipitor] 10 mg PO HS 05/30/24 05/30/24 Cholestyramine (with Sugar) 4 gm PO BID 05/30/24 05/30/24 [Cholestyramine Packet] Cranberry 25,200mg 1 tab PO DAILY 05/30/24 05/30/24 Metoprolol Tartrate [Lopressor] 50 mg PO BID 05/30/24 05/30/24 amLODIPine [Norvasc] 5 mg PO DAILY 05/30/24 05/30/24 Allergies Allergy/AdvReac Type Severity Reaction Status Date / Time amoxicillin Allergy Unknown TAKEN FROM Verified 05/12/24 20:24 DR OLIVER'S NOTES Iodine and Iodide Containing Allergy Unknown TESTED Verified 05/12/24 20:24 Produc POSITIVE FOR SHELLFISH prednisone Allergy Unknown TAKEN FROM Verified 05/12/24 20:24 DR FISHER NOTES adhesive Allergy blisters, Verified 05/12/24 20:24 itching shellfish derived Allergy TESTED Verified 05/12/24 20:24 POSITIVE WITH ALLERGY TESTING. gluten AdvReac vomiting, Verified 05/12/24 20:24 diarrhea Penicillins AdvReac Rash/Hives Verified 05/12/24 20:24 antibiotics AdvReac Diarrhea Uncoded 05/12/24 19:02 Review of Systems ROS Statement: Those systems with pertinent positive or pertinent negative responses have been documented in the HPI. ROS Other: All systems not noted in ROS Statement are negative. Constitutional: Denies: fever Eyes: Denies: eye pain ENT: Denies: ear pain Respiratory: Denies: cough Cardiovascular: Denies: chest pain Endocrine: Denies: fatigue Gastrointestinal: Denies: abdominal pain Musculoskeletal: Reports: as per HPI Neurological: Reports: as per HPI. 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 History of Any Multi-Drug Resistant Organisms: None Reported Past Surgical History: Appendectomy, Breast Surgery, Cholecystectomy, Heart Catheterization, Hysterectomy, Joint Replacement Additional Past Surgical History / Comment(s): mena knee replacements, cataracts, surgery for fx finger left hand,skin cancer removed ears, forehead, nose & shoulder, colonoscopy, lt breast biopsy, rt breast biopsy, R breast lumpectomy Past Anesthesia/Blood Transfusion Reactions: Previous Problems w/ Anesthesia, Motion Sickness Additional Past Anesthesia/Blood Transfusion Reaction / Comment(s): high BP. daughter PONV Past Psychological History: Depression Smoking Status: Never smoker Past Alcohol Use History: None Reported Past Drug Use History: None Reported - Past Family History Mother Family Medical History: Blood Disorder, Cancer Additional Family Medical History / Comment(s): bone cancer , pt unsure if mother or sister had blood disorder with "vitamin k" Sister(s) Family Medical History: Blood Disorder General Exam Limitations: no limitations General appearance: alert, in no apparent distress Head exam: Present: atraumatic Eye exam: Present: normal appearance, PERRL, EOMI ENT exam: Present: mucous membranes dry Neck exam: Present: normal inspection. Absent: tenderness Respiratory exam: Present: normal lung sounds bilaterally Cardiovascular Exam: Present: regular rate, normal rhythm GI/Abdominal exam: Present: soft. Absent: tenderness Extremities exam: Present: tenderness (Minimal tenderness right ankle. Moderate tenderness right anterior knee). Absent: calf tenderness Neurological exam: Present: alert, oriented X3, CN II-XII intact. Absent: motor sensory deficit Psychiatric exam: Present: normal affect, normal mood Skin exam: Present: normal color Course Vital Signs 05/30/24 05/30/24 05/30/24 15:04 17:08 18:00 Temperature 98.8 F Pulse Rate 98 100 108 H Respiratory 17 17 18 Rate Blood Pressure 130/73 132/76 107/53 O2 Sat by Pulse 96 98 96 Oximetry EKG Findings - EKG Results: EKG: interpreted by ERMD (Left axis. T wave flattening. Poor R wave progression.), sinus rhythm Medical Decision Making - Medical Decision Making Was pt. sent in by a medical professional or institution (, PA, MACHINE SCALLOP CUTTER, urgent care, hospital, or fdc...) When possible be specific @ -No Did you speak to anyone other than the patient for history (EMS, parent, family, police, friend...)? What history was obtained from this source @ -Daughter is present helps provide history of previous events leading up to this including recent stay and coming home from [facility] Did you review nursing and triage notes (agree or disagree)? Why? @ -I reviewed and agree with nursing and triage notes Were old charts reviewed (outside hosp., previous admission, EMS record, old EKG, old radiological studies, urgent care reports/EKG's, [facility] records)? Report findings @ -Previous x-ray reviewed of the right ankle Differential Diagnosis (chest pain, altered mental status, abdominal pain women, abdominal pain men, vaginal bleeding, weakness, fever, dyspnea, syncope, headache, dizziness, GI bleed, back pain, seizure, CVA, palpatations, mental health, musculoskeletal)? @ -Differential Weakness: Hypoglycemia, shock, sepsis, hyponatremia, anemia, infection, SD, ETOH, adverse medicine reaction, overdose, stroke, this is not meant to be an all-inclusive list. EKG interpreted by me (3pts min.). @ -As above X-rays interpreted by me (1pt min.). @ -Chest x-ray nonspecific changes. X-ray right knee unremarkable. X-ray right ankle questionable lateral malleolus fracture, minimal step-off CT interpreted by me (1pt min.). @ -None done U/S interpreted by me (1pt. min.). @ -None done What testing was considered but not performed or refused? (CT, X-rays, U/S, labs)? Why? @ -None What meds were considered but not given or refused? Why? @ -None Did you discuss the management of the patient with other professionals (professionals i.e. , PA, MACHINE SCALLOP CUTTER, lab, RT, psych nurse, social sciences research scientist, director of distance learning, teacher, foreign service officer, case packer)? Give summary @ -Case was discussed with Dr. Rao who will admit covering Dr. Oliver who Was smoking cessation discussed for >3mins.? @ -No Was critical care preformed (if so, how long)? @ -No Were there social determinants of health that impacted care today? How? (Homelessness, low income, unemployed, alcoholism, drug addiction, tra nsportation, low edu. Level, literacy, decrease access to med. care, care home, rehab)? @ -No Was there de-escalation of care discussed even if they declined (Discuss DNR or withdrawal of care, Hospice)? DNR status @ -No What co-morbidities impacted this encounter? (DM, HTN, Smoking, COPD, CAD, Cancer, CVA, ARF, Chemo, Hep., AIDS, mental health diagnosis, sleep apnea, morbid obesity)? @ -None Was patient admitted / discharged? Hospital course, mention meds given and route, prescriptions, significant lab abnormalities, going to OR and other pertinent info. @ -Patient presents unable to take care of herself at home. Patient not getting out of bed eating or walking. Patient not going to the restroom and is found lying in her own feces and urine. Patient has PENELOPE with urinary tract infection. Borderline troponin. This will be rechecked. Patient will be admitted with IV fluids and antibiotics. Admission orders written. Undiagnosed new problem with uncertain prognosis? @ -No Drug Therapy requiring intensive monitoring for toxicity (Heparin, Nitro, Insulin, Cardizem)? @ -No Were any procedures done? @ -No Diagnosis/symptom? @ -Acute kidney injury, UTI Acute, or Chronic, or Acute on Chronic? @ -Acute, acute Uncomplicated (without systemic symptoms) or Complicated (systemic symptoms)? @ -Complicated with slight elevation of troponin this will need to be rechecked Side effects of treatment? @ -No Exacerbation, Progression, or Severe Exacerbation? @ -No Poses a threat to life or bodily function? How? (Chest pain, USA, SD, pneumonia, PE, COPD, DKA, ARF, appy, cholecystitis, CVA, Diverticulitis, Homicidal, Suicidal, threat to staff... and all critical care pts) @ -Threat to renal function - Lab Data Result diagrams: 05/30/24 15:29 05/30/24 15:29 Lab Results 05/30/24 05/30/24 05/30/24 Range/Units 15:29 15:29 15:29 WBC 7.5 (3.8-10.6) k/uL RBC 4.79 (3.80-5.40) m/uL Hgb 13.7 (11.4-16.0) gm/dL Hct 41.8 (34.0-46.0) % MCV 87.2 (80.0-100.0) fL MCH 28.6 (25.0-35.0) pg MCHC 32.8 (31.0-37.0) g/dL RDW 15.0 (11.5-15.5) % Plt Count 359 (150-450) k/uL MPV 7.9 Neutrophils % 73 % Lymphocytes % 10 % Monocytes % 13 % Eosinophils % 1 % Basophils % 0 % Neutrophils # 5.5 (1.3-7.7) k/uL Lymphocytes # 0.8 L (1.0-4.8) k/uL Monocytes # 1.0 (0-1.0) k/uL Eosinophils # 0.1 (0-0.7) k/uL Basophils # 0.0 (0-0.2) k/uL PT 10.5 (10.0-12.5) sec INR 1.0 (<1.2) APTT 24.1 (22.0-30.0) sec Sodium (137-145) mmol/L Potassium (3.5-5.1) mmol/L Chloride (98-107) mmol/L Carbon Dioxide (22-30) mmol/L Anion Gap mmol/L BUN (7-17) mg/dL Creatinine (0.52-1.04) mg/dL Est GFR (CKD-EPI)AfAm (>60 ml/min/1.73 sqM) Est GFR (CKD-EPI)NonAf (>60 ml/min/1.73 sqM) Glucose (74-99) mg/dL Plasma Lactic Acid Adalberto (0.7-2.0) mmol/L Calcium (8.4-10.2) mg/dL Magnesium (1.6-2.3) mg/dL Total Bilirubin (0.2-1.3) mg/dL AST (14-36) U/L ALT (4-34) U/L Alkaline Phosphatase (38-126) U/L Troponin I (0.000-0.034) ng/mL Total Protein (6.3-8.2) g/dL Albumin (3.5-5.0) g/dL TSH (0.465-4.680) mIU/L Free T4 (0.78-2.19) ng/dL Urine Color Yellow Urine Appearance Cloudy H (Clear) Urine pH 5.5 (5.0-8.0) Ur Specific Pedro 1.026 (1.001-1.035) Urine Protein Trace H (Negative) Urine Glucose (UA) Negative (Negative) Urine Ketones 1+ H (Negative) Urine Blood Negative (Negative) Urine Nitrite Negative (Negative) Urine Bilirubin Negative (Negative) Urine Urobilinogen <2.0 (<2.0) mg/dL Ur Leukocyte Esterase Moderate H (Negative) Urine RBC 5 (0-5) /hpf Urine WBC 40 H (0-5) /hpf Ur Squamous Epith Cells 1 (0-4) /hpf Urine Mucus Many H (None) /hpf 05/30/24 05/30/24 05/30/24 Range/Units 15:29 15:29 15:29 WBC (3.8-10.6) k/uL RBC (3.80-5.40) m/uL Hgb (11.4-16.0) gm/dL Hct (34.0-46.0) % MCV (80.0-100.0) fL MCH (25.0-35.0) pg MCHC (31.0-37.0) g/dL RDW (11.5-15.5) % Plt Count (150-450) k/uL MPV Neutrophils % % Lymphocytes % % Monocytes % % Eosinophils % % Basophils % % Neutrophils # (1.3-7.7) k/uL Lymphocytes # (1.0-4.8) k/uL Monocytes # (0-1.0) k/uL Eosinophils # (0-0.7) k/uL Basophils # (0-0.2) k/uL PT (10.0-12.5) sec INR (<1.2) APTT (22.0-30.0) sec Sodium 140 (137-145) mmol/L Potassium 4.3 (3.5-5.1) mmol/L Chloride 107 (98-107) mmol/L Carbon Dioxide 22 (22-30) mmol/L Anion Gap 11 mmol/L BUN 32 H (7-17) mg/dL Creatinine 0.66 (0.52-1.04) mg/dL Est GFR (CKD-EPI)AfAm >90 (>60 ml/min/1.73 sqM) Est GFR (CKD-EPI)NonAf 81 (>60 ml/min/1.73 sqM) Glucose 99 (74-99) mg/dL Plasma Lactic Acid Adalberto 1.6 (0.7-2.0) mmol/L Calcium 9.4 (8.4-10.2) mg/dL Magnesium 2.0 (1.6-2.3) mg/dL Total Bilirubin 1.1 (0.2-1.3) mg/dL AST 32 (14-36) U/L ALT 17 (4-34) U/L Alkaline Phosphatase 88 (38-126) U/L Troponin I 0.053 H* (0.000-0.034) ng/mL Total Protein 6.6 (6.3-8.2) g/dL Albumin 3.6 (3.5-5.0) g/dL TSH 2.680 (0.465-4.680) mIU/L Free T4 2.26 H (0.78-2.19) ng/dL Urine Color Urine Appearance (Clear) Urine pH (5.0-8.0) Ur Specific Pedro (1.001-1.035) Urine Protein (Negative) Urine Glucose (UA) (Negative) Urine Ketones (Negative) Urine Blood (Negative) Urine Nitrite (Negative) Urine Bilirubin (Negative) Urine Urobilinogen (<2.0) mg/dL Ur Leukocyte Esterase (Negative) Urine RBC (0-5) /hpf Urine WBC (0-5) /hpf Ur Squamous Epith Cells (0-4) /hpf Urine Mucus (None) /hpf Disposition Clinical Impression: Acute kidney injury Disposition: ADMITTED IP TO THIS HOSP Is patient prescribed a controlled substance at d/c from ED?: No Referrals: Milvia Oliver MD [Primary Care Provider] - 1-2 days Time of Disposition: 18:56
[2024-05-30] MEDS: SODIUM CHLORIDE 0.9% 1,000 ML IV STA (15:47)
[2024-05-30 15:56] LABS: Basophils % (A) 0 %; Eosinophils # (A) 0.1 k/uL (0-0.7); Eosinophils % (A) 1 %; HCT 41.8 % (34.0-46.0); HGB 13.7 gm/dL (11.4-16.0); Lymphocytes # (A) 0.8 k/uL (1.0-4.8); Lymphocytes % (A) 10 %; MCH 28.6 pg (25.0-35.0); MCHC 32.8 g/dL (31.0-37.0); MCV 87.2 fL (80.0-100.0); Mean Platelet Volume 7.9; Monocytes % (A) 13 %; Neutrophils # (A) 5.5 k/uL (1.3-7.7); Neutrophils % (A) 73 %; Platelet Count 359 k/uL (150-450); RBC 4.79 m/uL (3.80-5.40); WBC 7.5 k/uL (3.8-10.6)
[2024-05-30 16:08] LABS: Partial Thromboplastin Time 24.1 sec (22.0-30.0); Prothrombin Time 10.5 sec (10.0-12.5)
[2024-05-30 16:11] LABS: ALT 17 U/L (4-34); African American GFR (CKD) >90 (>60 ml/min/1.73 sqM); Albumin 3.6 g/dL (3.5-5.0); Anion Gap 11 mmol/L; Blood Urea Nitrogen 32 mg/dL (7-17); Calcium 9.4 mg/dL (8.4-10.2); Carbon Dioxide 22 mmol/L (22-30); Chloride 107 mmol/L (98-107); Glucose 99 mg/dL (74-99); Non-African American GFR(CKD) 81 (>60 ml/min/1.73 sqM); Sodium 140 mmol/L (137-145); Total Bilirubin 1.1 mg/dL (0.2-1.3); Total Protein 6.6 g/dL (6.3-8.2)
[2024-05-30 16:26] LABS: T4, Free (Free Thyroxine) 2.26 ng/dL (0.78-2.19)
[2024-05-30 16:58] LABS: AST 32 U/L (14-36); Alkaline Phosphatase 88 U/L (38-126); Potassium 4.3 mmol/L (3.5-5.1)
--- NOTE | 2024-05-30 17:07 | XR ---
EXAMINATION TYPE: XR ankle complete RT DATE OF EXAM: 05/30/2024 COMPARISON: 05/12/2024 HISTORY: Pain TECHNIQUE: 3 view right ankle. Images obtained through a splint which limits evaluation. FINDINGS: There appears to be a small step-off of the lateral malleolus. Soft tissue appears normal. Ankle mortise appears intact. Plantar calcaneal heel spur is present. Vascular calcification is pres ent. IMPRESSION: 1. There appears to be a small step off of the inferior lateral malleolus. Fracture may be present. Follow-up recommended. [facility], Workstation: [facility], 05/30/2024 5:05 PM
--- NOTE | 2024-05-30 17:08 | XR ---
EXAMINATION TYPE: XR chest 2V DATE OF EXAM: 05/30/2024 COMPARISON: 04/25/2024 INDICATION: Weakness TECHNIQUE: Frontal and lateral views of the chest are obtained. FINDINGS: The heart size is normal. The pulmonary vasculature is normal. The lungs are clear. There appears to be chronic elevation of the right diaphragm. IMPRESSION: 1. No acute pulmonary process. [facility], Workstation: [facility], 05/30/2024 5:06 PM
--- NOTE | 2024-05-30 17:10 | XR ---
EXAMINATION TYPE: XR knee complete RT DATE OF EXAM: 05/30/2024 COMPARISON: 05/12/2024 HISTORY: Pain TECHNIQUE: 3 view right knee FINDINGS: Tibial femoral components are present. Moderate soft tissue swelling along the medial right knee present previously. No acute fractures or dislocations evident. Small joint effusion may be pre sent. IMPRESSION: 1. Medial soft tissue swelling, stable from comparison. 2. There may be a small joint effusion developing. [facility], Workstation: [facility], 05/30/2024 5:08 PM
[2024-05-30 18:00] LABS: Appearance,Urine Cloudy (Clear); Bilirubin,Urine Negative (Negative); Blood,Urine Negative (Negative); Color,Urine Yellow; Glucose,Urine (UA) Negative (Negative); Ketones,Urine 1+ (Negative); Leukocyte Esterase,Urine Moderate (Negative); Mucus,Urine Many /hpf; Nitrite,Urine Negative (Negative); PH, Urine 5.5 (5.0-8.0); Protein,Urine Trace (Negative); RBC,Urine 5 /hpf (0-5); Specific Gravity,Urine 1.026 (1.001-1.035); Squamous Epithelial Cell,Urine 1 /hpf (0-4); Urobilinogen,Urine <2.0 mg/dL (<2.0); WBC,Urine 40 /hpf (0-5)
[2024-05-30] MEDS ORDERED: NALOXONE 0.4 MG/ML 1 ML VIAL IV PRN (19:00)
[2024-05-30] MEDS: SODIUM CHLORIDE 0.9% 1,000 ML IV SCH (20:23)
[2024-05-30] MEDS: MORPHINE SULFATE 4 MG/ML SYRINGE IV PRN (20:25)
[2024-05-30] MEDS: ATORVASTATIN 10 MG TAB PO SCH (20:50)
[2024-05-30] MEDS: DONEPEZIL 10 MG TAB PO SCH (20:50)
[2024-05-30] MEDS: METOPROLOL TARTRATE 50 MG TAB PO SCH (20:50)
[2024-05-30] MEDS: CHOLESTYRAMINE (WITH SUGAR) 4 GM PACKET PO SCH (20:50)
[2024-05-30] MEDS: TEMAZEPAM 15 MG CAP PO SCH (20:50)
[2024-05-30] MEDS: MONTELUKAST 10 MG TAB PO SCH (20:50)
[2024-05-31 03:26] LABS: HCT 36.3 % (34.0-46.0); HGB 12.2 gm/dL (11.4-16.0); MCH 29.4 pg (25.0-35.0); MCHC 33.7 g/dL (31.0-37.0); MCV 87.1 fL (80.0-100.0); Mean Platelet Volume 9.1; Platelet Count 380 k/uL (150-450); RBC 4.17 m/uL (3.80-5.40); RDW 15.4 % (11.5-15.5); WBC 7.8 k/uL (3.8-10.6)
[2024-05-31 03:54] LABS: ALT 16 U/L (4-34); AST 27 U/L (14-36); African American GFR (CKD) >90 (>60 ml/min/1.73 sqM); Alkaline Phosphatase 84 U/L (38-126); Anion Gap 6 mmol/L; Blood Urea Nitrogen 32 mg/dL (7-17); Calcium 8.9 mg/dL (8.4-10.2); Carbon Dioxide 22 mmol/L (22-30); Chloride 108 mmol/L (98-107); Glucose 95 mg/dL (74-99); Non-African American GFR(CKD) 79 (>60 ml/min/1.73 sqM); Potassium 3.9 mmol/L (3.5-5.1); Sodium 136 mmol/L (137-145); Total Bilirubin 0.7 mg/dL (0.2-1.3); Total Protein 5.8 g/dL (6.3-8.2)
[2024-05-31 06:10] LABS: Glucose,Whole Blood 82 mg/dL (70-110)
[2024-05-31] MEDS: INSULIN ASPART (NovoLOG) 100 UNIT/ML VIAL SQ SCH (06:11)
[2024-05-31] MEDS: GLIMEPIRIDE 2 MG TAB PO SCH (08:24)
[2024-05-31] MEDS: allopurinoL 300 MG TAB PO SCH (08:24)
[2024-05-31] MEDS: ENOXAPARIN 40 MG/0.4 ML SYRINGE SQ SCH (08:24)
[2024-05-31] MEDS: LEVOTHYROXINE 100 MCG TAB PO SCH (08:24)
[2024-05-31] MEDS: LORATADINE 10 MG TAB PO SCH (08:24)
[2024-05-31] MEDS: FUROSEMIDE 20 MG TAB PO SCH (08:24)
[2024-05-31] MEDS: FAMOTIDINE 20 MG TAB PO SCH (08:24)
[2024-05-31] MEDS: amLODIPine 5 MG TAB PO SCH (08:24)
[2024-05-31] MEDS: ASPIRIN 81 MG PO SCH (08:24)
[2024-05-31] MEDS ORDERED: CRANBERRY 25200 MG PO SCH (09:00)
--- NOTE | 2024-05-31 09:33 | P.HPIM ---
History of Present Illness H&P Date: 05/30/24 HISTORY OF PRESENT ILLNESS: 83-year-old with active medical history of atherosclerotic heart disease, right- sided breast cancer, hypertension, hyperlipidemia, history of dementia, obstructive sleep apnea, hypothyroidism, recurrent diverticulitis, history of skin cancer, history of asthma, chronic lower back pain who was hospitalized in April for intractable lower back pain with known severe spinal stenosis and mild bulging disc in the L2-L3 area was in the hospital for few days could not ambulate and walk started physical therapy and Occupational Therapy and event yazan was sent to subacute rehab where patient was then for the last 3 weeks was released apparently within the last few days she brought to the emergency department by EMS today because of complaining of weakness, not been able to ambulate and walk with severe weakness of the lower extremity with pressure and discomfort in her lower back worsening symptoms along with worsening symptoms of burning with urination mild altered mental status and not been able to eat or drink. Worsening dehydration. Was seen and evaluated her BUN was 32 creatinine 0.66 UA was significantly positive her troponin was elevated on admission without specific complaint of acute chest pain or angina at the time. EKG did not show any active or acute change she had sinus tachycardia with mild PVCs and left anterior fascicular block. With her current complaint chest x-ray did not show any acute cardiopulmonary process her knee and ankle x-ray shows inferior lateral malleolus fracture of the ankle area of the right side. Knee x-ray shows medial soft tissue swelling but no sign of fracture. In general patient was diagnosed with altered mental status, UTI with early sepsis, elevated troponin with possible non-ST [place]. She will be admitted to the hospital initiate Rocephin 1 g IV daily will consult cardiology she had an echocardiogram when she was in last time no need to run although unless there is a drastic change cardiovascular brown. As for her mobility and complaining of lower back pain not been able to ambulate and walk all testing done from last time when she was in for her spinal stenosis of lumbar spine and no new injury require any new study at this point. REVIEW OF SYSTEMS: CONSTITUTIONAL: Elderly laying in bed no acute respiratory distress. EYES: No icterus sclerae, no conjunctivitis. EARS, NOSE, MOUTH, THROAT, and FACE: No sore throat, lymphadenopathy, carotid bruits or deformity. RESPIRATORY: Slight shortness of breath no cough or wheezes. CARDIOVASCULAR: Positive PND orthopnea palpitation no angina . PND, Orthopnea, or angina. mild bradycardia with exertional shortness of breath GASTROINTESTINAL: No Abd pain, Nausea or vomiting, no Diarrhea or constipation, No GI Bleed, no distention or masses. GENITOURINARY: Negative for Hematuria or UTI, no kidney stones. INTEGUMENT/BREAST: Negative for any muscular injury with mild osteoarthritis.. HEMATOLOGIC/LYMPHATIC: Negative for bleed or purpura. MUSCULOSKELTAL: Generalized arthralgia and myalgia specially the right lower extremity. With slight swelling in the right knee and mild pain and discomfort in the ankle area. NEURLOGICAL: Numbness and weakness in the right leg with significant normal balance and gait and memory loss. BEHAVIORAL/PSYCH: Negative. ENDOCRINE: Negative. PHYSICAL EXAMINATION: General Appearance: Alert, cooperative, no distress, appears stated age. Neck HEENT: Supple, no lymphadenopathy, no thyroid enlargement, no carotid bruits. Lungs: Decreased breath sound bilaterally fine rhonchi no crackles pause mild expiratory wheezes. Chest Wall: Decreased expansion with deep inspiration no tenderness and no defo rmity was found on exam, no costochondral pain or discomfort. Heart: Regular rate and rhythm, S1, S2 has S3 positive bradycardia mild systolic murmur. Back: Symmetric, no curvature, ROM normal, no CVA tenderness. Abdomen: Soft, non-tender, bowel sounds active all four quadrants, no masses, no organomegaly. Extremities: Right knee has slight swelling with no restriction, right ankle has medial aspect mild swelling and discomfort positive pulses dorsalis pedis. Pulses: 2+ and symmetric. Skin: Skin color, texture, tugor normal, no rashes or lesions. Neurologic: Alert oriented with slight confusion cranial nerves II through XII intact, positive slight weakness in the right leg with abnormal balance and gait. ASSESSMENT AND PLAN: _Altered mental status: Most likely secondary to UTI with early sepsis, admit patient to the hospital continue supportive care hydration and treat underlying problem. _UTI with early sepsis : White blood cell 7.5 lactic acid is 1.6 UA was very positive, patient was started on Rocephin we will wait for the culture to change antibiotic. _Elevated troponin with possible non-ST [place]: Will consult cardiology continue watch CK troponin repeat EKG in the morning echocardiogram was done last time unless there is significant increase or change in EKG no reason to repeat cardiac testing again this cardiology choose to. _Severe lower back pain with severe spinal stenosis and degenerative disc disease was treated last time with Ortho/spine consult was on Lyrica, tramadol and had steroid use at the time. _ inferior lateral malleolus fracture of the ankle: Brace for now and will consult Ortho, _Type 2 diabetes: Has been on pioglitazone and glimepiride continue Accu-Chek with sliding scale as tolerated. _Hypertension: Remain on losartan, amlodipine and metoprolol titrate losartan if needed. _Worsening cognitive has been on galantamine will continue medication. _Chronic pain syndrome: Has been on tramadol and pregabalin. Increase pregabalin up to 50 mg twice a day as needed. _Mild dyspnea with exertion with history of well-preserved ejection fraction systolic congestive heart failure: Has been on furosemide along with losartan and metoprolol continue medication titrate dose if needed and can switch to IV furosemide as patient is more symptomatic. _Hypothyroidism: Continue levothyroxine at 100 mcg daily. _History of breast cancer: Doing well so far still on Arimidex. _Chronic depression: Continue Wellbutrin and resume her home meds. GI prophylaxis: Will use Pepcid 20 mg daily. DVT prophylaxis: Early mobilization and knee-high CANDY hose. CODE STATUS: Full code. Admit patient to the inpatient service for more than 2 night stay. 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 History of Any Multi-Drug Resistant Organisms: None Reported Past Surgical History: Appendectomy, Breast Surgery, Cholecystectomy, Heart Catheterization, Hysterectomy, Joint Replacement Additional Past Surgical History / Comment(s): mena knee replacements, cataracts, surgery for fx finger left hand,skin cancer removed ears, forehead, nose & shoulder, colonoscopy, lt breast biopsy, rt breast biopsy, R breast lumpectomy Past Anesthesia/Blood Transfusion Reactions: Previous Problems w/ Anesthesia, Motion Sickness Additional Past Anesthesia/Blood Transfusion Reaction / Comment(s): high BP. daughter PONV Past Psychological History: Depression Smoking Status: Former smoker Past Alcohol Use History: None Reported Additional Past Alcohol Use History / Comment(s): smoked age 16 -19. Past Drug Use History: None Reported - Past Family History Mother Family Medical History: Blood Disorder, Cancer Additional Family Medical History / Comment(s): bone cancer , pt unsure if mother or sister had blood disorder with "vitamin k" Sister(s) Family Medical History: Blood Disorder Medications and Allergies Home Medications Medication Instructions Recorded Confirmed Type Montelukast [Singulair] 10 mg PO HS 03/29/14 05/30/24 History Furosemide [Lasix] 20 mg PO DAILY 11/17/20 05/30/24 History Anastrozole [Arimidex] 1 mg PO DAILY 03/23/21 05/30/24 History Meclizine [Antivert] 12.5 mg PO DAILY PRN 03/16/22 05/30/24 History Galantamine HBr [Razadyne ER] 16 mg PO HS 09/30/22 05/30/24 History Levothyroxine Sodium [Synthroid] 100 mcg PO DAILY 09/30/22 05/30/24 History allopurinoL 300 mg PO DAILY 09/30/22 05/30/24 History buPROPion HCL [Wellbutrin SR] 200 mg PO DAILY 09/30/22 05/30/24 History rOPINIRole HCL [Requip] 0.5 mg PO HS 04/27/23 05/30/24 History Cetirizine HCl [Zyrtec] 10 mg PO DAILY 04/25/24 05/30/24 History Glimepiride [Amaryl] 2 mg PO DAILY 05/12/24 05/30/24 History Ramelteon 8 mg PO HS 05/12/24 05/30/24 History ALPRAZolam [Xanax] 0.25 mg PO TID PRN 05/30/24 05/30/24 History Aspirin EC [Ecotrin Low Dose] 81 mg PO DAILY 05/30/24 05/30/24 History Atorvastatin [Lipitor] 10 mg PO HS 05/30/24 05/30/24 History Cholestyramine (with Sugar) 4 gm PO BID 05/30/24 05/30/24 History [Cholestyramine Packet] Cranberry 25,200mg 1 tab PO DAILY 05/30/24 05/30/24 History Metoprolol Tartrate [Lopressor] 50 mg PO BID 05/30/24 05/30/24 History amLODIPine [Norvasc] 5 mg PO DAILY 05/30/24 05/30/24 History Allergies Allergy/AdvReac Type Severity Reaction Status Date / Time amoxicillin Allergy Unknown TAKEN FROM Verified 05/12/24 20:24 DR OLIVER'S NOTES Iodine and Iodide Containing Allergy Unknown TESTED Verified 05/12/24 20:24 Produc POSITIVE FOR SHELLFISH prednisone Allergy Unknown TAKEN FROM Verified 05/12/24 20:24 DR FISHER NOTES adhesive Allergy blisters, Verified 05/12/24 20:24 itching shellfish derived Allergy TESTED Verified 05/12/24 20:24 POSITIVE WITH ALLERGY TESTING. gluten AdvReac vomiting, Verified 05/12/24 20:24 diarrhea Penicillins AdvReac Rash/Hives Verified 05/12/24 20:24 antibiotics AdvReac Diarrhea Uncoded 05/12/24 19:02 Physical Exam Vitals: Vital Signs Temp Pulse Pulse Resp BP BP Pulse Ox 05/30/24 21:00 18 05/30/24 20:45 97.9 F 107 H 18 115/70 95 05/30/24 20:24 97.6 F 97 18 164/86 96 05/30/24 18:00 108 H 18 107/53 96 05/30/24 17:08 100 17 132/76 98 05/30/24 15:04 98.8 F 98 17 130/73 96 Intake and Output 05/30/24 05/30/24 05/31/24 14:59 22:59 06:59 Intake Total 780 Balance 780 Intake: Oral 780 Other: Weight 90.718 kg Results CBC & Chem 7: 05/31/24 01:00 05/31/24 01:00 Labs: Abnormal Lab Results - Last 24 Hours (Table) 05/30/24 05/30/24 05/30/24 Range/Units 15:29 15:29 15:29 Lymphocytes # 0.8 L (1.0-4.8) k/uL BUN 32 H (7-17) mg/dL Troponin I (0.000-0.034) ng/mL Free T4 2.26 H (0.78-2.19) ng/dL Urine Appearance Cloudy H (Clear) Urine Protein Trace H (Negative) Urine Ketones 1+ H (Negative) Ur Leukocyte Esterase Moderate H (Negative) Urine WBC 40 H (0-5) /hpf Urine Mucus Many H (None) /hpf 05/30/24 05/30/24 05/30/24 Range/Units 15:29 18:30 21:40 Lymphocytes # (1.0-4.8) k/uL BUN (7-17) mg/dL Troponin I 0.053 H* 0.048 H* 0.049 H* (0.000-0.034) ng/mL Free T4 (0.78-2.19) ng/dL Urine Appearance (Clear) Urine Protein (Negative) Urine Ketones (Negative) Ur Leukocyte Esterase (Negative) Urine WBC (0-5) /hpf Urine Mucus (None) /hpf Thrombosis Risk Factor Assmnt - Choose All That Apply Any of the Below Risk Factors Present?: Yes Each Factor Represents 1 point: Medical pt on bed rest, Obesity (BMI >25) Other Risk Factors: Yes Other congenital or acquired thrombophilia - If yes, enter type in comment: No Thrombosis Risk Factor Assessment Total Risk Factor Score: 2 Thrombosis Risk Factor Assessment Level: Low Risk
[2024-05-31] MEDS: buPROPion SR 100 MG TABLET.ER PO SCH (10:05)
[2024-05-31] MEDS: ANASTROZOLE 1 MG TAB PO SCH (10:05)
--- NOTE | 2024-05-31 10:27 | P.CRDCN ---
History of Present Illness Consult date: 05/31/24 History of present illness: HISTORY OF PRESENTING ILLNESS 82-year-old with past medical history of hypertension, type 2 diabetes, asthma, restless leg syndrome, vertigo, dementia. She presented to the hospital because of concerns of feeling weak and feeling a bit confused. In April she was hospitalized at [facility] and at that time she was treated for dizziness which was likely related to vertigo. REVIEW OF SYSTEMS She denies any symptoms of chest pain chest pressures. She does report feeling more short of breath. She also reports feeling weak. She denies any diarrhea nausea. He denies any abdominal pain. She denies any lightheadedness or dizziness. She denies any falls. 14 point review of system is negative except what is mentioned above in HPI. PHYSICAL EXAMINATION Vital signs reviewed. Head: Normocephalic. Eyes: Sclerae nonicteric. Neck: Brisk carotid upstroke, 1 centimeter elevated jugular venous distention. Lungs: Poor inspiratory effort, diminished breath sounds in right lower lung base, mild crackles audible Heart: Regular rate and rhythm, S1-S2, no S3, no murmur or rub. Abdomen: Soft nontender, positive bowel sounds. Extremities: 1+ pitting edema bilateral lower extremity Neuro: Alert, but not oriented to time place and person, no focal deficits. Detailed neuro exam was not performed. ASSESSMENT Mild HFpEF exacerbation Small right-sided pleural effusion Metabolic encephalopathy generalized weakness due to above Moderate elevation of troponin with flat pattern, less likely ACS Mild nonobstructive CAD Failure to thrive Debility and frailty Dementia Obesity Type 2 diabetes Hypertension Dyslipidemia Cardiac testing April 2024, echo: EF 55%, mild mitral regurgitation, mild left atrial dilatation, no significant RV dysfunction or other valvular dysfunctions. No reported regional wall motion abnormality. EKG on this admission shows normal sinus rhythm with no concerns of ST-T wave changes that are concerning for ischemia. No high-grade AV blocks or any other arrhythmias reported underlaid telemetry Pertinent testing Chest x-ray shows small right-sided pleural effusion BNP 700. Previously 2000 on last admission Kidney function and hemoglobin within normal limits. PLAN ACS been ruled out, no concerns of arrhythmias. She is clinically in mild CHF exacerbation. Start Lasix 40 mg IV twice daily. Give 2 doses and from tomorrow transition to p.o. Bumex 1 mg p.o. daily Patient not a candidate for SGLT2 because of concerns of UTI and dementia increasing her risk of UTI She is on amlodipine 5, metoprolol 50 mg twice daily, aspirin 81, Lipitor 10 mg daily. I will continue these medications. On last admission she was recommended Lexiscan nuclear stress test but patient was asymptomatic therefore this was not done. Would recommend outpatient follow-up with cardiology for stress testing if clinically indicated on outpatient visit. Jensen Jaimes MD, FACC, RPVI Thank you for allowing [facility] to participate in this patient's care. Feel free to reach out in case of any followup questions. 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 History of Any Multi-Drug Resistant Organisms: None Reported Past Surgical History: Appendectomy, Breast Surgery, Cholecystectomy, Heart Catheterization, Hysterectomy, Joint Replacement Additional Past Surgical History / Comment(s): mena knee replacements, cataracts, surgery for fx finger left hand,skin cancer removed ears, forehead, nose & shoulder, colonoscopy, lt breast biopsy, rt breast biopsy, R breast lumpectomy Past Anesthesia/Blood Transfusion Reactions: Previous Problems w/ Anesthesia, Motion Sickness Additional Past Anesthesia/Blood Transfusion Reaction / Comment(s): high BP. daughter PONV Past Psychological History: Depression Smoking Status: Former smoker Past Alcohol Use History: None Reported Additional Past Alcohol Use History / Comment(s): smoked age 16 -19. Past Drug Use History: None Reported - Past Family History Mother Family Medical History: Blood Disorder, Cancer Additional Family Medical History / Comment(s): bone cancer , pt unsure if m other or sister had blood disorder with "vitamin k" Sister(s) Family Medical History: Blood Disorder Medications and Allergies Home Medications Medication Instructions Recorded Confirmed Type Montelukast [Singulair] 10 mg PO HS 03/29/14 05/30/24 History Furosemide [Lasix] 20 mg PO DAILY 11/17/20 05/30/24 History Anastrozole [Arimidex] 1 mg PO DAILY 03/23/21 05/30/24 History Meclizine [Antivert] 12.5 mg PO DAILY PRN 03/16/22 05/30/24 History Galantamine HBr [Razadyne ER] 16 mg PO HS 09/30/22 05/30/24 History Levothyroxine Sodium [Synthroid] 100 mcg PO DAILY 09/30/22 05/30/24 History allopurinoL 300 mg PO DAILY 09/30/22 05/30/24 History buPROPion HCL [Wellbutrin SR] 200 mg PO DAILY 09/30/22 05/30/24 History rOPINIRole HCL [Requip] 0.5 mg PO HS 04/27/23 05/30/24 History Cetirizine HCl [Zyrtec] 10 mg PO DAILY 04/25/24 05/30/24 History Glimepiride [Amaryl] 2 mg PO DAILY 05/12/24 05/30/24 History Ramelteon 8 mg PO HS 05/12/24 05/30/24 History ALPRAZolam [Xanax] 0.25 mg PO TID PRN 05/30/24 05/30/24 History Aspirin EC [Ecotrin Low Dose] 81 mg PO DAILY 05/30/24 05/30/24 History Atorvastatin [Lipitor] 10 mg PO HS 05/30/24 05/30/24 History Cholestyramine (with Sugar) 4 gm PO BID 05/30/24 05/30/24 History [Cholestyramine Packet] Cranberry 25,200mg 1 tab PO DAILY 05/30/24 05/30/24 History Metoprolol Tartrate [Lopressor] 50 mg PO BID 05/30/24 05/30/24 History amLODIPine [Norvasc] 5 mg PO DAILY 05/30/24 05/30/24 History Allergies Allergy/AdvReac Type Severity Reaction Status Date / Time amoxicillin Allergy Unknown TAKEN FROM Verified 05/12/24 20:24 DR OLIVER'S NOTES Iodine and Iodide Containing Allergy Unknown TESTED Verified 05/12/24 20:24 Produc POSITIVE FOR SHELLFISH prednisone Allergy Unknown TAKEN FROM Verified 05/12/24 20:24 DR FISHER NOTES adhesive Allergy blisters, Verified 05/12/24 20:24 itching shellfish derived Allergy TESTED Verified 05/12/24 20:24 POSITIVE WITH ALLERGY TESTING. gluten AdvReac vomiting, Verified 05/12/24 20:24 diarrhea Penicillins AdvReac Rash/Hives Verified 05/12/24 20:24 antibiotics AdvReac Diarrhea Uncoded 05/12/24 19:02 Physical Exam Vitals: Vital Signs Temp Pulse Pulse Resp BP BP Pulse Ox 05/31/24 08:22 97.6 F 83 17 114/76 93 L 05/31/24 03:12 98.2 F 72 16 119/65 92 L 05/30/24 23:30 98.5 F 78 18 122/66 93 L 05/30/24 21:00 18 05/30/24 20:45 97.9 F 107 H 18 115/70 95 05/30/24 20:24 97.6 F 97 18 164/86 96 05/30/24 18:00 108 H 18 107/53 96 05/30/24 17:08 100 17 132/76 98 05/30/24 15:04 98.8 F 98 17 130/73 96 Intake and Output 05/30/24 05/31/24 05/31/24 22:59 06:59 14:59 Intake Total 780 10 Balance 780 10 Intake: Oral 780 10 Other: Voiding Method External Catheter Weight 90.718 kg 94.5 kg Results 05/31/24 01:00 05/31/24 01:00 Cardiac Enzymes 05/30/24 05/30/24 05/30/24 Range/Units 15:29 15:29 18:30 AST 32 (14-36) U/L Troponin I 0.053 H* 0.048 H* (0.000-0.034) ng/mL 05/30/24 05/31/24 05/31/24 Range/Units 21:40 00:51 01:00 AST 27 (14-36) U/L Troponin I 0.049 H* 0.050 H* (0.000-0.034) ng/mL Coagulation 05/30/24 Range/Units 15:29 PT 10.5 (10.0-12.5) sec APTT 24.1 (22.0-30.0) sec CBC 05/30/24 05/31/24 Range/Units 15:29 01:00 WBC 7.5 7.8 (3.8-10.6) k/uL RBC 4.79 4.17 (3.80-5.40) m/uL Hgb 13.7 12.2 (11.4-16.0) gm/dL Hct 41.8 36.3 (34.0-46.0) % Plt Count 359 380 (150-450) k/uL Comprehensive Metabolic Panel 05/30/24 05/31/24 Range/Units 15:29 01:00 Sodium 140 136 L (137-145) mmol/L Potassium 4.3 3.9 (3.5-5.1) mmol/L Chloride 107 108 H (98-107) mmol/L Carbon Dioxide 22 22 (22-30) mmol/L BUN 32 H 32 H (7-17) mg/dL Creatinine 0.66 0.70 (0.52-1.04) mg/dL Glucose 99 95 (74-99) mg/dL Calcium 9.4 8.9 (8.4-10.2) mg/dL AST 32 27 (14-36) U/L ALT 17 16 (4-34) U/L Alkaline Phosphatase 88 84 (38-126) U/L Total Protein 6.6 5.8 L (6.3-8.2) g/dL Albumin 3.6 3.0 L (3.5-5.0) g/dL Current Medications Generic Name Dose Route Start Last Admin Trade Name Freq PRN Reason Stop Dose Admin Acetaminophen 650 mg 05/30/24 19:00 Acetaminophen Tab 325 Mg Tab PO Q6HR PRN Mild Pain or Fever > 100.5 Allopurinol 300 mg 05/31/24 09:00 05/31/24 08:24 Allopurinol 300 Mg Tab PO 300 mg DAILY PAULINE Administration Alprazolam 0.25 mg 05/30/24 19:02 Alprazolam 0.25 Mg Tab PO TID PRN Anxiety Amlodipine Besylate 5 mg 05/31/24 09:00 05/31/24 08:24 Amlodipine 5 Mg Tab PO 5 mg DAILY PAULINE Administration Anastrozole 1 mg 05/31/24 09:00 05/31/24 10:05 Anastrozole 1 Mg Tab PO 1 mg DAILY PAULINE Administration Aspirin 81 mg 05/31/24 09:00 05/31/24 08:24 Aspirin 81 Mg PO 81 mg DAILY PAULINE Administration Atorvastatin Calcium 10 mg 10/12/24 21:00 05/30/24 20:50 Atorvastatin 10 Mg Tab PO 10 mg HS PAULINE Administration Bumetanide 1 mg 06/01/24 09:00 Bumetanide 1 Mg Tab PO DAILY PAULINE Bupropion HCl 200 mg 05/31/24 09:00 05/31/24 10:05 Bupropion Sr 100 Mg Tablet.Er PO 200 mg DAILY PAULINE Administration Cholestyramine Resin 4 gm 05/30/24 21:00 05/31/24 08:24 Cholestyramine (With Sugar) 4 Gm Packet PO 4 gm BID PAULINE Administration Donepezil HCl 10 mg 05/30/24 21:00 05/30/24 20:50 Donepezil 10 Mg Tab PO 10 mg HS PAULINE Administration Enoxaparin Sodium 40 mg 05/31/24 09:00 05/31/24 08:24 Enoxaparin 40 Mg/0.4 Ml Syringe SQ 40 mg DAILY PAULINE Administration Famotidine 20 mg 05/31/24 09:00 05/31/24 08:24 Famotidine 20 Mg Tab PO 20 mg DAILY PAULINE Administration Furosemide 40 mg 05/31/24 10:30 Furosemide 10 Mg/Ml 4 Ml Vial IV 05/31/24 21:01 Q12HR PAULINE Glimepiride 2 mg 05/31/24 09:00 05/31/24 08:24 Glimepiride 2 Mg Tab PO 2 mg DAILY PAULINE Administration Ceftriaxone Sodium 1 gm/ 50 mls @ 100 mls/hr 05/30/24 21:00 05/31/24 08:24 Sodium Chloride IVPB 100 mls/hr Q12HR PAULINE Administration Protocol Insulin Aspart 0 unit 05/31/24 07:30 05/31/24 06:11 Insulin Aspart (Novolog) 100 Unit/Ml Vial SQ Not Given ACHS PAULINE Levothyroxine Sodium 100 mcg 05/31/24 09:00 05/31/24 08:24 Levothyroxine 100 Mcg Tab PO 100 mcg DAILY PAULINE Administration Loratadine 10 mg 05/31/24 09:00 05/31/24 08:24 Loratadine 10 Mg Tab PO 10 mg DAILY PAULINE Administration Meclizine HCl 12.5 mg 05/30/24 19:02 Meclizine 12.5 Mg Tab PO DAILY PRN Vertigo Metoprolol Tartrate 50 mg 05/30/24 21:00 05/31/24 08:24 Metoprolol Tartrate 50 Mg Tab PO 50 mg BID PAULINE Administration Montelukast Sodium 10 mg 05/30/24 21:00 05/30/24 20:50 Montelukast 10 Mg Tab PO 10 mg HS PAULINE Administration Morphine Sulfate 4 mg 05/30/24 19:00 05/31/24 06:51 Morphine Sulfate 4 Mg/Ml Syringe IV 4 mg Q4HR PRN Administration Severe Pain (Scale 7 to 10) Naloxone HCl 0.2 mg 05/30/24 19:00 Naloxone 0.4 Mg/Ml 1 Ml Vial IV Q2M PRN Opioid Reversal Ropinirole HCl 0.5 mg 05/30/24 21:00 05/30/24 20:50 Ropinirole Hcl 0.25 Mg Tab PO 0.5 mg HS PAULINE Administration Temazepam 15 mg 05/30/24 21:00 05/30/24 20:50 Temazepam 15 Mg Cap PO 15 mg HS PAULINE Administration Intake and Output 05/30/24 05/31/24 05/31/24 22:59 06:59 14:59 Intake Total 780 10 Balance 780 10 Intake: Oral 780 10 Other: Voiding Method External Catheter Weight 90.718 kg 94.5 kg 05/31/24 01:00 05/31/24 01:00
[2024-05-31] MEDS: FUROSEMIDE 10 MG/ML 4 ML VIAL IV SCH (11:23)
[2024-05-31 11:44] LABS: Glucose,Whole Blood 70 mg/dL (70-110)
--- NOTE | 2024-05-31 15:32 | P.CNOR ---
History of Present Illness - [facility] Consult date: 05/31/24 Requesting physician: Poli Salinas Consult reason: other (Back pain and spinal stenosis) History of present illness: Patient is an 83-year-old female who presented to the emergency department yesterday with chief complaint of weakness. Patient does have a past medical history significant for right-sided breast cancer, hypertension, hyperlipidemia, dementia, diverticulitis, skin cancer, asthma, chronic low back pain. Patient did present to [facility] in early April 2024 due to intractable low back pain with spinal stenosis, degenerative disc disease and lumbar spondylosi s. Patient was treated conservatively with physical therapy and Occupational Therapy and was sent to subacute rehab where she had therapy daily. Patient notes over the past several weeks she has had increasing falls and notes that her legs just seem to give out from under her. Patient denies ever hitting her head or losing consciousness during these recent falls. Patient does not have any previous orthopedic spine surgical history. Patient does have past history of bilateral knee arthroplasties. Patient is unsure what surgeon performed these. Patient says she does have low back pain that has been going on for years and has seemed to worsen over the past year. Patient does mention wea kness in both legs. Patient says normally she does ambulate with a walker. Patient denies any saddle anesthesia. Patient denies loss of bowel/bladder control. 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 History of Any Multi-Drug Resistant Organisms: None Reported Past Surgical History: Appendectomy, Breast Surgery, Cholecystectomy, Heart Catheterization, Hysterectomy, Joint Replacement Additional Past Surgical History / Comment(s): mena knee replacements, cataracts, surgery for fx finger left hand,skin cancer removed ears, forehead, nose & shoulder, colonoscopy, lt breast biopsy, rt breast biopsy, R breast lumpectomy Past Anesthesia/Blood Transfusion Reactions: Previous Problems w/ Anesthesia, Motion Sickness Additional Past Anesthesia/Blood Transfusion Reaction / Comm: high BP. daughter PONV Past Psychological History: Depression Smoking Status: Former smoker Past Alcohol Use History: None Reported Additional Past Alcohol Use History / Comment(s): smoked age 16 -19. Past Drug Use History: None Reported - Past Family History Mother Family Medical History: Blood Disorder, Cancer Additional Family Medical History / Comment(s): bone cancer , pt unsure if mother or sister had blood disorder with "vitamin k" Sister(s) Family Medical History: Blood Disorder Medications and Allergies Home Medications Medication Instructions Recorded Confirmed Type Montelukast [Singulair] 10 mg PO HS 03/29/14 05/30/24 History Furosemide [Lasix] 20 mg PO DAILY 11/17/20 05/30/24 History Anastrozole [Arimidex] 1 mg PO DAILY 03/23/21 05/30/24 History Meclizine [Antivert] 12.5 mg PO DAILY PRN 03/16/22 05/30/24 History Galantamine HBr [Razadyne ER] 16 mg PO HS 09/30/22 05/30/24 History Levothyroxine Sodium [Synthroid] 100 mcg PO DAILY 09/30/22 05/30/24 History allopurinoL 300 mg PO DAILY 09/30/22 05/30/24 History buPROPion HCL [Wellbutrin SR] 200 mg PO DAILY 09/30/22 05/30/24 History rOPINIRole HCL [Requip] 0.5 mg PO HS 04/27/23 05/30/24 History Cetirizine HCl [Zyrtec] 10 mg PO DAILY 04/25/24 05/30/24 History Glimepiride [Amaryl] 2 mg PO DAILY 05/12/24 05/30/24 History Ramelteon 8 mg PO HS 05/12/24 05/30/24 History ALPRAZolam [Xanax] 0.25 mg PO TID PRN 05/30/24 05/30/24 History Aspirin EC [Ecotrin Low Dose] 81 mg PO DAILY 05/30/24 05/30/24 History Atorvastatin [Lipitor] 10 mg PO HS 05/30/24 05/30/24 History Cholestyramine (with Sugar) 4 gm PO BID 05/30/24 05/30/24 History [Cholestyramine Packet] Cranberry 25,200mg 1 tab PO DAILY 05/30/24 05/30/24 History Metoprolol Tartrate [Lopressor] 50 mg PO BID 05/30/24 05/30/24 History amLODIPine [Norvasc] 5 mg PO DAILY 05/30/24 05/30/24 History Allergies Allergy/AdvReac Type Severity Reaction Status Date / Time amoxicillin Allergy Unknown TAKEN FROM Verified 05/12/24 20:24 DR OLIVER'S NOTES Iodine and Iodide Containing Allergy Unknown TESTED Verified 05/12/24 20:24 Produc POSITIVE FOR SHELLFISH prednisone Allergy Unknown TAKEN FROM Verified 05/12/24 20:24 DR FISHER NOTES adhesive Allergy blisters, Verified 05/12/24 20:24 itching shellfish derived Allergy TESTED Verified 05/12/24 20: POSITIVE WITH ALLERGY TESTING. gluten AdvReac vomiting, Verified 05/12/24 20:24 diarrhea Penicillins AdvReac Rash/Hives Verified 05/12/24 20:24 antibiotics AdvReac Diarrhea Uncoded 05/12/24 19:02 Physical Examination Negative for any open fractures, significant erythema/ecchymosis/open wounds. Positive for bilateral scars over the anterior knees. Patient does have splints over right lower extremity over ankle. Sensation is diminished in the bilateral lower extremities in the feet. Sensation is equal, symmetric, by intact at the rest of the extremities. There is tenderness to palpation throughout the lower lumbar spine on exam at midline and in the bilateral SI joints. Patient does have limited range of motion in bilateral lower extremities on exam secondary to weakness and referred pain to the low back. 3/5 in all major motor groups in bilateral lower extremities. DP pulses palpable bilaterally. Cap refill present in bilateral upper extremities on exam. Radial pulse intact, 2+ bilaterally. Negative Homans bilaterally. Negative Marycruz bilaterally. Negative clonus bilaterally. Results - Labs Labs: Abnormal Lab Results - Last 24 Hours (Table) 05/30/24 05/30/24 05/30/24 Range/Units 15:29 15:29 15:29 Lymphocytes # 0.8 L (1.0-4.8) k/uL Sodium (137-145) mmol/L Chloride (98-107) mmol/L BUN 32 H (7-17) mg/dL Troponin I (0.000-0.034) ng/mL Total Protein (6.3-8.2) g/dL Albumin (3.5-5.0) g/dL Free T4 2.26 H (0.78-2.19) ng/dL Free T3 pg/mL 2.00 L (2.30-4.20) pg/mL Urine Appearance Cloudy H (Clear) Urine Protein Trace H (Negative) Urine Ketones 1+ H (Negative) Ur Leukocyte Esterase Moderate H (Negative) Urine WBC 40 H (0-5) /hpf Urine Mucus Many H (None) /hpf 05/30/24 05/30/24 05/30/24 Range/Units 15:29 18:30 21:40 Lymphocytes # (1.0-4.8) k/uL Sodium (137-145) mmol/L Chloride (98-107) mmol/L BUN (7-17) mg/dL Troponin I 0.053 H* 0.048 H* 0.049 H* (0.000-0.034) ng/mL Total Protein (6.3-8.2) g/dL Albumin (3.5-5.0) g/dL Free T4 (0.78-2.19) ng/dL Free T3 pg/mL (2.30-4.20) pg/mL Urine Appearance (Clear) Urine Protein (Negative) Urine Ketones (Negative) Ur Leukocyte Esterase (Negative) Urine WBC (0-5) /hpf Urine Mucus (None) /hpf 05/31/24 05/31/24 Range/Units 00:51 01:00 Lymphocytes # (1.0-4.8) k/uL Sodium 136 L (137-145) mmol/L Chloride 108 H (98-107) mmol/L BUN 32 H (7-17) mg/dL Troponin I 0.050 H* (0.000-0.034) ng/mL Total Protein 5.8 L (6.3-8.2) g/dL Albumin 3.0 L (3.5-5.0) g/dL Free T4 (0.78-2.19) ng/dL Free T3 pg/mL (2.30-4.20) pg/mL Urine Appearance (Clear) Urine Protein (Negative) Urine Ketones (Negative) Ur Leukocyte Esterase (Negative) Urine WBC (0-5) /hpf Urine Mucus (None) /hpf H & H 05/30/24 05/31/24 Range/Units 15:29 01:00 Hgb 13.7 12.2 (11.4-16.0) gm/dL Hct 41.8 36.3 (34.0-46.0) % Coagulation 05/30/24 Range/Units 15:29 INR 1.0 (<1.2) Result Diagrams: 05/31/24 01:00 05/31/24 01:00 - Diagnostic results Knee x-ray: report reviewed, image reviewed (X-ray of the right knee does show stable tibial and femoral total knee components. Negative for any fractures. Small effusion present.) Ankle/Foot x-ray: report reviewed, image reviewed (X-ray of the right ankle does demonstrate step-off deformity of the lateral malleolus.) CT Scan - lumbar: report reviewed, image reviewed (CT scan of the lumbar spine reviewed from April 2024 does show central canal stenosis at L3-L4 and L4-L5 as well as some mild stenosis at L2-L3. There is some evident mild neuroforaminal stenosis as well as facet arthropathy throughout the lumbar spine.) Assessment and Plan Assessment: 1. Low back pain; history of lumbar spondylosis, degenerative disc disease 2. Right lateral malleolus step-off deformity Plan: 1. Low back pain; history of lumbar spondylosis, degenerative disc disease -x-ray of the right ankle does demonstrate lateral malleolus step-off deformity, appears stable. total knee components appear to be stable on right knee x-ray. Patient did have CT scan 1 month ago but has had continuous falls over the past 1 month. We will order CT scan of the lumbar spine for further evaluation. Pain medication as needed. Recommending Decadron 4 mg every 6 hours for neurologic symptoms. Appreciate PT/OT recommendations. Patient is okay to perform gentle range of motion exercises while resting in bed. Patient may weight-bear as tolerated with walker and assistance. Will await findings from the CT scan lumbar spine before proceeding with any potential orthopedic intervention. 2. Appreciate medical management 3. Pain management -Tylenol 4. DVT prophylaxis -aspirin; Lovenox 5. GI prophylaxis -Pepcid 6. PT/OT - Patient may weight-bear as tolerated with walker and assistance. 7. Encourage incentive spirometer use 8. Appreciate consult Time with Patient: Less than 30
[2024-05-31 16:42] LABS: Glucose,Whole Blood 70 mg/dL (70-110)
[2024-05-31 17:10] LABS: Appearance,Urine Clear (Clear); Bacteria,Urine Rare /hpf; Bilirubin,Urine Negative (Negative); Blood,Urine Negative (Negative); Color,Urine Colorless; Glucose,Urine (UA) Negative (Negative); Ketones,Urine Negative (Negative); Leukocyte Esterase,Urine Large (Negative); Nitrite,Urine Negative (Negative); PH, Urine 5.5 (5.0-8.0); Protein,Urine Negative (Negative); RBC,Urine 1 /hpf (0-5); Specific Gravity,Urine 1.009 (1.001-1.035); Squamous Epithelial Cell,Urine 2 /hpf (0-4); Urobilinogen,Urine <2.0 mg/dL (<2.0); WBC,Urine 12 /hpf (0-5)
--- NOTE | 2024-05-31 18:17 | CT ---
EXAMINATION TYPE: CT lumbar spine wo con DATE OF EXAM: 05/31/2024 COMPARISON: 04/26/2024 HISTORY: Lower back pain. CT DLP: 1304.6 mGycm CONTRAST: None TECHNIQUE: CT of the lumbar spine is performed on a spiral scan at 3 mm thick sections. Reconstructed images are performed in the coronal and sagittal planes. FINDINGS: T12-L1: No focal disc herniation or significant disc bulge is evident. No spinal canal stenosis or neural foraminal stenosis is present. L1-L2: There is loss of disc height is level. Vacuum disc phenomenon is present. No focal disc hernia tion or significant disc bulge. No spinal canal stenosis. Some moderate foraminal narrowing is likely present bilaterally. L2-L3: Broad-based disc bulge is present with moderate anterior thecal sac impression.Some spinal can al narrowing may be present. Right facet hypertrophy is present. Vacuum disc phenomenon is present. L3-L4: Broad-based disc bulge is present. Facet hypertrophy and ligamentum flavum laxity is present. There is mild spinal canal stenosis to this level. Mild narrowing of the disc height is present. L4-L5: There is a mild grade 1 spondylolisthesis of L4 anteriorly on L5. Disc uncovering is present w ith moderate anterior thecal sac compression. Facet hypertrophy and ligamentum flavum laxity is prese nt contributing to severe spinal canal stenosis. Active disc phenomenon is present. L5-S1: No focal disc herniation or significant disc bulge is evident. No spinal canal stenosis or n eural foraminal stenosis is present. Facet hypertrophy is present. Vacuum disc phenomenon is present. Vertebral alignment appears normal. Bibasilar infiltrates are present likely atelectasis. IMPRESSION: 1. Severe spinal canal stenosis due to facet hypertrophy and ligamentum flavum laxity and disc uncove ring from a grade 1 spondylolisthesis at L4-5. 2. Mild spinal canal stenosis present L3-4 due to facet hypertrophy and disc bulge. 3. Degenerative disc changes present throughout the lumbar spine [facility], Workstation: [facility], 05/31/2024 6:14 PM
[2024-05-31 19:58] LABS: Glucose,Whole Blood 73 mg/dL (70-110)
--- NOTE | 2024-05-31 21:45 | P.PN ---
Subjective Progress Note Date: 05/31/24 HISTORY OF PRESENT ILLNESS: 83-year-old with active medical history of atherosclerotic heart disease, right- sided breast cancer, hypertension, hyperlipidemia, history of dementia, obstructive sleep apnea, hypothyroidism, recurrent diverticulitis, history of skin cancer, history of asthma, chronic lower back pain who was hospitalized in April for intractable lower back pain with known severe spinal stenosis and mild bulging disc in the L2-L3 area was in the hospital for few days could not ambulate and walk started physical therapy and Occupational Therapy and eventually was sent to subacute rehab where patient was then for the last 3 weeks was released apparently within the last few days she brought to the emergency department by EMS today because of complaining of weakness, not been able to ambulate and walk with severe weakness of the lower extremity with pressure and discomfort in her lower back worsening symptoms along with worsening symptoms of burning with urination mild altered mental status and not been able to eat or drink. Worsening dehydration. Was seen and evaluated her BUN was 32 creatinine 0.66 UA was significantly positive her troponin was elevated on admission without specific complaint of acute chest pain or angina at the time. EKG did not show any active or acute change she had sinus tachycardia with mild PVCs and left anterior fascicular block. With her current complaint chest x-ray did not show any acute cardiopulmonary process her knee and ankle x-ray shows inferior lateral malleolus fracture of the ankle area of the right side. Knee x-ray shows medial soft tissue swelling but no sign of fracture. In general patient was diagnosed with altered mental status, UTI with early sepsis, elevated troponin with possible non-ST HI. She will be admitted to the hospital initiate Rocephin 1 g IV daily will consult cardiology she had an echocardiogram when she was in last time no need to run although unless there is a drastic change cardiovascular brown. As for her mobility and complaining of lower back pain not been able to ambulate and walk all testing done from last time when she was in for her spinal stenosis of lumbar spine and no new injury require any new study at this point. 05/31/2024: Mental status has improved significantly through the night, blood work showing white blood cells down 7.8, kidney function has improved with GFR still running at 79, urine culture was sent, troponin was elevated they were consulted for cardiology seen patient and agree with mild heart failure preserved ejection fraction with mild exacerbation moderate elevation of troponin with a flat pattern less likely to be acute coronary syndrome to continue medical management. Also with significant lower back pain and recurrent spine problem consult orthopedic/spine will be seeing patient in consu ltation and he might comment on the inferior lateral malleolus fracture of the right ankle in the meanwhile continue to use a brace at this point. Patient mobility still significantly decreased has been in bed responding to current antibiotic has been much better other vitals are going significantly well. REVIEW OF SYSTEMS: CONSTITUTIONAL: Elderly laying in bed no acute respiratory distress. EYES: No icterus sclerae, no conjunctivitis. EARS, NOSE, MOUTH, THROAT, and FACE: No sore throat, lymphadenopathy, carotid bruits or deformity. RESPIRATORY: Slight shortness of breath no cough or wheezes. CARDIOVASCULAR: Positive PND orthopnea palpitation no angina . PND, Orthopnea, or angina. mild bradycardia with exertional shortness of breath GASTROINTESTINAL: No Abd pain, Nausea or vomiting, no Diarrhea or constipation, No GI Bleed, no distention or masses. GENITOURINARY: Negative for Hematuria or UTI, no kidney stones. INTEGUMENT/BREAST: Negative for any muscular injury with mild osteoarthritis.. HEMATOLOGIC/LYMPHATIC: Negative for bleed or purpura. MUSCULOSKELTAL: Generalized arthralgia and myalgia specially the right lower extremity. With slight swelling in the right knee and mild pain and discomfort in the ankle area. NEURLOGICAL: Numbness and weakness in the right leg with significant normal balance and gait and memory loss. BEHAVIORAL/PSYCH: Negative. ENDOCRINE: Negative. PHYSICAL EXAMINATION: General Appearance: Alert, cooperative, no distress, appears stated age. Neck HEENT: Supple, no lymphadenopathy, no thyroid enlargement, no carotid bruits. Lungs: Decreased breath sound bilaterally fine rhonchi no crackles pause mild expiratory wheezes. Chest Wall: Decreased expansion with deep inspiration no tenderness and no deformity was found on exam, no costochondral pain or discomfort. Heart: Regular rate and rhythm, S1, S2 has S3 positive bradycardia mild systolic murmur. Back: Symmetric, no curvature, ROM normal, no CVA tenderness. Abdomen: Soft, non-tender, bowel sounds active all four quadrants, no masses, no organomegaly. Extremities: Right knee has slight swelling with no restriction, right ankle has medial aspect mild swelling and discomfort positive pulses dorsalis pedis. Pulses: 2+ and symmetric. Skin: Skin color, texture, tugor normal, no rashes or lesions. Neurologic: Alert oriented with slight confusion cranial nerves II through XII intact, positive slight weakness in the right leg with abnormal balance and gait. ASSESSMENT AND PLAN: _Altered mental status: Most likely secondary to UTI with early sepsis, has done very well with current antibiotic and hydration culture still pending at this point. _UTI with early sepsis : Continue Rocephin until culture is final and back. _Elevated troponin with possible non-ST HI: See cardiology echocardiogram was done recently patient had well-preserved ejection fraction and systolic congestive heart failure continue medical management which elevated troponin considered to be type II myocardial infarction as a respond reaction mostly. _Severe lower back pain with severe spinal stenosis and degenerative disc disease was treated last time with Ortho/spine consult was on Lyrica, tramadol and had steroid use at the time. Not clear whether Ortho going to do any intervention or not at this point. _ inferior lateral malleolus fracture of the ankle: Brace for now and will consult Ortho, she does not require any intervention brace and probably follow- up to see if the fracture heal on its own. _Type 2 diabetes: Has been on pioglitazone and glimepiride continue Accu-Chek with sliding scale as tolerated. Blood sugars well-controlled on current medication with Accu-Chek showing a blood sugar in the low 100s. _Hypertension: Remain on losartan, amlodipine and metoprolol titrate losartan if needed. _Worsening cognitive has been on galantamine will continue medication. _Chronic pain syndrome: Has been on tramadol and pregabalin. Increase pregabalin up to 50 mg twice a day as needed. _Mild dyspnea with exertion with history of well-preserved ejection fraction systolic congestive heart failure: Has been on furosemide along with losartan and metoprolol continue medication titrate dose if needed and can switch to IV furosemide as patient is more symptomatic. _Hypothyroidism: Continue levothyroxine at 100 mcg daily. TSH has been normal but free T4 has been elevated to reduce levothyroxine from 100 mcg to 88 mcg. _History of breast cancer: Doing well so far still on Arimidex. _Chronic depression: Continue Wellbutrin and resume her home meds. Discussion: Patient was admitted last night continue treatment UTI, continue to see back/orthopedic surgeon along with cardiology continue current management for now patient has been stable and doing slightly better will require probably further more more physical therapy And possible potential need to go to rehab again. Objective - Vital Signs Vital signs: Vital Signs Temp 97.6 F 05/31/24 08:22 Pulse 83 05/31/24 08:22 Resp 17 05/31/24 08:22 BP 114/76 05/31/24 08:22 Pulse Ox 93 L 05/31/24 08:22 FiO2 Intake & Output 05/30/24 05/31/24 05/31/24 18:59 06:59 18:59 Intake Total 780 10 Balance 780 10 Weight 90.718 kg 94.5 kg Intake: Oral 780 10 Other: Voiding Method External Catheter - Labs CBC & Chem 7: 05/31/24 01:00 05/31/24 01:00 Labs: Abnormal Lab Results - Last 24 Hours (Table) 05/30/24 05/30/24 05/30/24 Range/Units 15:29 15:29 15:29 Lymphocytes # 0.8 L (1.0-4.8) k/uL Sodium (137-145) mmol/L Chloride (98-107) mmol/L BUN 32 H (7-17) mg/dL Troponin I (0.000-0.034) ng/mL Total Protein (6.3-8.2) g/dL Albumin (3.5-5.0) g/dL Free T4 2.26 H (0.78-2.19) ng/dL Free T3 pg/mL 2.00 L (2.30-4.20) pg/mL Urine Appearance Cloudy H (Clear) Urine Protein Trace H (Negative) Urine Ketones 1+ H (Negative) Ur Leukocyte Esterase Moderate H (Negative) Urine WBC 40 H (0-5) /hpf Urine Mucus Many H (None) /hpf 05/30/24 05/30/24 05/30/24 Range/Units 15:29 18:30 21:40 Lymphocytes # (1.0-4.8) k/uL Sodium (137-145) mmol/L Chloride (98-107) mmol/L BUN (7-17) mg/dL Troponin I 0.053 H* 0.048 H* 0.049 H* (0.000-0.034) ng/mL Total Protein (6.3-8.2) g/dL Albumin (3.5-5.0) g/dL Free T4 (0.78-2.19) ng/dL Free T3 pg/mL (2.30-4.20) pg/mL Urine Appearance (Clear) Urine Protein (Negative) Urine Ketones (Negative) Ur Leukocyte Esterase (Negative) Urine WBC (0-5) /hpf Urine Mucus (None) /hpf 05/31/24 05/31/24 Range/Units 00:51 01:00 Lymphocytes # (1.0-4.8) k/uL Sodium 136 L (137-145) mmol/L Chloride 108 H (98-107) mmol/L BUN 32 H (7-17) mg/dL Troponin I 0.050 H* (0.000-0.034) ng/mL Total Protein 5.8 L (6.3-8.2) g/dL Albumin 3.0 L (3.5-5.0) g/dL Free T4 (0.78-2.19) ng/dL Free T3 pg/mL (2.30-4.20) pg/mL Urine Appearance (Clear) Urine Protein (Negative) Urine Ketones (Negative) Ur Leukocyte Esterase (Negative) Urine WBC (0-5) /hpf Urine Mucus (None) /hpf
[2024-06-01 05:56] LABS: Glucose,Whole Blood 81 mg/dL (70-110)
[2024-06-01] MEDS: LEVOTHYROXINE 100 MCG TAB PO SCH (07:04)
[2024-06-01] MEDS: BUMETANIDE 1 MG TAB PO SCH (08:49)
--- NOTE | 2024-06-01 09:58 | P.PN ---
Subjective Progress Note Date: 06/01/24 Principal diagnosis: Low back pain; history of lumbar spondylosis, degenerative disc disease Patient was seen at bedside this morning lying in semirecumbent position. Patient says she is still having some numbness and tingling in both lower extremities. I did discuss the results from the CT scan lumbar spine with patient at bedside and patient states she does not want any orthopedic spine surgical intervention at this time. She is open to receiving potential epidural steroid injection into the spine. Patient says she is trying to perform gentle range of motion exercises while resting in bed. Patient says she is looking forward to working with therapy this morning. Patient denies any other issues at this time. Objective - Vital Signs Vital signs: Vital Signs Temp 97.5 F L 06/01/24 08:00 Pulse 79 06/01/24 08:00 Resp 16 06/01/24 08:00 BP 143/81 06/01/24 08:00 Pulse Ox 92 L 06/01/24 08:00 FiO2 Intake & Output 05/31/24 06/01/24 06/01/24 18:59 06:59 18:59 Intake Total 10 118 Output Total 700 1450 Balance -690 -1450 118 Weight 91 kg Intake: Oral 10 118 Output: Urine 700 1450 Other: Voiding Method External Catheter External Catheter - Exam Negative for any open fractures, significant erythema/ecchymosis/open wounds. Positive for bilateral scars over the anterior knees. Patient does have splints over right lower extremity over ankle. Sensation is diminished in the bilateral lower extremities in the feet. Sensation is equal, symmetric, by intact at the rest of the extremities. There is tenderness to palpation throughout the lower lumbar spine on exam at midline and in the bilateral SI joints. Patient does have limited range of motion in bilateral lower extremities on exam secondary to weakness and referred pain to the low back. 3/5 in all major motor groups in bilateral lower extremities. DP pulses palpable bilaterally. Cap refill present in bilateral upper extremities on exam. Radial pulse intact, 2+ bilaterally. Negative Homans bilaterally. Negative Marycruz bilaterally. Negative clonus bilaterally. - Labs CBC & Chem 7: 05/31/24 01:00 05/31/24 01:00 Labs: Abnormal Lab Results - Last 24 Hours (Table) 05/31/24 Range/Units 15:00 Ur Leukocyte Esterase Large H (Negative) Urine WBC 12 H (0-5) /hpf Urine Bacteria Rare H (None) /hpf Assessment and Plan Assessment: 1. Low back pain; history of lumbar spondylosis, degenerative disc disease 2. Right lateral malleolus step-off deformity Plan: 1. Low back pain; history of lumbar spondylosis, degenerative disc disease -x-ray of the right ankle does demonstrate lateral malleolus step-off deformity, appears stable. total knee components appear to be stable on right knee x-ray. Patient did have CT scan 1 month ago but has had continuous falls over the past [address] scan negative for any fractures. CT scan lumbar spine does show L4-5 spondylolisthesis as well as stenosis from L2-L5 centrally. I did review the findings with my attending, Dr. Patino. I did discuss the results with the patient at bedside this morning and patient does not want any orthopedic spine surgical intervention at this time. She would like to continue with conservative measures and possibly look into steroid injections in the spine. Pain management has been consulted for this. Pain medication as needed. Recommending Decadron 4 mg every 6 hours for neurologic symptoms. Appreciate PT/OT recommendations. Patient is okay to perform gentle range of motion exercises while resting in bed. Patient may weight-bear as tolerated with walker and assistance. We will continue to follow patient during her stay in the hospital. 2. Appreciate medical management 3. Pain management -Tylenol 4. DVT prophylaxis -aspirin; Lovenox 5. GI prophylaxis -Pepcid 6. PT/OT - Patient may weight-bear as tolerated with walker and assistance. 7. Encourage incentive spirometer use Time with Patient: Less than 30
[2024-06-01 11:19] LABS: Glucose,Whole Blood 94 mg/dL (70-110)
--- NOTE | 2024-06-01 12:34 | P.PN ---
Subjective HISTORY OF PRESENT ILLNESS: This is an 83-year-old female who initially came to the hospital due to weakness and confusion. Patient was found to be in mild CHF and was started on IV diuretics. Patient examined this morning the bedside. Patient denies any chest pain or pressure. She denies any shortness of breath. She reports pain to the back of her neck. Vital signs are stable. She has been transition to oral diuretics. PHYSICAL EXAM: VITAL SIGNS: Reviewed. GENERAL: Well-developed in no acute distress. NECK: Supple. No JVD or thyromegaly LUNGS: Respirations even and unlabored. Lungs essentially clear to auscultation bilaterally. HEART: Regular rate and rhythm. S1 and S2 heard. EXTREMITIES: Normal range of motion. No clubbing or cyanosis. Peripheral pulses intact. No lower extremity edema ASSESSMENT: Generalized weakness Altered mental status Mild acute on chronic heart failure with preserved EF, 55% Small right-sided pleural effusion Elevated troponins, type II [place], no evidence of acute coronary syndrome History of mild nonobstructive CAD Hypertension Hyperlipidemia Diabetes History of dementia Debility and frailty PLAN: Patient has been transitioned to oral diuretics with 1 mg of Bumex daily Continue additional cardiac medications Patient is currently stable for discharge from a cardiac standpoint Patient to follow-up postdischarge Consider outpatient stress testing Further recommendations pending patient course Patient was last seen in the office in 2017. Patient to follow-up postdischarge with Dr. Jaimes Nurse practitioner note has been reviewed by physician. Signing provider agrees with the documented findings, assessment, and plan of care documented by TRAFFIC MANAGER as a scribe. Objective - Vital Signs Vital signs: Vital Signs Temp 98.1 F 06/01/24 12:00 Pulse 74 06/01/24 12:00 Resp 16 06/01/24 12:00 BP 143/76 06/01/24 12:00 Pulse Ox 94 L 06/01/24 12:00 FiO2 Intake & Output 05/31/24 06/01/24 06/01/24 18:59 06:59 18:59 Intake Total 10 118 Output Total 700 1450 400 Balance -690 -2500 -282 Weight 91 kg Intake: Oral 10 118 Output: Urine 700 1450 400 Other: Voiding Method External Catheter External Catheter External Catheter - Labs CBC & Chem 7: 05/31/24 01:00 05/31/24 01:00 Labs: Abnormal Lab Results - Last 24 Hours (Table) 05/31/24 Range/Units 15:00 Ur Leukocyte Esterase Large H (Negative) Urine WBC 12 H (0-5) /hpf Urine Bacteria Rare H (None) /hpf
--- NOTE | 2024-06-01 15:53 | P.GSHP ---
History of Present Illness H&P Date: 06/01/24 Chief Complaint: Fibular fracture right 83-year-old with active medical history of atherosclerotic heart disease, right- sided breast cancer, hypertension, hyperlipidemia, history of dementia, obstructive sleep apnea, hypothyroidism, recurrent diverticulitis, history of skin cancer, history of asthma, chronic lower back pain who was hospitalized in April for intractable lower back pain with known severe spinal stenosis and mild bulging disc in the L2-L3 area was in the hospital for few days could not ambulate and walk started physical therapy and Occupational Therapy and eventually was sent to subacute rehab where patient was then for the last 3 weeks was released apparently within the last few days she brought to the emergency department by EMS today because of complaining of weakness, not been able to ambulate and walk with severe weakness of the lower extremity with pressure and discomfort in her lower back worsening symptoms along with worsening symptoms of burning with urination mild altered mental status and not been able to eat or drink. Worsening dehydration.Patient is seen today for consultation for a fibular fracture seen on radiographs. Patient is resting at bedside comfortably wearing a ankle stirrup to the right ankle. 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 History of Any Multi-Drug Resistant Organisms: None Reported Past Surgical History: Appendectomy, Breast Surgery, Cholecystectomy, Heart Catheterization, Hysterectomy, Joint Replacement Additional Past Surgical History / Comment(s): mena knee replacements, cataracts, surgery for fx finger left hand,skin cancer removed ears, forehead, nose & shoulder, colonoscopy, lt breast biopsy, rt breast biopsy, R breast lumpectomy Past Anesthesia/Blood Transfusion Reactions: Previous Problems w/ Anesthesia, Motion Sickness Additional Past Anesthesia/Blood Transfusion Reaction / Comment(s): high BP. daughter PONV Past Psychological History: Depression Smoking Status: Former smoker Past Alcohol Use History: None Reported Additional Past Alcohol Use History / Comment(s): smoked age 16 -19. Past Drug Use History: None Reported - Past Family History Mother Family Medical History: Blood Disorder, Cancer Additional Family Medical History / Comment(s): bone cancer , pt unsure if mother or sister had blood disorder with "vitamin k" Sister(s) Family Medical History: Blood Disorder Medications and Allergies Home Medications Medication Instructions Recorded Confirmed Type Montelukast [Singulair] 10 mg PO HS 03/29/14 05/30/24 History Furosemide [Lasix] 20 mg PO DAILY 11/17/20 05/30/24 History Anastrozole [Arimidex] 1 mg PO DAILY 03/23/21 05/30/24 History Meclizine [Antivert] 12.5 mg PO DAILY PRN 03/16/22 05/30/24 History Galantamine HBr [Razadyne ER] 16 mg PO HS 09/30/22 05/30/24 History Levothyroxine Sodium [Synthroid] 100 mcg PO DAILY 09/30/22 05/30/24 History allopurinoL 300 mg PO DAILY 09/30/22 05/30/24 History buPROPion HCL [Wellbutrin SR] 200 mg PO DAILY 09/30/22 05/30/24 History rOPINIRole HCL [Requip] 0.5 mg PO HS 04/27/23 05/30/24 History Cetirizine HCl [Zyrtec] 10 mg PO DAILY 04/25/24 05/30/24 History Glimepiride [Amaryl] 2 mg PO DAILY 05/12/24 05/30/24 History Ramelteon 8 mg PO HS 05/12/24 05/30/24 History ALPRAZolam [Xanax] 0.25 mg PO TID PRN 05/30/24 05/30/24 History Aspirin EC [Ecotrin Low Dose] 81 mg PO DAILY 05/30/24 05/30/24 History Atorvastatin [Lipitor] 10 mg PO HS 05/30/24 05/30/24 History Cholestyramine (with Sugar) 4 gm PO BID 05/30/24 05/30/24 History [Cholestyramine Packet] Cranberry 25,200mg 1 tab PO DAILY 05/30/24 05/30/24 History Metoprolol Tartrate [Lopressor] 50 mg PO BID 05/30/24 05/30/24 History amLODIPine [Norvasc] 5 mg PO DAILY 05/30/24 05/30/24 History Allergies Allergy/AdvReac Type Severity Reaction Status Date / Time amoxicillin Allergy Unknown TAKEN FROM Verified 05/12/24 20:24 DR OLIVER'Young NOTES Iodine and Iodide Containing Allergy Unknown TESTED Verified 05/12/24 20:24 Produc POSITIVE FOR SHELLFISH prednisone Allergy Unknown TAKEN FROM Verified 05/12/24 20:24 DR FISHER NOTES adhesive Allergy blisters, Verified 05/12/24 20:24 itching shellfish derived Allergy TESTED Verified 05/12/24 20:24 POSITIVE WITH ALLERGY TESTING. gluten AdvReac vomiting, Verified 05/12/24 20:24 diarrhea Penicillins AdvReac Rash/Hives Verified 05/12/24 20:24 antibiotics AdvReac Diarrhea Uncoded 05/12/24 19:02 Surgical - Exam Vital Signs Temp Pulse Resp BP Pulse Ox 98.8 F 98 17 130/73 96 05/30/24 15:04 05/30/24 15:04 05/30/24 15:04 05/30/24 15:04 05/30/24 15:04 - Cardiovascular There is diminished pedal pulses of the posterior tibial as well as dorsalis pedis pulse bilateral there is no digital hair x 10 extremities are cool to cool bilateral patient has venous insufficiency of bilateral lower extremities there is decreased skin temperature texture as well as tugor bilateral - Integumentary The integument is intact without lesions bilateral - Neurologic Patient has diminished but intact sensations of bilateral lower extremities. - Musculoskeletal Patient inverters everters plantar flexors dorsiflexors are grossly intact s ymmetric bilateral there is some generalized muscle weakness 3.5-4.0/5 bilateral. Range of motion of the ankle joint subtalar joint midtarsal as well as metatarsal phalangeal joints are intact without pain or crepitus bilateral. With direct palpation to the distal fibula patient has mild pain. In this area there is no ecchymosis no increased temperature. Review of radiographs show a possible distal fibular fracture and good apposition alignment without any separation. There is no callus formation the soft tissue about the area of injury shows no increased density or volume.Also on radiographs. Patient is wearing the ankle stirrup mentioned previously Results - Labs 05/31/24 01:00 05/31/24 01:00 Abnormal Lab Results - Last 24 Hours (Table) 10/13/24 Range/Units 15:00 Ur Leukocyte Esterase Large H (Negative) Urine WBC 12 H (0-5) /hpf Urine Bacteria Rare H (None) /hpf Microbiology - Last 24 Hours (Table) 05/30/24 21:44 Blood Culture - Preliminary Blood Assessment and Plan Assessment: Distal fibular fracture non-displaced right Plan: Exam discussed with patient as well as patient's daughter was present during the exam. We discussed with the patient and daughter that this fracture is in good apposition alignment and may have been present for some time as there is no edema erythema ecchymosis or any soft tissue findings consistent with a acute fracture. With that said wearing the ankle stirrup for a few weeks to help prevent any reinjury into help possibly aid in a continuing healing of the area may be helpful. Patient does have generalized lower extremity muscle weakness and patient would benefit from physical therapy for this. Did advise patient as well as patient's daughter to have follow-up radiographs of the area in a few weeks which we can perform in the office after discharge. Thank you for this consultation
[2024-06-01 16:40] LABS: Glucose,Whole Blood 69 mg/dL (70-110)
[2024-06-01 17:38] LABS: Glucose,Whole Blood 78 mg/dL (70-110)
--- NOTE | 2024-06-01 18:03 | P.PAINPG ---
Objective - Vital Signs Vital signs: Vital Signs Temp 97.5 F L 06/01/24 15:51 Pulse 75 06/01/24 15:51 Resp 16 06/01/24 15:51 BP 126/75 06/01/24 15:51 Pulse Ox 96 06/01/24 15:51 FiO2 Intake & Output 05/31/24 06/01/24 06/01/24 18:59 06:59 18:59 Intake Total 10 764 Output Total 700 1450 400 Balance -690 -1450 364 Weight 91 kg Intake: Intake, IV Titration 50 Amount cefTRIAXone 1 gm In 50 Sodium Chloride 0.9% 50 ml @ 100 mls/hr IVPB Q12HR PAULINE Rx#:[id number] Oral 10 714 Output: Urine 700 1450 400 Other: Voiding Method External Catheter External Catheter External Catheter - Labs CBC & Chem 7: 05/31/24 01:00 05/31/24 01:00 Labs: Abnormal Lab Results - Last 24 Hours (Table) 06/01/24 Range/Units 16:36 POC Glucose (mg/dL) 69 L (70-110) mg/dL Microbiology - Last 24 Hours (Table) 05/31/24 15:00 Urine Culture - Preliminary Urine,Voided 05/30/24 21:44 Blood Culture - Preliminary Blood PQRS Measure Charge Sheet Comment: HISTORY OF PRESENT ILLNESS: A 83 yr old inpatient female as a referral from Dr Patino presents today w severe and chronic LBP > 1 yr secondary to radiculopathy, spondylosis and facet arthropathy without myelopathy for evaluation. Pt is confused at this time about location or intensity of pain but CT imaging results from 05/31/24 show pt has L4-L5 spondylolisthesis and severe spinal stenosis as well as multilevel disc bulges. Pain appears to be provoked by any movement. Pain is alleviated by me dications (MS 4mg IV q4h prn, Tyl 650mg q6h prn, ASA 81mg QD, Narcan prn), repositioning and rest . Pt is also on ASA 81mg having one dose on 05/31/24 and another dose 06/01/24 at 9am per nursing staff. She will be going to rehab soon. PMH: Asthma, R Breast CA, NIDDM II, [place], Hyperlipidemia, HTN, Memory Impairment, CRD, CELI, Hx Gout, Hypothyroidism, MDD PSH: Appendectomy, BL Breast Biopsy, R Breast Lumpectomy, Cholecystectomy, Heart Catheterization, Hysterectomy, BL Knee Replacement, BL Cataract Extractions, Skin CA Resections, Colonoscopy SH: Former tobacco user, No ETOH use, No illicit drug use FH: Mo- Bone CA. Sis- Blood Disorder All: See list Meds: See list REVIEW OF ORGAN SYSTEMS: CONSTITUTIONAL: No fevers or chills. No recent weight loss. NEUROLOGICAL: + numbness and tingling along the distal extremities. No seizure disorders or headaches. MUSCULOSKELETAL: + pain PSYCHIATRIC: Denies current depression or suicidal thoughts. Physical Examinations : Constitutional : Cooperative , not in acute distress . Neurologic : Cranial nerve II to XII intact. No focal neurological deficits. Psychiatric : alert & oriented x 3. Matching mood & appropriate affect. Judgment & insight intact. Musculoskeletal : Cervical Spine Motor strength in the deltoid and biceps: Normal right side. Normal Left side Motor strength biceps and the wrist extensors: Normal right side . Normal left side Motor strength in the triceps muscle: Normal right side. Normal left side Deep tendon reflexes: Normal at the biceps. Normal at Brachioradialis. Normal at triceps Vertebral body tenderness to deep palpation over Cervical facet loading test: positive bilaterally Spurling test: positive bilaterally Neck distraction test: positive bilaterally Marycruz sign: positive bilaterally Lumbar spine Motor strength lower extremities ,thigh and legs 5/5 Right side , 5/5 Left side Deep tendon reflexes : Normal Knee Jerk. Normal Ankle Jerk Vertebral body tenderness over L4 [place] Valle Test positive Lumbar facet Loading Test: positive Right / positive Left Range of motion of the lumbar spine Flexion 30 degrees, extension 10 degrees Straight Leg Raise test: Left/ Right positive at < 30 degrees Gama test: positive right / positive left. Severe tenderness over the Sacroiliac joint on the Right / Left sides Gaenslen test: positive bilaterally Seated flexion test: positive bilaterally. Sacral spine : Severe tenderness over the Sacroiliac joint: right side / left side Range of motion: Flexion of the lumbar spine <60 degrees Range of motion: Extension of the lumbar spine <20 degrees Gaenslen's Test positive Gama test: positive right side / left side Thigh Thrust Test Sacral Thrust Test Imaging: CT non contrast lumbar spine from 05/31/24 reviewed Assessment/ Plan : L4-L5 spondylolisthesis w severe spinal canal stenosis Recommendation of medication management at this time. Pt is not an DENISHA candidate due to Aspirin administration as well as Lovenox. She may follow up at our clinic on an outpatient basis. All questions answered. I have spent greater than 30 minutes on patient care today. Dr Ramos was available by phone for the evaluation of this patient. The time was used to review the medical records including relevant urine studies and Prescription history (MAPs), review of the available imaging, evaluation and examination of the patient, coordination of care with the medical staff and if applicable referring physicians, as well as creation of the medical record - Pain Location Right Knee Non-Pharmacological Interventions: Distraction, Elevation, Ice Pharmacological Interventions: PRN Medication PQRS Narrative: Smoking Status Former smoker Blood Pressure [Left Arm 126/75 Supine] Blood Pressure 164/86 Pain Intensity [Right Knee] 0 Pain Intensity 2 Pain Scale Used Numeric (1 - 10) Scale Used Enoc (Faces) Home Medications: Ambulatory Orders Montelukast [Singulair] 10 mg PO HS 03/29/14 Furosemide [Lasix] 20 mg PO DAILY 11/17/20 Anastrozole [Arimidex] 1 mg PO DAILY 03/23/21 Meclizine [Antivert] 12.5 mg PO DAILY PRN 03/16/22 Galantamine HBr [Razadyne ER] 16 mg PO HS 09/30/22 Levothyroxine Sodium [Synthroid] 100 mcg PO DAILY 09/30/22 allopurinoL 300 mg PO DAILY 09/30/22 buPROPion HCL [Wellbutrin SR] 200 mg PO DAILY 09/30/22 rOPINIRole HCL [Requip] 0.5 mg PO HS 04/27/23 Cetirizine HCl [Zyrtec] 10 mg PO DAILY 04/25/24 Glimepiride [Amaryl] 2 mg PO DAILY 05/12/24 Ramelteon 8 mg PO HS 05/12/24 ALPRAZolam [Xanax] 0.25 mg PO TID PRN 05/30/24 Aspirin EC [Ecotrin Low Dose] 81 mg PO DAILY 05/30/24 Atorvastatin [Lipitor] 10 mg PO HS 05/30/24 Cholestyramine (with Sugar) [Cholestyramine Packet] 4 gm PO BID 05/30/24 Cranberry 25,200mg 1 tab PO DAILY 05/30/24 Metoprolol Tartrate [Lopressor] 50 mg PO BID 05/30/24 amLODIPine [Norvasc] 5 mg PO DAILY 05/30/24 Controlled Substance Measures - Controlled Substance Measures Is patient prescribed a controlled substance at discharge?: No
[2024-06-01 18:04] LABS: Glucose,Whole Blood 101 mg/dL (70-110)
[2024-06-01 19:51] LABS: Glucose,Whole Blood 131 mg/dL (70-110)
[2024-06-01] MEDS: ALPRAZolam 0.25 MG TAB PO PRN (20:26)
[2024-06-01] MEDS: ACETAMINOPHEN TAB 325 MG TAB PO PRN (20:26)
--- NOTE | 2024-06-01 21:06 | P.PN ---
Subjective Progress Note Date: 06/01/24 HISTORY OF PRESENT ILLNESS: 83-year-old with active medical history of atherosclerotic heart disease, right- sided breast cancer, hypertension, hyperlipidemia, history of dementia, obstructive sleep apnea, hypothyroidism, recurrent diverticulitis, history of skin cancer, history of asthma, chronic lower back pain who was hospitalized in April for intractable lower back pain with known severe spinal stenosis and mild bulging disc in the L2-L3 area was in the hospital for few days could not ambulate and walk started physical therapy and Occupational Therapy and eventually was sent to subacute rehab where patient was then for the last 3 weeks was released apparently within the last few days she brought to the emergency department by EMS today because of complaining of weakness, not been able to ambulate and walk with severe weakness of the lower extremity with pressure and discomfort in her lower back worsening symptoms along with worsening symptoms of burning with urination mild altered mental status and not been able to eat or drink. Worsening dehydration. Was seen and evaluated her BUN was 32 creatinine 0.66 UA was significantly positive her troponin was elevated on admission without specific complaint of acute chest pain or angina at the time. EKG did not show any active or acute change she had sinus tachycardia with mild PVCs and left anterior fascicular block. With her current complaint chest x-ray did not show any acute cardiopulmonary process her knee and ankle x-ray shows inferior lateral malleolus fracture of the ankle area of the right side. Knee x-ray shows medial soft tissue swelling but no sign of fracture. In general patient was diagnosed with altered mental status, UTI with early sepsis, elevated troponin with possible non-ST KS. She will be admitted to the hospital initiate Rocephin 1 g IV daily will consult cardiology she had an echocardiogram when she was in last time no need to run although unless there is a drastic change cardiovascular brown. As for her mobility and complaining of lower back pain not been able to ambulate and walk all testing done from last time when she was in for her spinal stenosis of lumbar spine and no new injury require any new study at this point. 05/31/2024: Mental status has improved significantly through the night, blood work showing white blood cells down 7.8, kidney function has improved with GFR still running at 79, urine culture was sent, troponin was elevated they were consulted for cardiology seen patient and agree with mild heart failure preserved ejection fraction with mild exacerbation moderate elevation of troponin with a flat pattern less likely to be acute coronary syndrome to continue medical management. Also with significant lower back pain and recurrent spine problem consult orthopedic/spine will be seeing patient in consu ltation and he might comment on the inferior lateral malleolus fracture of the right ankle in the meanwhile continue to use a brace at this point. Patient mobility still significantly decreased has been in bed responding to current antibiotic has been much better other vitals are going significantly well. 06/01/2024: UTI has been better managed with current antibiotics, patient is seen Ortho/spine surgical intervention service to look into was going on with the back cane with her current complaint in their opinion patient is not require any surgical intervention is to continue PT OT continue conservative management. Also had seen cardiology and decided to switch her from IV diuretics to oral but apparently the use of Bumex 1 mg daily continue to increase activity while watching patient symptoms careful there is slight improvement no chest pain or angina no further elevation in troponin. REVIEW OF SYSTEMS: CONSTITUTIONAL: Elderly laying in bed no acute respiratory distress. EYES: No icterus sclerae, no conjunctivitis. EARS, NOSE, MOUTH, THROAT, and FACE: No sore throat, lymphadenopathy, carotid bruits or deformity. RESPIRATORY: Slight shortness of breath no cough or wheezes. CARDIOVASCULAR: Positive PND orthopnea palpitation no angina . PND, Orthopnea, or angina. mild bradycardia with exertional shortness of breath GASTROINTESTINAL: No Abd pain, Nausea or vomiting, no Diarrhea or constipation, No GI Bleed, no distention or masses. GENITOURINARY: Negative for Hematuria or UTI, no kidney stones. INTEGUMENT/BREAST: Negative for any muscular injury with mild osteoarthritis.. HEMATOLOGIC/LYMPHATIC: Negative for bleed or purpura. MUSCULOSKELTAL: Generalized arthralgia and myalgia specially the right lower extremity. With slight swelling in the right knee and mild pain and discomfort in the ankle area. NEURLOGICAL: Numbness and weakness in the right leg with significant normal balance and gait and memory loss. BEHAVIORAL/PSYCH: Negative. ENDOCRINE: Negative. PHYSICAL EXAMINATION: General Appearance: Alert, cooperative, no distress, appears stated age. Neck HEENT: Supple, no lymphadenopathy, no thyroid enlargement, no carotid bruits. Lungs: Decreased breath sound bilaterally fine rhonchi no crackles pause mild expiratory wheezes. Chest Wall: Decreased expansion with deep inspiration no tenderness and no deformity was found on exam, no costochondral pain or discomfort. Heart: Regular rate and rhythm, S1, S2 has S3 positive bradycardia mild systolic murmur. Back: Symmetric, no curvature, ROM normal, no CVA tenderness. Abdomen: Soft, non-tender, bowel sounds active all four quadrants, no masses, no organomegaly. Extremities: Right knee has slight swelling with no restriction, right ankle has medial aspect mild swelling and discomfort positive pulses dorsalis pedis. Pulses: 2+ and symmetric. Skin: Skin color, texture, tugor normal, no rashes or lesions. Neurologic: Alert oriented with slight confusion cranial nerves II through XII intact, positive slight weakness in the right leg with abnormal balance and gait. ASSESSMENT AND PLAN: _Altered mental status: Most likely secondary to UTI with early sepsis, has done very well with current antibiotic and hydration culture still pending at this point. _UTI with early sepsis : Culture is not back yet continue Rocephin for now. _Elevated troponin with possible non-ST KS: See cardiology echocardiogram was done recently patient had well-preserved ejection fraction and systolic congestive heart failure continue medical management which elevated troponin considered to be type II myocardial infarction as a respond reaction mostly. _Mild acute on chronic heart failure with preserved ejection fraction at 55 percentile, will continue current medical management still on diuretics for transition of diuretics to oral Bumex 1 mg daily. _Severe lower back pain with severe spinal stenosis and degenerative disc disease was treated last time with Ortho/spine consult was on Lyrica, tramadol and had steroid use at the time. Do not see any reason for surgical intervention at this point. _ inferior lateral malleolus fracture of the ankle more like distal fibular fracture nondisplaced will continue to use a brace, continue to strengthen the lower extremity with physical therapy and probably rehab. _Type 2 diabetes: Has been on pioglitazone and glimepiride continue Accu-Chek with sliding scale as tolerated. Blood sugars well-controlled on current medication with Accu-Chek showing a blood sugar in the low 100s. _Hypertension: Remain on losartan, amlodipine and metoprolol titrate losartan if needed. _Worsening cognitive has been on galantamine will continue medication. _Chronic pain syndrome: Has been on tramadol and pregabalin. Increase pregabalin up to 50 mg twice a day as needed. _Mild dyspnea with exertion with history of well-preserved ejection fraction systolic congestive heart failure: Has been on furosemide along with losartan and metoprolol continue medication titrate dose if needed and can switch to IV furosemide as patient is more symptomatic. _Hypothyroidism: Continue levothyroxine at 100 mcg daily. TSH has been normal but free T4 has been elevated to reduce levothyroxine from 100 mcg to 88 mcg. _History of breast cancer: Doing well so far still on Arimidex. _Chronic depression: Continue Wellbutrin and resume her home meds. Discussion: She is seen all Subspecialist need to addition to consult pain management for lumbar spine for and fifth apparently the patient would not be a good candidate for epidural injection specially being on Plavix and aspirin for now but further evaluation by anesthesia for pain management will be a good idea. Objective - Vital Signs Vital signs: Vital Signs Temp 98.4 F 06/01/24 00:00 Pulse 61 06/01/24 00:00 Resp 16 06/01/24 00:00 BP 109/68 06/01/24 00:00 Pulse Ox 92 L 06/01/24 00:00 FiO2 Intake & Output 05/31/24 05/31/24 06/01/24 06:59 18:59 06:59 Intake Total 780 10 Output Total 700 1450 Balance 780 -690 -1450 Weight 94.5 kg Intake: Oral 780 10 Output: Urine 700 1450 Other: Voiding Method External Catheter External Catheter - Labs CBC & Chem 7: 05/31/24 01:00 05/31/24 01:00 Labs: Abnormal Lab Results - Last 24 Hours (Table) 05/31/24 Range/Units 15:00 Ur Leukocyte Esterase Large H (Negative) Urine WBC 12 H (0-5) /hpf Urine Bacteria Rare H (None) /hpf
[2024-06-02 06:00] LABS: Glucose,Whole Blood 110 mg/dL (70-110)
[2024-06-02 06:57] LABS: HGB 12.1 gm/dL (11.4-16.0); MCH 28.5 pg (25.0-35.0); MCHC 32.7 g/dL (31.0-37.0); Mean Platelet Volume 8.4; Platelet Count 383 k/uL (150-450); RBC 4.26 m/uL (3.80-5.40); RDW 14.8 % (11.5-15.5)
[2024-06-02 07:18] LABS: ALT 12 U/L (4-34); AST 20 U/L (14-36); African American GFR (CKD) 86 (>60 ml/min/1.73 sqM); Albumin 3.1 g/dL (3.5-5.0); Alkaline Phosphatase 97 U/L (38-126); Anion Gap 13 mmol/L; Blood Urea Nitrogen 29 mg/dL (7-17); Calcium 9.3 mg/dL (8.4-10.2); Carbon Dioxide 25 mmol/L (22-30); Chloride 100 mmol/L (98-107); Glucose 117 mg/dL (74-99); Non-African American GFR(CKD) 75 (>60 ml/min/1.73 sqM); Potassium 3.1 mmol/L (3.5-5.1); Sodium 138 mmol/L (137-145); Total Bilirubin 0.6 mg/dL (0.2-1.3); Total Protein 5.9 g/dL (6.3-8.2)
--- NOTE | 2024-06-02 07:38 | P.DS ---
Providers Date of admission: 06/01/24 10:02 Attending physician: Poli Salinas Consults: 05/30/24 23:27 Consult Physician Routine Consulting Provider: Jensen Jaimes Consult Reason/Comments: NSTEMI Do you want consulting provider notified?: Yes 05/30/24 23:30 Consult Physician Routine Consulting Provider: Woody Patino Consult Reason/Comments: Back pain and spinal stenosis Do you want consulting provider notified?: Yes 06/01/24 07:39 Consult Physician Routine Consulting Provider: Matthew Ni Consult Reason/Comments: R Foot Fx Do you want consulting provider notified?: Yes 06/01/24 09:11 Consult Physician Routine Consulting Provider: Mamadou Ramos Consult Reason/Comments: pain management - L4-L5 spondylolisthesis, possible DENISHA Do you want consulting provider notified?: Yes Primary care physician: [facility] Course: HISTORY OF PRESENT ILLNESS: 83-year-old with active medical history of atherosclerotic heart disease, right- sided breast cancer, hypertension, hyperlipidemia, history of dementia, obstructive sleep apnea, hypothyroidism, recurrent diverticulitis, history of skin cancer, history of asthma, chronic lower back pain who was hospitalized in April for intractable lower back pain with known severe spinal stenosis and mild bulging disc in the L2-L3 area was in the hospital for few days could not ambulate and walk started physical therapy and Occupational Therapy and eventually was sent to subacute rehab where patient was then for the last 3 weeks was released apparently within the last few days she brought to the em ergency department by EMS today because of complaining of weakness, not been able to ambulate and walk with severe weakness of the lower extremity with pressure and discomfort in her lower back worsening symptoms along with worsening symptoms of burning with urination mild altered mental status and not been able to eat or drink. Worsening dehydration. Was seen and evaluated her BUN was 32 creatinine 0.66 UA was significantly positive her troponin was elevated on admission without specific complaint of acute chest pain or angina at the time. EKG did not show any active or acute change she had sinus tachycardia with mild PVCs and left anterior fascicular block. With her current complaint chest x-ray did not show any acute cardiopulmonary process her knee and ankle x-ray shows inferior lateral malleolus fracture of the ankle area of the right side. Knee x-ray shows medial soft tissue swelling but no sign of fracture. In general patient was diagnosed with altered mental status, UTI with early sepsis, elevated troponin with possible non-ST NH. She will be admitted to the hospital initiate Rocephin 1 g IV daily will consult cardiology she had an echocardiogram when she was in last time no need to run although unless there is a drastic change cardiovascular brown. As for her mobility and complaining of lower back pain not been able to ambulate and walk all testing done from last time when she was in for her spinal stenosis of lumbar spine and no new injury require any new study at this point. 05/31/2024: Mental status has improved significantly through the night, blood work showing white blood cells down 7.8, kidney function has improved with GFR still running at 79, urine culture was sent, troponin was elevated they were consulted for cardiology seen patient and agree with mild heart failure preserved ejection fraction with mild exacerbation moderate elevation of troponin with a flat pattern less likely to be acute coronary syndrome to co ntinue medical management. Also with significant lower back pain and recurrent spine problem consult orthopedic/spine will be seeing patient in consultation and he might comment on the inferior lateral malleolus fracture of the right ankle in the meanwhile continue to use a brace at this point. Patient mobility still significantly decreased has been in bed responding to current antibiotic has been much better other vitals are going significantly well. 06/01/2024: UTI has been better managed with current antibiotics, patient is seen Ortho/spine surgical intervention service to look into was going on with the back cane with her current complaint in their opinion patient is not require any surgical intervention is to continue PT OT continue conservative management. Also had seen cardiology and decided to switch her from IV diuretics to oral but apparently the use of Bumex 1 mg daily continue to increase activity while watching patient symptoms careful there is slight improvement no chest pain or angina no further elevation in troponin. 06/02/2024: Patient is doing well for final culture is not complete with patient most likely have E. coli has been responding really well to Rocephin 1 g daily will switch her to cefuroxime to 50 mg twice a day for total of 3 more days to finish her treatment management. Patient was seen by pain management yesterday arrangement is to continue her medication specially pain meds and muscle relaxer she had spinal stenosis and trouble with radiculopathy the problem with her lumbar spine at some point to benefit from epidural injection and having to be on Lovenox and aspirin while she is in the hospital cannot do epidural at this point something can be arranged as an outpatient. Medication with cardiology was switch patient is on oral furosemide which are congestive heart failure and fluid overload doing much better with it. Patient has been doing physical therapy and if she is doing well today hopefully be able to transfer to one of the short term rehab and prison [facility] or [facility] her choice. REVIEW OF SYSTEMS: CONSTITUTIONAL: Elderly laying in bed no acute respiratory distress. EYES: No icterus sclerae, no conjunctivitis. EARS, NOSE, MOUTH, THROAT, and FACE: No sore throat, lymphadenopathy, carotid bruits or deformity. RESPIRATORY: Slight shortness of breath no cough or wheezes. CARDIOVASCULAR: Positive PND orthopnea palpitation no angina . PND, Orthopnea, or angina. mild bradycardia with exertional shortness of breath GASTROINTESTINAL: No Abd pain, Nausea or vomiting, no Diarrhea or constipation, No GI Bleed, no distention or masses. GENITOURINARY: Negative for Hematuria or UTI, no kidney stones. INTEGUMENT/BREAST: Negative for any muscular injury with mild osteoarthritis.. HEMATOLOGIC/LYMPHATIC: Negative for bleed or purpura. MUSCULOSKELTAL: Generalized arthralgia and myalgia specially the right lower extremity. With slight swelling in the right knee and mild pain and discomfort in the ankle area. NEURLOGICAL: Numbness and weakness in the right leg with significant normal balance and gait and memory loss. BEHAVIORAL/PSYCH: Negative. ENDOCRINE: Negative. PHYSICAL EXAMINATION: General Appearance: Alert, cooperative, no distress, appears stated age. Neck HEENT: Supple, no lymphadenopathy, no thyroid enlargement, no carotid bruits. Lungs: Decreased breath sound bilaterally fine rhonchi no crackles pause mild expiratory wheezes. Chest Wall: Decreased expansion with deep inspiration no tenderness and no deformity was found on exam, no costochondral pain or discomfort. Heart: Regular rate and rhythm, S1, S2 has S3 positive bradycardia mild systolic murmur. Back: Symmetric, no curvature, ROM normal, no CVA tenderness. Abdomen: Soft, non-tender, bowel sounds active all four quadrants, no masses, no organomegaly. Extremities: Right knee has slight swelling with no restriction, right ankle has medial aspect mild swelling and discomfort positive pulses dorsalis pedis. Pulses: 2+ and symmetric. Skin: Skin color, texture, tugor normal, no rashes or lesions. Neurologic: Alert oriented with slight confusion cranial nerves II through XII intact, positive slight weakness in the right leg with abnormal balance and gait. ASSESSMENT AND PLAN: _Altered mental status: Most likely secondary to UTI with early sepsis, has done very well with current antibiotic and hydration culture still pending at this point. _UTI with early sepsis : Culture is not back yet continue Rocephin for now. _Elevated troponin with possible non-ST NH: See cardiology echocardiogram was done recently patient had well-preserved ejection fraction and systolic congestive heart failure continue medical management which elevated troponin considered to be type II myocardial infarction as a respond reaction mostly. _Mild acute on chronic heart failure with preserved ejection fraction at 55 percentile, will continue current medical management still on diuretics for transition of diuretics to oral Bumex 1 mg daily. _Severe lower back pain with severe spinal stenosis and degenerative disc disease was treated last time with Ortho/spine consult was on Lyrica, tramadol and had steroid use at the time. Do not see any reason for surgical intervention at this point. _ inferior lateral malleolus fracture of the ankle more like distal fibular fracture nondisplaced will continue to use a brace, continue to strengthen the lower extremity with physical therapy and probably rehab. _Type 2 diabetes: Has been on pioglitazone and glimepiride continue Accu-Chek with sliding scale as tolerated. Blood sugars well-controlled on current medication with Accu-Chek showing a blood sugar in the low 100s. _Hypertension: Remain on losartan, amlodipine and metoprolol titrate losartan if needed. _Worsening cognitive has been on galantamine will continue medication. _Chronic pain syndrome: Has been on tramadol and pregabalin. Increase pregabalin up to 50 mg twice a day as needed. _Mild dyspnea with exertion with history of well-preserved ejection fraction systolic congestive heart failure: Has been on furosemide along with losartan and metoprolol continue medication titrate dose if needed and can switch to IV furosemide as patient is more symptomatic. _Hypothyroidism: Continue levothyroxine at 100 mcg daily. TSH has been normal but free T4 has been elevated to reduce levothyroxine from 100 mcg to 88 mcg. _History of breast cancer: Doing well so far still on Arimidex. _Chronic depression: Continue Wellbutrin and resume her home meds. Discussion: She is doing great and stable medically should be able to get her discharged to one of the subacute rehab for 2 weeks for physical therapy and making arrangement probably for outpatient follow-up at the wound clinic for possible epidural injection. Hospital course: She was admitted to the hospital on 05/30/2024 after leaving [facility] for spe nding 3 weeks to subacute rehab currently did not do well at this time she was not able to ambulate walk and had severe weakness of the lower extremity with pressure and discomfort with worsening symptoms EMS was called to the house and 05/30/2024 patient brought to the emergency department with slight altered mental status and worsening confusion at the time was seen was slightly bit dehydrated with BUN 32 creatinine 0.66 significant positive UA for infection and troponin was mildly elevated only EKG did not show any major change x-ray shows mild venous congestion consistent with probably mild congestive heart failure without any evidence placed for acute NH. Patient was started on Rocephin 1 g daily admitted to the hospitalist to see cardiology echocardiogram was ordered also ordered to see Ortho/spine for possible intervention needed on the lumbar spine that patient was seen by Dominique Mantilla from last service. Also patient had fallen and had slight fracture of the distal tibial bone in her left ankle area will consult podiatry for that purpose as well. Patient had responded very well to the current antibiotics he was seen Ortho/spine and decided no intervention required with the consult pain management for possible epidural work patient was seen and evaluated and felt to be a good candidate for epidural of the lumbar spine but being on anticoagulation would not be able to do her epidural injection for the time being was giving past to stay on muscle relaxer and pain management and to follow-up as an outpatient. Also seen podiatry for her distal tibial fracture of the ankle area felt to be on the braces all with the need for the time being. She seen cardiology she had preserved ejection fraction congestive heart failure mostly systolic dysfunction and felt to be on the right medication including diuretics to be more helpful. Patient initially was started on IV furosemide and switch to oral her medication were adjusted and titrated well she was switched to oral cefuroxime from Rocephin IV and she will be able hopefully to go to short-term rehab today 06/02/2024. Time spent on patient discharge was over 35 minutes. Plan - Discharge Summary Discharge Rx Participant: No New Discharge Prescriptions: New Acetaminophen Tab [Tylenol] 650 mg PO Q6HR PRN tab PRN Reason: Mild Pain Or Fever > 100.5 Cefuroxime [Ceftin] 250 mg PO BID 3 Days #6 tab Bumetanide [BUMEX] 1 mg PO DAILY tab Continue Montelukast [Singulair] 10 mg PO HS Meclizine [Antivert] 12.5 mg PO DAILY PRN PRN Reason: Vertigo Levothyroxine Sodium [Synthroid] 100 mcg PO DAILY buPROPion HCL [Wellbutrin SR] 200 mg PO DAILY allopurinoL 300 mg PO DAILY Cetirizine HCl [Zyrtec] 10 mg PO DAILY Metoprolol Tartrate [Lopressor] 50 mg PO BID Cranberry 25,200mg 1 tab PO DAILY Cholestyramine (with Sugar) [Cholestyramine Packet] 4 gm PO BID Atorvastatin [Lipitor] 10 mg PO HS Aspirin EC [Ecotrin Low Dose] 81 mg PO DAILY Anastrozole [Arimidex] 1 mg PO DAILY Galantamine HBr [Razadyne ER] 16 mg PO HS rOPINIRole HCL [Requip] 0.5 mg PO HS Glimepiride [Amaryl] 2 mg PO DAILY amLODIPine [Norvasc] 5 mg PO DAILY Ramelteon 8 mg PO HS #30 tab ALPRAZolam [Xanax] 0.25 mg PO TID PRN #60 tab PRN Reason: Anxiety Discontinued Furosemide [Lasix] 20 mg PO DAILY Discharge Medication List Montelukast [Singulair] 10 mg PO HS 03/29/14 [History] Anastrozole [Arimidex] 1 mg PO DAILY 03/23/21 [History] Meclizine [Antivert] 12.5 mg PO DAILY PRN 03/16/22 [History] Galantamine HBr [Razadyne ER] 16 mg PO HS 09/30/22 [History] Levothyroxine Sodium [Synthroid] 100 mcg PO DAILY 09/30/22 [History] allopurinoL 300 mg PO DAILY 09/30/22 [History] buPROPion HCL [Wellbutrin SR] 200 mg PO DAILY 09/30/22 [History] rOPINIRole HCL [Requip] 0.5 mg PO HS 04/27/23 [History] Cetirizine HCl [Zyrtec] 10 mg PO DAILY 04/25/24 [History] Glimepiride [Amaryl] 2 mg PO DAILY 05/12/24 [History] Aspirin EC [Ecotrin Low Dose] 81 mg PO DAILY 05/30/24 [History] Atorvastatin [Lipitor] 10 mg PO HS 05/30/24 [History] Cholestyramine (with Sugar) [Cholestyramine Packet] 4 gm PO BID 05/30/24 [History] Cranberry 25,200mg 1 tab PO DAILY 05/30/24 [History] Metoprolol Tartrate [Lopressor] 50 mg PO BID 05/30/24 [History] amLODIPine [Norvasc] 5 mg PO DAILY 05/30/24 [History] ALPRAZolam [Xanax] 0.25 mg PO TID PRN #60 tab 06/02/24 [Rx] Acetaminophen Tab [Tylenol] 650 mg PO Q6HR PRN tab 06/02/24 [Rx] Bumetanide [BUMEX] 1 mg PO DAILY tab 06/02/24 [Rx] Cefuroxime [Ceftin] 250 mg PO BID 3 Days #6 tab 06/02/24 [Rx] Ramelteon 8 mg PO HS #30 tab 06/02/24 [Rx] Follow up Appointment(s)/Referral(s): Jensen Jaimes MD [Medical Doctor] - 1 Week Milvia Fam MD [Primary Care Provider] - 1-2 days Discharge Disposition: TRANSFER TO SNF/ECF
[2024-06-02] MEDS ORDERED: Potassium Replacement Protocol 1 EACH MISC MISCELLANE PRN (09:38)
[2024-06-02] MEDS: POTASSIUM CHLORIDE ER 20 MEQ TAB.ER PO SCH (09:46)
[2024-06-02 11:06] VITALS: BP 121/77; PULSE 69; RESP 18; TEMP 97.9
--- NOTE | 2024-06-02 11:08 | P.PN ---
Subjective HISTORY OF PRESENT ILLNESS: This is an 83-year-old female who initially came to the hospital due to weakness and confusion. Patient was found to be in mild CHF and was started on IV diuretics. Patient examined this morning the bedside. Patient denies any chest pain or pressure. She denies any shortness of breath. She reports pain to the back of her neck. Vital signs are stable. She has been transition to oral diuretics. 06/02/2024 Patient examined this morning at the bedside. Patient currently denies chest pain or pressure. She denies shortness of breath. Telemetry reveals sinus mechanism. Vital signs are stable. Discharge plans are underway for discharge to [facility] today. PHYSICAL EXAM: VITAL SIGNS: Reviewed. GENERAL: Well-developed in no acute distress. NECK: Supple. No JVD or thyromegaly LUNGS: Respirations even and unlabored. Lungs essentially clear to auscultation bilaterally. HEART: Regular rate and rhythm. S1 and S2 heard. EXTREMITIES: Normal range of motion. No clubbing or cyanosis. Peripheral pulses intact. No lower extremity edema ASSESSMENT: Generalized weakness Altered mental status Mild acute on chronic heart failure with preserved EF, 55% Small right-sided pleural effusion Elevated troponins, type II AK, no evidence of acute coronary syndrome History of mild nonobstructive CAD Hypertension Hyperlipidemia Diabetes History of dementia Debility and frailty PLAN: Continue current cardiac medications Patient is currently stable for discharge from a cardiac standpoint Patient to follow-up postdischarge Consider outpatient stress testing Patient was last seen in the office in 2016. Patient to follow-up postdischarge with Dr. Jaimes Nurse practitioner note has been reviewed by physician. Signing provider agrees with the documented findings, assessment, and plan of care documented by SUCTION OPERATOR as a scribe. Objective - Vital Signs Vital signs: Vital Signs Temp 97.9 F 06/02/24 11:05 Pulse 69 06/02/24 11:05 Resp 18 06/02/24 11:05 BP 121/77 06/02/24 11:05 Pulse Ox 94 L 06/02/24 11:05 FiO2 Intake & Output 06/01/24 06/02/24 06/02/24 18:59 06:59 18:59 Intake Total 882 60 Output Total 400 250 Balance 482 -250 60 Weight 91 kg Intake: IV 10 Invasive Line 2 10 Intake, IV Titration 50 Amount cefTRIAXone 1 gm In 50 Sodium Chloride 0.9% 50 ml @ 100 mls/hr IVPB Q12HR [facility] Rx#:[id number] Oral 832 50 Output: Urine 400 250 Other: Voiding Method External Catheter Diaper Diaper Incontinent Incontinent External Catheter External Catheter # Voids 1 - Labs CBC & Chem 7: 06/02/24 05:18 06/02/24 05:18 Labs: Abnormal Lab Results - Last 24 Hours (Table) 06/01/24 06/01/24 06/02/24 Range/Units 16:36 19:49 05:18 Potassium 3.1 L (3.5-5.1) mmol/L BUN 29 H (7-17) mg/dL Glucose 117 H (74-99) mg/dL POC Glucose (mg/dL) 69 L 131 H (70-110) mg/dL Total Protein 5.9 L (6.3-8.2) g/dL Albumin 3.1 L (3.5-5.0) g/dL Microbiology - Last 24 Hours (Table) 05/31/24 15:00 Urine Culture - Preliminary Urine,Voided 05/30/24 21:44 Blood Culture - Preliminary Blood
[2024-06-02 11:14] LABS: Glucose,Whole Blood 123 mg/dL (70-110)
[2024-06-02] MEDS: IBUPROFEN 400 MG TAB PO PRN (11:37)
[2024-06-02] MEDS: MECLIZINE 12.5 MG TAB PO PRN (11:37)
== END 2024-06-02 12:43 ==
LOC: EC 14:57 → 3SCARD 19:00 → OBSVTOIN 06-01 10:02 → INTOOBSV 06-01 10:02 → UNDODISIN 06-02 12:43
PROVIDERS: ADMIT Internal Medicine Geriatric Medicine; ATTEND Internal Medicine Geriatric Medicine
DX: R41.82 Altered mental status, unspecified (principal); R53.1 Weakness; R53.81 Other malaise; A41.9 Sepsis, unspecified organism; G93.41 Metabolic encephalopathy; N39.0 Urinary tract infection, site not specified; R79.89 Other specified abnormal findings of blood chemistry; E11.22 Type 2 diabetes mellitus with diabetic chronic kidney disease; I13.0 Hypertensive heart and chronic kidney disease with heart failure and stage 1 through stage 4 chronic kidney disease, or unspecified chronic kidney disease; N18.30 Chronic kidney disease, stage 3 unspecified; I50.33 Acute on chronic diastolic (congestive) heart failure; M48.061 Spinal stenosis, lumbar region without neurogenic claudication; G89.4 Chronic pain syndrome; E03.9 Hypothyroidism, unspecified; E66.9 Obesity, unspecified; E78.5 Hyperlipidemia, unspecified; E86.0 Dehydration; F03.93 Unspecified dementia, unspecified severity, with mood disturbance; F32.9 Major depressive disorder, single episode, unspecified; G25.81 Restless legs syndrome; G47.33 Obstructive sleep apnea (adult) (pediatric); I25.10 Atherosclerotic heart disease of native coronary artery without angina pectoris; H91.90 Unspecified hearing loss, unspecified ear; I21.A1 Myocardial infarction type 2; J45.909 Unspecified asthma, uncomplicated; M10.9 Gout, unspecified; M43.16 Spondylolisthesis, lumbar region; M51.16 Intervertebral disc disorders with radiculopathy, lumbar region; R62.7 Adult failure to thrive; N17.9 Acute kidney failure, unspecified; S82.61XA Displaced fracture of lateral malleolus of right fibula, initial encounter for closed fracture; Z79.82 Long term (current) use of aspirin; Z87.891 Personal history of nicotine dependence; Z79.890 Hormone replacement therapy; Z85.3 Personal history of malignant neoplasm of breast; Z79.84 Long term (current) use of oral hypoglycemic drugs; Z79.899 Other long term (current) drug therapy; Z96.653 Presence of artificial knee joint, bilateral; Z88.0 Allergy status to penicillin; Z88.8 Allergy status to other drugs, medicaments and biological substances; Z88.1 Allergy status to other antibiotic agents; Z85.828 Personal history of other malignant neoplasm of skin; Z90.710 Acquired absence of both cervix and uterus; W19.XXXA Unspecified fall, initial encounter
CPT/HCPCS: 96376; 96365; 96366 ×3; 96372 ×3; 96361; 96375; 99285; 36415; 93005; 97162; 97166; 84439; 84481; 83880 ×2; 80053 ×3; 83605; 83735; 84443; 84484 ×2; 85025; 85027 ×2; 85610; 85730; 81001 ×2; 87040; 87086; 87077; 87186; 73562; 73610; 71046; 72131; G0378 ×4; J2270 ×2; J1940; S0106 ×3; J1650 ×3; J0696 ×4; S0170 ×3; 96374

== ENCOUNTER 2024-07-19 15:54 | Emergency (ER) | payer MEDICARE ==
--- NOTE | 2024-07-19 16:02 | ED ---
General Adult HPI - General Chief complaint: Fall Stated complaint: fall Time Seen by Provider: 07/19/24 16:02 Source: patient, EMS Mode of arrival: EMS Limitations: no limitations - History of Present Illness Initial comments: Natasha is a pleasant 84yo F emergency department today via EMS after a fall at home. Patient reports she was recently discharged from inpatient rehab at [facility]. Patient states that she has been doing okay at home. Today she was walking in her hallway with her walker when her legs got weak and she fell backward striking the back of her head. Patient thought she was on an antiplatelet or anticoagulant medication because she knows she is on medication for her heart but there is none listed in her med list. Patient states she has some pain in the back right side of her head no neck pain. No weakness. Patient reports that she has been eating okay since discharge from the rehab facility she is not drinking enough water and she is aware of that. She reports no recent illness no nausea vomiting abdominal pain fevers or chills. - Related Data Home Medications Medication Instructions Recorded Confirmed Montelukast [Singulair] 10 mg PO HS 03/29/14 05/30/24 Anastrozole [Arimidex] 1 mg PO DAILY 03/23/21 05/30/24 Meclizine [Antivert] 12.5 mg PO DAILY PRN 03/16/22 05/30/24 Galantamine HBr [Razadyne ER] 16 mg PO HS 09/30/22 05/30/24 Levothyroxine Sodium [Synthroid] 100 mcg PO DAILY 09/30/22 05/30/24 allopurinoL 300 mg PO DAILY 09/30/22 05/30/24 buPROPion HCL [Wellbutrin SR] 200 mg PO DAILY 09/30/22 05/30/24 rOPINIRole HCL [Requip] 0.5 mg PO HS 04/27/23 05/30/24 Cetirizine HCl [Zyrtec] 10 mg PO DAILY 04/25/24 05/30/24 Glimepiride [Amaryl] 2 mg PO DAILY 05/12/24 05/30/24 Aspirin EC [Ecotrin Low Dose] 81 mg PO DAILY 05/30/24 05/30/24 Atorvastatin [Lipitor] 10 mg PO HS 05/30/24 05/30/24 Cholestyramine (with Sugar) 4 gm PO BID 05/30/24 05/30/24 [Cholestyramine Packet] Cranberry 25,200mg 1 tab PO DAILY 05/30/24 05/30/24 Metoprolol Tartrate [Lopressor] 50 mg PO BID 05/30/24 05/30/24 amLODIPine [Norvasc] 5 mg PO DAILY 05/30/24 05/30/24 Previous Rx's Medication Instructions Recorded ALPRAZolam [Xanax] 0.25 mg PO TID PRN #60 tab 06/02/24 Acetaminophen Tab [Tylenol] 650 mg PO Q6HR PRN tab 06/02/24 Bumetanide [BUMEX] 1 mg PO DAILY tab 06/02/24 Cefuroxime [Ceftin] 250 mg PO BID 3 Days #6 tab 06/02/24 Ramelteon 8 mg PO HS #30 tab 06/02/24 Allergies Allergy/AdvReac Type Severity Reaction Status Date / Time amoxicillin Allergy Unknown TAKEN FROM Verified 05/12/24 20:24 DR OLIVER'S NOTES Iodine and Iodide Containing Allergy Unknown TESTED Verified 05/12/24 20:24 Produc POSITIVE FOR SHELLFISH prednisone Allergy Unknown TAKEN FROM Verified 05/12/24 20:24 DR FISHER NOTES adhesive Allergy blisters, Verified 05/12/24 20:24 itching shellfish derived Allergy TESTED Verified 05/12/24 20:24 POSITIVE WITH ALLERGY TESTING. gluten AdvReac vomiting, Verified 05/12/24 20:24 diarrhea Penicillins AdvReac Rash/Hives Verified 05/12/24 20:24 antibiotics AdvReac Diarrhea Uncoded 05/12/24 19:02 Review of Systems ROS Statement: Those systems with pertinent positive or pertinent negative responses have been documented in the HPI. ROS Other: All systems not noted in ROS Statement are negative. 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 History of Any Multi-Drug Resistant Organisms: None Reported Past Surgical History: Appendectomy, Breast Surgery, Cholecystectomy, Heart Catheterization, Hysterectomy, Joint Replacement Additional Past Surgical History / Comment(s): mena knee replacements, cataracts, surgery for fx finger left hand,skin cancer removed ears, forehead, nose & shoulder, colonoscopy, lt breast biopsy, rt breast biopsy, R breast lumpectomy Past Anesthesia/Blood Transfusion Reactions: Previous Problems w/ Anesthesia, Motion Sickness Additional Past Anesthesia/Blood Transfusion Reaction / Comment(s): high BP. daughter PONV Past Psychological History: Depression Smoking Status: Former smoker Past Alcohol Use History: None Reported Past Drug Use History: None Reported - Past Family History Mother Family Medical History: Blood Disorder, Cancer Additional Family Medical History / Comment(s): bone cancer , pt unsure if mother or sister had blood disorder with "vitamin k" Sister(s) Family Medical History: Blood Disorder General Exam - General Exam Comments Initial Comments: Physical Exam GENERAL: Patient is well-developed and well-nourished Patient is nontoxic and well-hydrated and is in no distress HENT: Normocephalic, Atraumatic. Dry mucous membranes EYES: PERRL, EOMI PULMONARY: Unlabored respirations. CARDIOVASCULAR: RRR Warm and well perfused extremities ABDOMEN: Non-distended SKIN: No rashes or bruising : Deferred NEUROLOGIC: Alert and oriented Normal speech Normal gait MUSCULOSKELETAL: Moving all extremities with no apparent injury PSYCHIATRIC: No SI/HI Limitations: no limitations Course Vital Signs 07/19/24 07/19/24 07/19/24 15:55 16:30 17:00 Temperature 97.7 F Pulse Rate 52 L 51 L 53 L Respiratory 17 17 18 Rate Blood Pressure 105/50 99/46 114/58 O2 Sat by Pulse 98 97 99 Oximetry 07/19/24 07/19/24 07/19/24 17:30 18:00 18:30 Temperature Pulse Rate 57 L 58 L 56 L Respiratory 16 17 17 Rate Blood Pressure 114/58 111/56 116/57 O2 Sat by Pulse 97 97 96 Oximetry 07/19/24 19:00 Temperature Pulse Rate 54 L Respiratory 16 Rate Blood Pressure 115/65 O2 Sat by Pulse 98 Oximetry Medical Decision Making - Medical Decision Making Was pt. sent in by a medical professional or institution (, PA, ROBOTIC MACHINE OPERATOR, urgent care, hospital, or longterm...) When possible be specific @ -No Did you speak to anyone other than the patient for history (EMS, parent, family, police, friend...)? What history was obtained from this source @ -EMS Did you review nursing and triage notes (agree or disagree)? Why? @ -I reviewed and agree with nursing and triage notes Were old charts reviewed (outside hosp., previous admission, EMS record, old EKG, old radiological studies, urgent care reports/EKG's, longterm records)? Report findings @ -No old charts were reviewed Differential Diagnosis (chest pain, altered mental status, abdominal pain women, abdominal pain men, vaginal bleeding, weakness, fever, dyspnea, syncope, headache, dizziness, GI bleed, back pain, seizure, CVA, palpatations, mental health)? @ -Jarret includes closed head injury, brain bleed patient contusion scalp laceration EKG interpreted by me (3pts min.). @ -As above X-rays interpreted by me (1pt min.). @ -None done CT interpreted by me (1pt min.). @ -No obvious mass or bleed U/S interpreted by me (1pt. min.). @ -None done What testing was considered but not performed or refused? (CT, X-rays, U/S, labs)? Why? @ -None What meds were considered but not given or refused? Why? @ -None Did you discuss the management of the patient with other professionals (professionals i.e. REMY Valencia, ROBOTIC MACHINE OPERATOR, lab, RT, psych nurse, social science research assistant, wire rope sling maker, teacher, purchasing officer, case mgr)? Give summary @ -No Was smoking cessation discussed for >3mins.? @ -No Was critical care preformed (if so, how long)? @ -No Were there social determinants of health that impacted care today? How? (Homelessness, low income, unemployed, alcoholism, drug addiction, transportation, low edu. Level, literacy, decrease access to med. care, usp, re hab)? @ -No Was there de-escalation of care discussed even if they declined (Discuss DNR or withdrawal of care, Hospice)? DNR status @ -No What co-morbidities impacted this encounter? (DM, HTN, Smoking, COPD, CAD, Cancer, CVA, ARF, Chemo, Hep., AIDS, mental health diagnosis, sleep apnea, morbid obesity)? @ -None Was patient admitted / discharged? Hospital course, mention meds given and route, prescriptions, significant lab abnormalities, going to OR and other pertinent info. @ -Discharged home Patient was seen and evaluated, history was obtained from the patient and EMS. Patient was walking with a walker when she felt weak and fell backwards hit her head. Physical exam reveals no obvious injuries. Labs and imaging were obtained there is no obvious abnormalities on either. Patient received IV fluids and was feeling better she was straight cathed for urinalysis which showed no signs of infection. Results were discussed with the patient and 2 daughters at bedside at this time they are comfortable with plan for discharge home. Undiagnosed new problem with uncertain prognosis? @ -No Drug Therapy requiring intensive monitoring for toxicity (Heparin, Nitro, Insulin, Cardizem)? @ -No Were any procedures done? @ -No Diagnosis/symptom? @ -Fall at home Acute, or Chronic, or Acute on Chronic? @ -Default Uncomplicated (without systemic symptoms) or Complicated (systemic symptoms)? @ -Default Side effects of treatment? @ -No Exacerbation, Progression, or Severe Exacerbation? @ -No Poses a threat to life or bodily function? How? (Chest pain, USA, DC, pneumonia, PE, COPD, DKA, ARF, appy, cholecystitis, CVA, Diverticulitis, Homicidal, Suicidal, threat to staff... and all critical care pts) @ -No - Lab Data Result diagrams: 07/19/24 16:20 07/19/24 16:20 Lab Results 07/19/24 07/19/24 07/19/24 Range/Units 16:20 16:20 16:20 WBC 5.1 (3.8-10.6) k/uL RBC 3.78 L (3.80-5.40) m/uL Hgb 10.9 L (11.4-16.0) gm/dL Hct 34.1 (34.0-46.0) % MCV 90.0 (80.0-100.0) fL MCH 28.9 (25.0-35.0) pg MCHC 32.1 (31.0-37.0) g/dL RDW 16.5 H (11.5-15.5) % Plt Count 227 (150-450) k/uL MPV 7.8 Neutrophils % 58 % Lymphocytes % 22 % Monocytes % 15 % Eosinophils % 2 % Basophils % 0 % Neutrophils # 3.0 (1.3-7.7) k/uL Lymphocytes # 1.1 (1.0-4.8) k/uL Monocytes # 0.8 (0-1.0) k/uL Eosinophils # 0.1 (0-0.7) k/uL Basophils # 0.0 (0-0.2) k/uL Hypochromasia Slight Anisocytosis Slight Sodium 138 (137-145) mmol/L Potassium 4.0 (3.5-5.1) mmol/L Chloride 106 (98-107) mmol/L Carbon Dioxide 24 (22-30) mmol/L Anion Gap 8 mmol/L BUN 17 (7-17) mg/dL Creatinine 0.84 (0.52-1.04) mg/dL Est GFR (CKD-EPI)AfAm 73 (>60 ml/min/1.73 sqM) Est GFR (CKD-EPI)NonAf 63 (>60 ml/min/1.73 sqM) Glucose 124 H (74-99) mg/dL Calcium 9.4 (8.4-10.2) mg/dL Total Bilirubin 0.5 (0.2-1.3) mg/dL AST 18 (14-36) U/L ALT 9 (4-34) U/L Alkaline Phosphatase 80 (38-126) U/L Total Protein 6.1 L (6.3-8.2) g/dL Albumin 3.4 L (3.5-5.0) g/dL Urine Color Light Yellow Urine Appearance Clear (Clear) Urine pH 5.0 (5.0-8.0) Ur Specific [place] 1.014 (1.001-1.035) Urine Protein Negative (Negative) Urine Glucose (UA) Negative (Negative) Urine Ketones Negative (Negative) Urine Blood Small H (Negative) Urine Nitrite Negative (Negative) Urine Bilirubin Negative (Negative) Urine Urobilinogen <2.0 (<2.0) mg/dL Ur Leukocyte Esterase Negative (Negative) Urine RBC 2 (0-5) /hpf Urine WBC 1 (0-5) /hpf Ur Squamous Epith Cells <1 (0-4) /hpf Urine Mucus Rare H (None) /hpf Disposition Clinical Impression: Fall Disposition: HOME SELF-CARE Condition: Stable Is patient prescribed a controlled substance at d/c from ED?: No Referrals: Milvia Oliver MD [Primary Care Provider] - 1-2 days
[2024-07-19 16:33] LABS: Anisocytosis Slight; Basophils % (A) 0 %; Eosinophils # (A) 0.1 k/uL (0-0.7); Eosinophils % (A) 2 %; HCT 34.1 % (34.0-46.0); HGB 10.9 gm/dL (11.4-16.0); Hypochromasia Slight; Lymphocytes # (A) 1.1 k/uL (1.0-4.8); Lymphocytes % (A) 22 %; MCH 28.9 pg (25.0-35.0); MCHC 32.1 g/dL (31.0-37.0); Mean Platelet Volume 7.8; Monocytes # (A) 0.8 k/uL (0-1.0); Monocytes % (A) 15 %; Neutrophils % (A) 58 %; Platelet Count 227 k/uL (150-450); RBC 3.78 m/uL (3.80-5.40); RDW 16.5 % (11.5-15.5); WBC 5.1 k/uL (3.8-10.6)
[2024-07-19 16:45] LABS: ALT 9 U/L (4-34); AST 18 U/L (14-36); African American GFR (CKD) 73 (>60 ml/min/1.73 sqM); Albumin 3.4 g/dL (3.5-5.0); Alkaline Phosphatase 80 U/L (38-126); Anion Gap 8 mmol/L; Blood Urea Nitrogen 17 mg/dL (7-17); Calcium 9.4 mg/dL (8.4-10.2); Carbon Dioxide 24 mmol/L (22-30); Chloride 106 mmol/L (98-107); Glucose 124 mg/dL (74-99); Non-African American GFR(CKD) 63 (>60 ml/min/1.73 sqM); Sodium 138 mmol/L (137-145); Total Bilirubin 0.5 mg/dL (0.2-1.3); Total Protein 6.1 g/dL (6.3-8.2)
[2024-07-19] MEDS: SODIUM CHLORIDE 0.9% 500 ML 500 ML IV ONE (17:09)
--- NOTE | 2024-07-19 17:13 | CT ---
EXAMINATION TYPE: CT brain cspine wo con DATE OF EXAM: 07/19/2024 4:57 PM COMPARISON: Previous CT study 04/25/2024. CLINICAL INDICATION: Female, 84 years old with history of fall; fall TECHNIQUE: Brain: Multiple axial CT images of the brain were obtained without IV contrast. Cspine: Axial CT images from the skull base to the inferior aspect of T2 we obtained without intraven ous contrast. Coronal and sagittal reformatted images were also reviewed. . CT DLP: 1317.8 mGycm, Automated exposure control for dose reduction was used. FINDINGS: Brain: Extra-axial spaces: No abnormal extra-axial fluid collections. Ventricular system: No acute abnormality. Cerebral parenchyma: No acute intraparenchymal hemorrhage or mass effect. Mild prominence of the henry tricles and sulci compatible generalized cerebral volume loss. Cerebellum: Unremarkable. Mass effect: No evidence of midline shift. Intracranial vasculature: unremarkable Soft tissues: Normal. Calvarium/osseous structures: No depressed skull fracture. Paranasal sinuses and mastoid air cells: Clear. Visualized orbits: Bilateral cataract lens extraction noted. Cervical spine: Fracture: None. Osseous structures: Unremarkable Vertebral alignment: Straightening of the normal cervical spine lordotic curvature. Spinal canal/Neural Foramina: Multilevel facet arthropathy/vertebral hypertrophy in combination with posterior disc osteophyte complexes contributes towards bearing degrees of neural foraminal and spina l canal narrowing. Neck soft tissues: Prevertebral soft tissues are within normal limits. Other: The airway is patent. The lung apices are clear. IMPRESSION: 1. No acute intracranial process. 2. No evidence of cervical spine fracture. 3. Multilevel degenerative disc disease. [facility], , 07/19/2024 5:11 PM
[2024-07-19 19:45] LABS: Appearance,Urine Clear (Clear); Bilirubin,Urine Negative (Negative); Blood,Urine Small (Negative); Color,Urine Light Yellow; Glucose,Urine (UA) Negative (Negative); Ketones,Urine Negative (Negative); Leukocyte Esterase,Urine Negative (Negative); Mucus,Urine Rare /hpf; Nitrite,Urine Negative (Negative); Protein,Urine Negative (Negative); RBC,Urine 2 /hpf (0-5); Specific Gravity,Urine 1.014 (1.001-1.035); Squamous Epithelial Cell,Urine <1 /hpf (0-4); Urobilinogen,Urine <2.0 mg/dL (<2.0); WBC,Urine 1 /hpf (0-5)
[2024-07-19 20:32] VITALS: BP 108/67; PULSE 64; RESP 18; TEMP 97.8
== END 2024-07-19 20:32 | disposition home or self-care (01) ==
LOC: EC 15:54
DX: S09.90XA Unspecified injury of head, initial encounter (principal); Z87.891 Personal history of nicotine dependence; Z88.0 Allergy status to penicillin; Z91.041 Radiographic dye allergy status; Z91.09 Other allergy status, other than to drugs and biological substances; Z91.013 Allergy to seafood; Z88.8 Allergy status to other drugs, medicaments and biological substances; W19.XXXA Unspecified fall, initial encounter; Y93.01 Activity, walking, marching and hiking; Y92.009 Unspecified place in unspecified non-institutional (private) residence as the place of occurrence of the external cause
CPT/HCPCS: 36415; 70450; 72125; 80053; 81001; 85025; 96360; 96361; 99284

== ENCOUNTER 2024-08-06 10:47 | Inpatient (IN) | payer MEDICARE ==
--- NOTE | 2024-08-06 11:29 | ED ---
Altered Mental Status HPI - General Chief Complaint: Altered Mental Status Stated Complaint: rash, ams Time Seen by Provider: 08/06/24 11:24 Source: patient, EMS, RN notes reviewed Mode of arrival: EMS - History of Present Illness Initial Comments: 84-year-old female with history of diabetes mellitus, hyperlipidemia, hypertension, renal disease presenting to the ER for altered mental status. Daughter is at bedside who reports patient woke up this morning and did not know pain daughter was and thought she was about to take a test. Patient since has returned to baseline. Daughter lives with patient and reports over the past few weeks, patient has been weak and fallen multiple times. She has also had a rash on her lower abdomen that she believes is a yeast infection. States the rash is red with white discharge and purulent smell. Denies blood thinners, patient takes baby aspirin daily. - Related Data Home Medications Medication Instructions Recorded Confirmed Montelukast [Singulair] 10 mg PO HS 03/29/14 05/30/24 Anastrozole [Arimidex] 1 mg PO DAILY 03/23/21 05/30/24 Meclizine [Antivert] 12.5 mg PO DAILY PRN 03/16/22 05/30/24 Galantamine HBr [Razadyne ER] 16 mg PO HS 09/30/22 05/30/24 Levothyroxine Sodium [Synthroid] 100 mcg PO DAILY 09/30/22 05/30/24 allopurinoL 300 mg PO DAILY 09/30/22 05/30/24 buPROPion HCL [Wellbutrin SR] 200 mg PO DAILY 09/30/22 05/30/24 rOPINIRole HCL [Requip] 0.5 mg PO HS 04/27/23 05/30/24 Cetirizine HCl [Zyrtec] 10 mg PO DAILY 04/25/24 05/30/24 Glimepiride [Amaryl] 2 mg PO DAILY 05/12/24 05/30/24 Aspirin EC [Ecotrin Low Dose] 81 mg PO DAILY 05/30/24 05/30/24 Atorvastatin [Lipitor] 10 mg PO HS 05/30/24 05/30/24 Cholestyramine (with Sugar) 4 gm PO BID 05/30/24 05/30/24 [Cholestyramine Packet] Cranberry 25,200mg 1 tab PO DAILY 05/30/24 05/30/24 Metoprolol Tartrate [Lopressor] 50 mg PO BID 05/30/24 05/30/24 amLODIPine [Norvasc] 5 mg PO DAILY 05/30/24 05/30/24 Previous Rx's Medication Instructions Recorded ALPRAZolam [Xanax] 0.25 mg PO TID PRN #60 tab 06/02/24 Acetaminophen Tab [Tylenol] 650 mg PO Q6HR PRN tab 06/02/24 Bumetanide [BUMEX] 1 mg PO DAILY tab 06/02/24 Cefuroxime [Ceftin] 250 mg PO BID 3 Days #6 tab 06/02/24 Ramelteon 8 mg PO HS #30 tab 06/02/24 Allergies Allergy/AdvReac Type Severity Reaction Status Date / Time amoxicillin Allergy Unknown TAKEN FROM Verified 08/06/24 10:52 DR OLIVER'S NOTES Iodine and Iodide Containing Allergy Unknown TESTED Verified 08/06/24 10:52 Produc POSITIVE FOR SHELLFISH prednisone Allergy Unknown TAKEN FROM Verified 08/06/24 10:52 DR FISHER NOTES adhesive Allergy blisters, Verified 08/06/24 10:52 itching shellfish derived Allergy TESTED Verified 08/06/24 10:52 POSITIVE WITH ALLERGY TESTING. gluten AdvReac vomiting, Verified 08/06/24 10:52 diarrhea Penicillins AdvReac Rash/Hives Verified 08/06/24 10:52 antibiotics AdvReac Diarrhea Uncoded 08/06/24 10:52 Review of Systems ROS Statement: Those systems with pertinent positive or pertinent negative responses have been documented in the HPI. ROS Other: All systems not noted in ROS Statement are negative. 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 History of Any Multi-Drug Resistant Organisms: None Reported Past Surgical History: Appendectomy, Breast Surgery, Cholecystectomy, Heart Catheterization, Hysterectomy, Joint Replacement Additional Past Surgical History / Comment(s): mena knee replacements, cataracts, surgery for fx finger left hand,skin cancer removed ears, forehead, nose & shoulder, colonoscopy, lt breast biopsy, rt breast biopsy, R breast lumpectomy Past Anesthesia/Blood Transfusion Reactions: Previous Problems w/ Anesthesia, Motion Sickness Additional Past Anesthesia/Blood Transfusion Reaction / Comment(s): high BP. daughter PONV Past Psychological History: Depression Smoking Status: Former smoker Past Alcohol Use History: None Reported Past Drug Use History: None Reported - Past Family History Mother Family Medical History: Blood Disorder, Cancer Additional Family Medical History / Comment(s): bone cancer , pt unsure if mother or sister had blood disorder with "vitamin k" Sister(s) Family Medical History: Blood Disorder General Exam General appearance: alert, in no apparent distress Head exam: Present: atraumatic, normocephalic, normal inspection Eye exam: Present: normal appearance, PERRL, EOMI. Absent: scleral icterus, conjunctival injection, periorbital swelling Respiratory exam: Present: normal lung sounds bilaterally. Absent: respiratory distress, wheezes, rales, rhonchi, stridor Cardiovascular Exam: Present: regular rate, normal rhythm, normal heart sounds. Absent: systolic murmur, diastolic murmur, rubs, gallop, clicks GI/Abdominal exam: Present: soft, normal bowel sounds. Absent: distended, tenderness, guarding, rebound, rigid Neurological exam: Present: alert, oriented X3, CN II-XII intact Psychiatric exam: Present: normal affect, normal mood Skin exam: Present: warm, dry, intact, normal color, rash (Beefy erythematous rash in skin folds of lower abdomen and between thighs with purulent white drainage and odor) Course Vital Signs 08/06/24 08/06/24 08/06/24 10:49 12:34 13:00 Temperature 97.5 F L 98.6 F Pulse Rate 74 60 64 Respiratory 20 22 18 Rate Blood Pressure 110/58 99/52 101/58 O2 Sat by Pulse 98 95 95 Oximetry 08/06/24 08/06/24 08/06/24 13:40 13:50 14:29 Temperature Pulse Rate 70 66 70 Respiratory 17 17 18 Rate Blood Pressure 102/49 99/49 106/47 O2 Sat by Pulse 95 96 98 Oximetry 08/06/24 08/06/24 14:30 15:00 Temperature Pulse Rate 67 70 Respiratory 14 19 Rate Blood Pressure 106/47 84/45 O2 Sat by Pulse 96 97 Oximetry Medical Decision Making - Medical Decision Making Was pt. sent in by a medical professional or institution (, PA, ELEVATOR REPAIRER, urgent care, hospital, or prison...) When possible be specific @ -No Did you speak to anyone other than the patient for history (EMS, parent, family, police, friend...)? What history was obtained from this source @ -Daughter supplemented history Did you review nursing and triage notes (agree or disagree)? Why? @ -I reviewed and agree with nursing and triage notes Were old charts reviewed (outside hosp., previous admission, EMS record, old EKG, old radiological studies, urgent care reports/EKG's, prison records)? Report findings @ -No old charts were reviewed Differential Diagnosis (chest pain, altered mental status, abdominal pain women, abdominal pain men, vaginal bleeding, weakness, fever, dyspnea, syncope, headache, dizziness, GI bleed, back pain, seizure, CVA, palpatations, mental health, musculoskeletal)? @ -Differential Altered Mental Status: Hypoglycemia, DKA, hypercapnia, ETOH, overdose, CO poisoning, trauma, myxedema coma, HTN encephalopathy, infection, encephalitis, psychosis, intercranial hemorrhage, hepatic encephalopathy, meningitis, CVA, this is not meant to be an all-inclusive list EKG interpreted by me (3pts min.). @ -As above X-rays interpreted by me (1pt min.). @ -Chest x-ray reveals no acute process CT interpreted by me (1pt min.). @ -CT brain reveals no acute process U/S interpreted by me (1pt. min.). @ -None done What testing was considered but not performed or refused? (CT, X-rays, U/S, labs)? Why? @ -None What meds were considered but not given or refused? Why? @ -None Did you discuss the management of the patient with other professionals (professionals i.e. , REMY, ELEVATOR REPAIRER, lab, RT, psych nurse, oncology social work, nremt, teacher, consumer loan officer, hospice case manager)? Give summary @ -I spoke with Justine from [facility] who accepts admission Was smoking cessation discussed for >3mins.? @ -No Was critical care preformed (if so, how long)? @ -No Were there social determinants of health that impacted care today? How? (Homelessness, low income, unemployed, alcoholism, drug addiction, transportation, low edu. Level, literacy, decrease access to med. care, assisted, rehab)? @ -No Was there de-escalation of care discussed even if they declined (Discuss DNR or withdrawal of care, Hospice)? DNR status @ -No What co-morbidities impacted this encounter? (DM, HTN, Smoking, COPD, CAD, Cancer, CVA, ARF, Chemo, Hep., AIDS, mental health diagnosis, sleep apnea, morbid obesity)? @ -None Was patient admitted / discharged? Hospital course, mention meds given and route, prescriptions, significant lab abnormalities, going to OR and other pertinent info. @ -Admitted. This is an 84-year-old female with episode of altered mental status this morning. Patient is currently at baseline at time of evaluation. Neuro examination is unremarkable. On examination patient has intertrigo rash in skin folds of lower abdomen and between legs. EKG reveals normal sinus rhythm with no ST changes. Lab work remarkable for mild PENELOPE and blood glucose 70. Chest x-ray reveals no acute process. CT brain reveals no acute process. Patient was provided with IV fluid bolus. Patient was admitted for further workup regarding episode of altered mental status this morning. Patient was started on oral Diflucan, IV cefepime, and vancomycin for intertrigo. Case was discussed with my ED attending Dr. Car. Undiagnosed new problem with uncertain prognosis? @ -No Drug Therapy requiring intensive monitoring for toxicity (Heparin, Nitro, Insulin, Cardizem)? @ -No Were any procedures done? @ -No Diagnosis/symptom? @ -Altered mental status, intertrigo Acute, or Chronic, or Acute on Chronic? @ -Acute Uncomplicated (without systemic symptoms) or Complicated (systemic symptoms)? @ -Uncomplicated Side effects of treatment? @ -No Exacerbation, Progression, or Severe Exacerbation? @ -No Poses a threat to life or bodily function? How? (Chest pain, USA, LA, pneumonia, PE, COPD, DKA, ARF, appy, cholecystitis, CVA, Diverticulitis, Homicidal, Suicidal, threat to staff... and all critical care pts) @ -No - Lab Data Result diagrams: 08/06/24 12:10 08/06/24 12:10 Lab Results 08/06/24 08/06/24 08/06/24 Range/Units 12:05 12:10 12:10 WBC 6.2 (3.8-10.6) k/uL RBC 4.12 (3.80-5.40) m/uL Hgb 11.7 (11.4-16.0) gm/dL Hct 36.0 (34.0-46.0) % MCV 87.4 (80.0-100.0) fL MCH 28.4 (25.0-35.0) pg MCHC 32.5 (31.0-37.0) g/dL RDW 15.6 H (11.5-15.5) % Plt Count 367 (150-450) k/uL MPV 7.3 Neutrophils % 67 % Lymphocytes % 13 % Monocytes % 15 % Eosinophils % 2 % Basophils % 0 % Neutrophils # 4.1 (1.3-7.7) k/uL Lymphocytes # 0.8 L (1.0-4.8) k/uL Monocytes # 1.0 (0-1.0) k/uL Eosinophils # 0.2 (0-0.7) k/uL Basophils # 0.0 (0-0.2) k/uL PT 10.9 (10.0-12.5) sec INR 1.0 (<1.2) APTT 25.1 (22.0-30.0) sec Sodium (137-145) mmol/L Potassium (3.5-5.1) mmol/L Chloride (98-107) mmol/L Carbon Dioxide (22-30) mmol/L Anion Gap mmol/L BUN (7-17) mg/dL Creatinine (0.52-1.04) mg/dL Est GFR (CKD-EPI)AfAm (>60 ml/min/1.73 sqM) Est GFR (CKD-EPI)NonAf (>60 ml/min/1.73 sqM) Glucose (74-99) mg/dL POC Glucose (mg/dL) 75 (70-110) mg/dL POC Glu Ct Tech ID Bland Afshan Calcium (8.4-10.2) mg/dL Total Bilirubin (0.2-1.3) mg/dL AST (14-36) U/L ALT (4-34) U/L Alkaline Phosphatase (38-126) U/L Troponin I (0.000-0.034) ng/mL Total Protein (6.3-8.2) g/dL Albumin (3.5-5.0) g/dL Urine Color Urine Appearance (Clear) Urine pH (5.0-8.0) Ur Specific [place] (1.001-1.035) Urine Protein (Negative) Urine Glucose (UA) (Negative) Urine Ketones (Negative) Urine Blood (Negative) Urine Nitrite (Negative) Urine Bilirubin (Negative) Urine Urobilinogen (<2.0) mg/dL Ur Leukocyte Esterase (Negative) 08/06/24 08/06/24 08/06/24 Range/Units 12:10 12:10 12:35 WBC (3.8-10.6) k/uL RBC (3.80-5.40) m/uL Hgb (11.4-16.0) gm/dL Hct (34.0-46.0) % MCV (80.0-100.0) fL MCH (25.0-35.0) pg MCHC (31.0-37.0) g/dL RDW (11.5-15.5) % Plt Count (150-450) k/uL MPV Neutrophils % % Lymphocytes % % Monocytes % % Eosinophils % % Basophils % % Neutrophils # (1.3-7.7) k/uL Lymphocytes # (1.0-4.8) k/uL Monocytes # (0-1.0) k/uL Eosinophils # (0-0.7) k/uL Basophils # (0-0.2) k/uL PT (10.0-12.5) sec INR (<1.2) APTT (22.0-30.0) sec Sodium 136 L (137-145) mmol/L Potassium 3.8 (3.5-5.1) mmol/L Chloride 104 (98-107) mmol/L Carbon Dioxide 26 (22-30) mmol/L Anion Gap 6 mmol/L BUN 22 H (7-17) mg/dL Creatinine 1.06 H (0.52-1.04) mg/dL Est GFR (CKD-EPI)AfAm 55 (>60 ml/min/1.73 sqM) Est GFR (CKD-EPI)NonAf 48 (>60 ml/min/1.73 sqM) Glucose 70 L (74-99) mg/dL POC Glucose (mg/dL) (70-110) mg/dL POC Glu Ct Tech ID Calcium 9.3 (8.4-10.2) mg/dL Total Bilirubin 0.8 (0.2-1.3) mg/dL AST 23 (14-36) U/L ALT 9 (4-34) U/L Alkaline Phosphatase 106 (38-126) U/L Troponin I <0.012 (0.000-0.034) ng/mL Total Protein 6.1 L (6.3-8.2) g/dL Albumin 3.3 L (3.5-5.0) g/dL Urine Color Colorless Urine Appearance Clear (Clear) Urine pH 6.0 (5.0-8.0) Ur Specific [place] 1.007 (1.001-1.035) Urine Protein Negative (Negative) Urine Glucose (UA) Negative (Negative) Urine Ketones Negative (Negative) Urine Blood Negative (Negative) Urine Nitrite Negative (Negative) Urine Bilirubin Negative (Negative) Urine Urobilinogen <2.0 (<2.0) mg/dL Ur Leukocyte Esterase Negative (Negative) 08/06/24 Range/Units 18:56 WBC (3.8-10.6) k/uL RBC (3.80-5.40) m/uL Hgb (11.4-16.0) gm/dL Hct (34.0-46.0) % MCV (80.0-100.0) fL MCH (25.0-35.0) pg MCHC (31.0-37.0) g/dL RDW (11.5-15.5) % Plt Count (150-450) k/uL MPV Neutrophils % % Lymphocytes % % Monocytes % % Eosinophils % % Basophils % % Neutrophils # (1.3-7.7) k/uL Lymphocytes # (1.0-4.8) k/uL Monocytes # (0-1.0) k/uL Eosinophils # (0-0.7) k/uL Basophils # (0-0.2) k/uL PT (10.0-12.5) sec INR (<1.2) APTT (22.0-30.0) sec Sodium (137-145) mmol/L Potassium (3.5-5.1) mmol/L Chloride (98-107) mmol/L Carbon Dioxide (22-30) mmol/L Anion Gap mmol/L BUN (7-17) mg/dL Creatinine (0.52-1.04) mg/dL Est GFR (CKD-EPI)AfAm (>60 ml/min/1.73 sqM) Est GFR (CKD-EPI)NonAf (>60 ml/min/1.73 sqM) Glucose (74-99) mg/dL POC Glucose (mg/dL) 68 L (70-110) mg/dL POC Glu Ct Tech ID Tiffany Laura Calcium (8.4-10.2) mg/dL Total Bilirubin (0.2-1.3) mg/dL AST (14-36) U/L ALT (4-34) U/L Alkaline Phosphatase (38-126) U/L Troponin I (0.000-0.034) ng/mL Total Protein (6.3-8.2) g/dL Albumin (3.5-5.0) g/dL Urine Color Urine Appearance (Clear) Urine pH (5.0-8.0) Ur Specific [place] (1.001-1.035) Urine Protein (Negative) Urine Glucose (UA) (Negative) Urine Ketones (Negative) Urine Blood (Negative) Urine Nitrite (Negative) Urine Bilirubin (Negative) Urine Urobilinogen (<2.0) mg/dL Ur Leukocyte Esterase (Negative) - EKG Data -: EKG Interpreted by Nh EKG Comments: KG reveals normal sinus rhythm with left axis deviation, ventricular rate 67 bpm, NH interval 165, QRS duration 113, QT/QTc 417/432 Disposition Clinical Impression: Altered mental status, Intertrigo Disposition: ADMITTED IP TO THIS HOSP Referrals: Milvia Oliver MD [Primary Care Provider] - 1-2 days Time of Disposition: 19:26
[2024-08-06 12:06] LABS: Glucose,Whole Blood 75 mg/dL (70-110)
[2024-08-06 12:28] LABS: Basophils % (A) 0 %; Eosinophils # (A) 0.2 k/uL (0-0.7); Eosinophils % (A) 2 %; HGB 11.7 gm/dL (11.4-16.0); Lymphocytes # (A) 0.8 k/uL (1.0-4.8); Lymphocytes % (A) 13 %; MCH 28.4 pg (25.0-35.0); MCHC 32.5 g/dL (31.0-37.0); MCV 87.4 fL (80.0-100.0); Mean Platelet Volume 7.3; Monocytes % (A) 15 %; Neutrophils # (A) 4.1 k/uL (1.3-7.7); Neutrophils % (A) 67 %; Platelet Count 367 k/uL (150-450); RBC 4.12 m/uL (3.80-5.40); RDW 15.6 % (11.5-15.5); WBC 6.2 k/uL (3.8-10.6)
[2024-08-06 12:37] LABS: Partial Thromboplastin Time 25.1 sec (22.0-30.0); Prothrombin Time 10.9 sec (10.0-12.5)
[2024-08-06 13:03] LABS: Appearance,Urine Clear (Clear); Bilirubin,Urine Negative (Negative); Blood,Urine Negative (Negative); Color,Urine Colorless; Glucose,Urine (UA) Negative (Negative); Ketones,Urine Negative (Negative); Leukocyte Esterase,Urine Negative (Negative); Nitrite,Urine Negative (Negative); Protein,Urine Negative (Negative); Specific Gravity,Urine 1.007 (1.001-1.035); Urobilinogen,Urine <2.0 mg/dL (<2.0)
[2024-08-06 13:05] LABS: ALT 9 U/L (4-34); AST 23 U/L (14-36); African American GFR (CKD) 55 (>60 ml/min/1.73 sqM); Albumin 3.3 g/dL (3.5-5.0); Alkaline Phosphatase 106 U/L (38-126); Anion Gap 6 mmol/L; Blood Urea Nitrogen 22 mg/dL (7-17); Calcium 9.3 mg/dL (8.4-10.2); Carbon Dioxide 26 mmol/L (22-30); Chloride 104 mmol/L (98-107); Glucose 70 mg/dL (74-99); Non-African American GFR(CKD) 48 (>60 ml/min/1.73 sqM); Potassium 3.8 mmol/L (3.5-5.1); Sodium 136 mmol/L (137-145); Total Bilirubin 0.8 mg/dL (0.2-1.3); Total Protein 6.1 g/dL (6.3-8.2)
--- NOTE | 2024-08-06 13:23 | CT ---
EXAMINATION TYPE: CT brain wo con CT DLP: 1096.4 mGycm, Automated exposure control for dose reduction was used. DATE OF EXAM: 08/06/2024 1:14 PM COMPARISON: CT brain C-spine 07/19/2024, CT brain 04/25/2024, 04/27/2023, MRI brain 05/01/2023 CLINICAL INDICATION:Female, 84 years old with history of altered mental status, Altered mental status TECHNIQUE: Brain: Multiple axial CT images of the brain were obtained without IV contrast. . Coronal and sagitta l reformats reviewed. FINDINGS: Brain: Extra-axial spaces: No abnormal extra-axial fluid collections. Ventricular system: Within normal limits Cerebral parenchyma: Cerebral atrophy with prominence of the peripheral sulci again. No acute intrapa renchymal hemorrhage or mass effect. The yoo-white junction is well differentiated. Scattered hypoa ttenuating areas are seen within the periventricular subcortical white matter. Nonspecific bilateral basal ganglia calcifications. Cerebellum: Unremarkable. Mass effect: No evidence of midline shift. Intracranial vasculature: Atherosclerotic calcifications of the intracranial vessels. Soft tissues: Normal. Calvarium/osseous structures: No depressed skull fracture. Benign hyperostosis frontalis noted. Paranasal sinuses and mastoid air cells: Mastoid air cells are clear. Air fluid levels identified wit hin the bilateral maxillary and sphenoid sinuses. The remaining paranasal sinuses are clear. Visualized orbits: Bilateral aphakia IMPRESSION: 1. No acute intracranial process. 2. Nonspecific white matter changes, likely secondary to chronic small vessel ischemic disease. 3. Air-fluid levels within the bilateral maxillary and sphenoid sinuses. Correlate for acute sinusiti s. [facility], , 08/06/2024 1:21 PM
--- NOTE | 2024-08-06 13:53 | XR ---
EXAMINATION TYPE: XR chest 2V DATE OF EXAM: 08/06/2024 1:19 PM COMPARISON: 05/30/2024 CLINICAL INDICATION: Female, 84 years old with history of altered mental status, TECHNIQUE: Frontal and lateral views of the chest are obtained. FINDINGS: Chronic elevation right hemidiaphragm. Scattered senescent parenchymal change. There is no focal air space opacity, pleural effusion, or pneumothorax seen. The cardiac silhouette size is with in normal limits. The osseous structures are intact. IMPRESSION: No acute cardiopulmonary process. [facility], , 08/06/2024 1:51 PM
[2024-08-06] MEDS: SODIUM CHLORIDE 0.9% 500 ML 500 ML IV STA (16:12)
[2024-08-06 18:58] LABS: Glucose,Whole Blood 68 mg/dL (70-110)
[2024-08-06] MEDS ORDERED: NALOXONE 0.4 MG/ML 1 ML VIAL IV PRN (19:22)
[2024-08-06] MEDS ORDERED: ONDANSETRON 4 MG/2 ML VIAL IVP PRN (19:24)
[2024-08-06] MEDS ORDERED: VANCOMYCIN IV PER PHARMACY 1 EACH MISC MISCELLANE PRN (19:25)
[2024-08-06 20:11] LABS: Glucose,Whole Blood 79 mg/dL (70-110)
[2024-08-06] MEDS: CEFEPIME 2 GM in SODIUM CHLORIDE 0.9% 100 ML IVPB STA (20:20)
[2024-08-06] MEDS: FLUCONAZOLE 150 MG TAB PO STA (20:33)
[2024-08-06] MEDS: DEXTROSE 5%-0.45% NACL 1,000 ML IV SCH (20:35)
[2024-08-06 22:21] LABS: Glucose,Whole Blood 130 mg/dL (70-110)
[2024-08-06] MEDS: VANCOMYCIN 1,500 MG in SODIUM CHLORIDE 0.9% 500 ML 500 ML IVPB STA (22:38)
[2024-08-07] MEDS: ACETAMINOPHEN TAB 325 MG TAB PO PRN (02:37)
[2024-08-07 02:58] LABS: Glucose,Whole Blood 87 mg/dL (70-110)
[2024-08-07] MEDS: ALPRAZolam 0.25 MG TAB PO PRN (16:11)
[2024-08-07] MEDS: THIAMINE 100 MG TAB PO SCH (17:47)
[2024-08-07] MEDS: HEPARIN SODIUM,PORCINE 5,000 UNIT/ML 1 ML VIAL SQ SCH (21:26)
[2024-08-07] MEDS: METOPROLOL TARTRATE 50 MG TAB PO SCH (21:26)
[2024-08-07] MEDS: VANCOMYCIN 1,500 MG in SODIUM CHLORIDE 0.9% 500 ML 500 ML IVPB SCH (21:26)
[2024-08-07] MEDS: ATORVASTATIN 10 MG TAB PO SCH (21:26)
[2024-08-07] MEDS: DONEPEZIL 10 MG TAB PO SCH (21:26)
[2024-08-07] MEDS ORDERED: VANCOMYCIN 1,500 MG in SODIUM CHLORIDE 0.9% 500 ML 500 ML IVPB SCH (22:00)
[2024-08-07 22:10] LABS: Glucose,Whole Blood 83 mg/dL (70-110)
--- NOTE | 2024-08-08 02:01 | HP ---
HISTORY AND PHYSICAL CHIEF COMPLAINT: Change in mental status. HISTORY OF PRESENT ILLNESS: This 84-year-old woman with a past medical history of multiple problems, admitted with weakness and change in mental status. Apparently, the daughter was living with her for the past several days. The patient had a groin rash. Initial evaluation showed some hypoglycemia. There is no history of fever, rigors, chills. PAST MEDICAL HISTORY: Reviewed include asthma, diabetes mellitus, hypertension, and hyperlipidemia. Rest of the history and rest of the chart is also reviewed. HOME MEDICATIONS: Reviewed include Requip. Dose and rest of medications reviewed. ALLERGIES: Amoxicillin. PHYSICAL EXAMINATION: VITAL SIGNS: Pulse is 87, blood pressure 128/70, and respirations 20. HEENT: Conjunctivae normal. NECK: No JVD. CARDIOVASCULAR: S1 and S2. RESPIRATIONS: Breath sounds diminished at the bases. Scattered rhonchi and crackles. ABDOMEN: Soft and nontender. LEGS: No edema. NERVOUS SYSTEM: Nonfocal. SKIN: No ulcer, rash, bleeding. JOINTS: No active deforming arthropathy. LABORATORY DATA: Reviewed. ASSESSMENT AND PLAN: 1. Change in mental status, possible acute metabolic encephalopathy or transient ischemic attack. 2. Weakness, gait dysfunction. 3. Possible sinusitis in the CT scan. 4. Hypoglycemia. 5. Diabetes mellitus type 2. 6. Hypertension. 7. Hyperlipidemia. 8. Multiple complex medical issues. RECOMMENDATIONS AND DISCUSSION: This 84-year-old woman, presented with multiple complex medical issues. At this time, I recommend to continue the current medications, symptomatic treatment. We will discontinue the antidiabetic medications and monitor blood sugars closely for evaluation of the hypoglycemia. Otherwise, full neurovascular workup with Neurology. Consultation will be obtained for TIA. I would also recommend Infectious Disease evaluation toward the possibility of sepsis or sinusitis. Guarded prognosis. Further recommendations to follow. MMODL / IJN: [id number] /
[2024-08-08] MEDS: HALOPERIDOL LACTATE 5 MG/ML 1 ML VIAL IM STA (04:23)
[2024-08-08 04:46] LABS: Glucose,Whole Blood 80 mg/dL (70-110)
[2024-08-08 06:10] LABS: Glucose,Whole Blood 80 mg/dL (70-110)
[2024-08-08] MEDS: FLUCONAZOLE 100 MG TAB PO SCH (08:19)
[2024-08-08] MEDS: ASPIRIN 81 MG PO SCH (08:19)
[2024-08-08] MEDS: LEVOTHYROXINE 100 MCG TAB PO SCH (08:19)
[2024-08-08] MEDS: amLODIPine 5 MG TAB PO SCH (08:20)
[2024-08-08] MEDS: ANASTROZOLE 1 MG TAB PO SCH (08:20)
[2024-08-08] MEDS: MULTIVITAMINS, THERA 1 EACH TAB PO SCH (11:10)
[2024-08-08] MEDS: FOLIC ACID 1 MG TAB PO SCH (11:10)
[2024-08-08 11:24] LABS: Glucose,Whole Blood 95 mg/dL (70-110)
[2024-08-08 12:16] LABS: African American GFR (CKD) 71 (>60 ml/min/1.73 sqM); Anion Gap 6 mmol/L; Blood Urea Nitrogen 12 mg/dL (7-17); Calcium 9.3 mg/dL (8.4-10.2); Carbon Dioxide 27 mmol/L (22-30); Chloride 108 mmol/L (98-107); Glucose 87 mg/dL (74-99); Non-African American GFR(CKD) 62 (>60 ml/min/1.73 sqM); Potassium 3.4 mmol/L (3.5-5.1); Sodium 141 mmol/L (137-145)
[2024-08-08 14:58] LABS: Appearance,Urine Clear (Clear); Bilirubin,Urine Negative (Negative); Blood,Urine Negative (Negative); Color,Urine Light Yellow; Glucose,Urine (UA) Negative (Negative); Hyaline Casts,Urine 3 /lpf (0-2); Ketones,Urine Negative (Negative); Leukocyte Esterase,Urine Trace (Negative); Mucus,Urine Occasional /hpf; Nitrite,Urine Negative (Negative); PH, Urine 6.5 (5.0-8.0); Protein,Urine Negative (Negative); RBC,Urine <1 /hpf (0-5); Specific Gravity,Urine 1.014 (1.001-1.035); Squamous Epithelial Cell,Urine <1 /hpf (0-4); WBC,Urine 1 /hpf (0-5)
[2024-08-08 16:28] LABS: Glucose,Whole Blood 103 mg/dL (70-110)
[2024-08-08] MEDS: TAMSULOSIN 0.4 MG CAP.ER.24H PO SCH (17:01)
--- NOTE | 2024-08-08 18:07 | P.PN ---
Subjective Progress Note Date: 08/08/24 84-year-old female with history of diabetes mellitus, hyperlipidemia, hypertension, renal disease presenting to the ER for altered mental status. Daughter is at bedside who reports patient woke up this morning and did not know pain daughter was and thought she was about to take a test. Patient since has returned to baseline. Daughter lives with patient and reports over the past few weeks, patient has been weak and fallen multiple times. She has also had a rash on her lower abdomen that she believes is a yeast infection. States the rash is red with white discharge and purulent smell. Denies blood thinners, patient takes baby aspirin daily. Objective - Vital Signs Vital signs: Vital Signs Temp 97.4 F L 08/08/24 07:05 Pulse 76 08/08/24 07:05 Resp 17 08/08/24 07:05 BP 136/76 08/08/24 07:05 Pulse Ox 94 L 08/08/24 07:05 FiO2 Intake & Output 08/07/24 08/08/24 08/08/24 18:59 06:59 18:59 Output Total 1650 Balance -1650 Weight 71 kg Output: Urine 1650 Straight 1550 Other: Voiding Method Bedpan Diaper Diaper Incontinent Incontinent - Exam General appearance: alert, in no apparent distress Head exam: Present: atraumatic, normocephalic, normal inspection Eye exam: Present: normal appearance, PERRL, EOMI. Absent: scleral icterus, c onjunctival injection, periorbital swelling Respiratory exam: Present: normal lung sounds bilaterally. Absent: respiratory distress, wheezes, rales, rhonchi, stridor Cardiovascular Exam: Present: regular rate, normal rhythm, normal heart sounds. Absent: systolic murmur, diastolic murmur, rubs, gallop, clicks GI/Abdominal exam: Present: soft, normal bowel sounds. Absent: distended, tenderness, guarding, rebound, rigid Neurological exam: Present: alert, oriented X3, CN II-XII intact Psychiatric exam: Present: normal affect, normal mood Skin exam: Present: warm, dry, intact, normal color, rash (Beefy erythematous rash in skin folds of lower abdomen and between thighs with purulent white drainage and odor) - Labs CBC & Chem 7: 08/06/24 12:10 08/08/24 11:39 Labs: Abnormal Lab Results - Last 24 Hours (Table) 08/08/24 Range/Units 11:39 Potassium 3.4 L (3.5-5.1) mmol/L Chloride 108 H (98-107) mmol/L Assessment and Plan Assessment: Altered mental status; possible metabolic encephalopathy versus TIA Weakness/debility/gait disturbance Possible sinusitis Diabetes mellitus type 2 with hyperglycemia Hypertension Hyperlipidemia --We will continue with current management; await neurology consult for possible TIA; ID is consulted for sinusitis/sepsis DVT prophylaxis/SCDs CODE STATUS; "
[2024-08-08 21:48] LABS: Glucose,Whole Blood 71 mg/dL (70-110)
--- NOTE | 2024-08-09 05:40 | P.CONS ---
History of Present Illness - Reason for Consult Consult date: 08/07/24 Sepsis Requesting physician: Kyler Phan - Chief Complaint Mental status changes x 1 day - History of Present Illness Patient is a 84-year-old female with a past medical history nephric and for hypertension hyperlipidemia diabetes mellitus patient has been brought into the hospital concerning for mental status changes history provided by the daughter to the ER physician mentioning patient woke up the morning who presented to the hospital and did have some mental status changes subsequently has returned to the baseline patient also has been getting weaker over the last week and has multiple falls and did have rash in the lower abdomen concerning for yeast infection with the symptoms the patient has been evaluated by the ER physician on presentation to hospital the patient was afebrile no fever have been recorded subsequently patient was not tachycardic hypotensive or hypoxic patient did have a white count of 6.2 BUN and creatinine mildly elevated liver enzymes are normal urine has been negative patient did have a chest x-ray that was negative for acute cardiopulmonary process patient has been started on Diflucan and vancomycin by admitting physician concerning for abdominal wall/wound cutaneous candidiasis and cellulitis infectious disease was consulted for sepsis, patient apparently noticed to have excoriation of her abdominal and groin fold concerning for cutaneous kidney disease and possible cellulitis Review of Systems Positive points has been mentioned in HPI complete review could not be obtained because of his underlying mental status Past Medical History Past Medical History: Asthma, Cancer, Diabetes Mellitus, Hearing Disorder / Deafness, Hyperlipidemia, Hypertension, Memory Impairment, Osteoarthritis (OA), Renal Disease, Sleep Apnea/CPAP/BIPAP, Thyroid Disorder Additional Past Medical History / Comment(s): hx migraines, sleep apnea with c- pap., gout, constipation., diverticulitis, skin cancer, breast cancer, stage 3 kidney disease., vertigo, hx falls -uses walker., states yeast infection in groin., 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 History of Any Multi-Drug Resistant Organisms: None Reported Past Surgical History: Appendectomy, Breast Surgery, Cholecystectomy, Heart Catheterization, Hysterectomy, Joint Replacement Additional Past Surgical History / Comment(s): mena knee replacements, cataracts, surgery for fx finger left hand,skin cancer removed ears, forehead, nose & shoulder, colonoscopy, lt breast biopsy, rt breast biopsy, R breast lumpectomy Past Anesthesia/Blood Transfusion Reactions: Previous Problems w/ Anesthesia, Motion Sickness Additional Past Anesthesia/Blood Transfusion Reaction / Comm: high BP. daughter PONV Past Psychological History: Depression Smoking Status: Former smoker Past Alcohol Use History: None Reported Past Drug Use History: None Reported - Past Family History Mother Family Medical History: Blood Disorder, Cancer Additional Family Medical History / Comment(s): bone cancer , pt unsure if mother or sister had blood disorder with "vitamin k" Sister(s) Family Medical History: Blood Disorder Medications and Allergies Home Medications Medication Instructions Recorded Confirmed Type Montelukast [Singulair] 10 mg PO HS 03/29/14 08/07/24 History Anastrozole [Arimidex] 1 mg PO DAILY 03/23/21 08/07/24 History Meclizine [Antivert] 12.5 mg PO DAILY PRN 03/16/22 08/07/24 History Galantamine HBr [Razadyne ER] 16 mg PO HS 09/30/22 08/07/24 History Levothyroxine Sodium [Synthroid] 100 mcg PO DAILY@0600 09/30/22 08/07/24 History allopurinoL 300 mg PO DAILY 09/30/22 08/07/24 History buPROPion HCL [Wellbutrin SR] 200 mg PO DAILY 09/30/22 08/07/24 History rOPINIRole HCL [Requip] 0.5 mg PO HS 04/27/23 08/07/24 History Cetirizine HCl [Zyrtec] 10 mg PO DAILY 04/25/24 08/07/24 History Glimepiride [Amaryl] 2 mg PO DAILY 05/12/24 08/07/24 History Aspirin EC [Ecotrin Low Dose] 81 mg PO DAILY 05/30/24 08/07/24 History Atorvastatin [Lipitor] 10 mg PO HS 05/30/24 08/07/24 History Metoprolol Tartrate [Lopressor] 50 mg PO BID 05/30/24 08/07/24 History amLODIPine [Norvasc] 5 mg PO DAILY 05/30/24 08/07/24 History Acetaminophen Tab [Tylenol] 650 mg PO Q6HR PRN tab 06/02/24 08/07/24 Rx Bumetanide [BUMEX] 1 mg PO DAILY tab 06/02/24 08/07/24 Rx Ramelteon 8 mg PO HS #30 tab 06/02/24 08/07/24 Rx ALPRAZolam [Xanax] 0.25 mg PO Q8H PRN 08/07/24 08/07/24 History Cranberry Fruit Extract [Cranberry] 200 mg PO DAILY 08/07/24 08/07/24 History Allergies Allergy/AdvReac Type Severity Reaction Status Date / Time amoxicillin Allergy Unknown TAKEN FROM Verified 08/07/24 11:46 DR OLIVER'S NOTES Iodine and Iodide Containing Allergy Unknown TESTED Verified 08/07/24 11:46 Produc POSITIVE FOR SHELLFISH prednisone Allergy Unknown TAKEN FROM Verified 08/07/24 11:46 DR FISHER NOTES adhesive Allergy blisters, Verified 08/07/24 11:46 itching Penicillins Allergy Rash/Hives Verified 08/07/24 11:46 shellfish derived Allergy TESTED Verified 08/07/24 11:46 POSITIVE WITH ALLERGY TESTING. gluten AdvReac vomiting, Verified 08/07/24 11:46 diarrhea antibiotics AdvReac Diarrhea Uncoded 08/07/24 11:46 Physical Exam Vitals: Vital Signs Temp Pulse Resp BP Pulse Ox 08/07/24 14:00 100 20 138/69 96 08/07/24 13:00 90 20 130/60 96 08/07/24 12:00 86 16 129/69 96 08/07/24 10:00 98 F 87 20 128/71 94 L 08/07/24 09:00 97.8 F 101 H 20 120/64 95 08/07/24 05:56 90 18 141/91 96 08/07/24 04:37 89 16 140/84 95 08/07/24 02:22 79 16 111/54 94 L 08/06/24 22:03 72 18 113/58 95 08/06/24 18:30 70 18 100/81 95 08/06/24 15:00 70 19 84/45 97 08/06/24 14:30 67 14 106/47 96 08/06/24 14:29 70 18 106/47 98 GENERAL DESCRIPTION: Elderly female lying in bed, no distress. No tachypnea or accessory muscle of respiration use. HEENT: Shows Pallor , no scleral icterus. Oral mucous membrane is dry. No pharyngeal erythema or thrush NECK: Trachea central, no thyromegaly. LUNGS: Unlabored breathing. Clear to auscultation anteriorly. No wheeze or crackle. HEART: S1, S2, regular rate and rhythm. No loud murmur ABDOMEN: Soft, no tenderness abdominal pain groin fold with erythema suggestive of cutaneous candidiasis EXTREMITIES: No edema of feet. SKIN: No rash, no masses palpable. NEUROLOGICAL: The patient is awake, alert, oriented x3, mood and affect normal. Results CBC & Chem 7: 08/06/24 12:10 08/08/24 11:39 Labs: Abnormal Lab Results - Last 24 Hours (Table) 08/06/24 08/06/24 Range/Units 18:56 22:18 POC Glucose (mg/dL) 68 L 130 H (70-110) mg/dL Assessment and Plan (1) Cutaneous candidiasis Current Visit: Yes Status: Acute Code(s): B37.2 - CANDIDIASIS OF SKIN AND NAIL SNOMED Code(s): 15728810 (2) Intertrigo Current Visit: Yes Status: Acute Code(s): L30.4 - ERYTHEMA INTERTRIGO SNOMED Code(s): 21794249 Plan: 1patient presented to hospital with mental status changes did have decreased appetite patient not running any fever did have a negative UA white count has been normal, patient did have evidence of excoriation to the abdominal and groin fold concerning for cutaneous candidiasis and possible secondary cellulitis 2-penicillin allergy that will limit the number of antibiotics safe to use 3patient has been started on Diflucan and vancomycin by admitting team to continue and monitor clinical course closely We will follow on clinical condition and cultures to further adjust medication if needed Thank you for this consultation we will follow the patient along with you Dictation was produced using [employer] dictation software. please excuse any grammatical, word or spelling errors. Time with Patient: Greater than 30
--- NOTE | 2024-08-09 05:42 | P.PN ---
Subjective Progress Note Date: 08/08/24 Principal diagnosis: Reason for follow-up is groin area cutaneous candidiasis and possible cellulitis Patient is a 84-year-old female with a past medical history nephric and for hypertension hyperlipidemia diabetes mellitus patient has been brought into the hospital concerning for mental status changes, patient did not have any fever vital normal UA was negative noticed to have excoriation of the colon abdominal fold concerning for cutaneous kidney disease possible cellulitis. On today's evaluation that is 08/08/2024, patient did not have any fever and denies any chills, patient is more awake and alert and breathing comfortably on room air, patient with no chest pain or cough patient did not have any abdominal pain nausea vomiting or any loose stools. Patient did have a creatinine 0.86 no CBC was done today Objective - Vital Signs Vital signs: Vital Signs Temp 98.8 F 08/08/24 12:35 Pulse 70 08/08/24 12:35 Resp 17 08/08/24 12:35 BP 127/72 08/08/24 12:35 Pulse Ox 95 08/08/24 12:35 FiO2 Intake & Output 08/07/24 08/08/24 08/08/24 18:59 06:59 18:59 Output Total 1650 Balance -1650 Weight 71 kg 71 kg Output: Urine 1650 Straight 1550 Other: Voiding Method Bedpan Diaper Diaper Incontinent Incontinent - Exam GENERAL DESCRIPTION: An elderly female lying in bed in no distress RESPIRATORY SYSTEM: Unlabored breathing , decreased breath sounds at bases HEART: S1 S2 regular rate and rhythm , ABDOMEN: Soft , no tenderness, abdominal and groin fold with cutaneous candidias is EXTREMITIES: No edema feet - Labs CBC & Chem 7: 08/06/24 12:10 08/08/24 11:39 Labs: Abnormal Lab Results - Last 24 Hours (Table) 08/08/24 08/08/24 Range/Units 11:39 14:40 Potassium 3.4 L (3.5-5.1) mmol/L Chloride 108 H (98-107) mmol/L Ur Leukocyte Esterase Trace H (Negative) Hyaline Casts 3 H (0-2) /lpf Urine Mucus Occasional H (None) /hpf Assessment and Plan (1) Intertrigo Current Visit: Yes Status: Acute Code(s): L30.4 - ERYTHEMA INTERTRIGO SNOMED Code(s): 63115134 (2) Penicillin allergy Current Visit: Yes Status: Acute Code(s): Z88.0 - ALLERGY STATUS TO PENICILLIN SNOMED Code(s): 63216765 Plan: 1patient presented to hospital with mental status changes did have decreased appetite patient not running any fever did have a negative UA white count has been normal, patient did have evidence of excoriation to the abdominal and groin fold concerning for cutaneous candidiasis and possible secondary cellulitis 2-penicillin allergy that will limit the number of antibiotics safe to use 3patient will be continued on Diflucan discontinue vancomycin and nystatin powder to the abdominal and groin fold Dictation was produced using [employer] dictation software. please excuse any grammatical, word or spelling errors. Time with Patient: Less than 30
[2024-08-09 06:24] LABS: African American GFR (CKD) 74 (>60 ml/min/1.73 sqM); Anion Gap 3 mmol/L; Blood Urea Nitrogen 14 mg/dL (7-17); Calcium 8.7 mg/dL (8.4-10.2); Carbon Dioxide 26 mmol/L (22-30); Chloride 111 mmol/L (98-107); Glucose 72 mg/dL (74-99); Non-African American GFR(CKD) 64 (>60 ml/min/1.73 sqM); Potassium 3.2 mmol/L (3.5-5.1); Sodium 140 mmol/L (137-145)
[2024-08-09 06:26] LABS: Glucose,Whole Blood 84 mg/dL (70-110)
[2024-08-09 07:18] LABS: Basophils # (A) 0.02 X 10*3/uL (0.00-0.10); Basophils % (A) 0.5 %; Eosinophils # (A) 0.14 X 10*3/uL (0.04-0.35); Eosinophils % (A) 3.8 %; HCT 37.6 % (37.2-46.3); HGB 11.5 g/dL (12.0-15.0); Lymphocytes # (A) 0.81 X 10*3/uL (0.90-5.00); MCH 27.3 pg (27.0-32.0); MCHC 30.6 g/dL (32.0-37.0); MCV 89.3 FL (80.0-97.0); Mean Platelet Volume 10.7 FL (9.5-12.2); NRBC Per 100 WBC 0 X 10*3/uL (0.00-0.01); Neutrophils # (A) 1.97 X 10*3/uL (1.80-7.70); Neutrophils % (A) 53.6 %; Platelet Count 392 X 10*3/uL (140-440); RBC 4.21 X 10*6/uL (4.10-5.20); RDW 15.8 % (11.5-14.5); WBC 3.68 X 10*3/uL (4.50-10.00)
[2024-08-09] MEDS ORDERED: ZINC OXIDE PASTE (Z-GUARD) 1 APPLIC TOPICAL PRN (08:59)
[2024-08-09] MEDS: NYSTATIN 100,000 UNIT/GM POWD 15 GM TOPICAL SCH (10:42)
[2024-08-09 11:46] LABS: Glucose,Whole Blood 78 mg/dL (70-110)
[2024-08-09] MEDS: POTASSIUM CHLORIDE ER 20 MEQ TAB.ER PO STA (11:49)
--- NOTE | 2024-08-09 12:04 | P.GSCN ---
History of Present Illness Consult date: 08/09/24 History of present illness: 84 yo female admitted with altered mental status. She has gone into urine retention. We were asked to see the patient. The patient is not on medication that would contribute to retention. SHe has a history of incontinence. she is a very vague historian. She states she has seen a urologist in the past and was given medicine for her bladder but she does not remember when or who. He states that she has been having problems urinating but cannot tell me for how long. She denies blood in the urine. There is question of urine infection. 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 History of Any Multi-Drug Resistant Organisms: None Reported Past Surgical History: Appendectomy, Breast Surgery, Cholecystectomy, Heart Catheterization, Hysterectomy, Joint Replacement Additional Past Surgical History / Comment(s): mena knee replacements, cataracts, surgery for fx finger left hand,skin cancer removed ears, forehead, nose & shoulder, colonoscopy, lt breast biopsy, rt breast biopsy, R breast lumpectomy Past Anesthesia/Blood Transfusion Reactions: Previous Problems w/ Anesthesia, Motion Sickness Additional Past Anesthesia/Blood Transfusion Reaction / Comm: high BP. daughter PONV Past Psychological History: Depression Smoking Status: Former smoker Past Alcohol Use History: None Reported Past Drug Use History: None Reported - Past Family History Mother Family Medical History: Blood Disorder, Cancer Additional Family Medical History / Comment(s): bone cancer , pt unsure if mother or sister had blood disorder with "vitamin k" Sister(s) Family Medical History: Blood Disorder Medications and Allergies Home Medications Medication Instructions Recorded Confirmed Type Montelukast [Singulair] 10 mg PO HS 03/29/14 08/07/24 History Anastrozole [Arimidex] 1 mg PO DAILY 03/23/21 08/07/24 History Meclizine [Antivert] 12.5 mg PO DAILY PRN 03/16/22 08/07/24 History Galantamine HBr [Razadyne ER] 16 mg PO HS 09/30/22 08/07/24 History Levothyroxine Sodium [Synthroid] 100 mcg PO DAILY@0600 09/30/22 08/07/24 History allopurinoL 300 mg PO DAILY 09/30/22 08/07/24 History buPROPion HCL [Wellbutrin SR] 200 mg PO DAILY 09/30/22 08/07/24 History rOPINIRole HCL [Requip] 0.5 mg PO HS 04/27/23 08/07/24 History Cetirizine HCl [Zyrtec] 10 mg PO DAILY 04/25/24 08/07/24 History Glimepiride [Amaryl] 2 mg PO DAILY 05/12/24 08/07/24 History Aspirin EC [Ecotrin Low Dose] 81 mg PO DAILY 05/30/24 08/07/24 History Atorvastatin [Lipitor] 10 mg PO HS 05/30/24 08/07/24 History Metoprolol Tartrate [Lopressor] 50 mg PO BID 05/30/24 08/07/24 History amLODIPine [Norvasc] 5 mg PO DAILY 05/30/24 08/07/24 History Acetaminophen Tab [Tylenol] 650 mg PO Q6HR PRN tab 06/02/24 08/07/24 Rx Bumetanide [BUMEX] 1 mg PO DAILY tab 06/02/24 08/07/24 Rx Ramelteon 8 mg PO HS #30 tab 06/02/24 08/07/24 Rx ALPRAZolam [Xanax] 0.25 mg PO Q8H PRN 08/07/24 08/07/24 History Cranberry Fruit Extract [Cranberry] 200 mg PO DAILY 08/07/24 08/07/24 History Allergies Allergy/AdvReac Type Severity Reaction Status Date / Time amoxicillin Allergy Unknown TAKEN FROM Verified 08/07/24 11:46 DR OLIVER'S NOTES Iodine and Iodide Containing Allergy Unknown TESTED Verified 08/07/24 11:46 Produc POSITIVE FOR SHELLFISH prednisone Allergy Unknown TAKEN FROM Verified 08/07/24 11:46 DR FISHER NOTES adhesive Allergy blisters, Verified 08/07/24 11:46 itching Penicillins Allergy Rash/Hives Verified 08/07/24 11:46 shellfish derived Allergy TESTED Verified 08/07/24 11:46 POSITIVE WITH ALLERGY TESTING. gluten AdvReac vomiting, Verified 08/07/24 11:46 diarrhea antibiotics AdvReac Diarrhea Uncoded 08/07/24 11:46 Surgical - Exam Vital Signs Temp Pulse Resp BP Pulse Ox 97.5 F L 74 20 110/58 98 08/06/24 10:49 08/06/24 10:49 08/06/24 10:49 08/06/24 10:49 08/06/24 10:49 - General well developed, well nourished, no distress - Eyes normal ocular movement, no icteric - ENT no hearing loss, no congestion - Neck no masses, trachea midline - Respiratory normal respiratory effort, clear to auscultation - Abdomen Abdomen: soft, non tender, no guarding, no rigid, no rebound - Integumentary no rash, no abnormal pigmentation - Neurologic no disoriented, no combative - Psychiatric oriented to time, oriented to person, oriented to place, speech is normal, memory intact Results - Labs 08/08/24 11:39 08/09/24 05:27 Abnormal Lab Results - Last 24 Hours (Table) 08/08/24 08/08/24 08/08/24 Range/Units 11:39 11:39 14:40 WBC 3.68 L (4.50-10.00) X 10*3/uL Hgb 11.5 L (12.0-15.0) g/dL MCHC 30.6 L (32.0-37.0) g/dL RDW 15.8 H (11.5-14.5) % Lymphocytes # 0.81 L (0.90-5.00) X 10*3/uL Potassium 3.4 L (3.5-5.1) mmol/L Chloride 108 H (98-107) mmol/L Glucose (74-99) mg/dL Ur Leukocyte Esterase Trace H (Negative) Hyaline Casts 3 H (0-2) /lpf Urine Mucus Occasional H (None) /hpf 08/09/24 Range/Units 05:27 WBC (4.50-10.00) X 10*3/uL Hgb (12.0-15.0) g/dL MCHC (32.0-37.0) g/dL RDW (11.5-14.5) % Lymphocytes # (0.90-5.00) X 10*3/uL Potassium 3.2 L (3.5-5.1) mmol/L Chloride 111 H (98-107) mmol/L Glucose 72 L (74-99) mg/dL Ur Leukocyte Esterase (Negative) Hyaline Casts (0-2) /lpf Urine Mucus (None) /hpf Diabetes panel 08/08/24 08/09/24 Range/Units 11:39 05:27 Sodium 141 140 (137-145) mmol/L Potassium 3.4 L 3.2 L (3.5-5.1) mmol/L Chloride 108 H 111 H (98-107) mmol/L Carbon Dioxide 27 26 (22-30) mmol/L BUN 12 14 (7-17) mg/dL Creatinine 0.86 0.83 (0.52-1.04) mg/dL Glucose 87 72 L (74-99) mg/dL Calcium 9.3 8.7 (8.4-10.2) mg/dL Calcium panel 08/08/24 08/09/24 Range/Units 11:39 05:27 Calcium 9.3 8.7 (8.4-10.2) mg/dL Pituitary panel 08/08/24 08/09/24 Range/Units 11:39 05:27 Sodium 141 140 (137-145) mmol/L Potassium 3.4 L 3.2 L (3.5-5.1) mmol/L Chloride 108 H 111 H (98-107) mmol/L Carbon Dioxide 27 26 (22-30) mmol/L BUN 12 14 (7-17) mg/dL Creatinine 0.86 0.83 (0.52-1.04) mg/dL Glucose 87 72 L (74-99) mg/dL Calcium 9.3 8.7 (8.4-10.2) mg/dL Adrenal panel 08/08/24 08/09/24 Range/Units 11:39 05:27 Sodium 141 140 (137-145) mmol/L Potassium 3.4 L 3.2 L (3.5-5.1) mmol/L Chloride 108 H 111 H (98-107) mmol/L Carbon Dioxide 27 26 (22-30) mmol/L BUN 12 14 (7-17) mg/dL Creatinine 0.86 0.83 (0.52-1.04) mg/dL Glucose 87 72 L (74-99) mg/dL Calcium 9.3 8.7 (8.4-10.2) mg/dL Assessment and Plan Assessment: Impression: urine retention. mental status changes Recommendations: I would leave the catheter until her medical issues have been dealt with. Prior to discharge it should be removed for a voiding trial
--- NOTE | 2024-08-09 15:43 | P.PN ---
Subjective Progress Note Date: 08/09/24 84-year-old female with history of diabetes mellitus, hyperlipidemia, hypertension, renal disease presenting to the ER for altered mental status. Daughter is at bedside who reports patient woke up this morning and did not know pain daughter was and thought she was about to take a test. Patient since has returned to baseline. Daughter lives with patient and reports over the past few weeks, patient has been weak and fallen multiple times. She has also had a rash on her lower abdomen that she believes is a yeast infection. States the rash is red with white discharge and purulent smell. Denies blood thinners, patient takes baby aspirin daily. 24-hour interval change 08/09/2024 Patient is seen and evaluated in room at bedside; daughter is present in the room; patient had urinary retention and Garcia catheter has been placed Vital signs reviewed and stable -patient presented to hospital with mental status changes did have decreased appetite patient not running any fever did have a negative UA white count has been normal, patient did have evidence of excoriation to the abdominal and groin fold concerning for cutaneous candidiasis and possible secondary cellulitis --penicillin allergy that will limit the number of antibiotics safe to use --patient will be continued on Diflucan discontinue vancomycin and nystatin powder to the abdominal and groin fold Objective - Vital Signs Vital signs: Vital Signs Temp 97.7 F 08/09/24 07:02 Pulse 49 L 08/09/24 07:02 Resp 15 08/09/24 07:02 BP 116/63 08/09/24 07:02 Pulse Ox 94 L 08/09/24 07:02 FiO2 Intake & Output 08/08/24 08/09/24 08/09/24 18:59 06:59 18:59 Output Total 300 100 Balance -300 -100 Weight 71 kg 65.5 kg Output: Urine 300 100 Other: Voiding Method Diaper Indwelling Catheter Indwelling Catheter Incontinent - Exam General appearance: alert, in no apparent distress Head exam: Present: atraumatic, normocephalic, normal inspection Eye exam: Present: normal appearance, PERRL, EOMI. Absent: scleral icterus, conjunctival injection, periorbital swelling Respiratory exam: Present: normal lung sounds bilaterally. Absent: respiratory distress, wheezes, rales, rhonchi, stridor Cardiovascular Exam: Present: regular rate, normal rhythm, normal heart sounds. Absent: systolic murmur, diastolic murmur, rubs, gallop, clicks GI/Abdominal exam: Present: soft, normal bowel sounds. Absent: distended, tenderness, guarding, rebound, rigid Neurological exam: Present: alert, oriented X3, CN II-XII intact Psychiatric exam: Present: normal affect, normal mood Skin exam: Present: warm, dry, intact, normal color, rash (Beefy erythematous rash in skin folds of lower abdomen and between thighs with purulent white drainage and odor) - Labs CBC & Chem 7: 08/08/24 11:39 08/09/24 05:27 Labs: Abnormal Lab Results - Last 24 Hours (Table) 08/08/24 08/08/24 08/09/24 Range/Units 11:39 14:40 05:27 WBC 3.68 L (4.50-10.00) X 10*3/uL Hgb 11.5 L (12.0-15.0) g/dL MCHC 30.6 L (32.0-37.0) g/dL RDW 15.8 H (11.5-14.5) % Lymphocytes # 0.81 L (0.90-5.00) X 10*3/uL Potassium 3.2 L (3.5-5.1) mmol/L Chloride 111 H (98-107) mmol/L Glucose 72 L (74-99) mg/dL Ur Leukocyte Esterase Trace H (Negative) Hyaline Casts 3 H (0-2) /lpf Urine Mucus Occasional H (None) /hpf Assessment and Plan Assessment: Altered mental status; possible metabolic encephalopathy versus TIA Weakness/debility/gait disturbance Possible sinusitis Diabetes mellitus type 2 with hyperglycemia Hypertension Hyperlipidemia --We will continue with current management; await neurology consult for possible TIA; ID is consulted for sinusitis/sepsis DVT prophylaxis/SCDs CODE STATUS; "
[2024-08-09 16:49] LABS: Glucose,Whole Blood 87 mg/dL (70-110)
[2024-08-09 20:58] LABS: Glucose,Whole Blood 126 mg/dL (70-110)
[2024-08-10 06:33] LABS: Glucose,Whole Blood 89 mg/dL (70-110)
--- NOTE | 2024-08-10 07:27 | P.PN ---
Subjective Progress Note Date: 08/09/24 Principal diagnosis: Reason for follow-up is groin area cutaneous candidiasis and possible cellulitis Patient is a 84-year-old female with a past medical history nephric and for hypertension hyperlipidemia diabetes mellitus patient has been brought into the hospital concerning for mental status changes, patient did not have any fever vital normal UA was negative noticed to have excoriation of the colon abdominal fold concerning for cutaneous kidney disease possible cellulitis. On today's evaluation that is 08/09/2024, Patient is afebrile patient is currently on room air and denies having any shortness of breath, the patient seem to be slightly more slowly and growing and did not provide any history of vomiting or diarrhea has been reported., Patient did have a urine change requiring Garcia catheter placement No CBC was done today creatinine 0.83 blood cultures repeat UA has been negative as well Objective - Vital Signs Vital signs: Vital Signs Temp 97.8 F 08/09/24 19:52 Pulse 56 L 08/09/24 19:52 Resp 16 08/09/24 19:52 BP 114/63 08/09/24 19:52 Pulse Ox 94 L 08/09/24 19:52 FiO2 Intake & Output 08/09/24 08/09/24 08/10/24 06:59 18:59 06:59 Output Total 100 350 Balance -100 -350 Weight 65.5 kg Output: Urine 100 350 Stool 0 Other: Voiding Method Indwelling Catheter Indwelling Catheter - Exam GENERAL DESCRIPTION: An elderly female lying in bed in no distress RESPIRATORY SYSTEM: Unlabored breathing , decreased breath sounds at bases HEART: S1 S2 regular rate and rhythm , ABDOMEN: Soft , no tenderness, abdominal and groin fold with cutaneous candidiasis EXTREMITIES: No edema feet - Labs CBC & Chem 7: 08/08/24 11:39 08/09/24 05:27 Labs: Abnormal Lab Results - Last 24 Hours (Table) 08/08/24 08/09/24 Range/Units 11:39 05:27 WBC 3.68 L (4.50-10.00) X 10*3/uL Hgb 11.5 L (12.0-15.0) g/dL MCHC 30.6 L (32.0-37.0) g/dL RDW 15.8 H (11.5-14.5) % Lymphocytes # 0.81 L (0.90-5.00) X 10*3/uL Potassium 3.2 L (3.5-5.1) mmol/L Chloride 111 H (98-107) mmol/L Glucose 72 L (74-99) mg/dL Assessment and Plan (1) Intertrigo Current Visit: Yes Status: Acute Code(s): L30.4 - ERYTHEMA INTERTRIGO SNOMED Code(s): 10034639 (2) Penicillin allergy Current Visit: Yes Status: Acute Code(s): Z88.0 - ALLERGY STATUS TO PENICILLIN SNOMED Code(s): 58959213 Plan: 1patient presented to hospital with mental status changes did have decreased appetite patient not running any fever did have a negative UA white count has been normal, patient did have evidence of excoriation to the abdominal and groin fold concerning for cutaneous candidiasis and possible secondary cellulitis 2-penicillin allergy that will limit the number of antibiotics safe to use 3patient will be continued on Diflucan and nystatin powder to the abdominal and groin fold, no need for systemic antibiotics Dictation was produced using [employer] dictation software. please excuse any grammatical, word or spelling errors. Time with Patient: Less than 30
[2024-08-10 08:41] LABS: BUN/Creat Ratio 15.88 Ratio (12.00-20.00); Blood Urea Nitrogen 12.7 mg/dL (9.0-27.0); Calcium 8.7 mg/dL (8.7-10.3); Carbon Dioxide 23.3 mmol/L (21.6-31.8); Chloride 108 mmol/L (96-109); Glucose 84 mg/dL (70-110); Potassium 3.6 mmol/L (3.5-5.5); Sodium 142 mmol/L (135-145)
[2024-08-10 12:28] LABS: Glucose,Whole Blood 105 mg/dL (70-110)
--- NOTE | 2024-08-10 15:42 | P.CNNES ---
History of Present Illness Consult date: 08/10/24 Requesting physician: Kyler Phan Reason for Consult: tia?? History of Present Illness: This is an 84-year-old woman who present emergency department because of altered mental status and weakness. History is obtained from medical record. Seems the daughter is living with her for the past several days and the patient had grown rash. Initial evaluation showed some hyperglycemia. According to the nurse patient is having fluctuation in her mentation during this hospital visit. Patient was in tears and she states she does not know her name why she is here and her daughter's name. Patient denies of any new back pain or radicular symptoms of back issues. Seems the patient has underlying history of memory impairment according to the medical record. Some of the workup during this hospital visit consisted of: Patient is afebrile. Initial presentation patient serum glucose was 70 and her PCO glucose was 75 but repeated 1 was 68. Sodium is 136, calcium is 9.3, AST ALT is within normal limits I reviewed the rest of the lab workup On 07/2024 patient TSH was 2.680 and free T4 was slightly elevated of 2.26 CT of the head is reported as no acute intracranial process. I reviewed the CT and agree with the report Review of Systems Limited. 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 History of Any Multi-Drug Resistant Organisms: None Reported Past Surgical History: Appendectomy, Breast Surgery, Cholecystectomy, Heart Catheterization, Hysterectomy, Joint Replacement Additional Past Surgical History / Comment(s): mena knee replacements, cataracts, surgery for fx finger left hand,skin cancer removed ears, forehead, nose & shoulder, colonoscopy, lt breast biopsy, rt breast biopsy, R breast lumpectomy Past Anesthesia/Blood Transfusion Reactions: Previous Problems w/ Anesthesia, Motion Sickness Additional Past Anesthesia/Blood Transfusion Reaction / Comment(s): high BP. daughter PONV Past Psychological History: Depression Smoking Status: Former smoker Past Alcohol Use History: None Reported Past Drug Use History: None Reported - Past Family History Mother Family Medical History: Blood Disorder, Cancer Additional Family Medical History / Comment(s): bone cancer , pt unsure if mother or sister had blood disorder with "vitamin k" Sister(s) Family Medical History: Blood Disorder Medications and Allergies Home Medications Medication Instructions Recorded Confirmed Type Montelukast [Singulair] 10 mg PO HS 03/29/14 08/07/24 History Anastrozole [Arimidex] 1 mg PO DAILY 03/23/21 08/07/24 History Meclizine [Antivert] 12.5 mg PO DAILY PRN 03/16/22 08/07/24 History Galantamine HBr [Razadyne ER] 16 mg PO HS 09/30/22 08/07/24 History Levothyroxine Sodium [Synthroid] 100 mcg PO DAILY@0600 09/30/22 08/07/24 History allopurinoL 300 mg PO DAILY 09/30/22 08/07/24 History buPROPion HCL [Wellbutrin SR] 200 mg PO DAILY 09/30/22 08/07/24 History rOPINIRole HCL [Requip] 0.5 mg PO HS 04/27/23 08/07/24 History Cetirizine HCl [Zyrtec] 10 mg PO DAILY 04/25/24 08/07/24 History Glimepiride [Amaryl] 2 mg PO DAILY 05/12/24 08/07/24 History Aspirin EC [Ecotrin Low Dose] 81 mg PO DAILY 05/30/24 08/07/24 History Atorvastatin [Lipitor] 10 mg PO HS 05/30/24 08/07/24 History Metoprolol Tartrate [Lopressor] 50 mg PO BID 05/30/24 08/07/24 History amLODIPine [Norvasc] 5 mg PO DAILY 05/30/24 08/07/24 History Acetaminophen Tab [Tylenol] 650 mg PO Q6HR PRN tab 06/02/24 08/07/24 Rx Bumetanide [BUMEX] 1 mg PO DAILY tab 06/02/24 08/07/24 Rx Ramelteon 8 mg PO HS #30 tab 06/02/24 08/07/24 Rx ALPRAZolam [Xanax] 0.25 mg PO Q8H PRN 08/07/24 08/07/24 History Cranberry Fruit Extract [Cranberry] 200 mg PO DAILY 08/07/24 08/07/24 History Allergies Allergy/AdvReac Type Severity Reaction Status Date / Time amoxicillin Allergy Unknown TAKEN FROM Verified 08/07/24 11:46 DR OLIVER'Young NOTES Iodine and Iodide Containing Allergy Unknown TESTED Verified 08/07/24 11:46 Produc POSITIVE FOR SHELLFISH prednisone Allergy Unknown TAKEN FROM Verified 08/07/24 11:46 DR FISHER NOTES adhesive Allergy blisters, Verified 08/07/24 11:46 itching Penicillins Allergy Rash/Hives Verified 08/07/24 11:46 shellfish derived Allergy TESTED Verified 08/07/24 11:46 POSITIVE WITH ALLERGY TESTING. gluten AdvReac vomiting, Verified 08/07/24 11:46 diarrhea antibiotics AdvReac Diarrhea Uncoded 08/07/24 11:46 Physical Examination - Vital Signs Vital Signs: Vital Signs Temp Pulse Pulse Resp BP Pulse Ox 08/10/24 14:04 98.0 F 61 17 131/77 95 08/10/24 09:10 49 L 55 L 15 08/10/24 06:51 98.0 F 55 L 15 138/73 96 08/10/24 02:00 97.7 F 55 L 14 113/59 96 08/09/24 19:52 97.8 F 56 L 16 114/63 94 L Intake and Output 08/10/24 08/10/24 08/10/24 06:59 14:59 22:59 Output Total 300 Balance -300 Output: Urine 300 Other: Voiding Method Indwelling Catheter Weight 68.5 kg 68.5 kg GENERAL: The patient is lying in bed and is not in acute distress. NEUROLOGICAL: Limited. Higher mental function: She was in tears during this examination. The patient is awake, alert, oriented to self, place and time. Patient is following simple commands. No aphasia. Cranial nerves: The pupils are round, equal and reactive to light and accommodation. Visual burns are full to confrontation throughout. Extraocular movement is intact no nystagmus is noted. Facial sensation is normal to touch throughout. The facial strength is normal throughout. Hearing is mildly to moderately decreased bilaterally to hand rub. Tongue is midline and moved [id number] without any difficulty. No dysarthria is noted. Shoulder shrug is normal bilaterally. Motor: The strength is right lower extremity is 2-3 (seems more 3) and states this is new but unsure exactly when. Otherwise 5 over 5 throughout. Normal tone and bulk. Cerebellum: Normal finger to nose bilaterally. Sensation: Sensation is normal to touch throughout. Reflexes (right/left): 2+ in uppers but limited in lowers because of resistance. Plantars are mute bilaterally. Results - Laboratory Findings CBC and BMP: 08/08/24 11:39 08/10/24 03:47 Abnormal Lab Findings: Abnormal Labs 08/06/24 08/06/24 08/06/24 12:10 12:10 18:56 WBC Hgb MCHC RDW 15.6 H Lymphocytes # 0.8 L Sodium 136 L Potassium Chloride BUN 22 H Creatinine 1.06 H Glucose 70 L POC Glucose (mg/dL) 68 L Total Protein 6.1 L Albumin 3.3 L Ur Leukocyte Esterase Hyaline Casts Urine Mucus 08/06/24 08/08/24 08/08/24 22:18 11:39 11:39 WBC 3.68 L Hgb 11.5 L MCHC 30.6 L RDW 15.8 H Lymphocytes # 0.81 L Sodium Potassium 3.4 L Chloride 108 H BUN Creatinine Glucose POC Glucose (mg/dL) 130 H Total Protein Albumin Ur Leukocyte Esterase Hyaline Casts Urine Mucus 08/08/24 08/09/24 08/09/24 14:40 05:27 20:56 WBC Hgb MCHC RDW Lymphocytes # Sodium Potassium 3.2 L Chloride 111 H BUN Creatinine Glucose 72 L POC Glucose (mg/dL) 126 H Total Protein Albumin Ur Leukocyte Esterase Trace H Hyaline Casts 3 H Urine Mucus Occasional H Assessment and Plan Assessment: This is an 84-year-old woman who present emergency department because of altered mental status and weakness. She was tearful that she did not know who she was her daughter's name or where she is at but on examination she was oriented x 3. Per the nurse she is having fluctuation of mentation. She had minimal low sugar in the high 60s low 70s. Examination she had right lower extremity weakness denies of any new back pain or radicular symptoms. Altered mental status with right lower extremity weakness: Rule out acute to subacute ischemic stroke Her altered mental status seems more delirium. Per medical record it seems the patient has underlying history of memory impairment. Minimal hypoglycemia Cutaneous candidiasis History of diabetes mellitus History of sleep apnea Hypertension Hyperlipidemia History of thyroid disorder History of bilateral knee replacement. Plan: I ordered ammonia level, vitamin B12, TSH, folate Ordered MRI of the brain, carotid duplex routine EEG. I ordered CT of lumbar spine because of right lower extremity weakness unsure if this is due to acute stroke versus lumbar issues Please avoid further hypoglycemia events. Defer the management to primary team Patient is on aspirin 81 mg daily, Lipitor 10 mg daily. Next patient is on Aricept 10 mg nightly Primary team ordered 2D echo. Continue neurochecks PT OT are consulted Infection diseases consulted Will defer the rest of the medical management to primary and other specialist The plan is discussed with her nurse. Thank you for the consultation. Dr. Goldberg will resume neurology service tomorrow A.M. Time with Patient: Greater than 30
[2024-08-10 16:39] LABS: Glucose,Whole Blood 92 mg/dL (70-110)
--- NOTE | 2024-08-10 18:09 | MR ---
INDICATION: Patient age:Female; 84 years old; Reason for study: altered mental status unknown etiology; [facility]. COMPARISON: CT brain 08/06/2024, 04/25/2024, CT brain C-spine 07/19/2024, MRI brain 05/01/2023, 10/18/2017. TECHNIQUE: Multi planar, multi sequence imaging was performed through the brain without the administr ation of intravenous contrast. FINDINGS: The yoo-white junctions, ventricular system, basal cisterns appear prominent secondary to cerebral v olume loss. Age-appropriate diffuse cerebral volume loss. Diffusion-weighted imaging shows no evidenc e of restricted diffusion to suggest acute/subacute infarct. Intracranial arterial flow voids are wanda ntained. Midline structures show no abnormality. Progression of patchy areas of high T2/FLAIR signal intensity are seen within the periventricular and subcortical white matter. Redemonstration of simila r T2 hyperintense signal within the left thalamus most likely related to prominent Virchow-Kash spac e or remote lacunar infarct. The susceptibility weighted images do not reveal any evidence for micro- hemorrhage. Redemonstration of left posterior/occipital developmental venous anomaly. The bone marrow signal is within normal limits. Mild mucosal thickening of the ethmoid sinuses. Bilat eral aphakia. IMPRESSION: 1. No evidence of intracranial mass or acute/subacute infarct. 2. Progression of nonspecific white matter changes, likely related to small vessel ischemic disease. 3. 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 [facility], , 08/10/2024 6:07 PM
--- NOTE | 2024-08-10 19:27 | CT ---
EXAMINATION TYPE: CT lumbar spine wo con CT DLP: 1653.5 mGycm, Automated exposure control for dose reduction was used. DATE OF EXAM: 08/10/2024 6:35 PM COMPARISON: CT lumbar spine 05/31/2024. CLINICAL INDICATION:Female, 84 years old with history of right leg weakness; PHH, back pain, leg weak ness TECHNIQUE: Multiple axial images were obtained from the midportion of T11 through the sacroiliac radha nts. Soft tissue and bone windows in coronal and sagittal planes were obtained and reviewed. 3-D ref ormats of the bones were created on a separate workstation and submitted for review. Contrast used: mL of , (None, if empty). Oral contrast used: (None, if empty). FINDINGS: Alignment: There are 5 lumbar type vertebral bodies. There is redemonstrated grade 1 anterolisthesis of L4 on L5.. Bone: Multilevel mixed sclerotic and lucent changes of the visualized spine redemonstrated. Similar vacuum effects. Diffuse osteopenia. No acute fractures. Discs: T12-L1: No spinal canal or neural foraminal stenosis is identified. L1-L2: No spinal canal or neural foraminal stenosis is identified. L2-L3: Severe disc bulge with facet arthropathy is seen resulting in moderate to severe spinal canal stenosis. There is severe right and mild left neural foraminal stenosis. L3-L4: Severe disc bulge with facet arthropathy is seen resulting in moderate to severe spinal canal stenosis. There is severe right and mild left neural foraminal stenosis with compression along the ri ght nerve root at this level. . L4-L5: Disc uncovering with severe disc bulge with facet arthropathy is seen resulting in severe spin al canal stenosis. There is severe bilateral neural foraminal stenosis with compression along the rig ht nerve root at this level. L5-S1: Severe disc bulge with facet arthropathy is seen resulting in moderate to severe spinal canal stenosis. There is severe right and mild left neural foraminal stenosis with compression along the ri ght nerve root at this level Other: Small hiatal hernia IMPRESSION: 1. No evidence for acute spinal fracture. 2. There is severe disc degenerative disease resulting in multilevel critical spinal canal stenosis s panning L2-S1 which appears slightly progressed when compared with the recent CT study in reference. 3. Multilevel disc degenerative disease is also seen resulting in multilevel bilateral neural foramin al stenosis from L4 through S1 most pronounced along the right side where there is suggested compress ion at those associated levels [facility], , 08/10/2024 7:25 PM
[2024-08-10 21:15] LABS: Glucose,Whole Blood 107 mg/dL (70-110)
--- NOTE | 2024-08-11 00:19 | PN ---
PROGRESS NOTE DATE OF SERVICE: 08/10/2024 SUBJECTIVE: This is an 84-year-old woman, who was admitted with change in mental status, also had urinary retention. No chest pain. No palpitation. OBJECTIVE: VITAL SIGNS: Pulse is 61, blood pressure 130/76, respirations 17. CHEST: Clear to auscultation. CARDIOVASCULAR: S1, S2. ABDOMEN: Soft. NERVOUS SYSTEM: Nonfocal. LABORATORY DATA: Reviewed. Cultures are negative so far. ASSESSMENT: 1. Change in mental status, possible acute metabolic encephalopathy versus transient ischemic attack. 2. Weakness, debility, gait dysfunction. 3. Possible sinusitis. 4. Diabetes mellitus, type 2 with hypoglycemia. 5. Hypertension. 6. Hyperlipidemia. RECOMMENDATIONS: Recommend to continue current management and continue symptomatic treatment. Otherwise, full TIA workup. Neurology has been consulted. Cultures are negative. Guarded prognosis. Further recommendations to follow. MRI has been ordered. MMODL / IJN: [id number] /
[2024-08-11 06:36] LABS: Glucose,Whole Blood 108 mg/dL (70-110)
[2024-08-11 11:31] LABS: Glucose,Whole Blood 144 mg/dL (70-110)
--- NOTE | 2024-08-11 13:58 | CA ---
Transthoracic Echo Report Name: Natasha Wu Age: 84 Gender: F : 1940 Exam Date: 08/11/2024 10:03 Exam Location: [facility] Ht (in): 62 Wt (lb): 151 Ordering Physician: Kyler Phan MD Attending/Referring Phys: Sqe Franca Jerry RDCS Procedure CPT: Indications: tia Cardiac Hx: Technical Quality: Fair, unable to use Definity due to pt. not having an IV Contrast 1: Total Dose (mL): Contrast 2: Total Dose (mL): MEASUREMENTS (Male / Female) Normal Values 2D ECHO LV Diastolic Diameter PLAX 4.6 cm 4.2 - 5.9 / 3.9 - 5.3 cm LV Systolic Diameter PLAX 3.6 cm IVS Diastolic Thickness 1.1 cm 0.6 - 1.0 / 0.6 - 0.9 cm LVPW Diastolic Thickness 1.2 cm 0.6 - 1.0 / 0.6 - 0.9 cm LV Relative Wall Thickness 0.5 RV Internal Dim ED PLAX 2.6 cm LA Systolic Diameter LX 4.7 cm 3.0 - 4.0 / 2.7 - 3.8 cm LV Diastolic Volume MOD 4C 37.6 cm??? LV Systolic Volume MOD 4C 20.8 cm??? LV Ejection Fraction MOD 4C 44.7 % LV Cardiac Index MOD 4C 576.1 cm???/min???m??? LV Diastolic Length 4C 7.1 cm LV Systolic Length 4C 6.4 cm LA Volume 80.4 cm??? 18 - 58 / 22 - 52 cm??? LA Volume Index 45.9 cm???/m??? 16 - 28 cm???/m??? M-MODE Aortic Root Diameter MM 3.0 cm LA Systolic Diameter MM 3.4 cm LA Ao Ratio MM 1.1 AV Cusp Separation MM 1.9 cm FINDINGS Left Ventricle Left ventricular ejection fraction is estimated at 55-60 %. Mildly increased septal wall thickness. Mildly increased posterior wall thickness. No obvious regional wall motion abnormalities. Left ventricular cavity size normal. Right Ventricle Moderate right ventricular dilatation. Right Atrium Moderate right atrial dilatation. Left Atrium Severely increased left atrial diameter. Severely increased left atrial volume. Mildly increased left atrial area. Mitral Valve Structurally normal mitral valve. Aortic Valve Trileaflet aortic valve. No aortic stenosis. Tricuspid Valve Structurally normal tricuspid valve. Pulmonic Valve Structurally normal pulmonic valve. Pericardium No pericardial or pleural effusion. Aorta Normal size aortic root and proximal ascending aorta. CONCLUSIONS LVH with preserved systolic function Severe left atrial enlargement Moderate RV enlargement Previewed by: Dr. Jaylan Padilla MD (Electronically Signed) Final Date: 11 August 2024 13:57
--- NOTE | 2024-08-11 14:57 | P.PN ---
Subjective Progress Note Date: 08/10/24 Principal diagnosis: Reason for follow-up is groin area cutaneous candidiasis and possible cellulitis Patient is a 84-year-old female with a past medical history nephric and for hypertension hyperlipidemia diabetes mellitus patient has been brought into the hospital concerning for mental status changes, patient did not have any fever vital normal UA was negative noticed to have excoriation of the colon abdominal fold concerning for cutaneous kidney disease possible cellulitis. On today's evaluation that is 08/10/2024, patient has been afebrile, patient is breathing comfortably and is currently on room air, patient denies having any significant cough no chest pain, patient denies nausea vomiting or diarrhea and no abdominal pain, urinary symptoms. Patient did have a creatinine 0.8 no CBC was done today Objective - Vital Signs Vital signs: Vital Signs Temp 98.0 F 08/10/24 06:51 Pulse 49 L 08/10/24 09:10 Resp 15 08/10/24 09:10 BP 138/73 08/10/24 06:51 Pulse Ox 96 08/10/24 06:51 FiO2 Intake & Output 08/09/24 08/10/24 08/10/24 18:59 06:59 18:59 Output Total 350 300 Balance -350 -300 Weight 68.5 kg Output: Urine 350 300 Stool 0 Other: Voiding Method Indwelling Catheter Indwelling Catheter Indwelling Catheter - Exam GENERAL DESCRIPTION: An elderly female lying in bed in no distress RESPIRATORY SYSTEM: Unlabored breathing , decreased breath sounds at bases HEART: S1 S2 regular rate and rhythm , ABDOMEN: Soft , no tenderness, abdominal and groin fold with cutaneous candidiasis EXTREMITIES: No edema feet - Labs CBC & Chem 7: 08/08/24 11:39 08/10/24 03:47 Labs: Abnormal Lab Results - Last 24 Hours (Table) 08/09/24 Range/Units 20:56 POC Glucose (mg/dL) 126 H (70-110) mg/dL Assessment and Plan (1) Intertrigo Current Visit: Yes Status: Acute Code(s): L30.4 - ERYTHEMA INTERTRIGO SNOMED Code(s): 52362993 (2) Penicillin allergy Current Visit: Yes Status: Acute Code(s): Z88.0 - ALLERGY STATUS TO PENICILLIN SNOMED Code(s): 47899609 Plan: 1patient presented to hospital with mental status changes did have decreased appetite patient not running any fever did have a negative UA white count has been normal, patient did have evidence of excoriation to the abdominal and groin fold concerning for cutaneous candidiasis and possible secondary cellulitis 2-penicillin allergy that will limit the number of antibiotics safe to use 3patient is afebrile, will continue treatment with Diflucan and nystatin powder to the abdominal and groin fold and monitor clinical course closely Dictation was produced using [employer] dictation software. please excuse any grammatical, word or spelling errors. Time with Patient: Less than 30
--- NOTE | 2024-08-11 14:58 | P.PN ---
Subjective Progress Note Date: 08/11/24 Principal diagnosis: Reason for follow-up is groin area cutaneous candidiasis and possible cellulitis Patient is a 84-year-old female with a past medical history nephric and for hypertension hyperlipidemia diabetes mellitus patient has been brought into the hospital concerning for mental status changes, patient did not have any fever vital normal UA was negative noticed to have excoriation of the colon abdominal fold concerning for cutaneous kidney disease possible cellulitis. On today's evaluation that is 08/11/2024, Patient is afebrile this morning patient denies having any chest pain shortness of breath or cough, the patient is currently on room air, patient denies any abdominal pain no diarrhea no nausea no vomiting, mention feeling better No lab draw today Objective - Vital Signs Vital signs: Vital Signs Temp 98.1 F 08/11/24 12:38 Pulse 57 L 08/11/24 12:38 Resp 16 08/11/24 12:38 BP 101/63 08/11/24 12:38 Pulse Ox 95 08/11/24 12:38 FiO2 Intake & Output 08/10/24 08/11/24 08/11/24 18:59 06:59 18:59 Output Total 575 225 Balance -575 -225 Weight 68.5 kg 87.5 kg Output: Urine 575 225 Other: Voiding Method Indwelling Catheter Indwelling Catheter - Exam GENERAL DESCRIPTION: An elderly female lying in bed in no distress RESPIRATORY SYSTEM: Unlabored breathing , decreased breath sounds at bases HEART: S1 S2 regular rate and rhythm , ABDOMEN: Soft , no tenderness, abdominal and groin fold with cutaneous candidiasis EXTREMITIES: No edema feet - Labs CBC & Chem 7: 08/08/24 11:39 08/10/24 03:47 Labs: Abnormal Lab Results - Last 24 Hours (Table) 08/10/24 08/10/24 08/11/24 Range/Units 16:21 16:21 11:30 POC Glucose (mg/dL) 144 H (70-110) mg/dL Vitamin B12 1052.0 H (200.0-944.0) pg/mL Folate 31.30 H (4.40-31.00) ng/mL Assessment and Plan (1) Intertrigo Current Visit: Yes Status: Acute Code(s): L30.4 - ERYTHEMA INTERTRIGO SNOMED Code(s): 09299287 (2) Penicillin allergy Current Visit: Yes Status: Acute Code(s): Z88.0 - ALLERGY STATUS TO PENIC ILLIN SNOMED Code(s): 77027270 Plan: 1patient presented to hospital with mental status changes did have decreased appetite patient not running any fever did have a negative UA white count has been normal, patient did have evidence of excoriation to the abdominal and groin fold concerning for cutaneous candidiasis and possible secondary cellulitis 2-penicillin allergy that will limit the number of antibiotics safe to use 3patient is afebrile and white count has been normal, no culture has been done, 4-patient will be treated with Diflucan and nystatin powder to the abdominal and groin fold and continue supportive care Dictation was produced using Spr[employer] dictation software. please excuse any grammatical, word or spelling errors. Time with Patient: Less than 30
[2024-08-11 16:35] LABS: Glucose,Whole Blood 113 mg/dL (70-110)
[2024-08-11 21:26] LABS: Glucose,Whole Blood 141 mg/dL (70-110)
--- NOTE | 2024-08-11 21:46 | PN ---
PROGRESS NOTE DATE OF SERVICE: 08/11/2024 SUBJECTIVE: This 84-year-old woman was admitted with change in mental status, possibly metabolic encephalopathy versus TIA, also had significant gait dysfunction also. No chest pain. No palpitation. ECF rehab is being planned. Multiple consultants are following the patient closely. MRA showed severe DJD. OBJECTIVE: VITAL SIGNS: Pulse is 57, blood pressure 101/63, respirations 16. GENERAL: The patient is confused. CHEST: Few scattered rhonchi. ABDOMEN: Soft. CARDIOVASCULAR: S1, S2 normal. LABORATORY DATA: Reviewed. ASSESSMENT: 1. Change in mental status, possible acute metabolic encephalopathy versus transient ischemic attack. 2. Severe degenerative joint disease. 3. Weakness, debility, gait dysfunction. 4. Possible sinusitis. 5. Diabetes mellitus, type 2 with hypoglycemia. 6. Hypertension. 7. Hyperlipidemia. RECOMMENDATIONS AND DISCUSSION: Recommend to continue current management and continue symptomatic treatment. Otherwise, repeat labs. PT/OT evaluation. Possible ECF rehab. Guarded prognosis. Further recommendations to follow. MMODL / IJN: [id number] /
--- NOTE | 2024-08-11 22:55 | EEG ---
DATE OF SERVICE: 08/11/2024 ELECTROENCEPHALOGRAM REPORT PREAMBLE: An 84-year-old female with altered mental status, rule out seizure. The patient currently takes Xanax, Norvasc, Arimidex, Lipitor, heparin, and Lopressor. EEG FINDINGS: This is a 21-channel digital EEG recorded with video component, utilizing 10/20 international system with referential bipolar montages. Background consists of well developed, fairly well regulated, low amplitude fast frequency beta activity seen in bihemispheric region. Background is posterior dominant and seems to be minimally reactive to eye opening and closing. Photic driving response was not seen. During later of the study, the patient became drowsy and then stage 2 sleep was seen with presence of diffuse moderate amplitude theta frequency rhythm with sleep spindles and vertex waves. No focal or generalized epileptiform activity was seen. IMPRESSION: Mildly abnormal EEG due to presence of excessive amount of low-voltage fast frequency beta activity, suggestive of medication effect. Otherwise, no focal, lateralized, or epileptiform activity was seen. MMODL / IJN: [id number] / BAUDILIO
[2024-08-12 06:48] LABS: Glucose,Whole Blood 92 mg/dL (70-110)
--- NOTE | 2024-08-12 09:19 | P.CNOR ---
History of Present Illness - [facility] Consult date: 08/12/24 Requesting physician: Maximiliano Goldberg Consult reason: other (RIght leg weakness, abnormal CT lumbar spine) History of present illness: Patient is an 84-year-old female who presented to the emergency department on 08/06/2024 due to altered mental status. Patient does have a past medical his tory significant for diabetes, hyperlipidemia, hypertension, renal disease, dementia, diverticulitis, skin cancer, asthma and chronic low back pain. According to the ER note, daughter who lives with patient reports that patient has fallen several times over the past few weeks. As well as noting that there is a rash over the patient's lower abdomen. Orthopedics was consulted on 08/11/2024 due to right lower extremity weakness and back pain. Patient did present to [facility] [place] in early April 2024 due to intractable low back pain with spinal stenosis, degenerative disc disease and lumbar spondylosis. Patient was treated conservatively with physical therapy and Occupational Therapy and was sent to subacute rehab where she had therapy daily. Patient does not have any previous orthopedic spine surgical history. Patient does have past history of bilateral knee arthroplasties. Patient is unsure what surgeon performed these. Patient says she does have low back pain that has been going on for years and has seemed to worsen over the past year. Patient does mention weakness in both legs. Patient says normally she does ambulate with a walker. Patient denies any saddle anesthesia. Patient denies loss of bowel/bladder control. Much of the history was difficult to obtain due to the patient's mental state. 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 History of Any Multi-Drug Resistant Organisms: None Reported Past Surgical History: Appendectomy, Breast Surgery, Cholecystectomy, Heart Catheterization, Hysterectomy, Joint Replacement Additional Past Surgical History / Comment(s): mena knee replacements, cataracts, surgery for fx finger left hand,skin cancer removed ears, forehead, nose & shoulder, colonoscopy, lt breast biopsy, rt breast biopsy, R breast lumpectomy Past Anesthesia/Blood Transfusion Reactions: Previous Problems w/ Anesthesia, Motion Sickness Additional Past Anesthesia/Blood Transfusion Reaction / Comm: high BP. daughter PONV Past Psychological History: Depression Smoking Status: Former smoker Past Alcohol Use History: None Reported Past Drug Use History: None Reported - Past Family History Mother Family Medical History: Blood Disorder, Cancer Additional Family Medical History / Comment(s): bone cancer , pt unsure if mother or sister had blood disorder with "vitamin k" Sister(s) Family Medical History: Blood Disorder Medications and Allergies Home Medications Medication Instructions Recorded Confirmed Type Montelukast [Singulair] 10 mg PO HS 03/29/14 08/07/24 History Anastrozole [Arimidex] 1 mg PO DAILY 03/23/21 08/07/24 History Meclizine [Antivert] 12.5 mg PO DAILY PRN 03/16/22 08/07/24 History Galantamine HBr [Razadyne ER] 16 mg PO HS 09/30/22 08/07/24 History Levothyroxine Sodium [Synthroid] 100 mcg PO DAILY@0600 09/30/22 08/07/24 History allopurinoL 300 mg PO DAILY 09/30/22 08/07/24 History buPROPion HCL [Wellbutrin SR] 200 mg PO DAILY 09/30/22 08/07/24 History rOPINIRole HCL [Requip] 0.5 mg PO HS 04/27/23 08/07/24 History Cetirizine HCl [Zyrtec] 10 mg PO DAILY 04/25/24 08/07/24 History Glimepiride [Amaryl] 2 mg PO DAILY 05/12/24 08/07/24 History Aspirin EC [Ecotrin Low Dose] 81 mg PO DAILY 05/30/24 08/07/24 History Atorvastatin [Lipitor] 10 mg PO HS 05/30/24 08/07/24 History Metoprolol Tartrate [Lopressor] 50 mg PO BID 05/30/24 08/07/24 History amLODIPine [Norvasc] 5 mg PO DAILY 05/30/24 08/07/24 History Acetaminophen Tab [Tylenol] 650 mg PO Q6HR PRN tab 06/02/24 08/07/24 Rx Bumetanide [BUMEX] 1 mg PO DAILY tab 06/02/24 08/07/24 Rx Ramelteon 8 mg PO HS #30 tab 06/02/24 08/07/24 Rx ALPRAZolam [Xanax] 0.25 mg PO Q8H PRN 08/07/24 08/07/24 History Cranberry Fruit Extract [Cranberry] 200 mg PO DAILY 08/07/24 08/07/24 History Allergies Allergy/AdvReac Type Severity Reaction Status Date / Time amoxicillin Allergy Unknown TAKEN FROM Verified 08/07/24 11:46 DR OLIVER'S NOTES Iodine and Iodide Containing Allergy Unknown TESTED Verified 08/07/24 11:46 Produc POSITIVE FOR SHELLFISH prednisone Allergy Unknown TAKEN FROM Verified 08/07/24 11:46 DR FISHER NOTES adhesive Allergy blisters, Verified 08/07/24 11:46 itching Penicillins Allergy Rash/Hives Verified 08/07/24 11:46 shellfish derived Allergy TESTED Verified 08/07/24 11:46 POSITIVE WITH ALLERGY TESTING. gluten AdvReac vomiting, Verified 08/07/24 11:46 diarrhea antibiotics AdvReac Diarrhea Uncoded 08/07/24 11:46 Physical Examination Negative for any open fractures, significant erythema/ecchymosis/open wounds. Positive for bilateral scars over the anterior knees. Sensation is diminished in the bilateral lower extremities in the feet. Sensation is equal, symmetric, by intact at the rest of the extremities. There is tenderness to palpation throughout the lower lumbar spine on exam at midline and in the bilateral SI joints. Patient does have limited range of motion in bilateral lower extremities on exam secondary to weakness and referred pain to the low back. 3/5 in all major motor groups in bilateral lower extremities. DP pulses palpable bilaterally. Cap refill present in bilateral upper extremities on exam. Radial pulse intact, 2+ bilaterally. Negative Homans bilaterally. Negative Marycruz bilaterally. Negative clonus bilaterally. Results - Labs Labs: Abnormal Lab Results - Last 24 Hours (Table) 08/11/24 08/11/24 08/11/24 Range/Units 11:30 16:34 21:25 POC Glucose (mg/dL) 144 H 113 H 141 H (70-110) mg/dL H & H 08/06/24 08/08/24 Range/Units 12:10 11:39 Hgb 11.7 11.5 L (11.4-16.0) gm/dL Hct 36.0 37.6 (34.0-46.0) % Coagulation 08/06/24 Range/Units 12:10 INR 1.0 (<1.2) Result Diagrams: 08/08/24 11:39 08/10/24 03:47 - Diagnostic results CT Scan - lumbar: report reviewed, image reviewed (CT scan of the lumbar spine is negative for any acute fracture. There is evident degenerative disc disease resulting in central canal stenosis from L2-S1. There is also evident bilateral neuroforaminal stenosis from L4-S1 most evident on the right side) Assessment and Plan Assessment: 1. Low back pain; right lower extremity weakness; lumbar spondylosis; degenerative disease; lumbar central canal stenosis; lumbar neuroforaminal stenosis Plan: 1. Low back pain; right lower extremity weakness; lumbar spondylosis; degenerative disease; lumbar central canal stenosis; lumbar neuroforaminal stenosis - CT scan of the lumbar spine is negative for any acute fracture. There is evident degenerative disc disease resulting in central canal stenosis from L2-S1. There is also evident bilateral neuroforaminal stenosis from L4-S1 most evident on the right side. I will discuss the findings of the exam and imaging with my attending, Dr. Ascencio's and before proceeding with any potential orthopedic intervention. At this time we are recommending PT/OT and pain medication as needed to help control symptoms. Patient may weight-bear as tolerated walker and assistance. Further recommendations to follow. Patient is okay to perform gentle range of motion exercises while resting in bed. We will continue to follow patient during her stay in the hospital. 2. Appreciate medical, neuro management 3. Pain management -Tylenol 4. DVT prophylaxis -aspirin; Heparin 5. GI prophylaxis recs 6. PT/OT - Patient may weight-bear as tolerated with walker and assistance. 7. Encourage incentive spirometer use Time with Patient: Less than 30
[2024-08-12 09:30] LABS: Basophils # (A) 0.01 X 10*3/uL (0.00-0.10); Basophils % (A) 0.2 %; Eosinophils # (A) 0.07 X 10*3/uL (0.04-0.35); Eosinophils % (A) 1.4 %; HCT 34.7 % (37.2-46.3); HGB 10.8 g/dL (12.0-15.0); Lymphocytes # (A) 1.15 X 10*3/uL (0.90-5.00); Lymphocytes % (A) 23.8 %; MCH 27.3 pg (27.0-32.0); MCHC 31.1 g/dL (32.0-37.0); MCV 87.6 FL (80.0-97.0); Mean Platelet Volume 10.5 FL (9.5-12.2); Monocytes # (A) 0.93 X 10*3/uL (0.20-1.00); Monocytes % (A) 19.3 %; NRBC Per 100 WBC 0 X 10*3/uL (0.00-0.01); Neutrophils # (A) 2.53 X 10*3/uL (1.80-7.70); Neutrophils % (A) 52.4 %; Platelet Count 283 X 10*3/uL (140-440); RBC 3.96 X 10*6/uL (4.10-5.20); RDW 15.9 % (11.5-14.5); WBC 4.83 X 10*3/uL (4.50-10.00)
[2024-08-12 09:34] LABS: ALT 5 U/L (8-44); AST 17 U/L (13-35); Albumin/Globulin Ratio 1.25 Ratio (1.60-3.17); Alkaline Phosphatase 91 U/L (41-126); Blood Urea Nitrogen 16.4 mg/dL (9.0-27.0); Calcium 8.9 mg/dL (8.7-10.3); Carbon Dioxide 26.4 mmol/L (21.6-31.8); Chloride 106 mmol/L (96-109); Globulin 2.4 g/dL (1.6-3.3); Glucose 83 mg/dL (70-110); Potassium 3.8 mmol/L (3.5-5.5); Sodium 142 mmol/L (135-145); Total Bilirubin 0.3 mg/dL (0.3-1.2); Total Protein 5.4 g/dL (6.2-8.2)
--- NOTE | 2024-08-12 09:45 | P.PN ---
Subjective Progress Note Date: 08/11/24 Patient initially seen by Dr. Remington Charles. Please refer to his note for details. Patient is 84-year-old female with confusion and right leg weakness. Patient at present is laying in the bed, in no acute distress. Patient continues to have right leg weakness. Denies any cranial nerve symptoms. No headache. Some of the workup during this hospital visit consisted of: Patient is afebrile. Initial presentation patient serum glucose was 70 and her PCO glucose was 75 but repeated 1 was 68. Sodium is 136, calcium is 9.3, AST ALT is within normal limits I reviewed the rest of the lab workup On 07/2024 patient TSH was 2.680 and free T4 was slightly elevated of 2.26 CT of the head is reported as no acute intracranial process. I reviewed the CT and agree with the report Objective - Vital Signs Vital signs: Vital Signs Temp 98.1 F 08/11/24 12:38 Pulse 57 L 08/11/24 12:38 Resp 16 08/11/24 12:38 BP 101/63 08/11/24 12:38 Pulse Ox 95 08/11/24 12:38 FiO2 Intake & Output 08/10/24 08/11/24 08/11/24 18:59 06:59 18:59 Output Total 575 225 Balance -575 -225 Weight 68.5 kg 87.5 kg Output: Urine 575 225 Other: Voiding Method Indwelling Catheter Indwelling Catheter - Exam Patient's mental status, speech and language functions are normal. Cranial nerves are normal. Visual burns are full, face is symmetric. On muscle strength testing there is no pronator drift and the strength is normal in the upper limbs distally and proximally. In the lower limbs(right/left) hip flexion 4+/5, ankle dorsiflexion 5/5, toe extension 4/4. - Labs CBC & Chem 7: 08/12/24 06:22 08/12/24 06:22 Labs: Abnormal Lab Results - Last 24 Hours (Table) 08/10/24 08/10/24 08/11/24 Range/Units 16:21 16:21 11:30 POC Glucose (mg/dL) 144 H (70-110) mg/dL Vitamin B12 1052.0 H (200.0-944.0) pg/mL Folate 31.30 H (4.40-31.00) ng/mL 08/11/ Range/Units 16:34 POC Glucose (mg/dL) 113 H (70-110) mg/dL Vitamin B12 (200.0-944.0) pg/mL Folate (4.40-31.00) ng/mL Assessment and Plan Assessment: Altered mental status, likely due to metabolic encephalopathy, now resolved. Reasons mentioned below. Right leg weakness, possible due to spinal stenosis. Acute CVA ruled out. Minimal hypoglycemia Cutaneous candidiasis History of diabetes mellitus History of sleep apnea Hypertension Hyperlipidemia History of thyroid disorder History of bilateral knee replacement. Plan: Patient underwent workup as below. Ammonia level <9, vitamin B12 1052, TSH 2.52, folate 31.3, all normal MRI of the brain revealed no evidence of intracranial mass or acute/subacute infarct. Progression of nonspecific) changes, likely related to small vessel ischemic disease. 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 I personally reviewed MRI agree with the findings. Carotid duplex completed, results pending EEG was mildly abnormal because of excessive amount of low voltage fast activity suggestive of medication effect. No focal, lateralized or epileptiform activity was seen. CT of lumbar spine revealed no evidence for acute spinal fracture. There is severe disc degenerative disease resulting in multilevel critical spinal canal stenosis spanning L2 S1 which appears slightly progressed when compared with the recent CT study. Multilevel disc degenerative disease is also seen resulting in multilevel bilateral neural foraminal stenosis from L4-S1, most pronounced along the right side. There is suggested compression at those associated levels. Consult orthopedic surgery. Please avoid further hypoglycemia events. Defer the management to primary team Patient is on aspirin 81 mg daily, Lipitor 10 mg daily. Patient is on Aricept 10 mg nightly 2D echo revealed LVEF 55 to 60%. Mildly increased septal wall thickness. Mild increased posterior wall thickness. No obvious regional wall motion abnormalities. Severe left atrial enlargement. Moderate RV enlargement.. Continue neurochecks PT OT are consulted Infection diseases consulted Will defer the rest of the medical management to primary and other specialists on board.
[2024-08-12 11:46] LABS: Glucose,Whole Blood 153 mg/dL (70-110)
[2024-08-12 16:34] LABS: Glucose,Whole Blood 106 mg/dL (70-110)
--- NOTE | 2024-08-12 19:29 | PN ---
PROGRESS NOTE DATE OF SERVICE: 08/12/2024 SUBJECTIVE: This is an 84-year-old woman, who was admitted with change in mental status, metabolic encephalopathy, is being closely monitored. The patient also had severe DJD of the back also. Orthopedics evaluated the patient. No chest pain. No palpitation. OBJECTIVE: VITAL SIGNS: Pulse is 60, blood pressure 120/70, respirations 18. CHEST: Clear. CARDIOVASCULAR: S1, S2. ABDOMEN: Soft. NERVOUS SYSTEM: Diffusely weak. LABORATORY DATA: Noted. ASSESSMENT: 1. Change in mental status, possible acute metabolic encephalopathy with transient ischemic attack present on admission. 2. Severe degenerative joint disease of the back. 3. Weakness, debility, gait dysfunction. 4. Possible sinusitis. 5. Diabetes mellitus type 2 with hypoglycemia. RECOMMENDATIONS: Recommend to continue current medications and continue symptomatic treatment. Otherwise, closely follow. Recommend repeat labs. Orthopedic input appreciated. Further recommendations to follow. PT, OT evaluation, possible ECF rehab. MAIA / BLADIMIR: [id number] /
[2024-08-12 20:52] LABS: Glucose,Whole Blood 100 mg/dL (70-110)
[2024-08-13 06:31] LABS: Glucose,Whole Blood 95 mg/dL (70-110)
--- NOTE | 2024-08-13 08:29 | P.PN ---
Subjective Progress Note Date: 08/12/24 Principal diagnosis: Reason for follow-up is groin area cutaneous candidiasis and possible cellulitis Patient is a 84-year-old female with a past medical history nephric and for hypertension hyperlipidemia diabetes mellitus patient has been brought into the hospital concerning for mental status changes, patient did not have any fever vital normal UA was negative noticed to have excoriation of the colon abdominal fold concerning for cutaneous kidney disease possible cellulitis. On today's evaluation that is 08/12/2024,the patient denies any fever or any chills, patient is breathing comfortably on room air, the patient denies chest pain shortness of breath and no significant cough, patient denies abdominal pain, no nausea vomiting or diarrhea. Patient white count is 4.83, creatinine 0.8 Objective - Vital Signs Vital signs: Vital Signs Temp 97.7 F 08/12/24 14:00 Pulse 57 L 08/12/24 14:00 Resp 18 08/12/24 14:00 BP 95/59 08/12/24 14:00 Pulse Ox 95 08/12/24 14:00 FiO2 Intake & Output 08/11/24 08/12/24 08/12/24 18:59 06:59 18:59 Output Total 850 500 Balance -850 -500 Output: Urine 850 500 Other: Voiding Method Indwelling Catheter Indwelling Catheter - Exam GENERAL DESCRIPTION: An elderly female lying in bed in no distress RESPIRATORY SYSTEM: Unlabored breathing , decreased breath sounds at bases HEART: S1 S2 regular rate and rhythm , ABDOMEN: Soft , no tenderness, abdominal and groin fold with cutaneous candidiasis EXTREMITIES: No edema feet - Labs CBC & Chem 7: 08/12/24 06:22 08/12/24 06:22 Labs: Abnormal Lab Results - Last 24 Hours (Table) 08/11/24 08/11/24 08/12/24 Range/Units 16:34 21:25 06:22 RBC 3.96 L (4.10-5.20) X 10*6/uL Hgb 10.8 L (12.0-15.0) g/dL Hct 34.7 L (37.2-46.3) % MCHC 31.1 L (32.0-37.0) g/dL RDW 15.9 H (11.5-14.5) % Immature Gran # 0.14 H (0.00-0.04) X 10*3/uL BUN/Creatinine Ratio (12.00-20.00) Ratio POC Glucose (mg/dL) 113 H 141 H (70-110) mg/dL ALT (8-44) U/L Total Protein (6.2-8.2) g/dL Albumin (3.8-4.9) g/dL Albumin/Globulin Ratio (1.60-3.17) Ratio 08/12/24 08/12/24 Range/Units 06:22 11:44 RBC (4.10-5.20) X 10*6/uL Hgb (12.0-15.0) g/dL Hct (37.2-46.3) % MCHC (32.0-37.0) g/dL RDW (11.5-14.5) % Immature Gran # (0.00-0.04) X 10*3/uL BUN/Creatinine Ratio 20.50 H (12.00-20.00) Ratio POC Glucose (mg/dL) 153 H (70-110) mg/dL ALT 5 L (8-44) U/L Total Protein 5.4 L (6.2-8.2) g/dL Albumin 3.0 L (3.8-4.9) g/dL Albumin/Globulin Ratio 1.25 L (1.60-3.17) Ratio Assessment and Plan (1) Intertrigo Current Visit: Yes Status: Acute Code(s): L30.4 - ERYTHEMA INTERTRIGO SNOMED Code(s): 72773932 (2) Penicillin allergy Current Visit: Yes Status: Acute Code(s): Z88.0 - ALLERGY STATUS TO PENICILLIN SNOMED Code(s): 68711105 Plan: 1patient presented to hospital with mental status changes did have decreased appetite patient not running any fever did have a negative UA white count has been normal, patient did have evidence of excoriation to the abdominal and groin fold concerning for cutaneous candidiasis and possible secondary cellulitis 2-penicillin allergy that will limit the number of antibiotics safe to use 3patient is afebrile and white count has been normal, no culture has been done, 4-patient currently being treated with nystatin powder to the abdominal and groin fold along with Diflucan plan is for a 7-day course on discharge Dictation was produced using dragon dictation software. please excuse any gra mmatical, word or spelling errors. Time with Patient: Less than 30
[2024-08-13 09:35] LABS: Basophils # (A) 0.02 X 10*3/uL (0.00-0.10); Basophils % (A) 0.4 %; Eosinophils # (A) 0.11 X 10*3/uL (0.04-0.35); Eosinophils % (A) 2.3 %; HCT 34.7 % (37.2-46.3); HGB 10.9 g/dL (12.0-15.0); Lymphocytes % (A) 24.9 %; MCH 27.8 pg (27.0-32.0); MCHC 31.4 g/dL (32.0-37.0); MCV 88.5 FL (80.0-97.0); Monocytes # (A) 0.95 X 10*3/uL (0.20-1.00); Monocytes % (A) 19.7 %; NRBC Per 100 WBC 0 X 10*3/uL (0.00-0.01); Neutrophils # (A) 2.38 X 10*3/uL (1.80-7.70); Neutrophils % (A) 49.4 %; Platelet Count 299 X 10*3/uL (140-440); RBC 3.92 X 10*6/uL (4.10-5.20); RDW 16.2 % (11.5-14.5); WBC 4.82 X 10*3/uL (4.50-10.00)
[2024-08-13 10:22] LABS: BUN/Creat Ratio 23.12 Ratio (12.00-20.00); Blood Urea Nitrogen 18.5 mg/dL (9.0-27.0); Calcium 8.7 mg/dL (8.7-10.3); Carbon Dioxide 24.8 mmol/L (21.6-31.8); Chloride 104 mmol/L (96-109); Glucose 81 mg/dL (70-110); Potassium 4.3 mmol/L (3.5-5.5); Sodium 140 mmol/L (135-145)
--- NOTE | 2024-08-13 10:39 | P.PN ---
Subjective Progress Note Date: 08/12/24 08/12/2024: Patient was seen for a follow-up. Offers no new complaints. 08/11/2024: Patient initially seen by Dr. Remington Charles. Please refer to his note for details. Patient is 84-year-old female with confusion and right leg weakness. Patient at present is laying in the bed, in no acute distress. Patient continues to have right leg weakness. Denies any cranial nerve sympt oms. No headache. Some of the workup during this hospital visit consisted of: Patient is afebrile. Initial presentation patient serum glucose was 70 and her PCO glucose was 75 but repeated 1 was 68. Sodium is 136, calcium is 9.3, AST ALT is within normal limits I reviewed the rest of the lab workup On 07/2024 patient TSH was 2.680 and free T4 was slightly elevated of 2.26 CT of the head is reported as no acute intracranial process. I reviewed the CT and agree with the report Objective - Vital Signs Vital signs: Vital Signs Temp 97.7 F 08/12/24 14:00 Pulse 57 L 08/12/24 14:00 Resp 18 08/12/24 14:00 BP 95/59 08/12/24 14:00 Pulse Ox 95 08/12/24 14:00 FiO2 Intake & Output 08/11/24 08/12/24 08/12/24 18:59 06:59 18:59 Output Total 850 500 Balance -850 -500 Output: Urine 850 500 Other: Voiding Method Indwelling Catheter Indwelling Catheter - Exam Patient's mental status, speech and language functions are normal. Cranial nerves are normal. Visual burns are full, face is symmetric. On muscle strength testing there is no pronator drift and the strength is normal in the upper limbs distally and proximally. In the lower limbs(right/left) hip flexion 4+/5, ankle dorsiflexion 5/5, toe extension 4+/4+. - Labs CBC & Chem 7: 08/13/24 04:26 08/13/24 04:26 Labs: Abnormal Lab Results - Last 24 Hours (Table) 08/11/24 08/11/24 08/12/24 Range/Units 16:34 21:25 06:22 RBC 3.96 L (4.10-5.20) X 10*6/uL Hgb 10.8 L (12.0-15.0) g/dL Hct 34.7 L (37.2-46.3) % MCHC 31.1 L (32.0-37.0) g/dL RDW 15.9 H (11.5-14.5) % Immature Gran # 0.14 H (0.00-0.04) X 10*3/uL BUN/Creatinine Ratio (12.00-20.00) Ratio POC Glucose (mg/dL) 113 H 141 H (70-110) mg/dL ALT (8-44) U/L Total Protein (6.2-8.2) g/dL Albumin (3.8-4.9) g/dL Albumin/Globulin Ratio (1.60-3.17) Ratio 08/12/24 08/12/24 Range/Units 06:22 11:44 RBC (4.10-5.20) X 10*6/uL Hgb (12.0-15.0) g/dL Hct (37.2-46.3) % MCHC (32.0-37.0) g/dL RDW (11.5-14.5) % Immature Gran # (0.00-0.04) X 10*3/uL BUN/Creatinine Ratio 20.50 H (12.00-20.00) Ratio POC Glucose (mg/dL) 153 H (70-110) mg/dL ALT 5 L (8-44) U/L Total Protein 5.4 L (6.2-8.2) g/dL Albumin 3.0 L (3.8-4.9) g/dL Albumin/Globulin Ratio 1.25 L (1.60-3.17) Ratio Assessment and Plan Assessment: Altered mental status, likely due to metabolic encephalopathy, now resolved. Reasons mentioned below. Right leg weakness, possible due to spinal stenosis. Acute CVA ruled out. Minimal hypoglycemia Cutaneous candidiasis History of diabetes mellitus History of sleep apnea Hypertension Hyperlipidemia History of thyroid disorder History of bilateral knee replacement. Plan: Patient underwent workup as below. Ammonia level <9, vitamin B12 1052, TSH 2.52, folate 31.3, all normal MRI of the brain revealed no evidence of intracranial mass or acute/subacute infarct. Progression of nonspecific) changes, likely related to small vessel ischemic disease. 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 I personally reviewed MRI agree with the findings. Carotid duplex completed, results pending EEG was mildly abnormal because of excessive amount of low voltage fast activity suggestive of medication effect. No focal, lateralized or epileptiform activity was seen. CT of lumbar spine revealed no evidence for acute spinal fracture. There is severe disc degenerative disease resulting in multilevel critical spinal canal stenosis spanning L2 S1 which appears slightly progressed when compared with the recent CT study. Multilevel disc degenerative disease is also seen resulting in multilevel bilateral neural foraminal stenosis from L4-S1, most pronounced along the right side. There is suggested compression at those associated levels. Consult orthopedic surgery. Awaiting final recommendation. Please avoid further hypoglycemia events. Defer the management to primary team Patient is on aspirin 81 mg daily, Lipitor 10 mg daily. Patient is on Aricept 10 mg nightly 2D echo revealed LVEF 55 to 60%. Mildly increased septal wall thickness. Mild increased posterior wall thickness. No obvious regional wall motion abnormalities. Severe left atrial enlargement. Moderate RV enlargement.. Continue neurochecks PT OT are consulted Infection diseases consulted Will defer the rest of the medical management to primary and other specialists on board.
[2024-08-13 11:29] LABS: Glucose,Whole Blood 92 mg/dL (70-110)
[2024-08-13 12:05] VITALS: BMI 31.8
--- NOTE | 2024-08-13 15:10 | P.PN ---
Subjective Progress Note Date: 08/13/24 Principal diagnosis: Reason for follow-up is groin area cutaneous candidiasis and possible cellulitis Patient is a 84-year-old female with a past medical history nephric and for hypertension hyperlipidemia diabetes mellitus patient has been brought into the hospital concerning for mental status changes, patient did not have any fever vital normal UA was negative noticed to have excoriation of the colon abdominal fold concerning for cutaneous kidney disease possible cellulitis. On today's evaluation that is 08/13/2024,the patient remains to be afebrile, patient is on room air not requiring supplemental oxygen and denies any shortness of breath no chest pain or cough.Patient denies having any nausea or vomiting, no abdominal pain and no diarrhea has been reported, no new symptoms. The patient white count is 4.82, creatinine 0.8 Objective - Vital Signs Vital signs: Vital Signs Temp 97.4 F L 08/13/24 13:24 Pulse 61 08/13/24 13:24 Resp 18 08/13/24 13:24 BP 114/69 08/13/24 13:24 Pulse Ox 94 L 08/13/24 13:24 FiO2 Intake & Output 08/12/24 08/13/24 08/13/24 18:59 06:59 18:59 Output Total 500 700 Balance -500 -700 Weight 79 kg 79 kg Output: Urine 500 700 Other: Voiding Method Indwelling Catheter Indwelling Catheter Indwelling Catheter - Exam GENERAL DESCRIPTION: An elderly female lying in bed in no distress RESPIRATORY SYSTEM: Unlabored breathing , decreased breath sounds at bases HEART: S1 S2 regular rate and rhythm , ABDOMEN: Soft , no tenderness, abdominal and groin fold with cutaneous candidiasis EXTREMITIES: No edema feet - Labs CBC & Chem 7: 08/13/24 04:26 08/13/24 04:26 Labs: Abnormal Lab Results - Last 24 Hours (Table) 08/13/24 08/13/24 Range/Units 04:26 04:26 RBC 3.92 L (4.10-5.20) X 10*6/uL Hgb 10.9 L (12.0-15.0) g/dL Hct 34.7 L (37.2-46.3) % MCHC 31.4 L (32.0-37.0) g/dL RDW 16.2 H (11.5-14.5) % Immature Gran # 0.16 H (0.00-0.04) X 10*3/uL BUN/Creatinine Ratio 23.12 H (12.00-20.00) Ratio Assessment and Plan (1) Intertrigo Current Visit: Yes Status: Acute Code(s): L30.4 - ERYTHEMA INTERTRIGO SNOMED Code(s): 04493644 (2) Penicillin allergy Current Visit: Yes Status: Acute Code(s): Z88.0 - ALLERGY STATUS TO P ENICILLIN SNOMED Code(s): 88065330 Plan: 1patient presented to hospital with mental status changes did have decreased appetite patient not running any fever did have a negative UA white count has been normal, patient did have evidence of excoriation to the abdominal and groin fold concerning for cutaneous candidiasis and possible secondary cellulitis 2-penicillin allergy that will limit the number of antibiotics safe to use 3patient is afebrile and white count has been normal, no culture has been done, 4-patient did have some clinical movement, will betreated with nystatin powder to the abdominal and groin fold along with Diflucan plan is for a 7-day course on discharge Dictation was produced using [employer] dictation software. please excuse any grammatical, word or spelling errors. Time with Patient: Less than 30
[2024-08-13 16:28] LABS: Glucose,Whole Blood 122 mg/dL (70-110)
[2024-08-13 20:07] LABS: Glucose,Whole Blood 96 mg/dL (70-110)
[2024-08-14 07:01] LABS: Glucose,Whole Blood 99 mg/dL (70-110)
[2024-08-14 07:14] VITALS: RESP 18
--- NOTE | 2024-08-14 09:15 | P.PN ---
Subjective Progress Note Date: 08/13/24 This is an 84-year-old female who was recently admitted with concerns of mental status changes and concerns of possible cellulitis and candidal infection being closely monitored. Patient being followed by infectious disease maintained on antibiotics along with local wound care. Mentation is back to baseline and will be going to [facility] [place]. Patient does require insurance authorization. Neurology was also following regarding mentation and likely due to metabolic encephalopathy that has since resolved. Orthopedics has also been consulted and evaluated the patient recommending Review of systems: Constitutional: No reports of fatigue, fever, or chills Cardiovascular: No reports of chest pain or palpitations Respiratory: No reports of shortness of breath or cough GI: reports of nausea, no reports of of vomiting, : No reports of dysuria or retention Neurovascular: reports of generalized weakness, All medications have been reviewed Active Medications PHYSICAL EXAMINATION: GENERAL: The patient is alert and oriented x4, Well developed, well nourished. HEENT: Pupils are round and equally reacting to light. EOMI. no scleral icterus. No conjunctival pallor. Normocephalic, atraumatic. No pharyngeal erythema. No thyromegaly. CARDIOVASCULAR: S1 and S2 muffled PULMONARY: diminished breath sounds bilaterally with no wheezing or rhonchi noted. ABDOMEN: soft. Nontender on exam. obese. non-distended, normoactive bowel sounds. No palpable organomegaly. MUSCULOSKELETAL: No joint swelling or deformity. EXTREMITIES: No cyanosis, clubbing, or pedal edema. NEUROLOGICAL: Gross neurological examination did not reveal any focal deficits. Diffuse weakness SKIN: No rashes. 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 Outpatient follow-up with orthopedics Weakness, debility with gait dysfunction Possible sinusitis on imaging Diabetes mellitus, type II, uncontrolled with hyper and hypoglycemia GI prophylaxis DVT prophylaxis Full code Plan: Recommend to continue with current medications and management with multiple consultations following. Patient will continue on antifungal agent on discharge for 1 week course per ID recommendations and continue with local wound care Encourage small frequent meals Encouraged increase activity as tolerated Awaiting updated PT/OT therapy notes for possible ECF with case management following. Patient will require insurance authorization Continue monitoring Accu-Cheks before meals and at bedtime and continue with current regimen. Adjust insulins accordingly Follow-up on repeat labs and replace electrolytes per protocol Due to multiple complex medical issues, overall prognosis is guarded The impression and plan of care has been dictated by Gerri Simeon, nurse practitioner as directed. Dr. Sylvester MD I have performed a history and examination and MDM of this patient, discussed the same with the dictator, and agree with the dictator's assessment and plan as written ,documented as a scribe. Based on total visit time, I have performed more than 50% of the visit. Any additional findings or plans will be noted. Objective - Vital Signs Vital signs: Vital Signs Temp 97.4 F L 08/13/24 13:24 Pulse 61 08/13/24 13:24 Resp 18 08/13/24 13:24 BP 114/69 08/13/24 13:24 Pulse Ox 94 L 08/13/24 13:24 FiO2 Intake & Output 08/12/24 08/13/24 08/13/24 18:59 06:59 18:59 Output Total 500 700 Balance -500 -700 Weight 79 kg 79 kg Output: Urine 500 700 Other: Voiding Method Indwelling Catheter Indwelling Catheter - Labs CBC & Chem 7: 08/13/24 04:26 08/13/24 04:26 Labs: Abnormal Lab Results - Last 24 Hours (Table) 08/13/24 08/13/24 Range/Units 04:26 04:26 RBC 3.92 L (4.10-5.20) X 10*6/uL Hgb 10.9 L (12.0-15.0) g/dL Hct 34.7 L (37.2-46.3) % MCHC 31.4 L (32.0-37.0) g/dL RDW 16.2 H (11.5-14.5) % Immature Gran # 0.16 H (0.00-0.04) X 10*3/uL BUN/Creatinine Ratio 23.12 H (12.00-20.00) Ratio
--- NOTE | 2024-08-14 10:50 | P.PN ---
Subjective Progress Note Date: 08/13/24 08/13/2024: Patient was seen for follow-up. Patient is laying in the bed. Patient states her leg is getting better. Low back pain is about 2/10 at this time. 08/12/2024: Patient was seen for a follow-up. Offers no new complaints. 08/11/2024: Patient initially seen by Dr. Remington Charles. Please refer to his note for details. Patient is 84-year-old female with confusion and right leg weakness. Patient at present is laying in the bed, in no acute distress. Patient continues to have right leg weakness. Denies any cranial nerve symptoms. No headache. Some of the workup during this hospital visit consisted of: Patient is afebrile. Initial presentation patient serum glucose was 70 and her PCO glucose was 75 but repeated 1 was 68. Sodium is 136, calcium is 9.3, AST ALT is within normal limits I reviewed the rest of the lab workup On 07/2024 patient TSH was 2.680 and free T4 was slightly elevated of 2.26 CT of the head is reported as no acute intracranial process. I reviewed the CT and agree with the report Objective - Vital Signs Vital signs: Vital Signs Temp 97.4 F L 08/13/24 13:24 Pulse 61 08/13/24 13:24 Resp 18 08/13/24 13:24 BP 114/69 08/13/24 13:24 Pulse Ox 94 L 08/13/24 13:24 FiO2 Intake & Output 08/12/24 08/13/24 08/13/24 18:59 06:59 18:59 Output Total 500 700 Balance -500 -700 Weight 79 kg 79 kg Output: Urine 500 700 Other: Voiding Method Indwelling Catheter Indwelling Catheter Indwelling Catheter - Exam Patient's mental status, speech and language functions are normal. Cranial nerves are normal. Visual burns are full, face is symmetric. On muscle strength testing there is no pronator drift and the strength is normal in the upper limbs distally and proximally. In the lower limbs(right/left) hip flexion 4+/5, ankle dorsiflexion 5/5, toe extension 4+/4+. - Labs CBC & Chem 7: 08/13/24 04:26 08/13/24 04:26 Labs: Abnormal Lab Results - Last 24 Hours (Table) 1208/13/24 08/13/24 Range/Units 04:26 04:26 16:25 RBC 3.92 L (4.10-5.20) X 10*6/uL Hgb 10.9 L (12.0-15.0) g/dL Hct 34.7 L (37.2-46.3) % MCHC 31.4 L (32.0-37.0) g/dL RDW 16.2 H (11.5-14.5) % Immature Gran # 0.16 H (0.00-0.04) X 10*3/uL BUN/Creatinine Ratio 23.12 H (12.00-20.00) Ratio POC Glucose (mg/dL) 122 H (70-110) mg/dL Assessment and Plan Assessment: Altered mental status, likely due to metabolic encephalopathy, now resolved. Reasons mentioned below. Right leg weakness, possible due to spinal stenosis. Acute CVA ruled out. Minimal hypoglycemia Cutaneous candidiasis History of diabetes mellitus History of sleep apnea Hypertension Hyperlipidemia History of thyroid disorder History of bilateral knee replacement. Plan: Patient underwent workup as below. Ammonia level <9, vitamin B12 1052, TSH 2.52, folate 31.3, all normal MRI of the brain revealed no evidence of intracranial mass or acute/subacute infarct. Progression of nonspecific) changes, likely related to small vessel ischemic disease. 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 I personally reviewed MRI agree with the findings. Carotid duplex revealed elevated velocities mid left ICA favored to be on the basis of vessel tortuosity rather than a moderate 50 to 69% stenosis. Otherwise no hemodynamically significant stenosis of the internal carotid artery on either side. Antegrade flow in both vertebral arteries. EEG was mildly abnormal because of excessive amount of low voltage fast activity suggestive of medication effect. No focal, lateralized or epileptiform activity was seen. CT of lumbar spine revealed no evidence for acute spinal fracture. There is severe disc degenerative disease resulting in multilevel critical spinal canal stenosis spanning L2 S1 which appears slightly progressed when compared with the recent CT study. Multilevel disc degenerative disease is also seen resulting in multilevel bilateral neural foraminal stenosis from L4-S1, most pronounced along the right side. There is suggested compression at those associated levels. Consult orthopedic surgery. Awaiting final recommendation. Please avoid further hypoglycemia events. Defer the management to primary team Patient is on aspirin 81 mg daily, Lipitor 10 mg daily. Patient is on Aricept 10 mg nightly 2D echo revealed LVEF 55 to 60%. Mildly increased septal wall thickness. Mild increased posterior wall thickness. No obvious regional wall motion abnormalities. Severe left atrial enlargement. Moderate RV enlargement.. Continue neurochecks PT OT are consulted Infectious disease on board. Will defer the rest of the medical management to primary and other specialists on board.
[2024-08-14 11:08] LABS: Glucose,Whole Blood 161 mg/dL (70-110)
--- NOTE | 2024-08-14 11:10 | US ---
EXAMINATION TYPE: US carotid duplex BILAT DATE OF EXAM: 08/10/2024 COMPARISON: US(10/16/2017) CLINICAL INDICATION: Female, 84 years old with dizziness, history of tia; TECHNIQUE: Grayscale, color Doppler and spectral Doppler evaluation of the bilateral carotid systems and vertebral arteries. Indirect Doppler criteria was utilized. 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 Otherwise, no hemodynamically significant internal carotid artery stenosis on e ither side. Criteria for Assigning % of Stenosis / Diameter reduction (Estimation based on the indirect measurements of the internal carotid artery velocities (ICA PSV). 1. Normal (no stenosis)=ICA PSV < 125 cm/s: ratio < 2.0: ICA EDV<40 cm/s. 2. Less than 50% stenosis=ICA PSV < 125 cm/s: ratio < 2.0: ICA EDV<40 cm/s. 3. 50 to 69% stenosis=ICA PSV of 125 to 230 cm/s: ration 2.0 ? 4.0: ICA EDV 40-100 cm/s. 4. Greater than 70% stenosis to near occlusion= ICA PSV > 230 cm/s: ratio > 4.0: ICA EDV > 100 cm/s. 5. Near occlusion= ICA PSV velocities may be low or undetectable: variable ratio and ICA EDV. 6. Total occlusion=unable to detect flow. [facility], , 08/14/2024 11:07 AM
[2024-08-14 13:58] VITALS: BP 98/59; PULSE 62; TEMP 97.3
--- NOTE | 2024-08-14 14:40 | P.DS ---
Providers Date of admission: 08/11/24 08:52 Expected date of discharge: 08/14/24 Attending physician: Kyler Phan Consults: 08/07/24 13:59 Consult Physician Routine Consulting Provider: Lily Sood Consult Reason/Comments: sepsis Do you want consulting provider notified?: Yes Consult Physician Routine Consulting Provider: Hammad Rapp Consult Reason/Comments: tia?? 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 Outpatient follow-up with orthopedics Weakness, debility with gait dysfunction Possible sinusitis on imaging Diabetes mellitus, type II, uncontrolled with hyper and hypoglycemia GI prophylaxis DVT prophylaxis Full code Discharge disposition Patient is being discharged in a stable condition with guarded prognosis to [facility]. Patient will follow-up with Dr. Fam in the outpatient setting upon discharge. Patient is to continue with current medications and outpatient follow-up with orthopedics as well as neurology as scheduled. Total time taken is greater than 35 minutes. Hospital course This is a 84-year-old female who was recently admitted with change in mental status acute metabolic encephalopathy being closely monitored. Patient with concerns of TIA being followed by neurology recommending outpatient follow-up and continuing on statin and other current medications. Patient with severe degenerative joint disease has been evaluated by orthopedics with no plans of immediate surgical intervention recommending outpatient follow-up and may weight-bear as tolerated with a walker and assistance. Patient with significant weakness evaluated by PT/OT therapy and will be going to rehab for continued strength and mobility. Patient has been cleared by consultations. Patient will continue on diabetic diet and takes oral diabetic agents and recommend monitoring Accu-Cheks before meals and at bedtime. If patient has continued elevated blood sugars recommend tight glycemic control with sliding scale as needed. Please refer to other consultation notes for further HPI. Patient evaluated by infectious disease recommending Diflucan daily for 1 week and also nystatin on discharge. Patient did have indwelling Garcia catheter which has been removed and patient is maintained on Flomax and is voiding. Currently no reports of chest pain, shortness of breath, or palpitations. Patient is afebrile. No reports of nausea or vomiting and patient is tolerating diet. Patient will be going to [facility] today. Guarded prognosis and high risk for readmissions given significant comorbidities. CODE STATUS needs to be addressed with family. Physical exam: Gen: This is a 84-year-old female who is awake, alert and oriented x 1-2, bas shayla, well-developed, elderly appearing HEENT: Head is atraumatic, normocephalic. Pupils equal, round. Sclerae is anicteric. NECK: Supple. No JVD. No lymphadenopathy. No thyromegaly. LUNGS: Diminished breath sounds bilaterally otherwise clear to auscultation. No wheezes or rhonchi. No intercostal retractions. HEART: S1, S2 are muffled ABDOMEN: Soft. Bowel sounds are present. No masses. No tenderness. EXTREMITIES: No pedal edema. No calf tenderness. NEUROLOGICAL: Patient is awake, alert and oriented x 1-2. Cranial nerves 2 through 12 are grossly intact. Diffusely weak Please refer to medication reconciliation sheet for a list of medications. The impression and plan of care has been dictated by Gerri Simeon, Nurse Practitioner as directed. Dr. Sylvester MD I have performed a history and examination and MDM of this patient, discussed the same with the dictator, and agree with the dictator's assessment and plan as written ,documented as a scribe. Based on total visit time, I have performed more than 50% of the visit. Patient Condition at Discharge: Fair Plan - Discharge Summary New Discharge Prescriptions: New Folic Acid 1 mg PO DAILY@1200 tab Fluconazole [Diflucan] 100 mg PO DAILY 7 Days #7 tab Tamsulosin [Flomax] 0.4 mg PO PC-BRKFST cap Heparin Sodium,Porcine (1 ml) [Heparin Sodium] 5,000 unit SQ Q12HR each Multivitamins, Thera [Multivitamin (formulary)] 1 each PO DAILY@1200 tab Nystatin 100,000 Unit/gm Powd [Mycostatin Powder] 1 applic TOPICAL BID each Thiamine [Vitamin B-1] 100 mg PO BID-W/MEALS tab Continue Montelukast [Singulair] 10 mg PO HS Meclizine [Antivert] 12.5 mg PO DAILY PRN PRN Reason: Vertigo Levothyroxine Sodium [Synthroid] 100 mcg PO DAILY@0600 allopurinoL 300 mg PO DAILY Cetirizine HCl [Zyrtec] 10 mg PO DAILY Metoprolol Tartrate [Lopressor] 50 mg PO BID Atorvastatin [Lipitor] 10 mg PO HS Aspirin EC [Ecotrin Low Dose] 81 mg PO DAILY Acetaminophen Tab [Tylenol] 650 mg PO Q6HR PRN tab PRN Reason: Mild Pain Or Fever > 100.5 Cranberry Fruit Extract [Cranberry] 200 mg PO DAILY Anastrozole [Arimidex] 1 mg PO DAILY Galantamine HBr [Razadyne ER] 16 mg PO HS Glimepiride [Amaryl] 2 mg PO DAILY amLODIPine [Norvasc] 5 mg PO DAILY Changed ALPRAZolam [Xanax] 0.25 mg PO Q8H PRN #6 tab PRN Reason: Anxiety Discontinued buPROPion HCL [Wellbutrin SR] 200 mg PO DAILY rOPINIRole HCL [Requip] 0.5 mg PO HS Bumetanide [BUMEX] 1 mg PO DAILY tab Ramelteon 8 mg PO HS #30 tab Discharge Medication List Montelukast [Singulair] 10 mg PO HS 03/29/14 [History] Anastrozole [Arimidex] 1 mg PO DAILY 03/23/21 [History] Meclizine [Antivert] 12.5 mg PO DAILY PRN 03/16/22 [History] Galantamine HBr [Razadyne ER] 16 mg PO HS 09/30/22 [History] Levothyroxine Sodium [Synthroid] 100 mcg PO DAILY@0600 09/30/22 [History] allopurinoL 300 mg PO DAILY 09/30/22 [History] Cetirizine HCl [Zyrtec] 10 mg PO DAILY 04/25/24 [History] Glimepiride [Amaryl] 2 mg PO DAILY 05/12/24 [History] Aspirin EC [Ecotrin Low Dose] 81 mg PO DAILY 05/30/24 [History] Atorvastatin [Lipitor] 10 mg PO HS 05/30/24 [History] Metoprolol Tartrate [Lopressor] 50 mg PO BID 05/30/24 [History] amLODIPine [Norvasc] 5 mg PO DAILY 05/30/24 [History] Acetaminophen Tab [Tylenol] 650 mg PO Q6HR PRN tab 06/02/24 [Rx] Cranberry Fruit Extract [Cranberry] 200 mg PO DAILY 08/07/24 [History] ALPRAZolam [Xanax] 0.25 mg PO Q8H PRN #6 tab 08/14/24 [Rx] Fluconazole [Diflucan] 100 mg PO DAILY 7 Days #7 tab 08/14/24 [Rx] Folic Acid 1 mg PO DAILY@1200 tab 08/14/24 [Rx] Heparin Sodium,Porcine (1 ml) [Heparin Sodium] 5,000 unit SQ Q12HR each 08/14/24 [Rx] Multivitamins, Thera [Multivitamin (formulary)] 1 each PO DAILY@1200 tab 08/14/24 [Rx] Nystatin 100,000 Unit/gm Powd [Mycostatin Powder] 1 applic TOPICAL BID each 08/14/24 [Rx] Tamsulosin [Flomax] 0.4 mg PO PC-BRKFST cap 08/14/24 [Rx] Thiamine [Vitamin B-1] 100 mg PO BID-W/MEALS tab 08/14/24 [Rx] Follow up Appointment(s)/Referral(s): Milvia Fam MD [Primary Care Provider] - 1-2 days [facility], [NON-STAFF] - 1 Week Woody Patino DO [Doctor of Osteopathic Medicine] - 1 Week Activity/Diet/Wound Care/Special Instructions: Patient is going to [facility] Activity as tolerated Continue with Diflucan for 1 week Continue with nystatin Continue consistent carb heart healthy diet Monitor Accu-Cheks before meals and at bedtime and initiate insulin sliding scale if needed Follow-up with orthopedics outpatient Discharge Disposition: TRANSFER TO SNF/ECF
--- NOTE | 2024-08-14 15:49 | P.PN ---
Subjective Progress Note Date: 08/14/24 Principal diagnosis: Low back pain Patient was seen at bedside this morning lying semirecumbent position. Patient says she does note some improvement in the weakness in the lower extremities. Patient very adamant that she is not open to any sort of spine surgery at this time. Patient would like to continue with conservative measures with PT/OT and pain medication. Patient denies any other orthopedic complaints at this time. Objective - Vital Signs Vital signs: Vital Signs Temp 98.3 F 08/14/24 06:54 Pulse 58 L 08/14/24 06:54 Resp 18 08/14/24 06:54 BP 107/62 08/14/24 06:54 Pulse Ox 91 L 08/14/24 06:54 FiO2 Intake & Output 08/13/24 08/14/24 08/14/24 18:59 06:59 18:59 Intake Total 540 Output Total 650 Balance -650 540 Weight 79 kg 63.5 kg Intake: Oral 540 Output: Urine 650 Other: Voiding Method Indwelling Catheter Diaper Diaper # Voids 1 - Exam Negative for any open fractures, significant erythema/ecchymosis/open wounds. Positive for bilateral scars over the anterior knees. Sensation is diminished in the bilateral lower extremities in the feet. Sensation is equal, symmetric, by intact at the rest of the extremities. There is tenderness to palpation throughout the lower lumbar spine on exam at midline and in the bilateral SI joints. Patient does have limited range of motion in bilateral lower extremities on exam secondary to weakness and referred pain to the low back. 3/5 in all major motor groups in bilateral lower extremities. DP pulses palpable bilaterally. Cap refill present in bilateral upper extremities on exam. Radial pulse intact, 2+ bilaterally. Negative Homans bilaterally. Negative Marycruz bilaterally. Negative clonus bilaterally. - Labs CBC & Chem 7: 08/13/24 04:26 08/13/24 04:26 Labs: Abnormal Lab Results - Last 24 Hours (Table) 08/13/24 08/14/24 Range/Units 16:25 11:06 POC Glucose (mg/dL) 122 H 161 H (70-110) mg/dL Assessment and Plan Assessment: 1. Low back pain; right lower extremity weakness; lumbar spondylosis; degenerative disease; lumbar central canal stenosis; lumbar neuroforaminal stenosis Plan: 1. Low back pain; right lower extremity weakness; lumbar spondylosis; degenerative disease; lumbar central canal stenosis; lumbar neuroforaminal stenosis - CT scan of the lumbar spine is negative for any acute fracture. There is evident degenerative disc disease resulting in central canal stenosis from L2-S1. There is also evident bilateral neuroforaminal stenosis from L4-S1 most evident on the right side. I we discussed the findings of the exam and imaging with my attending, Dr. Patino. At this time we are recommending no orthopedic surgical intervention. We do recommend continued conservative measures with the use of pain medication and PT/OT. I did discuss with the patient at bedside the importance to follow-up in the outpatient setting if she continues to have issues with her gait leading to falls. Patient may weight- bear as tolerated walker and assistance. Further recommendations to follow. Patient is okay to perform gentle range of motion exercises while resting in bed. Patient is stable for an orthopedic standpoint for discharge from the hospital. We would like patient to follow-up in the outpatient setting with Dr. Patino in 2 weeks for continued evaluation. Orthopedics is signing off at this time. Please do not hesitate to contact us for any further questions. 2. Appreciate medical, neuro management 3. Pain management -Tylenol 4. DVT prophylaxis -aspirin; Heparin 5. GI prophylaxis recs 6. PT/OT - Patient may weight-bear as tolerated with walker and assistance. 7. Encourage incentive spirometer use Time with Patient: Less than 30
[2024-08-14 16:19] LABS: Glucose,Whole Blood 119 mg/dL (70-110)
--- NOTE | 2024-08-14 22:17 | P.PN ---
Subjective Progress Note Date: 08/14/24 Principal diagnosis: Reason for follow-up is groin area cutaneous candidiasis and possible cellulitis Patient is a 84-year-old female with a past medical history nephric and for hypertension hyperlipidemia diabetes mellitus patient has been brought into the hospital concerning for mental status changes, patient did not have any fever vital normal UA was negative noticed to have excoriation of the colon abdominal fold concerning for cutaneous kidney disease possible cellulitis. On today's evaluation that is 08/14/2024, the patient continues to be afebrile, the patient is on room air and breathing comfortably, the Pt denies having any chest pain or cough, the patient denies having any abdominal pain no vomiting or any diarrhea patient feeling better. No new lab has been obtained today Objective - Vital Signs Vital signs: Vital Signs Temp 97.3 F L 08/14/24 13:25 Pulse 62 08/14/24 13:25 Resp 18 08/14/24 13:25 BP 98/59 08/14/24 13:25 Pulse Ox 95 08/14/24 13:25 FiO2 Intake & Output 08/13/24 08/14/24 08/14/24 18:59 06:59 18:59 Intake Total 540 Output Total 650 123 Balance -650 540 -123 Weight 79 kg 63.5 kg Intake: Oral 540 Output: Urine 650 Post Void Residual 123 Other: Voiding Method Indwelling Catheter Diaper Diaper # Voids 1 - Exam GENERAL DESCRIPTION: An elderly female lying in bed in no distress RESPIRATORY SYSTEM: Unlabored breathing , decreased breath sounds at bases HEART: S1 S2 regular rate and rhythm , ABDOMEN: Soft , no tenderness, abdominal and groin fold with cutaneous candidiasis EXTREMITIES: No edema feet - Labs CBC & Chem 7: 08/13/24 04:26 08/13/24 04:26 Labs: Abnormal Lab Results - Last 24 Hours (Table) 08/13/24 08/14/24 Range/Units 16:25 11:06 POC Glucose (mg/dL) 122 H 161 H (70-110) mg/dL Assessment and Plan (1) Intertrigo Status: Acute Code(s): L30.4 - ERYTHEMA INTERTRIGO SNOMED Code(s): 90002713 (2) Penicillin allergy Status: Acute Code(s): Z88.0 - ALLERGY STATUS TO PENICILLIN SNOMED Code(s): 02178281 Plan: 1patient presented to hospital with mental status changes did have decreased appetite patient not running any fever did have a negative UA white count has been normal, patient did have evidence of excoriation to the abdominal and groin fold concerning for cutaneous candidiasis and possible secondary cellulitis 2-patient is afebrile and white count has been normal, no culture has been done, 3-patient will be admitted to finish therapy with nystatin powder to the abdominal and groin fold along with Diflucan x 7 days on discharge Dictation was produced using [employer] dictation software. please excuse any grammatical, word or spelling errors. PE Time with Patient: Less than 30
== END 2024-08-14 19:40 | DRG 551 ==
LOC: EC 10:47 → 3SCARD 17:36 → 4SSUR 08-07 11:49 → OBSVTOIN 08-11 08:52
PROVIDERS: ADMIT Hospitalist; ATTEND Hospitalist
PROC: 4A10X4Z Monitoring of Central Nervous Electrical Activity, External Approach (ICD-10-PCS; principal; 2024-08-11)
DX: M48.061 Spinal stenosis, lumbar region without neurogenic claudication (principal); G93.41 Metabolic encephalopathy; K90.41 Non-celiac gluten sensitivity; E11.65 Type 2 diabetes mellitus with hyperglycemia; B37.2 Candidiasis of skin and nail; F03.90 Unspecified dementia, unspecified severity, without behavioral disturbance, psychotic disturbance, mood disturbance, and anxiety; E11.649 Type 2 diabetes mellitus with hypoglycemia without coma; E78.5 Hyperlipidemia, unspecified; G89.29 Other chronic pain; L30.4 Erythema intertrigo; H91.90 Unspecified hearing loss, unspecified ear; I10 Essential (primary) hypertension; J45.909 Unspecified asthma, uncomplicated; M47.816 Spondylosis without myelopathy or radiculopathy, lumbar region; M54.50 Low back pain, unspecified; M47.896 Other spondylosis, lumbar region; M51.369 Other intervertebral disc degeneration, lumbar region without mention of lumbar back pain or lower extremity pain; Z79.811 Long term (current) use of aromatase inhibitors; Z79.82 Long term (current) use of aspirin; Z79.84 Long term (current) use of oral hypoglycemic drugs; Z79.890 Hormone replacement therapy; Z79.899 Other long term (current) drug therapy; Z85.3 Personal history of malignant neoplasm of breast; Z85.828 Personal history of other malignant neoplasm of skin; J32.9 Chronic sinusitis, unspecified; G43.909 Migraine, unspecified, not intractable, without status migrainosus; M19.90 Unspecified osteoarthritis, unspecified site; Z87.891 Personal history of nicotine dependence; Z88.0 Allergy status to penicillin; Z90.710 Acquired absence of both cervix and uterus; Z96.653 Presence of artificial knee joint, bilateral; Z88.1 Allergy status to other antibiotic agents; Z91.041 Radiographic dye allergy status; Z88.6 Allergy status to analgesic agent; M10.9 Gout, unspecified; Z86.11 Personal history of tuberculosis
CPT/HCPCS: 36415; 70450; 70551; 71046; 72131; 80048; 80053; 81001; 81003; 82140; 82607; 82746; 84443; 84484; 85025; 85610; 85730; 93005; 93308; 93880; 95816; 96361; 96365; 96366; 96368; 99285

== ENCOUNTER 2024-08-29 14:19 | Observation (INO) | payer MEDICARE ==
[2024-08-29 16:08] LABS: Glucose,Whole Blood 231 mg/dL (70-110)
[2024-08-29] MEDS: SODIUM CHLORIDE 0.9% 500 ML 500 ML IV STA (16:09)
[2024-08-29 16:11] LABS: Anisocytosis Slight; Basophils % (A) 0 %; Eosinophils # (A) 0.1 k/uL (0-0.7); Eosinophils % (A) 2 %; HCT 32.4 % (34.0-46.0); HGB 10.6 gm/dL (11.4-16.0); Hypochromasia Slight; Lymphocytes # (A) 1.2 k/uL (1.0-4.8); Lymphocytes % (A) 31 %; MCH 29.1 pg (25.0-35.0); MCHC 32.6 g/dL (31.0-37.0); MCV 89.2 fL (80.0-100.0); Mean Platelet Volume 9.1; Monocytes # (A) 0.5 k/uL (0-1.0); Monocytes % (A) 13 %; Neutrophils # (A) 2.1 k/uL (1.3-7.7); Neutrophils % (A) 52 %; Platelet Count 296 k/uL (150-450); RBC 3.63 m/uL (3.80-5.40); RDW 16.3 % (11.5-15.5)
[2024-08-29 16:21] LABS: INR 0.9 (<1.2); Partial Thromboplastin Time 23.3 sec (22.0-30.0); Prothrombin Time 10.4 sec (10.0-12.5)
[2024-08-29 16:23] LABS: ALT 12 U/L (4-34); AST 22 U/L (14-36); African American GFR (CKD) 64 (>60 ml/min/1.73 sqM); Albumin 3.2 g/dL (3.5-5.0); Alkaline Phosphatase 74 U/L (38-126); Anion Gap 11 mmol/L; Blood Urea Nitrogen 38 mg/dL (7-17); Calcium 9.3 mg/dL (8.4-10.2); Carbon Dioxide 21 mmol/L (22-30); Chloride 102 mmol/L (98-107); Glucose 201 mg/dL (74-99); Magnesium 2.1 mg/dL (1.6-2.3); Non-African American GFR(CKD) 55 (>60 ml/min/1.73 sqM); Potassium 4.5 mmol/L (3.5-5.1); Sodium 134 mmol/L (137-145); Total Bilirubin 0.2 mg/dL (0.2-1.3); Total Protein 5.7 g/dL (6.3-8.2)
--- NOTE | 2024-08-29 16:45 | CT ---
EXAMINATION TYPE: CT brain wo con DATE OF EXAM: 08/29/2024 4:30 PM COMPARISON: 08/06/2024. CLINICAL INDICATION: Female, 84 years old with history of altered mental status, AMS. TECHNIQUE: Brain: Axial CT images of the brain were obtained with coronal and sagittal reformats created and rev iewed. Contrast used: None. Oral contrast used: None. CT DLP: Combined DLP of 2079.8 mGycm, Automated exposure control for dose reduction was used. FINDINGS: Brain: Extra-axial spaces: No abnormal extra-axial fluid collections. Ventricular system: Dilatation in proportion to cerebral atrophy. Cerebral parenchyma: Cerebral atrophy. No acute intraparenchymal hemorrhage or mass effect. The yoo -white junction is well differentiated. Scattered hypoattenuating areas are seen within the white mat ter. Cerebellum: Unremarkable. Mass effect: No evidence of midline shift. Intracranial vasculature: Atherosclerotic calcifications of the intracranial vessels. Soft tissues: Normal. Calvarium/osseous structures: No depressed skull fracture. Paranasal sinuses and mastoid air cells: Mild scattered paranasal sinus disease. Visualized orbits: Orbital contents are intact. IMPRESSION: 1. No acute intracranial process. 2. Nonspecific white matter changes, likely secondary to chronic small vessel ischemic disease. [facility], , 08/29/2024 4:43 PM
--- NOTE | 2024-08-29 16:53 | CT ---
EXAMINATION TYPE: CT abdomen pelvis wo con DATE OF EXAM: 08/29/2024 4:30 PM COMPARISON: None CLINICAL INDICATION: Female, 84 years old with history of LLQ abdominal pain, hypotension; LLQ pain, hypotension. TECHNIQUE: Axial CT abdomen pelvis wo con;Sagittal and coronal reformats were created on a separate workstation. Contrast used: mL of , (none if empty) Oral contrast used: without Oral Contrast (none if empty) CT DLP: Combined DLP of 2079.8 mGycm, Automated exposure control for dose reduction was used. FINDINGS: LOWER CHEST: Heart is mildly enlarged for size. ABDOMEN LIVER: Unremarkable GALLBLADDER AND BILE DUCTS: Gallbladder is not visualized may be surgically absent. PANCREAS: Unremarkable. SPLEEN: Unremarkable. ADRENAL GLANDS: Unremarkable. KIDNEYS AND URETERS: No evidence of hydronephrosis or renal calculus. The ureters are unremarkable. PELVIS BLADDER: No evidence for wall thickening or mass given limitations of exam. REPRODUCTIVE: The uterus is surgically absent. ABDOMEN & PELVIS STOMACH AND BOWEL: No evidence of bowel obstruction. Scattered colonic diverticula. PERITONEUM/RETROPERITONEUM: No evidence of pneumoperitoneum or free fluid. VASCULATURE: Severe atherosclerotic calcifications are present throughout the abdominal aorta and its branches. No evidence of aortic aneurysm. MUSCULOSKELETAL: No acute osseous abnormalities. Disc degeneration changes are present throughout the thoracolumbar spine. Grade 1 anterolisthesis of L4 and L5. LYMPH NODES: No gross evidence for lymphadenopathy. Right external iliac lymph node measuring up to 1 0 mm and left measuring up to 13 mm. SOFT TISSUE/ABDOMINAL WALL: Fat-containing inguinal hernias right greater than left. Fat-containing umbilical hernia. IMPRESSION: 1. No evidence for acute process. Scattered colonic diverticula present. No obstructive uropathy or renal calculus. 2. Mild cardiomegaly. 3. Small fat-containing inguinal hernias bilaterally. [facility], , 08/29/2024 4:50 PM
--- NOTE | 2024-08-29 16:54 | XR ---
EXAMINATION TYPE: XR chest 2V DATE OF EXAM: 08/29/2024 4:33 PM COMPARISON: Chest radiographs from 08/06/2024 CLINICAL INDICATION: Female, 84 years old with history of syncope, hypotension; TECHNIQUE: XR chest 2V Frontal and lateral views of the chest. FINDINGS: Lungs/Pleura: Airspace opacities projecting over the spine on lateral view. There is no evidence of p leural effusion, focal consolidation, or pneumothorax. Pulmonary vascularity: Pulmonary vascular congestion. Heart/mediastinum: Cardiomediastinal silhouette is enlarged and stable. Atherosclerotic calcificatio ns are seen in the aorta. Musculoskeletal: Degenerative changes of the shoulder joints. IMPRESSION: Airspace opacities projecting over the spine on lateral view correlate for pneumonia. [facility], , 08/29/2024 4:52 PM
--- NOTE | 2024-08-29 16:55 | ED ---
General Adult HPI - General Chief complaint: Neuro Symptoms/Deficit Stated complaint: AMS Time Seen by Provider: 08/29/24 14:51 Source: patient, EMS Mode of arrival: EMS Limitations: no limitations - History of Present Illness Initial comments: Patient is an 84-year-old female with past medical history of diabetes, hypertension, hyperlipidemia presenting today for near syncope. History provided by patient's daughter. She states the patient returned home from [facility] last night, yesterday evening patient did require a lift assist to get out of her chair. This morning patient was at bathroom and when she tried to get up off the toilet she became less responsive, was drooling out of the side of her mouth and patient's daughter difficulty awakening her. She felt like her chest was rising and falling rapidly. Upon EMS arrival patient was starting to wake up. Patient did not hit her head or suffer any injury. Patient's daughter states that the patient has had low blood pressure recently and her doctor was "considering putting her on medications" for this. - Related Data Home Medications Medication Instructions Recorded Confirmed Montelukast [Singulair] 10 mg PO HS 03/29/14 08/29/24 Anastrozole [Arimidex] 1 mg PO DAILY 03/23/21 08/29/24 Meclizine [Antivert] 12.5 mg PO DAILY PRN 03/16/22 08/29/24 Galantamine HBr [Razadyne ER] 16 mg PO DAILY 09/30/22 08/29/24 Levothyroxine Sodium [Synthroid] 100 mcg PO DAILY 09/30/22 08/29/24 allopurinoL 300 mg PO DAILY 09/30/22 08/29/24 Cetirizine HCl [Zyrtec] 10 mg PO DAILY 04/25/24 08/29/24 Glimepiride [Amaryl] 2 mg PO DAILY 05/12/24 08/29/24 Aspirin EC [Ecotrin Low Dose] 81 mg PO DAILY 05/30/24 08/29/24 Atorvastatin [Lipitor] 10 mg PO HS 05/30/24 08/29/24 Metoprolol Tartrate [Lopressor] 50 mg PO BID 05/30/24 08/29/24 amLODIPine [Norvasc] 5 mg PO DAILY 05/30/24 08/29/24 ALPRAZolam [Xanax] 0.25 mg PO BID 08/29/24 08/29/24 Cranberry 450mg 450 mg PO DAILY 08/29/24 08/29/24 Folic Acid 1 mg PO DAILY 08/29/24 08/29/24 Multivitamins, Thera [Multivitamin 1 tab PO DAILY@1200 08/29/24 08/29/24 (formulary)] Tamsulosin [Flomax] 0.4 mg PO DAILY 08/29/24 08/29/24 Previous Rx's Medication Instructions Recorded Acetaminophen Tab [Tylenol] 650 mg PO Q6HR PRN tab 06/02/24 Thiamine [Vitamin B-1] 100 mg PO BID-W/MEALS tab 08/14/24 Allergies Allergy/AdvReac Type Severity Reaction Status Date / Time amoxicillin Allergy Unknown TAKEN FROM Verified 08/29/24 17:10 DR OLIVER'S NOTES Iodine and Iodide Containing Allergy Unknown TESTED Verified 08/29/24 17:10 Produc POSITIVE FOR SHELLFISH prednisone Allergy Unknown TAKEN FROM Verified 08/29/24 17:10 DR FISHER NOTES adhesive Allergy blisters, Verified 08/29/24 17:10 itching Penicillins Allergy Rash/Hives Verified 08/29/24 17:10 shellfish derived Allergy TESTED Verified 08/29/24 17:10 POSITIVE WITH ALLERGY TESTING. gluten AdvReac vomiting, Verified 08/29/24 17:10 diarrhea antibiotics AdvReac Diarrhea Uncoded 08/29/24 14:31 Review of Systems ROS Statement: Those systems with pertinent positive or pertinent negative responses have been documented in the HPI. ROS Other: All systems not noted in ROS Statement are negative. 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 History of Any Multi-Drug Resistant Organisms: None Reported Past Surgical History: Appendectomy, Breast Surgery, Cholecystectomy, Heart Catheterization, Hysterectomy, Joint Replacement Additional Past Surgical History / Comment(s): mena knee replacements, cataracts, surgery for fx finger left hand,skin cancer removed ears, forehead, nose & shoulder, colonoscopy, lt breast biopsy, rt breast biopsy, R breast lumpectomy Past Anesthesia/Blood Transfusion Reactions: Previous Problems w/ Anesthesia, Motion Sickness Additional Past Anesthesia/Blood Transfusion Reaction / Comment(s): high BP. daughter PONV Past Psychological History: Depression Smoking Status: Former smoker Past Alcohol Use History: None Reported Past Drug Use History: None Reported - Past Family History Mother Family Medical History: Blood Disorder, Cancer Additional Family Medical History / Comment(s): bone cancer , pt unsure if mother or sister had blood disorder with "vitamin k" Sister(s) Family Medical History: Blood Disorder General Exam - General Exam Comments Initial Comments: PE: CONSTITUTIONAL: No apparent distress, chronically ill appearing, nontoxic, drowsy but awakens to voice SKIN: Warm, dry, no jaundice, hives or petechiae EYES: Pupils are equally round, extraocular movements intact without nystagmus, clear conjunctiva, non-icteric sclera HENT: Normocephalic, atraumatic, slightly dry mucus membranes, oropharynx clear without exudates NECK: , Full range of motion, normal appearance PULMONARY: Clear to auscultation without wheezes, rhonchi, or rales, normal excursion, no accessory muscle use and no stridor CARDIOVASCULAR: Regular rate, rhythm, normal S1 and S2. No appreciated murmurs, rubs or gallops. Strong radial pulses with intact distal perfusion. No lower extremity edema GASTROINTESTINAL: Soft, active bowel sounds throughout, mild TTP along left side abdomen/LLQ, non-distended, no palpable masses, no rebound or guarding. No hepatosplenomegaly MUSCULOSKELETAL: Extremities have no gross deformity, or swelling. Right hip TTP, pain w/ hip flexion, otherwise extremities nontender and atraumatic NEUROLOGIC:_a/o x 3, GCS 15, drowsy mentation, clear speech. Moves all extremities x 4 without motor or sensory deficit, w/ exceptioin of limited hip flexion as noted above, No facial droop, sensation to light touch intact and equal both sides of face and all 4 extremities, no focal deficits PSYCHIATRIC:_normal mood and affect, thought process is clear and linear Limitations: no limitations Course Vital Signs 08/29/24 08/29/24 08/29/24 14:25 16:35 17:20 Temperature 97.4 F L Pulse Rate 49 L 57 L 58 L Respiratory 20 18 18 Rate Blood Pressure 92/47 80/56 83/66 O2 Sat by Pulse 98 99 94 L Oximetry 08/29/24 08/29/24 08/29/24 18:19 19:50 20:33 Temperature 98.1 F 97.1 F L Pulse Rate 60 60 Respiratory 18 17 Rate Blood Pressure 91/51 77/54 O2 Sat by Pulse 95 99 Oximetry 08/29/24 08/30/24 08/30/24 21:18 00:16 01:00 Temperature Pulse Rate 56 L 55 L 51 L Respiratory 17 17 16 Rate Blood Pressure 74/40 81/40 84/47 O2 Sat by Pulse 93 L 95 Oximetry 08/30/24 08/30/24 08/30/24 02:00 03:00 04:00 Temperature Pulse Rate 55 L 55 L 82 Respiratory 20 16 17 Rate Blood Pressure 97/45 100/51 104/55 O2 Sat by Pulse 96 95 97 Oximetry 08/30/24 08/30/24 08/30/24 05:00 06:00 08:41 Temperature 97.9 F Pulse Rate 64 62 71 Respiratory 20 18 16 Rate Blood Pressure 98/52 104/69 102/49 O2 Sat by Pulse 97 96 Oximetry 08/30/24 08/30/24 08/30/24 10:13 10:32 11:38 Temperature Pulse Rate 55 L 55 L 52 L Respiratory 16 16 14 Rate Blood Pressure 109/52 109/52 98/59 O2 Sat by Pulse 99 97 98 Oximetry 08/30/24 08/30/24 08/30/24 13:00 14:00 14:33 Temperature 97.9 F Pulse Rate 51 L 53 L 54 L Respiratory 14 14 18 Rate Blood Pressure 97/66 94/72 103/93 O2 Sat by Pulse 97 96 96 Oximetry EKG Findings - EKG Comments: EKG Findings:: Sinus bradycardia, rate 51 bpm, MT interval 156 ms, QRS duration 114 ms QT/QTc 446/421 ms, left axis deviation, low voltage EKG, no clear ST elevations or depressionsEKG reviewed from , no significant changes from prior Medical Decision Making - Medical Decision Making Was pt. sent in by a medical professional or institution (, PA, MODEL MAKER P[employer]ER, urgent care, hospital, or custodial...) When possible be specific @ -No Did you speak to anyone other than the patient for history (EMS, parent, family, police, friend...)? What history was obtained from this source @ -Spoke with patient's daughter who witnessed patient's near syncopal episode today Did you review nursing and triage notes (agree or disagree)? Why? @ -I reviewed nursing and triage notes Were old charts reviewed (outside hosp., previous admission, EMS record, old EKG, old radiological studies, urgent care reports/EKG's, custodial records)? Report findings @ -Medical records reviewed- echo performed on 08/11/24, showed preserved EF Differential Diagnosis (chest pain, altered mental status, abdominal pain women, abdominal pain men, vaginal bleeding, weakness, fever, dyspnea, syncope, headache, dizziness, GI bleed, back pain, seizure, CVA, palpatations, mental health, musculoskeletal)? @Differential Syncope: Valvular disease, hypertrophic cardiomyopathy, tamponade, tachycardia, bradycardia, ID, hypovolemia, hemorrhage, anemia, intracranial hemorrhage, seizure, hypoglycemia, this is not meant to be an all-inclusive list. EKG interpreted by me (3pts min.). @ -As above X-rays interpreted by me (1pt min.). @ On my review of CXR, cardomegaly noted, no pleural effusion, no obvious consolidation; XR pelvis/femur, I see no evidence of fracture or dislocation CT interpreted by me (1pt min.). @CT brain shows no hemorrhage or mass effect, CT abdomen pelvis shows no free air or free fluid, no bowel obstruction, no fat stranding around bowel U/S interpreted by me (1pt. min.). @ -None done What testing was considered but not performed or refused? (CT, X-rays, U/S, labs)? Why? @ -None What meds were considered but not given or refused? Why? @ -None Did you discuss the management of the patient with other professionals (pr ofessionals i.e. , PA, MODEL MA[employer] P[employer]ER, lab, RT, psych nurse, clinical social work aide, tool grinder operator, teacher, anti air warfare operations officer, case management manager)? Give summary @ -No Was smoking cessation discussed for >3mins.? @ -No Was critical care preformed (if so, how long)? @ -No Were there social determinants of health that impacted care today? How? (Homelessness, low income, unemployed, alcoholism, drug addiction, transportation, low edu. Level, literacy, decrease access to med. care, retirement, rehab)? @ -No Was there de-escalation of care discussed even if they declined (Discuss DNR or withdrawal of care, Hospice)? @ -No What co-morbidities impacted this encounter? (DM, HTN, Smoking, COPD, CAD, Cancer, CVA, ARF, Chemo, Hep., AIDS, mental health diagnosis, sleep apnea, morbid obesity)? @ -Asthma, cancer, heart failure, diabetes, hyperlipidemia, hypertension Was patient admitted / discharged? Hospital course, mention meds given and route, prescriptions, significant lab abnormalities, going to OR and other pertinent info. @Admitted -this is an 84-year-old female presenting today with her daughter after a near syncopal/syncopal episode at home when patient tried to stand from the toilet. Full history and exam are performed. Exam significant for no focal neurologic deficits though patient is somewhat sleepy/drowsy, awakens to voice. Lungs clear to auscultation bilaterally, mild left-sided abdominal tenderness with palpation, right sided hip tenderness to palpation without gross deformity of the right lower extremity. Patient does have difficulty lifting her right lower extremity secondary to pain in her hip and groin with lifting her leg however does have equal strength with bilateral plantar flexion. Of note, pt has had old injury to right hip Plan for CT brain, chest x-ray, comprehensive labs, CT abdomen given abdominal tenderness on exam, urinalysis, x-ray of the right hip and pelvis. Patient and daughter agreeable w/ plan of care.Of note initial vital signs do show bradycardia with rate 49 bpm, mild hypotension blood pressure 92/47 pulse ox 98%. Patient's daughter notes that the patient's blood pressure has run all over the place recently and a low blood pressure is not altogether abnormal for the pt. CXR read as possible pneumonia. Ordered dose rocephin and azithromycin. Labs reviewed, hemoglobin at baseline 10.6, overall reassuring, mild hyperglycemia with blood glucose 201, urine shows large leukocyte esterase 39 white blood cells, occasional bacteria, consistent w/ UTI, could be source of pt's weakness. Rocephin previously ordered. On reassessment patient is more alert. Currently endorses chronic back pain. Blood pressures running 80s over 60s however MAP of 71. Will give patient additional liter normal saline given prior ejection fraction on most recent echo was 55%. Patient was recently returned home from a rehab stay and living with her daughter and is currently too weak to return home, pt will require admission for further monitoring and PT/OT eval. Pt and daughter agreeable with POC. Case discussed w/ Dr. Martinez, kindly accepts pt for admission. Undiagnosed new problem with uncertain prognosis? @ -No Drug Therapy requiring intensive monitoring for toxicity (Heparin, Nitro, Insulin, Cardizem)? @ -No Were any procedures done? @ -No Diagnosis/symptom? @Near syncope, UTI, generalized weakness Acute, or Chronic, or Acute on Chronic? @ acute Uncomplicated (without systemic symptoms) or Complicated (systemic symptoms)? complicated Side effects of treatment? @ -No Exacerbation, Progression, or Severe Exacerbation? @ -No Poses a threat to life or bodily function? How? (Chest pain, USA, ID, pneumonia, PE, COPD, DKA, ARF, appy, cholecystitis, CVA, Diverticulitis, Homicidal, Suicidal, threat to staff... and all critical care pts) @ Potentially - Lab Data Result diagrams: 08/31/24 06:13 08/31/24 06:13 Lab Results 08/29/24 08/29/24 08/29/24 Range/Units 15:59 15:59 15:59 WBC 4.0 (3.8-10.6) k/uL RBC 3.63 L (3.80-5.40) m/uL Hgb 10.6 L (11.4-16.0) gm/dL Hct 32.4 L (34.0-46.0) % MCV 89.2 (80.0-100.0) fL MCH 29.1 (25.0-35.0) pg MCHC 32.6 (31.0-37.0) g/dL RDW 16.3 H (11.5-15.5) % Plt Count 296 (150-450) k/uL MPV 9.1 Neutrophils % 52 % Lymphocytes % 31 % Monocytes % 13 % Eosinophils % 2 % Basophils % 0 % Neutrophils # 2.1 (1.3-7.7) k/uL Lymphocytes # 1.2 (1.0-4.8) k/uL Monocytes # 0.5 (0-1.0) k/uL Eosinophils # 0.1 (0-0.7) k/uL Basophils # 0.0 (0-0.2) k/uL Hypochromasia Slight Anisocytosis Slight PT 10.4 (10.0-12.5) sec INR 0.9 (<1.2) APTT 23.3 (22.0-30.0) sec Sodium 134 L (137-145) mmol/L Potassium 4.5 (3.5-5.1) mmol/L Chloride 102 (98-107) mmol/L Carbon Dioxide 21 L (22-30) mmol/L Anion Gap 11 mmol/L BUN 38 H (7-17) mg/dL Creatinine 0.94 (0.52-1.04) mg/dL Est GFR (CKD-EPI)AfAm 64 (>60 ml/min/1.73 sqM) Est GFR (CKD-EPI)NonAf 55 (>60 ml/min/1.73 sqM) Glucose 201 H (74-99) mg/dL POC Glucose (mg/dL) (70-110) mg/dL POC Glu [employer] ID Calcium 9.3 (8.4-10.2) mg/dL Magnesium 2.1 (1.6-2.3) mg/dL Total Bilirubin 0.2 (0.2-1.3) mg/dL AST 22 (14-36) U/L ALT 12 (4-34) U/L Alkaline Phosphatase 74 (38-126) U/L Troponin I (0.000-0.034) ng/mL Total Protein 5.7 L (6.3-8.2) g/dL Albumin 3.2 L (3.5-5.0) g/dL Urine Color Urine Appearance (Clear) Urine pH (5.0-8.0) Ur Specific [place] (1.001-1.035) Urine Protein (Negative) Urine Glucose (UA) (Negative) Urine Ketones (Negative) Urine Blood (Negative) Urine Nitrite (Negative) Urine Bilirubin (Negative) Urine Urobilinogen (<2.0) mg/dL Ur Leukocyte Esterase (Negative) Urine WBC (0-5) /hpf Urine Bacteria (None) /hpf Urine Mucus (None) /hpf 08/29/24 08/29/24 08/29/24 Range/Units 15:59 16:07 16:57 WBC (3.8-10.6) k/uL RBC (3.80-5.40) m/uL Hgb (11.4-16.0) gm/dL Hct (34.0-46.0) % MCV (80.0-100.0) fL MCH (25.0-35.0) pg MCHC (31.0-37.0) g/dL RDW (11.5-15.5) % Plt Count (150-450) k/uL MPV Neutrophils % % Lymphocytes % % Monocytes % % Eosinophils % % Basophils % % Neutrophils # (1.3-7.7) k/uL Lymphocytes # (1.0-4.8) k/uL Monocytes # (0-1.0) k/uL Eosinophils # (0-0.7) k/uL Basophils # (0-0.2) k/uL Hypochromasia Anisocytosis PT (10.0-12.5) sec INR (<1.2) APTT (22.0-30.0) sec Sodium (137-145) mmol/L Potassium (3.5-5.1) mmol/L Chloride (98-107) mmol/L Carbon Dioxide (22-30) mmol/L Anion Gap mmol/L BUN (7-17) mg/dL Creatinine (0.52-1.04) mg/dL Est GFR (CKD-EPI)AfAm (>60 ml/min/1.73 sqM) Est GFR (CKD-EPI)NonAf (>60 ml/min/1.73 sqM) Glucose (74-99) mg/dL POC Glucose (mg/dL) 231 H (70-110) mg/dL POC Glu [employer] Commissioner ID Chris Mary Calcium (8.4-10.2) mg/dL Magnesium (1.6-2.3) mg/dL Total Bilirubin (0.2-1.3) mg/dL AST (14-36) U/L ALT (4-34) U/L Alkaline Phosphatase (38-126) U/L Troponin I <0.012 (0.000-0.034) ng/mL Total Protein (6.3-8.2) g/dL Albumin (3.5-5.0) g/dL Urine Color Colorless Urine Appearance Cloudy H (Clear) Urine pH 5.0 (5.0-8.0) Ur Specific [place] 1.013 (1.001-1.035) Urine Protein Negative (Negative) Urine Glucose (UA) Negative (Negative) Urine Ketones Negative (Negative) Urine Blood Negative (Negative) Urine Nitrite Negative (Negative) Urine Bilirubin Negative (Negative) Urine Urobilinogen <2.0 (<2.0) mg/dL Ur Leukocyte Esterase Large H (Negative) Urine WBC 39 H (0-5) /hpf Urine Bacteria Occasional H (None) /hpf Urine Mucus Occasional H (None) /hpf Disposition Clinical Impression: Generalized weakness, Urinary tract infection, Near syncope Disposition: ADMITTED IP TO THIS HOSP Condition: Stable
--- NOTE | 2024-08-29 16:56 | XR ---
EXAMINATION TYPE: XR femur RT DATE OF EXAM: 08/29/2024 4:33 PM COMPARISON: 05/30/2024 CLINICAL INDICATION: Female, 84 years old with history of right hip/pelvic pain; PHH, pain TECHNIQUE: XR femur RT examined in Frontal and lateral projections. FINDINGS: No evidence of acute osseous pathology, joint dislocation, or soft tissue swelling. Mild o steophyte formations of the superior acetabulum. Mild joint space narrowing. Right knee arthroplasty changes. Hardware appears intact. IMPRESSION: 1. No acute osseous pathology. 2. Mild degeneration changes of the hip. 3. Right knee arthroplasty changes with hardware intact. [facility], , 08/29/2024 4:54 PM
--- NOTE | 2024-08-29 17:00 | XR ---
EXAMINATION TYPE: XR pelvis AP view DATE OF EXAM: 08/29/2024 4:33 PM COMPARISON: 09/30/2022, CT same day. CLINICAL INDICATION: Female, 84 years old with history of right hip/pelvic pain; pain PHH TECHNIQUE: XR pelvis AP view, examined in a single projection. FINDINGS: There is no evidence of fracture or dislocation. There is no soft tissue abnormality. No a bnormal calcifications are present. The spine appears intact. The hips appear intact. Osteophyte form ation of the superior acetabulum bilaterally with mild joint space narrowing. Atherosclerosis of the arterial vasculature. IMPRESSION: 1. No acute osseous pathology. 2. Moderate degeneration changes of the hip. [facility], , 08/29/2024 4:57 PM
[2024-08-29 17:14] LABS: Appearance,Urine Cloudy (Clear); Bacteria,Urine Occasional /hpf; Bilirubin,Urine Negative (Negative); Blood,Urine Negative (Negative); Color,Urine Colorless; Glucose,Urine (UA) Negative (Negative); Ketones,Urine Negative (Negative); Leukocyte Esterase,Urine Large (Negative); Mucus,Urine Occasional /hpf; Nitrite,Urine Negative (Negative); Protein,Urine Negative (Negative); Specific Gravity,Urine 1.013 (1.001-1.035); Urobilinogen,Urine <2.0 mg/dL (<2.0); WBC,Urine 39 /hpf (0-5)
[2024-08-29] MEDS: cefTRIAXone IN SWFI 1,000 MG/10 ML SYRINGE IVP STA (17:29)
[2024-08-29] MEDS: AZITHROMYCIN 500 MG in SODIUM CHLORIDE 0.9% 250 ML IVPB STA (17:33)
[2024-08-29] MEDS: ACETAMINOPHEN TAB 325 MG TAB PO STA (17:47)
[2024-08-29] MEDS: SODIUM CHLORIDE 0.9% 500 ML 500 ML IV ONE (17:48)
[2024-08-29] MEDS ORDERED: NALOXONE 0.4 MG/ML 1 ML VIAL IV PRN (18:46)
[2024-08-29] MEDS ORDERED: MAG HYDROX/AL HYDROX/SIMETH 30 ML CUP PO PRN (18:46)
[2024-08-29] MEDS ORDERED: CALCIUM CARBONATE 500 MG CHEWABLE PO PRN (18:46)
[2024-08-29] MEDS ORDERED: MECLIZINE 12.5 MG TAB PO PRN (18:47)
[2024-08-29] MEDS: SODIUM CHLORIDE 0.9% 1,000 ML IV SCH ×2 (19:00→21:33)
[2024-08-29] MEDS: METOPROLOL TARTRATE 50 MG TAB PO SCH (20:12)
[2024-08-29] MEDS: ATORVASTATIN 10 MG TAB PO SCH (20:35)
[2024-08-29] MEDS: MONTELUKAST 10 MG TAB PO SCH (20:35)
[2024-08-29] MEDS: ALPRAZolam 0.25 MG TAB PO SCH (20:35)
[2024-08-29 20:41] LABS: Glucose,Whole Blood 112 mg/dL (70-110)
[2024-08-29] MEDS: SODIUM CHLORIDE 0.9% 1,000 ML IV ONE (21:33)
[2024-08-30] MEDS ORDERED: ACETAMINOPHEN TAB 325 MG TAB PO PRN
[2024-08-30] MEDS: LEVOTHYROXINE 100 MCG TAB PO SCH (05:53)
[2024-08-30] MEDS: THIAMINE 100 MG TAB PO SCH (08:27)
[2024-08-30] MEDS: allopurinoL 300 MG TAB PO SCH (08:29)
[2024-08-30] MEDS: DONEPEZIL 10 MG TAB PO SCH (08:29)
[2024-08-30] MEDS: ASPIRIN 81 MG PO SCH (08:29)
[2024-08-30] MEDS: GLIMEPIRIDE 2 MG TAB PO SCH (08:30)
[2024-08-30] MEDS: FOLIC ACID 1 MG TAB PO SCH (08:30)
[2024-08-30] MEDS: TAMSULOSIN 0.4 MG CAP.ER.24H PO SCH (08:30)
[2024-08-30 08:50] LABS: Glucose,Whole Blood 80 mg/dL (70-110)
[2024-08-30] MEDS ORDERED: DEXTROSE 50% SYRINGE 50 ML IVP PRN ×2 (09:25)
--- NOTE | 2024-08-30 09:27 | P.HPIM ---
History of Present Illness This is a pleasant 84 years old female with past medical history of multiple medical problems as below She was recently discharged from senior living [facility] and she went home, patient does not remember what happens about per staff and records patient was found unresponsive in the toilet, unknown for how long She was treated in the hospital for right leg weakness secondary to spinal stenosis at that time evaluated by neurology and orthopedic physicians and recommended conservative treatment Blood pressure is on the low side as well as heart rate, currently 102/49 it was lower on admission EKG showing sinus bradycardia at [address]-T changes CT of the brain showing no acute intracranial process Chest x-ray showing airspace opacity projecting over the spine suspicious for pneumonia versus other CT of the abdomen pelvis without contrast showing no acute process And pelvic x-ray showing no acute osseous process on there is moderate degenerative densities and knee hardware in place Labs including CBC, BMP, LFT, INR were unremarkable. Troponin x 2 are negative. In the emergency room patient was found to have acute urinary retention and Garcia catheter was placed I called the daughter Suad at [phone] and left a message to call back Review of Systems Review of systems CONSTITUTIONAL: No fever, no malaise, no fatigue. HEENT: No recent visual problems or hearing problems. Denied any sore throat. CARDIOVASCULAR: No orthopnea, PND, no palpitations, no syncope. PULMONARY: No shortness of breath, no cough, no hemoptysis. GASTROINTESTINAL: No diarrhea, no nausea, no vomiting, no abdominal pain. Normoactive bowel sounds. NEUROLOGICAL: No headaches, no weakness, no numbness. HEMATOLOGICAL: Denies any bleeding or petechiae. GENITOURINARY: Denies any burning micturition, frequency, or urgency. MUSCULOSKELETAL/RHEUMATOLOGICAL: Denies any joint pain, swelling, or any muscle pain. ENDOCRINE: Denies any polyuria or polydipsia. 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 History of Any Multi-Drug Resistant Organisms: None Reported Past Surgical History: Appendectomy, Breast Surgery, Cholecystectomy, Heart Catheterization, Hysterectomy, Joint Replacement Additional Past Surgical History / Comment(s): mena knee replacements, cataracts, surgery for fx finger left hand,skin cancer removed ears, forehead, nose & shoulder, colonoscopy, lt breast biopsy, rt breast biopsy, R breast lumpectomy Past Anesthesia/Blood Transfusion Reactions: Previous Problems w/ Anesthesia, Motion Sickness Additional Past Anesthesia/Blood Transfusion Reaction / Comment(s): high BP. daughter PONV Past Psychological History: Depression Smoking Status: Former smoker Past Alcohol Use History: None Reported Past Drug Use History: None Reported - Past Family History Mother Family Medical History: Blood Disorder, Cancer Additional Family Medical History / Comment(s): bone cancer , pt unsure if mother or sister had blood disorder with "vitamin k" Sister(s) Family Medical History: Blood Disorder Medications and Allergies Home Medications Medication Instructions Recorded Confirmed Type Montelukast [Singulair] 10 mg PO HS 03/29/14 08/29/24 History Anastrozole [Arimidex] 1 mg PO DAILY 03/23/21 08/29/24 History Meclizine [Antivert] 12.5 mg PO DAILY PRN 03/16/22 08/29/24 History Galantamine HBr [Razadyne ER] 16 mg PO DAILY 09/30/22 08/29/24 History Levothyroxine Sodium [Synthroid] 100 mcg PO DAILY 09/30/22 08/29/24 History allopurinoL 300 mg PO DAILY 09/30/22 08/29/24 History Cetirizine HCl [Zyrtec] 10 mg PO DAILY 04/25/24 08/29/24 History Glimepiride [Amaryl] 2 mg PO DAILY 05/12/24 08/29/24 History Aspirin EC [Ecotrin Low Dose] 81 mg PO DAILY 05/30/24 08/29/24 History Atorvastatin [Lipitor] 10 mg PO HS 05/30/24 08/29/24 History Metoprolol Tartrate [Lopressor] 50 mg PO BID 05/30/24 08/29/24 History amLODIPine [Norvasc] 5 mg PO DAILY 05/30/24 08/29/24 History Acetaminophen Tab [Tylenol] 650 mg PO Q6HR PRN tab 06/02/24 08/29/24 Rx Thiamine [Vitamin B-1] 100 mg PO BID-W/MEALS tab 08/14/24 08/29/24 Rx ALPRAZolam [Xanax] 0.25 mg PO BID 08/29/24 08/29/24 History Cranberry 450mg 450 mg PO DAILY 08/29/24 08/29/24 History Folic Acid 1 mg PO DAILY 08/29/24 08/29/24 History Multivitamins, Thera [Multivitamin 1 tab PO DAILY@1200 08/29/24 08/29/24 History (formulary)] Tamsulosin [Flomax] 0.4 mg PO DAILY 08/29/24 08/29/24 History Allergies Allergy/AdvReac Type Severity Reaction Status Date / Time amoxicillin Allergy Unknown TAKEN FROM Verified 08/29/24 17:10 DR OLIVER'S NOTES Iodine and Iodide Containing Allergy Unknown TESTED Verified 08/29/24 17:10 Produc POSITIVE FOR SHELLFISH prednisone Allergy Unknown TAKEN FROM Verified 08/29/24 17:10 DR FISHER NOTES adhesive Allergy blisters, Verified 08/29/24 17:10 itching Penicillins Allergy Rash/Hives Verified 08/29/24 17:10 shellfish derived Allergy TESTED Verified 08/29/24 17:10 POSITIVE WITH ALLERGY TESTING. gluten AdvReac vomiting, Verified 08/29/24 17:10 diarrhea antibiotics AdvReac Diarrhea Uncoded 08/29/24 14:31 Physical Exam Vitals: Vital Signs Temp Pulse Resp BP Pulse Ox 08/30/24 08:41 97.9 F 71 16 102/49 96 08/30/24 06:00 62 18 104/69 08/30/24 05:00 64 20 98/52 97 08/30/24 04:00 82 17 104/55 97 08/30/24 03:00 55 L 16 100/51 95 08/30/24 02:00 55 L 20 97/45 96 08/30/24 01:00 51 L 16 84/47 95 08/30/24 00:16 55 L 17 81/40 93 L 08/29/24 21:18 56 L 17 74/40 08/29/24 20:33 97.1 F L 08/29/24 19:50 60 17 77/54 99 08/29/24 18:19 98.1 F 60 18 91/51 95 08/29/24 17:20 58 L 18 83/66 94 L 08/29/24 16:35 57 L 18 80/56 99 08/29/24 14:25 97.4 F L 49 L 20 92/47 98 Intake and Output 08/29/24 08/30/24 08/30/24 22:59 06:59 14:59 Output Total 450 1850 390 Balance -450 -1850 -390 Output: Urine 450 1850 390 Straight 450 850 390 -GENERAL: The patient is alert and oriented x2-3, not in any acute distress. Well developed, well nourished. Obese HEENT: Pupils are round and equally reacting to light. EOMI. No scleral icterus. No conjunctival pallor. Normocephalic, atraumatic. No pharyngeal erythema. No thyromegaly. CARDIOVASCULAR: S1 and S2 present. No murmurs, rubs, or gallops. PULMONARY: Chest is clear to auscultation, no wheezing , no crackles. ABDOMEN: Soft, nontender, nondistended, normoactive bowel sounds. No palpable organomegaly. Garcia catheter in place MUSCULOSKELETAL: No joint swelling or deformity. EXTREMITIES: No cyanosis, clubbing, or pedal edema. NEUROLOGICAL: Gross neurological examination did not reveal any focal deficits. SKIN: No rashes. no petechiae. Results CBC & Chem 7: 08/29/24 15:59 08/29/24 15:59 Labs: Abnormal Lab Results - Last 24 Hours (Table) 08/29/24 08/29/24 08/29/24 Range/Units 15:59 15:59 16:07 RBC 3.63 L (3.80-5.40) m/uL Hgb 10.6 L (11.4-16.0) gm/dL Hct 32.4 L (34.0-46.0) % RDW 16.3 H (11.5-15.5) % Sodium 134 L (137-145) mmol/L Carbon Dioxide 21 L (22-30) mmol/L BUN 38 H (7-17) mg/dL Glucose 201 H (74-99) mg/dL POC Glucose (mg/dL) 231 H (70-110) mg/dL Total Protein 5.7 L (6.3-8.2) g/dL Albumin 3.2 L (3.5-5.0) g/dL Urine Appearance (Clear) Ur Leukocyte Esterase (Negative) Urine WBC (0-5) /hpf Urine Bacteria (None) /hpf Urine Mucus (None) /hpf 08/29/24 08/29/24 Range/Units 16:57 20:36 RBC (3.80-5.40) m/uL Hgb (11.4-16.0) gm/dL Hct (34.0-46.0) % RDW (11.5-15.5) % Sodium (137-145) mmol/L Carbon Dioxide (22-30) mmol/L BUN (7-17) mg/dL Glucose (74-99) mg/dL POC Glucose (mg/dL) 112 H (70-110) mg/dL Total Protein (6.3-8.2) g/dL Albumin (3.5-5.0) g/dL Urine Appearance Cloudy H (Clear) Ur Leukocyte Esterase Large H (Negative) Urine WBC 39 H (0-5) /hpf Urine Bacteria Occasional H (None) /hpf Urine Mucus Occasional H (None) /hpf Assessment and Plan Assessment: Transient period of altered mental status, versus syncope Airspace opacity overlying the spine of the lung suspicious for pneumonia Acute urinary retention status post Garcia catheter Urine analysis looks dehydrated sample Recent history of right leg weakness secondary to spinal stenosis recommended conservative treatment by orthopedic team Diabetes mellitus Hypertension Hyperlipidemia Degenerative disc disease status post bilateral knee replacement Generalized weakness Plan: Continue with IV hydration Follow-up culture results Check pro- Calcitonin Continue with ceftriaxone Start Flomax Monitor sugar with insulin sliding scale. Check hemoglobin A1c Currently patient on metoprolol 50 mg twice daily, I would recommend lowering the dose with holding parameters Cardiology team consult pulmonary team consult Labs and medication were reviewed.. Continue same treatment. Continue with symptomatic treatment. Resume home medication. Monitor labs and vitals. DVT and GI prophylaxis. Further recommendations as per clinical course of the patient DVT prophylaxis: Subcutaneous heparin GI Prophylaxis: Pepcid PT/OT: Pending Prognosis is guarded.
[2024-08-30] MEDS: HEPARIN SODIUM,PORCINE 5,000 UNIT/ML 1 ML VIAL SQ SCH (10:07)
[2024-08-30] MEDS: ANASTROZOLE 1 MG TAB PO SCH (10:15)
[2024-08-30 12:00] LABS: Glucose,Whole Blood 94 mg/dL (70-110)
[2024-08-30] MEDS: INSULIN ASPART (NovoLOG) 100 UNIT/ML VIAL SQ SCH (12:00)
[2024-08-30] MEDS: MULTIVITAMINS, THERA 1 EACH TAB PO SCH (12:00)
[2024-08-30 16:25] LABS: Glucose,Whole Blood 60 mg/dL (70-110)
[2024-08-30 16:46] LABS: Glucose,Whole Blood 77 mg/dL (70-110)
[2024-08-30] MEDS: FAMOTIDINE 20 MG/2 ML VIAL IV SCH (20:23)
[2024-08-30 20:39] LABS: Glucose,Whole Blood 71 mg/dL (70-110)
[2024-08-30] MEDS: METOPROLOL TARTRATE 25 MG TAB PO SCH (23:51)
[2024-08-30] MEDS: NYSTATIN 100,000 UNIT/GM POWD 15 GM TOPICAL SCH (23:51)
[2024-08-31 03:42] LABS: Glucose,Whole Blood 62 mg/dL (70-110)
[2024-08-31 03:57] LABS: Glucose,Whole Blood 66 mg/dL (70-110)
[2024-08-31 04:14] LABS: Glucose,Whole Blood 79 mg/dL (70-110)
[2024-08-31 06:34] LABS: Glucose,Whole Blood 111 mg/dL (70-110)
[2024-08-31 06:49] LABS: Anisocytosis Slight; Basophils % (A) 0 %; Eosinophils # (A) 0.1 k/uL (0-0.7); Eosinophils % (A) 3 %; HCT 31.1 % (34.0-46.0); HGB 10.1 gm/dL (11.4-16.0); Hypochromasia Slight; Lymphocytes # (A) 1.1 k/uL (1.0-4.8); Lymphocytes % (A) 32 %; MCH 28.9 pg (25.0-35.0); MCHC 32.4 g/dL (31.0-37.0); MCV 89.2 fL (80.0-100.0); Mean Platelet Volume 7.8; Monocytes # (A) 0.4 k/uL (0-1.0); Monocytes % (A) 11 %; Neutrophils # (A) 1.8 k/uL (1.3-7.7); Neutrophils % (A) 52 %; Platelet Count 256 k/uL (150-450); RBC 3.49 m/uL (3.80-5.40); RDW 16.7 % (11.5-15.5); WBC 3.6 k/uL (3.8-10.6)
[2024-08-31 06:58] LABS: African American GFR (CKD) 73 (>60 ml/min/1.73 sqM); Anion Gap 8 mmol/L; Blood Urea Nitrogen 17 mg/dL (7-17); Calcium 9.4 mg/dL (8.4-10.2); Carbon Dioxide 23 mmol/L (22-30); Chloride 110 mmol/L (98-107); Glucose 99 mg/dL (74-99); Non-African American GFR(CKD) 63 (>60 ml/min/1.73 sqM); Potassium 4.2 mmol/L (3.5-5.1); Sodium 141 mmol/L (137-145)
--- NOTE | 2024-08-31 08:59 | P.CRDCN ---
History of Present Illness Consult date: 08/31/24 Reason for Consult (text): Syncope History of present illness: This is an 84-year-old female patient of Dr. Jaimes with past medical history of h eart failure with preserved EF, bilateral lower extremity edema, hypertension, dyslipidemia, diabetes mellitus type 2, frailty. We have been asked to evaluate the patient for syncope. Patient relates that she was recently discharged from [facility] and had been doing very well there. She was at home with her daughter and she was on the toilet. She does not remember if she was having a bowel mov ement. She went to stand up and that is all she can remember. Her daughter told her that she became unresponsive and was drooling and daughter had a difficult time waking her up. Patient apparently was waking up by the time EMS arrived. There was no head injury. In the emergency center blood pressure was as low as 74 systolic. Patient denies having other episodes like this. Patient had a recent hospitalization at the end of July at which time she presented for mental status changes and was not seen by cardiology at that time. Blood pressure 125/65, heart rate 63, pulse ox 93% on room air. Patient's amlodipine has been held and Lopressor was decreased to 25 mg twice daily. Neurology is also following patient. -EKG: Sinus bradycardia 51 bpm -Chest x-ray: Airspace opacities projecting over the spine on lateral view correlate for pneumonia. -CT abdomen and pelvis: No evidence of acute process. Mild cardiomegaly. -Pelvic x-ray: No acute osseous pathology. Moderate degenerative changes of the hip. -Femur x-ray no acute osseous pathology. -CT brain: No acute intracranial process -Laboratory studies: WBC 3.6, hemoglobin 10.1. Potassium 4.2, creatinine 0.84. Troponin negative x 2. -Home cardiac medications: Amlodipine 5 mg daily, aspirin 81 mg daily, atorvastatin 10 mg at bedtime, Lopressor 50 mg twice daily, also on levothyroxine. -Limited echocardiogram performed 07/2024: LVH with preserved systolic function. Severe left atrial enlargement. Moderate RV enlargement. Review Of Systems: At the time of my exam: CONSTITUTIONAL: Denies fever or chills. HEENT: Denies blurred vision, vision changes, or eye pain. Denies hemoptysis CARDIOVASCULAR: Denies chest pain. Denies orthopnea. Denies PND. Denies palpitations RESPIRATORY: Denies shortness of breath. GASTROINTESTINAL: Denies abdominal pain. Denies nausea or vomiting. HEMATOLOGIC: Denies bleeding disorders. GENITOURINARY: Denies any blood in urine. SKIN: Denies puritis. Denies rash. Physical examination: Gen: This is a 84-year-old female in no acute distress VS: reviewed HEENT: Head is atraumatic, normocephalic. Pupils equal, round. Sclerae is anicteric. NECK: Supple. No JVD. LUNGS: Clear to auscultation. No wheezes or rhonchi. No intercostal retractions. HEART: Regular rate and rhythm. No murmur. ABDOMEN: Soft No tenderness. EXTREMITIES: Minimal pedal edema. No calf tenderness. NEUROLOGICAL: Patient is awake, alert and oriented to person. Assessment: Syncopal episode probable vasovagal Chronic heart failure with preserved EF Diabetes mellitus type 2 Hypertension Dyslipidemia Frailty Plan: Resume patient's home cardiac medications with the following changes that have been already made Hold amlodipine Decrease beta-leola to 25 mg twice daily No need to repeat echocardiogram 1 week event monitor to be placed prior to discharge Change Flomax to nighttime dosing Patient is cleared for discharge and will follow-up with Dr. Jaimes in 3 weeks. Thank you kindly for this consultation. Nurse practitioner note has been reviewed, I agree with documented findings and plan of care. Patient was seen and examined. 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 History of Any Multi-Drug Resistant Organisms: None Reported Past Surgical History: Appendectomy, Breast Surgery, Cholecystectomy, Heart Catheterization, Hysterectomy, Joint Replacement, Tonsillectomy Additional Past Surgical History / Comment(s): mena knee replacements, cataracts, surgery for fx finger left hand,skin cancer removed ears, forehead, nose & shoulder, colonoscopy, lt breast biopsy, rt breast biopsy, R breast lumpectomy Past Anesthesia/Blood Transfusion Reactions: Previous Problems w/ Anesthesia, Motion Sickness Additional Past Anesthesia/Blood Transfusion Reaction / Comment(s): high BP. daughter PONV Past Psychological History: Depression Smoking Status: Former smoker Past Alcohol Use History: None Reported Additional Past Alcohol Use History / Comment(s): smoked age 16 -19. Past Drug Use History: None Reported - Past Family History Mother Family Medical History: Blood Disorder, Cancer Additional Family Medical History / Comment(s): bone cancer , pt unsure if mother or sister had blood disorder with "vitamin k" Sister(s) Family Medical History: Blood Disorder Medications and Allergies Home Medications Medication Instructions Recorded Confirmed Type Montelukast [Singulair] 10 mg PO HS 03/29/14 08/29/24 History Anastrozole [Arimidex] 1 mg PO DAILY 03/23/21 08/29/24 History Meclizine [Antivert] 12.5 mg PO DAILY PRN 03/16/22 08/29/24 History Galantamine HBr [Razadyne ER] 16 mg PO DAILY 09/30/22 08/29/24 History Levothyroxine Sodium [Synthroid] 100 mcg PO DAILY 09/30/22 08/29/24 History allopurinoL 300 mg PO DAILY 09/30/22 08/29/24 History Cetirizine HCl [Zyrtec] 10 mg PO DAILY 04/25/24 08/29/24 History Glimepiride [Amaryl] 2 mg PO DAILY 05/12/24 08/29/24 History Aspirin EC [Ecotrin Low Dose] 81 mg PO DAILY 05/30/24 08/29/24 History Atorvastatin [Lipitor] 10 mg PO HS 05/30/24 08/29/24 History Metoprolol Tartrate [Lopressor] 50 mg PO BID 05/30/24 08/29/24 History amLODIPine [Norvasc] 5 mg PO DAILY 05/30/24 08/29/24 History Acetaminophen Tab [Tylenol] 650 mg PO Q6HR PRN tab 06/02/24 08/29/24 Rx Thiamine [Vitamin B-1] 100 mg PO BID-W/MEALS tab 08/14/24 08/29/24 Rx ALPRAZolam [Xanax] 0.25 mg PO BID 08/29/24 08/29/24 History Cranberry 450mg 450 mg PO DAILY 08/29/24 08/29/24 History Folic Acid 1 mg PO DAILY 08/29/24 08/29/24 History Multivitamins, Thera [Multivitamin 1 tab PO DAILY@1200 08/29/24 08/29/24 History (formulary)] Tamsulosin [Flomax] 0.4 mg PO DAILY 08/29/24 08/29/24 History Allergies Allergy/AdvReac Type Severity Reaction Status Date / Time amoxicillin Allergy Unknown TAKEN FROM Verified 08/29/24 17:10 DR OLIVER'S NOTES Iodine and Iodide Containing Allergy Unknown TESTED Verified 08/29/24 17:10 Produc POSITIVE FOR SHELLFISH prednisone Allergy Unknown TAKEN FROM Verified 08/29/24 17:10 DR FISHER NOTES adhesive Allergy blisters, Verified 08/29/24 17:10 itching Penicillins Allergy Rash/Hives Verified 08/29/24 17:10 shellfish derived Allergy TESTED Verified 08/29/24 17:10 POSITIVE WITH ALLERGY TESTING. gluten AdvReac vomiting, Verified 08/29/24 17:10 diarrhea antibiotics AdvReac Diarrhea Uncoded 08/29/24 14:31 Physical Exam Vitals: Vital Signs Temp Pulse Pulse Resp BP BP Pulse Ox 08/31/24 04:26 98.2 F 63 16 109/48 93 L 08/30/24 23:41 97.7 F 61 16 120/56 94 L 08/30/24 19:50 97.3 F L 52 L 16 101/50 99 08/30/24 18:29 95/53 08/30/24 15:42 51 L 131/65 98 08/30/24 15:01 97.6 F 55 L 18 85/45 99 08/30/24 14:33 97.9 F 54 L 18 103/93 96 08/30/24 14:00 53 L 14 94/72 96 08/30/24 13:00 51 L 14 97/66 97 08/30/24 11:38 52 L 14 98/59 98 08/30/24 10:32 55 L 16 109/52 97 08/30/24 10:13 55 L 16 109/52 99 08/30/24 08:41 97.9 F 71 16 102/49 96 Intake and Output 08/30/24 08/31/24 08/31/24 22:59 06:59 14:59 Intake Total 118 Output Total 500 1200 Balance -382 -1200 Intake: Oral 118 Output: Urine 500 1200 Other: Voiding Method Indwelling Catheter Indwelling Catheter Weight 83.915 kg 76 kg Results 08/31/24 06:13 08/31/24 06:13 CBC 08/31/24 Range/Units 06:13 WBC 3.6 L (3.8-10.6) k/uL RBC 3.49 L (3.80-5.40) m/uL Hgb 10.1 L (11.4-16.0) gm/dL Hct 31.1 L (34.0-46.0) % Plt Count 256 (150-450) k/uL Comprehensive Metabolic Panel 08/31/24 Range/Units 06:13 Sodium 141 (137-145) mmol/L Potassium 4.2 (3.5-5.1) mmol/L Chloride 110 H (98-107) mmol/L Carbon Dioxide 23 (22-30) mmol/L BUN 17 (7-17) mg/dL Creatinine 0.84 (0.52-1.04) mg/dL Glucose 99 (74-99) mg/dL Calcium 9.4 (8.4-10.2) mg/dL Current Medications Generic Name Dose Route Start Last Admin Trade Name Freq PRN Reason Stop Dose Admin Acetaminophen 650 mg 08/30/24 00:00 Acetaminophen Tab 325 Mg Tab PO Q6HR PRN Mild Pain or Fever > 100.5 Al Hydroxide/Mg Hydroxide 15 ml 08/29/24 18:46 Mag Hydrox/Al Hydrox/Simeth 30 Ml Cup PO Q6HR PRN Indigestion Allopurinol 300 mg 08/30/24 09:00 08/30/24 08:29 Allopurinol 300 Mg Tab PO 300 mg DAILY PAULINE Administration Alprazolam 0.25 mg 08/29/24 21:00 08/30/24 20:24 Alprazolam 0.25 Mg Tab PO 0.25 mg BID PAULINE Administration Anastrozole 1 mg 08/30/24 09:00 08/30/24 10:15 Anastrozole 1 Mg Tab PO 1 mg DAILY PAULINE Administration Aspirin 81 mg 08/30/24 09:00 08/30/24 08:29 Aspirin 81 Mg PO 81 mg DAILY PAULINE Administration Atorvastatin Calcium 10 mg 08/29/24 21:00 08/30/24 20:24 Atorvastatin 10 Mg Tab PO 10 mg HS PAULINE Administration Calcium Carbonate/Glycine 1,000 mg 08/29/24 18:46 Calcium Carbonate 500 Mg Chewable PO Q4HR PRN Dyspepsia Dextrose/Water 25 ml 08/30/24 09:25 Dextrose 50% Syringe 50 Ml IVP PER PROTOCOL PRN Hypoglycemia Protocol Dextrose/Water 50 ml 08/30/24 09:25 Dextrose 50% Syringe 50 Ml IVP PER PROTOCOL PRN Hypoglycemia Protocol Donepezil HCl 10 mg 08/30/24 09:00 08/30/24 08:29 Donepezil 10 Mg Tab PO 10 mg DAILY PAULINE Administration Famotidine 20 mg 08/30/24 21:00 08/30/24 20:23 Famotidine 20 Mg/2 Ml Vial IV 20 mg HS PAULINE Administration Folic Acid 1 mg 08/30/24 09:00 08/30/24 08:30 Folic Acid 1 Mg Tab PO 1 mg DAILY PAULINE Administration Glimepiride 2 mg 08/30/24 09:00 08/30/24 08:30 Glimepiride 2 Mg Tab PO 2 mg DAILY PAULINE Administration Heparin Sodium (Porcine) 5,000 unit 08/30/24 10:00 08/30/24 20:24 Heparin Sodium,Porcine 5,000 Unit/Ml 1 Ml Vial SQ 5,000 unit Q12HR PAULINE Administration Ceftriaxone Sodium 1 gm/ 50 mls @ 100 mls/hr 08/30/24 09:30 08/30/24 10:08 Sodium Chloride IVPB 100 mls/hr Q24HR PAULINE Administration Protocol Insulin Aspart 0 unit 08/30/24 12:30 08/31/24 06:28 Insulin Aspart (Novolog) 100 Unit/Ml Vial SQ Not Given ACHS [facility] Protocol Levothyroxine Sodium 100 mcg 08/30/24 06:30 08/31/24 06:29 Levothyroxine 100 Mcg Tab PO 100 mcg 0630 PAULINE Administration Meclizine HCl 12.5 mg 08/29/24 18:47 Meclizine 12.5 Mg Tab PO DAILY PRN Vertigo Metoprolol Tartrate 25 mg 08/30/24 21:00 08/30/24 23:51 Metoprolol Tartrate 25 Mg Tab PO Not Given BID PAULINE Montelukast Sodium 10 mg 08/29/24 21:00 08/30/24 20:24 Montelukast 10 Mg Tab PO 10 mg HS PAULINE Administration Multivitamins 1 each 08/30/24 12:00 08/30/24 12:00 Multivitamins, Thera 1 Each Tab PO 1 each DAILY@1200 PAULINE Administration Naloxone HCl 0.2 mg 08/29/24 18:46 Naloxone 0.4 Mg/Ml 1 Ml Vial IV Q2M PRN Opioid Reversal Nystatin 1 applic 08/30/24 21:00 08/30/24 23:51 Nystatin 100,000 Unit/Gm Powd 15 Gm TOPICAL Not Given BID [facility] Protocol Tamsulosin HCl 0.4 mg 08/30/24 09:00 08/30/24 08:30 Tamsulosin 0.4 Mg Cap.Er.24h PO 0.4 mg DAILY PAULINE Administration Thiamine HCl 100 mg 08/30/24 07:30 08/31/24 06:29 Thiamine 100 Mg Tab PO 100 mg BID-W/MEALS PAULINE Administration Intake and Output 08/30/24 08/31/24 08/31/24 22:59 06:59 14:59 Intake Total 118 Output Total 500 1200 Balance -382 -1200 Intake: Oral 118 Output: Urine 500 1200 Other: Voiding Method Indwelling Catheter Indwelling Catheter Weight 83.915 kg 76 kg 08/31/24 06:13 08/31/24 06:13
[2024-08-31 11:26] LABS: Glucose,Whole Blood 98 mg/dL (70-110)
[2024-08-31 16:19] LABS: Glucose,Whole Blood 101 mg/dL (70-110)
--- NOTE | 2024-08-31 17:39 | P.CNPUL ---
History of Present Illness Consult date: 08/31/24 Reason for consult: dyspnea, cough, pneumonia Chief complaint: Shortness of breath History of present illness: 84-year-old female with prior medical history of diabetes hypertension dyslipidemia, patient presented with syncopal episode, patient is a resident of [facility] and recently discharged, on the day of admission patient was in washroom try to get off of the toilet becomes arrests responsive was noted to be drooling as well, patient was more somnolent however on EMS arrival more awake and started responding, patient has been having low blood pressure lately. Her prior medical history significant for bronchial asthma, meclizine, hypothyroidism, gout, type 2 diabetes mellitus, hypertension hypertensive cardiovascular disease, dyslipidemia, overactive bladder. Her significant labs including CBC fairly within normal limit except mild anemia, chemistry also fairly within normal limit, urine culture positive for gram-negative rods final ID is pending. The patient is on Tylenol, Zyloprim, aspirin, Rocephin, Lipitor, Aricept radiographic images including CT scan of the brain no acute fracture or intracranial process identified, CT scan of the abdomen pelvis no acute process seen some diverticula was identified, moderate cardiomegaly, chest x-ray basal airspace opacities over the spine were seen on lateral view history of pneumonia Review of Systems All systems: negative Past Medical History Past Medical History: Asthma, Cancer, Heart Failure, Diabetes Mellitus, Hearing Disorder / Deafness, Hyperlipidemia, Hypertension, Memory Impairment, Osteoarthritis (OA), Renal Disease, Sleep Apnea/CPAP/BIPAP, Thyroid Disorder Additional Past Medical History / Comment(s): sleep apnea with c-pap., gout, constipation., diverticulitis, skin cancer, breast cancer, stage 3 kidney disease., vertigo, hx falls -uses walker., 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 History of Any Multi-Drug Resistant Organisms: None Reported Past Surgical History: Appendectomy, Breast Surgery, Cholecystectomy, Heart Catheterization, Hysterectomy, Joint Replacement, Tonsillectomy Additional Past Surgical History / Comment(s): mena knee replacements, cataracts, surgery for fx finger left hand,skin cancer removed ears, forehead, nose & shoulder, colonoscopy, lt breast biopsy, rt breast biopsy, R breast lumpectomy Past Anesthesia/Blood Transfusion Reactions: Previous Problems w/ Anesthesia, Motion Sickness Additional Past Anesthesia/Blood Transfusion Reaction / Comment(s): high BP. daughter PONV Past Psychological History: Depression Smoking Status: Former smoker Past Alcohol Use History: None Reported Additional Past Alcohol Use History / Comment(s): smoked age 16 -19. Past Drug Use History: None Reported - Past Family History Mother Family Medical History: Blood Disorder, Cancer Additional Family Medical History / Comment(s): bone cancer , pt unsure if mother or sister had blood disorder with "vitamin k" Sister(s) Family Medical History: Blood Disorder Medications and Allergies Home Medications Medication Instructions Recorded Confirmed Type Montelukast [Singulair] 10 mg PO HS 03/29/14 08/29/24 History Anastrozole [Arimidex] 1 mg PO DAILY 03/23/21 08/29/24 History Meclizine [Antivert] 12.5 mg PO DAILY PRN 03/16/22 08/29/24 History Galantamine HBr [Razadyne ER] 16 mg PO DAILY 09/30/22 08/29/24 History Levothyroxine Sodium [Synthroid] 100 mcg PO DAILY 09/30/22 08/29/24 History allopurinoL 300 mg PO DAILY 09/30/22 08/29/24 History Cetirizine HCl [Zyrtec] 10 mg PO DAILY 04/25/24 08/29/24 History Glimepiride [Amaryl] 2 mg PO DAILY 05/12/24 08/29/24 History Aspirin EC [Ecotrin Low Dose] 81 mg PO DAILY 05/30/24 08/29/24 History Atorvastatin [Lipitor] 10 mg PO HS 05/30/24 08/29/24 History Metoprolol Tartrate [Lopressor] 50 mg PO BID 05/30/24 08/29/24 History amLODIPine [Norvasc] 5 mg PO DAILY 05/30/24 08/29/24 History Acetaminophen Tab [Tylenol] 650 mg PO Q6HR PRN tab 06/02/24 08/29/24 Rx Thiamine [Vitamin B-1] 100 mg PO BID-W/MEALS tab 08/14/24 08/29/24 Rx ALPRAZolam [Xanax] 0.25 mg PO BID 08/29/24 08/29/24 History Cranberry 450mg 450 mg PO DAILY 08/29/24 08/29/24 History Folic Acid 1 mg PO DAILY 08/29/24 08/29/24 History Multivitamins, Thera [Multivitamin 1 tab PO DAILY@1200 08/29/24 08/29/24 History (formulary)] Tamsulosin [Flomax] 0.4 mg PO DAILY 08/29/24 08/29/24 History Allergies Allergy/AdvReac Type Severity Reaction Status Date / Time amoxicillin Allergy Unknown TAKEN FROM Verified 08/29/24 17:10 DR OLIVER'S NOTES Iodine and Iodide Containing Allergy Unknown TESTED Verified 08/29/24 17:10 Produc POSITIVE FOR SHELLFISH prednisone Allergy Unknown TAKEN FROM Verified 08/29/24 17:10 DR FISHER NOTES adhesive Allergy blisters, Verified 08/29/24 17:10 itching Penicillins Allergy Rash/Hives Verified 08/29/24 17:10 shellfish derived Allergy TESTED Verified 08/29/24 17:10 POSITIVE WITH ALLERGY TESTING. gluten AdvReac vomiting, Verified 08/29/24 17:10 diarrhea antibiotics AdvReac Diarrhea Uncoded 08/29/24 14:31 Physical Exam Vitals: Vital Signs Temp Pulse Resp BP Pulse Ox 08/31/24 16:10 97.8 F 55 L 17 114/59 98 08/31/24 14:00 64 17 08/31/24 11:45 97.8 F 55 L 18 114/59 98 08/31/24 08:15 97.5 F L 64 17 125/65 96 08/31/24 08:00 64 17 08/31/24 04:26 98.2 F 63 16 109/48 93 L 08/30/24 23:41 97.7 F 61 16 120/56 94 L 08/30/24 19:50 97.3 F L 52 L 16 101/50 99 08/30/24 18:29 95/53 Intake and Output 08/31/24 08/31/24 08/31/24 06:59 14:59 22:59 Intake Total 240 Output Total 1200 Balance -1200 240 Intake: Oral 240 Output: Urine 1200 Other: Voiding Method Indwelling Catheter Indwelling Catheter Weight 76 kg - Constitutional General appearance: average body habitus, cooperative, disheveled - EENT Eyes: EOMI, PERRLA Ears: bilateral: normal - Neck Carotids: bilateral: upstroke normal Thyroid: bilateral: normal size - Respiratory Respiratory: bilateral: CTA - Cardiovascular Rhythm: regular Heart sounds: normal: S1, S2 - Integumentary Integumentary: normal turgor - Neurologic Neurologic: CNII-XII intact - Musculoskeletal Musculoskeletal: gait normal, generalized weakness, strength equal bilaterally - Psychiatric Psychiatric: A&O x's 3, appropriate affect, intact judgment & insight Results - Laboratory Findings CBC and BMP: 08/31/24 06:13 08/31/24 06:13 PT/INR, D-dimer PT 10.4 sec (10.0-12.5) 08/29/24 15:59 INR 0.9 (<1.2) 08/29/24 15:59 Abnormal lab findings: Abnormal Labs 08/29/24 08/29/24 08/29/24 15:59 15:59 16:07 WBC RBC 3.63 L Hgb 10.6 L Hct 32.4 L RDW 16.3 H Sodium 134 L Chloride Carbon Dioxide 21 L BUN 38 H Glucose 201 H POC Glucose (mg/dL) 231 H Total Protein 5.7 L Albumin 3.2 L Urine Appearance Ur Leukocyte Esterase Urine WBC Urine Bacteria Urine Mucus 08/29/24 08/29/24 08/30/24 16:57 20:36 16:23 WBC RBC Hgb Hct RDW Sodium Chloride Carbon Dioxide BUN Glucose POC Glucose (mg/dL) 112 H 60 L Total Protein Albumin Urine Appearance Cloudy H Ur Leukocyte Esterase Large H Urine WBC 39 H Urine Bacteria Occasional H Urine Mucus Occasional H 08/31/24 08/31/24 08/31/24 03:40 03:56 06:13 WBC 3.6 L RBC 3.49 L Hgb 10.1 L Hct 31.1 L RDW 16.7 H Sodium Chloride Carbon Dioxide BUN Glucose POC Glucose (mg/dL) 62 L 66 L Total Protein Albumin Urine Appearance Ur Leukocyte Esterase Urine WBC Urine Bacteria Urine Mucus 08/31/24 08/31/24 06:13 06:26 WBC RBC Hgb Hct RDW Sodium Chloride 110 H Carbon Dioxide BUN Glucose POC Glucose (mg/dL) 111 H Total Protein Albumin Urine Appearance Ur Leukocyte Esterase Urine WBC Urine Bacteria Urine Mucus - Diagnostic Findings Chest x-ray: report reviewed, image reviewed Assessment and Plan Assessment: Infiltrate on lateral view of seen possible pneumonia, however CT scan of the abdomen pelvis on lung window no pneumonia seen, suspect aspiration with chemical pneumonitis, patient adequately treated with IV Rocephin Altered mental status related to sepsis due to urinary tract infection Gram-negative urinary tract infection, on IV Rocephin follow-up on culture results and report Spinal stenosis with residual right lower extremity weakness, PT OT evaluation Type 2 diabetes mellitus with hyperglycemia, continue supportive care monitor and trend glucose closely short and long-acting insulin if needed, avoid steroids currently Hypertension hypertensive cardiovascular disease, continue antihypertensive agent and diuretics as tolerated Degenerative joint disease osteoarthritis with chronic gout, continue pain management continue allopurinol Plan: As above Time with Patient: Greater than 30
[2024-08-31 19:50] LABS: Glucose,Whole Blood 70 mg/dL (70-110)
[2024-08-31 20:10] LABS: Glucose,Whole Blood 92 mg/dL (70-110)
[2024-08-31] MEDS: TAMSULOSIN 0.4 MG CAP.ER.24H PO SCH (21:14)
[2024-09-01 05:49] LABS: Glucose,Whole Blood 79 mg/dL (70-110)
--- NOTE | 2024-09-01 10:50 | P.PN ---
Subjective Progress Note Date: 09/01/24 Principal diagnosis: Chemical pneumonitis, due to aspiration, CT of abdomen pelvis with lung windows no obvious infiltrates are seen Altered mental status due to sepsis Gram-negative urinary tract infection Spinal stenosis and lower extremity weakness Lower extremity weakness 2 diabetes mellitus with hyperglycemia Hypertension hypertensive cardiovascular disease Degenerative joint disease and osteoarthritis September 01, 2024, patient seen eval examined during rounds labs reviewed medications reviewed care plan discussed, patient remains afebrile, hemodynamically stable, oxygen saturation 97% room air, urine culture came back positive for E. coli review of sensitivity that patient has a ESBL urinary tract infection with E. coli, would recommend consultation with ID 84-year-old female with prior medical history of diabetes hypertension dyslipidemia, patient presented with syncopal episode, patient is a resident of [facility] and recently discharged, on the day of admission patient was in washroom try to get off of the toilet becomes arrests responsive was noted to be drooling as well, patient was more somnolent however on EMS arrival more awake and started responding, patient has been having low blood pressure lately. Her prior medical history significant for bronchial asthma, meclizine, hypothyroidism, gout, type 2 diabetes mellitus, hypertension hypertensive cardiovascular disease, dyslipidemia, overactive bladder. Her significant labs including CBC fairly within normal limit except mild anemia, chemistry also fairly within normal limit, urine culture positive for gram-negative rods final ID is pending. The patient is on Tylenol, Zyloprim, aspirin, Rocephin, Lipitor, Aricept radiographic images including CT scan of the brain no acute fracture or intracranial process identified, CT scan of the abdomen pelvis no acute process seen some diverticula was identified, moderate cardiomegaly, chest x-ray basal airspace opacities over the spine were seen on lateral view history of pneumonia Objective - Vital Signs Vital signs: Vital Signs Temp 97.9 F 09/01/24 08:30 Pulse 49 L 09/01/24 08:30 Resp 17 09/01/24 08:30 BP 130/77 09/01/24 08:30 Pulse Ox 97 09/01/24 08:30 FiO2 Intake & Output 08/31/24 09/01/24 09/01/24 18:59 06:59 18:59 Intake Total 240 240 240 Output Total 700 2019 Balance -460 -4280 240 Weight 76.4 kg Intake: Oral 240 240 240 Output: Urine 700 2020 Other: Voiding Method Indwelling Catheter Indwelling Catheter Indwelling Catheter - Exam Constitutional General appearance: average body habitus, cooperative, disheveled - EENT Eyes: EOMI, PERRLA Ears: bilateral: normal - Neck Carotids: bilateral: upstroke normal Thyroid: bilateral: normal size - Respiratory Respiratory: bilateral: CTA - Cardiovascular Rhythm: regular Heart sounds: normal: S1, S2 - Integumentary Integumentary: normal turgor - Neurologic Neurologic: CNII-XII intact - Musculoskeletal Musculoskeletal: gait normal, generalized weakness, strength equal bilaterally - Psychiatric Psychiatric: A&O x's 3, appropriate affect, intact judgment & insight - Labs CBC & Chem 7: 08/31/24 06:13 08/31/24 06:13 Labs: Microbiology - Last 24 Hours (Table) 08/29/24 16:57 Urine Culture - Preliminary Urine,Voided Gram Neg Bacilli Assessment and Plan Assessment: Infiltrate on lateral view of seen possible pneumonia, however CT scan of the abdomen pelvis on lung window no pneumonia seen, suspect aspiration with chemical pneumonitis, patient adequately treated with IV Rocephin Altered mental status related to sepsis due to urinary tract infection ESBL E. coli, gram-negative urinary tract infection, on IV Rocephin, recommend ID evaluation Spinal stenosis with residual right lower extremity weakness, PT OT evaluation Type 2 diabetes mellitus with hyperglycemia, continue supportive care monitor and trend glucose closely short and long-acting insulin if needed, avoid steroids currently Hypertension hypertensive cardiovascular disease, continue antihypertensive agent and diuretics as tolerated Degenerative joint disease osteoarthritis with chronic gout, continue pain management continue allopurinol Plan: As above Time with Patient: Greater than 30
[2024-09-01 11:13] LABS: Glucose,Whole Blood 83 mg/dL (70-110)
--- NOTE | 2024-09-01 11:57 | P.PN ---
Subjective Progress Note Date: 09/01/24 Reason for Consult (text): Syncope History of present illness: This is an 84-year-old female patient of Dr. Jaimes with past medical history of heart failure with preserved EF, bilateral lower extremity edema, hypertension, dyslipidemia, diabetes mellitus type 2, frailty. We have been asked to evaluate the patient for syncope. Patient relates that she was recently discharged from [facility] and had been doing very well there. She was at home with her daughter and she was on the toilet. She does not remember if she was having a bowel movement. She went to stand up and that is all she can remember. Her daughter told her that she became unresponsive and was drooling and daughter had a difficult time waking her up. Patient apparently was waking up by the time EMS arrived. There was no head injury. In the emergency center blood pressure was as low as 74 systolic. Patient denies having other episodes like this. Patient had a recent hospitalization at the end of July at which time she presented for mental status changes and was not seen by cardiology at that time. Blood pressure 125/65, heart rate 63, pulse ox 93% on room air. Patient's amlodipine has been held and Lopressor was decreased to 25 mg twice daily. Neurology is also following patient. -EKG: Sinus bradycardia 51 bpm -Chest x-ray: Airspace opacities projecting over the spine on lateral view correlate for pneumonia. -CT abdomen and pelvis: No evidence of acute process. Mild cardiomegaly. -Pelvic x-ray: No acute osseous pathology. Moderate degenerative changes of the hip. -Femur x-ray no acute osseous pathology. -CT brain: No acute intracranial process -Laboratory studies: WBC 3.6, hemoglobin 10.1. Potassium 4.2, creatinine 0.84. Troponin negative x 2. -Home cardiac medications: Amlodipine 5 mg daily, aspirin 81 mg daily, atorvastatin 10 mg at bedtime, Lopressor 50 mg twice daily, also on levothyroxine. -Limited echocardiogram performed 07/2024: LVH with preserved systolic function. Severe left atrial enlargement. Moderate RV enlargement. 09/01/2024 Patient is seen and examined. Yesterday, medication changes were made which included holding the amlodipine and decreasing beta-leola to 25 mg twice daily. A 1 week event monitor was ordered prior to discharge and patient was to follow-up with Dr. Jaimes in 3 weeks. There was a consult added for Dr. Martinez regarding possible pneumonia. Heart rate 49, blood pressure 130/77, pulse ox 97% on room air. Physical examination: Gen: This is a 84-year-old female in no acute distress VS: reviewed HEENT: Head is atraumatic, normocephalic. Pupils equal, round. Sclerae is anicteric. NECK: Supple. No JVD. LUNGS: Clear to auscultation. No wheezes or rhonchi. No intercostal retractions. HEART: Regular rate and rhythm. No murmur. ABDOMEN: Soft No tenderness. EXTREMITIES: Minimal pedal edema. No calf tenderness. NEUROLOGICAL: Patient is awake, alert and oriented to person. Assessment: Syncopal episode probable vasovagal Chronic heart failure with preserved EF Diabetes mellitus type 2 Hypertension Dyslipidemia Frailty Plan: Continue patient's home cardiac medications with the following changes that have been already made Hold amlodipine Decrease beta-leola to 12.5 mg and decrease frequency to once daily No need to repeat echocardiogram 1 week event monitor to be placed prior to discharge Change Flomax to nighttime dosing Patient is cleared for discharge and will follow-up with Dr. Jaimes in 3 weeks. Cardiology will sign off this case and follow on an as-needed basis. Please reconsult for any new concerns. Nurse practitioner note has been reviewed, I agree with documented findings and plan of care. Patient was seen and examined. Objective - Vital Signs Vital signs: Vital Signs Temp 97.7 F 09/01/24 04:39 Pulse 53 L 09/01/24 04:39 Resp 14 09/01/24 04:39 BP 105/57 09/01/24 04:39 Pulse Ox 96 09/01/24 04:39 FiO2 Intake & Output 08/31/24 09/01/24 09/01/24 18:59 06:59 18:59 Intake Total 240 240 240 Output Total 700 2020 Balance -460 1780 240 Weight 76.4 kg Intake: Oral 240 240 240 Output: Urine 2019 Other: Voiding Method Indwelling Catheter Indwelling Catheter - Labs CBC & Chem 7: 08/31/24 06:13 08/31/24 06:13 Labs: Microbiology - Last 24 Hours (Table) 08/29/24 16:57 Urine Culture - Preliminary Urine,Voided Gram Neg Bacilli
[2024-09-01] MEDS: METOPROLOL TARTRATE 12.5 MG TAB PO SCH (13:27)
--- NOTE | 2024-09-01 13:57 | P.PN ---
Subjective Progress Note Date: 09/01/24 This is a pleasant 84 years old female with past medical history of multiple medical problems as below She was [facility] and she went home, patient does not remember what happens about per staff and records patient was found unresponsive in the toilet, unknown for how long She was treated in the hospital for right leg weakness secondary to spinal stenosis at that time evaluated by neurology and orthopedic physicians and recommended conservative treatment Blood pressure is on the low side as well as heart rate, currently 102/49 it was lower on admission EKG showing sinus bradycardia at [address]-T changes CT of the brain showing no acute intracranial process Chest x-ray showing airspace opacity projecting over the spine suspicious for pneumonia versus other CT of the abdomen pelvis without contrast showing no acute process And pelvic x-ray showing no acute osseous process on there is moderate degenerative densities and knee hardware in place Labs including CBC, BMP, LFT, INR were unremarkable. Troponin x 2 are negative. In the emergency room patient was found to have acute urinary retention and Garcia catheter was placed I called the daughter Suad at [phone] and left a message to call back 09/01. Patient seen and examined. Urine cultures reviewed, adjusted antibiotics. ID consulted REVIEW OF SYSTEMS: CONSTITUTIONAL: No fever, no malaise,. CARDIOVASCULAR: No chest pain, no palpitations, no syncope. PULMONARY: No shortness of breath, no cough, GASTROINTESTINAL: No diarrhea, no nausea, no vomiting, no abdominal pain. NEUROLOGICAL: No headaches, no weakness, PHYSICAL EXAMINATION: GENERAL: The patient is alert and oriented x3, not in any acute distress. Well developed, well nourished. HEENT: Pupils are round and equally reacting to light. EOMI. No scleral icterus. No conjunctival pallor. Normocephalic, atraumatic. No pharyngeal erythema. No thyromegaly. CARDIOVASCULAR: S1 and S2 present. No murmurs, rubs, or gallops. PULMONARY: Chest is clear to auscultation, no wheezing or crackles. ABDOMEN: Soft, nontender, nondistended, normoactive bowel sounds. No palpable organomegaly. MUSCULOSKELETAL: No joint swelling or deformity. EXTREMITIES: No cyanosis, clubbing, or pedal edema. NEUROLOGICAL: Gross neurological examination did not reveal any focal deficits. SKIN: No rashes. Assessment and plan Syncopal episode probable vasovagal UTI Aspiration pneumonitis Chronic heart failure with preserved EF Diabetes mellitus type 2 Hypertension Dyslipidemia Frailty Airspace opacity of the lung suspicious for pneumonia Acute urinary retention status post Garcia catheter Recent history of right leg weakness secondary to spinal stenosis recommended conservative treatment by orthopedic team Degenerative disc disease status post bilateral knee replacement Generalized weakness Monitor vital signs Monitor CBC Monitor CMP Continue telemetry monitoring Continue IV Rocephin Continue Flomax Cardiology evaluated, recommend decrease the dose of Lopressor to 25 mg twice a day Pulmonology following Labs and medication were reviewed.. Continue same treatment. Continue with symptomatic treatment. Resume home medication. Monitor labs and vitals. DVT and GI prophylaxis. Further recommendations as per clinical course of the patient Dictation was produced using [employer] dictation software. please excuse any grammatical, word or spelling errors. Objective - Vital Signs Vital signs: Vital Signs Temp 97.9 F 09/01/24 08:30 Pulse 49 L 09/01/24 08:30 Resp 17 09/01/24 08:30 BP 130/77 09/01/24 08:30 Pulse Ox 97 09/01/24 08:30 FiO2 Intake & Output 08/31/24 09/01/24 09/01/24 18:59 06:59 18:59 Intake Total 240 240 240 Output Total 700 2020 Balance -460 -1780 240 Weight 76.4 kg Intake: Oral 240 240 240 Output: Urine 700 2020 Other: Voiding Method Indwelling Catheter Indwelling Catheter Indwelling Catheter - Labs CBC & Chem 7: 08/31/24 06:13 08/31/24 06:13 Labs: Microbiology - Last 24 Hours (Table) 08/29/24 16:57 Urine Culture - Preliminary Urine,Voided Gram Neg Bacilli
[2024-09-01 16:12] LABS: Glucose,Whole Blood 70 mg/dL (70-110)
[2024-09-01 20:04] LABS: Glucose,Whole Blood 109 mg/dL (70-110)
--- NOTE | 2024-09-01 21:00 | P.CONS ---
History of Present Illness - Reason for Consult Consult date: 09/01/24 UTI Requesting physician: Jamey Martinez - Chief Complaint Mental status changes fall x 1 day on admission - History of Present Illness Patient is a 84-year-old female with a past medical history significant for hypertension hyperlipidemia memory impairment osteoarthritis diabetes mellitus heart failure has been brought into the hospital 3 days ago after apparently patient did have syncopal episode at home patient admitted become less responsive and drooling out of the side of the mouth while trying to get up on the toilet patient was subsequently brought to the hospital on arrival to the ER patient was afebrile and no fever have been called subsequently patie nt was not tachycardic hypotensive or hypoxic no need for supplemental oxygen patient did have white count of 3.6 creatinine 0.84 liver isms are normal she did have positive UA with large leukocyte esterase 39 WBC culture now growing E. coli we did have a resistant infection including resistant to ceftriaxone infectious disease was consulted today for UTI patient did have a abdominal pelvis CT done on admission did not show any acute process patient did have urinary symptoms of difficulty urination some burning did have evidence of retention on admission requiring a Garcia catheter placement Review of Systems Positive point and negatives has been mentioned in the HPI, complete review of systems was performed and all other systems are negative Past Medical History Past Medical History: Asthma, Cancer, Heart Failure, Diabetes Mellitus, Hearing Disorder / Deafness, Hyperlipidemia, Hypertension, Memory Impairment, Osteoart hritis (OA), Renal Disease, Sleep Apnea/CPAP/BIPAP, Thyroid Disorder Additional Past Medical History / Comment(s): sleep apnea with c-pap., gout, constipation., diverticulitis, skin cancer, breast cancer, stage 3 kidney disease., vertigo, hx falls -uses walker., 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 History of Any Multi-Drug Resistant Organisms: None Reported Past Surgical History: Appendectomy, Breast Surgery, Cholecystectomy, Heart Catheterization, Hysterectomy, Joint Replacement, Tonsillectomy Additional Past Surgical History / Comment(s): mena knee replacements, cataracts, surgery for fx finger left hand,skin cancer removed ears, forehead, nose & shoulder, colonoscopy, lt breast biopsy, rt breast biopsy, R breast lumpectomy Past Anesthesia/Blood Transfusion Reactions: Previous Problems w/ Anesthesia, Motion Sickness Additional Past Anesthesia/Blood Transfusion Reaction / Comm: high BP. daughter PONV Past Psychological History: Depression Smoking Status: Former smoker Past Alcohol Use History: None Reported Additional Past Alcohol Use History / Comment(s): smoked age 16 -19. Past Drug Use History: None Reported - Past Family History Mother Family Medical History: Blood Disorder, Cancer Additional Family Medical History / Comment(s): bone cancer , pt unsure if mother or sister had blood disorder with "vitamin k" Sister(s) Family Medical History: Blood Disorder Medications and Allergies Home Medications Medication Instructions Recorded Confirmed Type Montelukast [Singulair] 10 mg PO HS 03/29/14 08/29/24 History Anastrozole [Arimidex] 1 mg PO DAILY 03/23/21 08/29/24 History Meclizine [Antivert] 12.5 mg PO DAILY PRN 03/16/22 08/29/24 History Galantamine HBr [Razadyne ER] 16 mg PO DAILY 09/30/22 08/29/24 History Levothyroxine Sodium [Synthroid] 100 mcg PO DAILY 09/30/22 08/29/24 History allopurinoL 300 mg PO DAILY 09/30/22 08/29/24 History Cetirizine HCl [Zyrtec] 10 mg PO DAILY 04/25/24 08/29/24 History Glimepiride [Amaryl] 2 mg PO DAILY 05/12/24 08/29/24 History Aspirin EC [Ecotrin Low Dose] 81 mg PO DAILY 05/30/24 08/29/24 History Atorvastatin [Lipitor] 10 mg PO HS 05/30/24 08/29/24 History Metoprolol Tartrate [Lopressor] 50 mg PO BID 05/30/24 08/29/24 History amLODIPine [Norvasc] 5 mg PO DAILY 05/30/24 08/29/24 History Acetaminophen Tab [Tylenol] 650 mg PO Q6HR PRN tab 06/02/24 08/29/24 Rx Thiamine [Vitamin B-1] 100 mg PO BID-W/MEALS tab 08/14/24 08/29/24 Rx ALPRAZolam [Xanax] 0.25 mg PO BID 08/29/24 08/29/24 History Cranberry 450mg 450 mg PO DAILY 08/29/24 08/29/24 History Folic Acid 1 mg PO DAILY 08/29/24 08/29/24 History Multivitamins, Thera [Multivitamin 1 tab PO DAILY@1200 08/29/24 08/29/24 History (formulary)] Tamsulosin [Flomax] 0.4 mg PO DAILY 08/29/24 08/29/24 History Allergies Allergy/AdvReac Type Severity Reaction Status Date / Time amoxicillin Allergy Unknown TAKEN FROM Verified 08/29/24 17:10 DR OLIVER'S NOTES Iodine and Iodide Containing Allergy Unknown TESTED Verified 08/29/24 17:10 Produc POSITIVE FOR SHELLFISH prednisone Allergy Unknown TAKEN FROM Verified 08/29/24 17:10 DR FISHER NOTES adhesive Allergy blisters, Verified 08/29/24 17:10 itching Penicillins Allergy Rash/Hives Verified 08/29/24 17:10 shellfish derived Allergy TESTED Verified 08/29/24 17:10 POSITIVE WITH ALLERGY TESTING. gluten AdvReac vomiting, Verified 08/29/24 17:10 diarrhea antibiotics AdvReac Diarrhea Uncoded 08/29/24 14:31 Physical Exam Vitals: Vital Signs Temp Pulse Resp BP Pulse Ox 09/01/24 08:30 97.9 F 49 L 17 130/77 97 09/01/24 04:39 97.7 F 53 L 14 105/57 96 08/31/24 23:32 97.3 F L 58 L 16 99/63 96 08/31/24 19:57 97.5 F L 81 18 136/82 98 08/31/24 16:10 97.8 F 55 L 17 114/59 98 08/31/24 14:00 64 17 08/31/24 11:45 97.8 F 55 L 18 114/59 98 Intake and Output 08/31/24 09/01/24 09/01/24 22:59 06:59 14:59 Intake Total 240 240 Output Total 700 2020 Balance -460 240 Intake: Oral 240 240 Output: Urine 700 2019 Other: Voiding Method Indwelling Catheter Indwelling Catheter Indwelling Catheter Weight 76.4 kg GENERAL DESCRIPTION: Elderly female lying in bed, no distress. No tachypnea or accessory muscle of respiration use. HEENT: Shows Pallor , no scleral icterus. Oral mucous membrane is dry. No pharyngeal erythema or thrush NECK: Trachea central, no thyromegaly. LUNGS: Unlabored breathing. Clear to auscultation anteriorly. No wheeze or crackle. HEART: S1, S2, regular rate and rhythm. No loud murmur ABDOMEN: Soft, no tenderness , guarding or rigidity, no organomegaly EXTREMITIES: No edema of feet. SKIN: No rash, no masses palpable. NEUROLOGICAL: The patient is awake, alert, oriented x3, mood and affect normal. Results CBC & Chem 7: 08/31/24 06:13 08/31/24 06:13 Labs: Microbiology - Last 24 Hours (Table) 08/29/24 16:57 Urine Culture - Final Urine,Voided Escherichia coli Assessment and Plan (1) Allergy to multiple antibiotics Current Visit: Yes Status: Acute Code(s): Z88.1 - ALLERGY STATUS TO OTHER ANTIBIOTIC AGENTS SNOMED Code(s): 438164059 (2) UTI (urinary tract infection) Current Visit: Yes Status: Acute Code(s): N39.0 - URINARY TRACT INFECTION, SITE NOT SPECIFIED SNOMED Code(s): 42784012 Plan: 1patient was in the hospital with near syncopal episode weakness and some mental status changes patient did have leukopenia difficulty urination burning with evidence of urine retention requiring Garcia catheter placement now with positive UA and urine is growing E. coli with resistant pathogen 2-patient with multiple antibiotic ALLERGIES that would limit the number of antibiotic safe to use 3-discontinue Rocephin 4-we will give a 7-day course of oral Macrobid 100 mg twice a day Family the bedside question answered We will follow on clinical condition and cultures to further adjust medication if needed Thank you for this consultation we will follow the patient along with you Dictation was produced using [employer] dictation software. please excuse any grammatical, word or spelling errors. Time with Patient: Greater than 30
[2024-09-01] MEDS: NITROFURANTOIN MONOHYD/M-CRYST 100 MG CAP PO SCH (21:23)
[2024-09-02 05:58] LABS: Glucose,Whole Blood 81 mg/dL (70-110)
[2024-09-02 08:38] VITALS: RESP 16
[2024-09-02 11:45] LABS: Glucose,Whole Blood 153 mg/dL (70-110)
[2024-09-02 12:59] VITALS: BP 127/57; PULSE 58; TEMP 98
--- NOTE | 2024-09-02 13:13 | P.DS ---
Providers Date of admission: 08/29/24 18:46 Expected date of discharge: 09/02/24 Attending physician: Kyler Phan Consults: 08/30/24 09:22 Consult Physician Routine Consulting Provider: Rony Martinez Consult Reason/Comments: lung opacity , possible pna Do you want consulting provider notified?: Yes 08/30/24 10:03 Consult Physician Routine Consulting Provider: Jose R Singh Consult Reason/Comments: syncope Do you want consulting provider notified?: Yes 09/01/24 10:51 Consult Physician Routine Consulting Provider: Lily Sood Consult Reason/Comments: uti Do you want consulting provider notified?: Yes Primary care physician: Milvia Fam Hospital Course: Discharge diagnoses; Syncopal episode probable vasovagal UTI Aspiration pneumonitis Chronic heart failure with preserved EF Diabetes mellitus type 2 Hypertension Dyslipidemia Frailty Airspace opacity of the lung suspicious for pneumonia Acute urinary retention status post Garcia catheter Recent history of right leg weakness secondary to spinal stenosis recommended conservative treatment by orthopedic team Degenerative disc disease status post bilateral knee replacement Generalized weakness Hospital course; This is a pleasant 84 years old female with past medical history of multiple medical problems as below She was recently discharged from [facility] and she went home, patient does not remember what happens about per staff and records patient was found unresponsive in the toilet, unknown for how long She was treated in the hospital for right leg weakness secondary to spinal stenosis at that time evaluated by neurology and orthopedic physicians and recommended conservative treatment Blood pressure is on the low side as well as heart rate, currently 102/49 it was lower on admission EKG showing sinus bradycardia at [address]-T changes CT of the brain showing no acute intracranial process Chest x-ray showing airspace opacity projecting over the spine suspicious for pneumonia versus other CT of the abdomen pelvis without contrast showing no acute process And pelvic x-ray showing no acute osseous process on there is moderate degenerative densities and knee hardware in place Labs including CBC, BMP, LFT, INR were unremarkable. Troponin x 2 are negative. In the emergency room patient was found to have acute urinary retention and Garcia catheter was placed I called the daughter Suad at [phone] and left a message to call back 09/01. Patient seen and examined. Urine cultures reviewed, adjusted antibiotics. ID consulted 09/02. Patient seen and examined. ID recommended 1 week of Macrobid. Being discharged to follow-up outpatient with PCP PHYSICAL EXAMINATION: GENERAL: The patient is alert and oriented x3, ill looking HEENT: Pupils are round and equally reacting to light. EOMI. No scleral icterus. No conjunctival pallor. Normocephalic, atraumatic. No pharyngeal erythema. No thyromegaly. CARDIOVASCULAR: S1 and S2 present. No murmurs, rubs, or gallops. PULMONARY: Chest is clear to auscultation, no wheezing or crackles. ABDOMEN: Soft, nontender, nondistended, normoactive bowel sounds. No palpable organomegaly. MUSCULOSKELETAL: No joint swelling or deformity. EXTREMITIES: No cyanosis, clubbing, or pedal edema. NEUROLOGICAL: Gross neurological examination did not reveal any focal deficits. SKIN: No rashes. Dictation was produced using [employer] dictation software. please excuse any grammatical, word or spelling errors. Patient Condition at Discharge: Stable Plan - Discharge Summary Discharge Rx Participant: No New Discharge Prescriptions: New Nitrofurantoin Monohyd/M-Cryst [Macrobid] 100 mg PO BID 7 Days #14 cap Metoprolol Tartrate [Lopressor] 12.5 mg PO DAILY 30 Days #30 tab Continue Montelukast [Singulair] 10 mg PO HS Meclizine [Antivert] 12.5 mg PO DAILY PRN PRN Reason: Vertigo Levothyroxine Sodium [Synthroid] 100 mcg PO DAILY allopurinoL 300 mg PO DAILY Cetirizine HCl [Zyrtec] 10 mg PO DAILY Atorvastatin [Lipitor] 10 mg PO HS Aspirin EC [Ecotrin Low Dose] 81 mg PO DAILY Acetaminophen Tab [Tylenol] 650 mg PO Q6HR PRN tab PRN Reason: Mild Pain Or Fever > 100.5 Cranberry 450mg 450 mg PO DAILY Folic Acid 1 mg PO DAILY ALPRAZolam [Xanax] 0.25 mg PO BID Anastrozole [Arimidex] 1 mg PO DAILY Galantamine HBr [Razadyne ER] 16 mg PO DAILY Glimepiride [Amaryl] 2 mg PO DAILY Thiamine [Vitamin B-1] 100 mg PO BID-W/MEALS tab Tamsulosin [Flomax] 0.4 mg PO DAILY Multivitamins, Thera [Multivitamin (formulary)] 1 tab PO DAILY@1200 Discontinued Metoprolol Tartrate [Lopressor] 50 mg PO BID amLODIPine [Norvasc] 5 mg PO DAILY Discharge Medication List Montelukast [Singulair] 10 mg PO HS 03/29/14 [History] Anastrozole [Arimidex] 1 mg PO DAILY 03/23/21 [History] Meclizine [Antivert] 12.5 mg PO DAILY PRN 03/16/22 [History] Galantamine HBr [Razadyne ER] 16 mg PO DAILY 09/30/22 [History] Levothyroxine Sodium [Synthroid] 100 mcg PO DAILY 09/30/22 [History] allopurinoL 300 mg PO DAILY 09/30/22 [History] Cetirizine HCl [Zyrtec] 10 mg PO DAILY 04/25/24 [History] Glimepiride [Amaryl] 2 mg PO DAILY 05/12/24 [History] Aspirin EC [Ecotrin Low Dose] 81 mg PO DAILY 05/30/24 [History] Atorvastatin [Lipitor] 10 mg PO HS 05/30/24 [History] Acetaminophen Tab [Tylenol] 650 mg PO Q6HR PRN tab 06/02/24 [Rx] Thiamine [Vitamin B-1] 100 mg PO BID-W/MEALS tab 08/14/24 [Rx] ALPRAZolam [Xanax] 0.25 mg PO BID 08/29/24 [History] Cranberry 450mg 450 mg PO DAILY 08/29/24 [History] Folic Acid 1 mg PO DAILY 08/29/24 [History] Multivitamins, Thera [Multivitamin (formulary)] 1 tab PO DAILY@1200 08/29/24 [History] Tamsulosin [Flomax] 0.4 mg PO DAILY 08/29/24 [History] Metoprolol Tartrate [Lopressor] 12.5 mg PO DAILY 30 Days #30 tab 09/02/24 [Rx] Nitrofurantoin Monohyd/M-Cryst [Macrobid] 100 mg PO BID 7 Days #14 cap 09/02/24 [Rx] Follow up Appointment(s)/Referral(s): Milvia Fam MD [Primary Care Provider] - 1-2 days [facility] [NON-STAFF] - Rony Martinez [STAFF PHYSICIAN] - 1 Week Discharge/Stand Alone Forms: Who Do I Call?, Community Resources, Personal Paste [employer]
--- NOTE | 2024-09-02 15:14 | P.PN ---
Subjective Progress Note Date: 09/02/24 Reason for Consult (text): Syncope History of present illness: This is an 84-year-old female patient of Dr. Jaimes with past medical history of heart failure with preserved EF, bilateral lower extremity edema, hypertension, dyslipidemia, diabetes mellitus type 2, frailty. We have been asked to evaluate the patient for syncope. Patient relates that she was recently discharged from [facility] and had been doing very well there. She was at home with her daughter and she was on the toilet. She does not remember if she was having a bowel movement. She went to stand up and that is all she can remember. Her daughter told her that she became unresponsive and was drooling and daughter had a difficult time waking her up. Patient apparently was waking up by the time EMS arrived. There was no head injury. In the emergency center blood pressure was as low as 74 systolic. Patient denies having other episodes like this. Patient had a recent hospitalization at the end of July at which time she presented for mental status changes and was not seen by cardiology at that time. Blood pressure 125/65, heart rate 63, pulse ox 93% on room air. Patient's amlodipine has been held and Lopressor was decreased to 25 mg twice daily. Neurology is also following patient. -EKG: Sinus bradycardia 51 bpm -Chest x-ray: Airspace opacities projecting over the spine on lateral view correlate for pneumonia. -CT abdomen and pelvis: No evidence of acute process. Mild cardiomegaly. -Pelvic x-ray: No acute osseous pathology. Moderate degenerative changes of the hip. -Femur x-ray no acute osseous pathology. -CT brain: No acute intracranial process -Laboratory studies: WBC 3.6, hemoglobin 10.1. Potassium 4.2, creatinine 0.84. Troponin negative x 2. -Home cardiac medications: Amlodipine 5 mg daily, aspirin 81 mg daily, atorvastatin 10 mg at bedtime, Lopressor 50 mg twice daily, also on levothyroxine. -Limited echocardiogram performed 07/2024: LVH with preserved systolic function. Severe left atrial enlargement. Moderate RV enlargement. 09/01/2024 Patient is seen and examined. Yesterday, medication changes were made which included holding the amlodipine and decreasing beta-leola to 25 mg twice daily. A 1 week event monitor was ordered prior to discharge and patient was to follow-up with Dr. Jaimes in 3 weeks. There was a consult added for Dr. Martinez regarding possible pneumonia. Heart rate 49, blood pressure 130/77, pulse ox 97% on room air. 09/02/2023 Patient is in no further episodes of syncope. She denies lightheadedness or dizziness. Patient is extremely weak and they are looking at rehab for her. Blood pressure 137/79, heart rate 83, pulse ox 94% on room air. Physical examination: Gen: This is a 84-year-old female in no acute distress VS: reviewed HEENT: Head is atraumatic, normocephalic. Pupils equal, round. Sclerae is anicteric. NECK: Supple. No JVD. LUNGS: Clear to auscultation. No wheezes or rhonchi. No intercostal retractions. HEART: Regular rate and rhythm. No murmur. ABDOMEN: Soft No tenderness. EXTREMITIES: Minimal pedal edema. No calf tenderness. NEUROLOGICAL: Patient is awake, alert and oriented to person. Assessment: Syncopal episode probable vasovagal Chronic heart failure with preserved EF Diabetes mellitus type 2 Hypertension Dyslipidemia Frailty Plan: Continue patient's home cardiac medications with the following changes that have been already made Hold amlodipine Decrease beta-leola to 12.5 mg and decrease frequency to once daily No need to repeat echocardiogram 1 week event monitor to be placed prior to discharge Change Flomax to nighttime dosing Patient is cleared for discharge and will follow-up with Dr. Jaimes in 3 weeks. Cardiology will sign off this case and follow on an as-needed basis. Please reconsult for any new concerns. Nurse practitioner note has been reviewed, I agree with documented findings and plan of care. Patient was seen and examined. Objective - Vital Signs Vital signs: Vital Signs Temp 98.0 F 09/02/24 12:00 Pulse 58 L 09/02/24 12:00 Resp 16 09/02/24 12:00 BP 127/57 09/02/24 12:00 Pulse Ox 96 09/02/24 12:00 FiO2 Intake & Output 09/01/24 09/02/24 09/02/24 18:59 06:59 18:59 Intake Total 480 240 Output Total 900 1000 600 Balance -420 -1000 -360 Weight 76.6 kg Intake: Oral 480 240 Output: Urine 900 1000 600 Uretheral (Garcia) 600 Other: Voiding Method Indwelling Catheter Indwelling Catheter Toilet # Bowel Movements 1 - Labs CBC & Chem 7: 08/31/24 06:13 08/31/24 06:13 Labs: Abnormal Lab Results - Last 24 Hours (Table) 09/02/24 Range/Units 11:43 POC Glucose (mg/dL) 153 H (70-110) mg/dL Microbiology - Last 24 Hours (Table) 08/29/24 16:57 Urine Culture - Final Urine,Voided Escherichia coli
== END 2024-09-02 16:40 | disposition home health service (06) ==
LOC: EC 14:19 → 3SCARD 18:46
PROVIDERS: ADMIT Hospitalist; ATTEND Hospitalist
DX: R55 Syncope and collapse (principal); N39.0 Urinary tract infection, site not specified; J69.0 Pneumonitis due to inhalation of food and vomit; I50.32 Chronic diastolic (congestive) heart failure; I11.0 Hypertensive heart disease with heart failure; E78.5 Hyperlipidemia, unspecified; M48.00 Spinal stenosis, site unspecified; R53.1 Weakness; A41.9 Sepsis, unspecified organism; B96.20 Unspecified Escherichia coli [E. coli] as the cause of diseases classified elsewhere; E03.9 Hypothyroidism, unspecified; E11.65 Type 2 diabetes mellitus with hyperglycemia; F32.A Depression, unspecified; H91.90 Unspecified hearing loss, unspecified ear; J45.909 Unspecified asthma, uncomplicated; M19.90 Unspecified osteoarthritis, unspecified site; M1A.9XX0 Chronic gout, unspecified, without tophus (tophi); N32.81 Overactive bladder; G43.909 Migraine, unspecified, not intractable, without status migrainosus; G47.30 Sleep apnea, unspecified; Z96.653 Presence of artificial knee joint, bilateral; Z16.12 Extended spectrum beta lactamase (ESBL) resistance; Z79.82 Long term (current) use of aspirin; Z79.84 Long term (current) use of oral hypoglycemic drugs; Z79.890 Hormone replacement therapy; Z79.899 Other long term (current) drug therapy; Z85.3 Personal history of malignant neoplasm of breast; Z87.891 Personal history of nicotine dependence; Z88.1 Allergy status to other antibiotic agents
CPT/HCPCS: 96376 ×3; 96361 ×3; 96365 ×2; 96372 ×5; 96375; 96366; 99285; 51702; 51798; 36415; 93005; 93270; 97530; 97162; 97166; 80053; 80048; 83735; 84484; 85025 ×2; 85610; 85730; 81001; 87086; 87077; 87186; 83036; 72170; 73552; 71046; 70450; 74176; G0378 ×5; J1644 ×4; J0456; J0696 ×4; S0170 ×4; J3490 ×3

== ENCOUNTER → 2024-10-14 | Outpatient (CLI) | payer MEDICARE ==
--- NOTE | 2024-10-15 08:03 | MR ---
EXAMINATION TYPE: MR lumbar spine wo con DATE OF EXAM: 10/14/2024 2:23 PM COMPARISON: 06/10/2023. CLINICAL INDICATION: Female, 84 years old with history of M47.26 M62.81 R29.6; PHH, Lower back pain, BLE radiculopathy. Hx falls. TECHNIQUE: Multi planar, multi sequence imaging was performed utilizing: T1-weighted, T2-weighted, a nd turbo inversion recovery imaging of the lumbar spine. IV Contrast: mL (None, if empty) FINDINGS: Alignment: The lumbar vertebral bodies have preserved heights with grade 1 anterolisthesis of L4 on L 5. Cord: The conus medullaris and the distal spinal cord appear unremarkable with regards to their signa l intensity and morphology. Bones/Discs: Degeneration changes throughout the spine with osteophyte formation and facet joint arth ropathy. Modic endplate changes of the adjoining endplates of L2-L3. Intervertebral disc signal is ma intained. Reactive adjoining endplate edema at L5-S1 T12-L1: No evidence of significant spinal canal stenosis or neural foraminal stenosis. L1-L2: No evidence of significant spinal canal stenosis or neural foraminal stenosis. L2-L3: No evidence of significant spinal canal stenosis. Facet joint arthropathy moderate to severe b ilateral neural foraminal stenosis. L3-L4: No evidence of significant spinal canal stenosis. Facet joint arthropathy moderate left and mo derate to severe right bilateral neural foraminal stenosis. L4-L5: Disc uncovering from grade 1 anterolisthesis and facet joint arthropathy with severe spinal ca nal stenosis and moderate to severe bilateral neural foraminal stenosis. L5-S1: The disc has a rounded posterior morphology without significant spinal canal stenosis. Facet j oint arthropathy with moderate to severe bilateral neural foraminal stenosis. No significant spinal canal or neural foraminal stenosis in the remainder of the visualized levels. Other findings: High T2 signal left renal cortical cyst. Few scattered colonic diverticula. IMPRESSION: 1. Grade 1 anterolisthesis of L4 on L5 resulting in severe spinal canal stenosis and moderate to sev ere bilateral neural foraminal stenosis. 2. No definitive evidence of disc herniation. 3. Moderate disc degeneration with associated osteoarthritic changes with multilevel neural foramina l stenosis as described above. [facility], , 10/15/2024 8:01 AM
== END | disposition home or self-care (01) ==
LOC: RADMRIMAIN 12:48
PROVIDERS: ATTEND Orthopaedic Surgery
DX: M51.16 Intervertebral disc disorders with radiculopathy, lumbar region (principal); M47.26 Other spondylosis with radiculopathy, lumbar region; M99.73 Connective tissue and disc stenosis of intervertebral foramina of lumbar region; R29.6 Repeated falls
CPT/HCPCS: 72148

== ENCOUNTER 2024-12-25 11:24 | Emergency (ER) | payer MEDICARE ==
--- NOTE | 2024-12-25 11:47 | ED ---
General Adult HPI - General Chief complaint: Recheck/Abnormal Lab/Rx Stated complaint: pain all over Time Seen by Provider: 12/25/24 11:26 Source: patient, family, EMS, RN notes reviewed Mode of arrival: EMS Limitations: no limitations - History of Present Illness Initial comments: This is an 84-year-old female who presents to the emergency department for pain all over. Patient was discharged from [facility] on the [place] yesterday. Her insurance coverage ran out and she was not participating in therapy. She was sent home with home care, however this has yet to be set up and her daughter has been helping her out. She is on hydrocodone for pain control. Her daughter states that she started to complain of pain all over and she tried to give her a dose of her medication. However, states that she refused to take it as she did not like how it made her feel. Her daughter ended up calling EMS to bring her in for evaluation. Per EMS, patient is also living in a hoarding situation. Patient is moaning and saying that everything just hurts. She is also soiled in her own urine. - Related Data Home Medications Medication Instructions Recorded Confirmed Montelukast [Singulair] 10 mg PO HS 03/29/14 08/29/24 Anastrozole [Arimidex] 1 mg PO DAILY 03/23/21 08/29/24 Meclizine [Antivert] 12.5 mg PO DAILY PRN 03/16/22 08/29/24 Galantamine HBr [Razadyne ER] 16 mg PO DAILY 09/30/22 08/29/24 Levothyroxine Sodium [Synthroid] 100 mcg PO DAILY 09/30/22 08/29/24 allopurinoL 300 mg PO DAILY 09/30/22 08/29/24 Cetirizine HCl [Zyrtec] 10 mg PO DAILY 04/25/24 08/29/24 Glimepiride [Amaryl] 2 mg PO DAILY 05/12/24 08/29/24 Aspirin EC [Ecotrin Low Dose] 81 mg PO DAILY 05/30/24 08/29/24 Atorvastatin [Lipitor] 10 mg PO HS 05/30/24 08/29/24 ALPRAZolam [Xanax] 0.25 mg PO BID 08/29/24 08/29/24 Cranberry 450mg 450 mg PO DAILY 08/29/24 08/29/24 Folic Acid 1 mg PO DAILY 08/29/24 08/29/24 Multivitamins, Thera [Multivitamin 1 tab PO DAILY@1200 08/29/24 08/29/24 (formulary)] Tamsulosin [Flomax] 0.4 mg PO DAILY 08/29/24 08/29/24 Previous Rx's Medication Instructions Recorded Acetaminophen Tab [Tylenol] 650 mg PO Q6HR PRN tab 06/02/24 Thiamine [Vitamin B-1] 100 mg PO BID-W/MEALS tab 08/14/24 Metoprolol Tartrate [Lopressor] 12.5 mg PO DAILY 30 Days #30 tab 09/02/24 Nitrofurantoin Monohyd/M-Cryst 100 mg PO BID 7 Days #14 cap 09/02/24 [Macrobid] Meloxicam [Mobic] 15 mg PO DAILY PRN #30 tab 12/25/24 Allergies Allergy/AdvReac Type Severity Reaction Status Date / Time amoxicillin Allergy Unknown TAKEN FROM Verified 12/25/24 14:04 DR OLIVER'S NOTES Iodine and Iodide Containing Allergy Unknown TESTED Verified 12/25/24 14:04 Produc POSITIVE FOR SHELLFISH prednisone Allergy Unknown TAKEN FROM Verified 12/25/24 14:04 DR FISHER NOTES adhesive Allergy blisters, Verified 12/25/24 14:04 itching Penicillins Allergy Rash/Hives Verified 12/25/24 14:04 shellfish derived Allergy TESTED Verified 12/25/24 14:04 POSITIVE WITH ALLERGY TESTING. gluten AdvReac vomiting, Verified 12/25/24 14:04 diarrhea antibiotics AdvReac Diarrhea Uncoded 12/25/24 14:04 Review of Systems ROS Statement: Those systems with pertinent positive or pertinent negative responses have been documented in the HPI. ROS Other: All systems not noted in ROS Statement are negative. 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 History of Any Multi-Drug Resistant Organisms: None Reported Past Surgical History: Appendectomy, Breast Surgery, Cholecystectomy, Heart Catheterization, Hysterectomy, Joint Replacement, Tonsillectomy Additional Past Surgical History / Comment(s): mena knee replacements, cataracts, surgery for fx finger left hand,skin cancer removed ears, forehead, nose & shoulder, colonoscopy, lt breast biopsy, rt breast biopsy, R breast lumpectomy Past Anesthesia/Blood Transfusion Reactions: Previous Problems w/ Anesthesia, Motion Sickness Additional Past Anesthesia/Blood Transfusion Reaction / Comment(s): high BP. daughter PONV Past Psychological History: Depression Smoking Status: Former smoker Past Alcohol Use History: None Reported Past Drug Use History: None Reported - Past Family History Mother Family Medical History: Blood Disorder, Cancer Additional Family Medical History / Comment(s): bone cancer , pt unsure if mother or sister had blood disorder with "vitamin k" Sister(s) Family Medical History: Blood Disorder General Exam Limitations: no limitations General appearance: alert, in no apparent distress Head exam: Present: atraumatic, normocephalic, normal inspection Respiratory exam: Present: normal lung sounds bilaterally. Absent: respiratory distress, wheezes, rales, rhonchi, stridor Cardiovascular Exam: Present: regular rate, normal rhythm GI/Abdominal exam: Present: soft, normal bowel sounds. Absent: distended, tenderness, guarding, rebound, rigid Neurological exam: Present: alert, oriented X3, CN II-XII intact Psychiatric exam: Present: normal affect, normal mood Skin exam: Present: warm, dry, intact, normal color. Absent: rash Course Vital Signs 12/25/24 12/25/24 11:32 16:05 Temperature 97.9 F 97.9 F Pulse Rate 81 78 Respiratory 20 20 Rate Blood Pressure 136/78 125/69 O2 Sat by Pulse 96 98 Oximetry Medical Decision Making - Medical Decision Making This is an 84 year old female who presents to the emergency department for pain all over. Was pt. sent in by a medical professional or institution? @ -No Did you speak to anyone other than the patient for history? @ -EMS and her daughter provided all of the history Did you review nursing and triage notes? @ -Yes, and I agree, it is accurate with regards to the patient's symptoms. Were old charts reviewed? @ -No Differential Diagnosis? @ -Chronic pain, electrolyte abnormality, infection, psychiatric illness, this is not meant to be an all-inclusive list. EKG interpreted by me (3pts min.)? @ -EKG interpreted by me demonstrating the following: Sinus rhythm. Ventricular rate 76 bpm, TX interval 171 ms, QRS duration 114 ms, QTc 450 ms. X-rays interpreted by me (1pt min.)? @ -Chest x-ray obtained, my interpretation identifies no localized consolidations or infiltrates. CT interpreted by me (1pt min.)? @ -Not obtained U/S interpreted by me (1pt. min.)? @ -Not obtained What testing was considered but not performed? (CT, X-rays, U/S, labs)? Why? @ -None What meds were considered but not given? Why? @ -None Did you discuss the management of the patient with other professionals? @ -No Did you reconcile home meds? @ -No Was smoking cessation discussed for >3mins.? @ -No Was critical care preformed (if so, how long)? @ -No Were there social determinants of health that impacted care today? How? (Homelessness, low income, unemployed, alcoholism, drug addiction, transportation, low edu. Level, literacy, decrease access to med. care, mcc, rehab)? @ -No Was there de-escalation of care discussed even if they declined? (Discuss DNR or withdrawal of care, Hospice)? @ -No What co-morbidities impacted this encounter? (DM, HTN, Smoking, COPD, CAD, Cancer, CVA, Hep., AIDS, mental health diagnosis, sleep apnea, morbid obesity)? @ -DM, HLD, HTN Was patient admitted / discharged? @ -Discharged. Lab work demonstrates mild leukopenia with a white blood cell count of 3.42 and mild hypokalemia with a potassium of 3.4. Lab work otherwise unremarkable. Urinalysis negative for signs of infection. Chest x-ray reveals no acute process. Patient was discharged from [facility] at the [place] yesterday and was reportedly not participating in any of the therapy. She does also live alone, however her daughter advised that home care was ordered and she needs to set it up. She does also have an appointment with her PCP in 4 days. What prompted them to come in today was that she had been complaining of pain all over but refusing to take her pain medication. This was discussed with the patient who does not fully understand what took place. Her daughter advised that she does not like how it makes her feel. Case management spoke with the patient's daughter as well who is comfortable taking her home. Meloxicam prescribed to see if that offers help with her pain in a way that does not cause changes in mentation like she may be experiencing with the hydrocodone. Patient discharged home with daughter in stable condition. Case discussed with ED attending Dr. Banegas. Return precautions reviewed in depth, the patient is instructed to return to the emergency department with any new, worsening, or concerning symptoms. Patient verbalized understanding. Undiagnosed new problem with uncertain prognosis? @ -None Drug Therapy requiring intensive monitoring for toxicity (Heparin, Nitro, Insulin, Cardizem)? @ -None Were any procedures done? @ -None Diagnosis/symptom? @ -All over pain Acute, or Chronic, or Acute on Chronic? @ -Acute Uncomplicated (without systemic symptoms) or Complicated (systemic symptoms)? @ -Uncomplicated Side effects of treatment? @ -None Exacerbation, Progression, or Severe Exacerbation] @ -Not applicable Poses a threat to life or bodily function? @ -No - Lab Data Result diagrams: 12/25/24 12:11 12/25/24 12:11 Lab Results 12/25/24 12/25/24 12/25/24 Range/Units 12:11 12:11 12:11 WBC 3.42 L (4.50-10.00) 10*3/uL RBC 4.22 (4.10-5.20) 10*6/uL Hgb 11.9 L (12.0-15.0) g/dL Hct 35.2 L (37.2-46.3) % MCV 83.4 (80.0-97.0) fL MCH 28.2 (27.0-32.0) pg MCHC 33.8 (32.0-37.0) g/dL Plt Count 320 (140-440) 10*3/uL MPV 10.5 (9.5-12.2) fL Immature Gran % (Auto) 5.8 % Neutrophils % (Manual) 65 % Lymphocytes % (Manual) 20 % Monocytes % (Manual) 13 % Eosinophils % (Manual) 1 % Basophils % (Manual) 1 % Immature Gran # 0.20 H (0.00-0.04) 10*3/uL Neutrophils # (Manual) 2.22 (1.3-7.7) k/uL Lymphocytes # (Manual) 0.68 L (1.0-4.8) k/uL Monocytes # (Manual) 0.44 (0-1.0) k/uL Eosinophils # (Manual) 0.03 (0-0.7) k/uL Basophils # (Manual) 0.03 (0-0.2) k/uL Nucleated RBCs 0 (0-0) /100 WBC Manual Slide Review Performed Spherocytes Present Sodium 139 (137-145) mmol/L Potassium 3.4 L (3.5-5.1) mmol/L Chloride 104 (98-107) mmol/L Carbon Dioxide 24 (22-30) mmol/L Anion Gap 11 mmol/L BUN 19 H (7-17) mg/dL Creatinine 0.86 (0.52-1.04) mg/dL Est GFR (CKD-EPI)AfAm 71 (>60 ml/min/1.73 sqM) Est GFR (CKD-EPI)NonAf 62 (>60 ml/min/1.73 sqM) Glucose 86 (74-99) mg/dL Plasma Lactic Acid Adalberto 1.2 (0.7-2.0) mmol/L Calcium 9.7 (8.4-10.2) mg/dL Phosphorus 3.3 (2.5-4.5) mg/dL Magnesium 2.1 (1.6-2.3) mg/dL Total Bilirubin 0.8 (0.2-1.3) mg/dL AST 27 (14-36) U/L ALT 16 (4-34) U/L Alkaline Phosphatase 93 (38-126) U/L Creatine Kinase 113 (30-135) U/L Total Protein 6.8 (6.3-8.2) g/dL Albumin 3.6 (3.5-5.0) g/dL Urine Color Urine Appearance (Clear) Urine pH (5.0-8.0) Ur Specific [place] (1.001-1.035) Urine Protein (Negative) Urine Glucose (UA) (Negative) Urine Ketones (Negative) Urine Blood (Negative) Urine Nitrite (Negative) Urine Bilirubin (Negative) Urine Urobilinogen (<2.0) mg/dL Ur Leukocyte Esterase (Negative) 05/09/25 Range/Units 15:26 WBC (4.50-10.00) 10*3/uL RBC (4.10-5.20) 10*6/uL Hgb (12.0-15.0) g/dL Hct (37.2-46.3) % MCV (80.0-97.0) fL MCH (27.0-32.0) pg MCHC (32.0-37.0) g/dL Plt Count (140-440) 10*3/uL MPV (9.5-12.2) fL Immature Gran % (Auto) % Neutrophils % (Manual) % Lymphocytes % (Manual) % Monocytes % (Manual) % Eosinophils % (Manual) % Basophils % (Manual) % Immature Gran # (0.00-0.04) 10*3/uL Neutrophils # (Manual) (1.3-7.7) k/uL Lymphocytes # (Manual) (1.0-4.8) k/uL Monocytes # (Manual) (0-1.0) k/uL Eosinophils # (Manual) (0-0.7) k/uL Basophils # (Manual) (0-0.2) k/uL Nucleated RBCs (0-0) /100 WBC Manual Slide Review Spherocytes Sodium (137-145) mmol/L Potassium (3.5-5.1) mmol/L Chloride (98-107) mmol/L Carbon Dioxide (22-30) mmol/L Anion Gap mmol/L BUN (7-17) mg/dL Creatinine (0.52-1.04) mg/dL Est GFR (CKD-EPI)AfAm (>60 ml/min/1.73 sqM) Est GFR (CKD-EPI)NonAf (>60 ml/min/1.73 sqM) Glucose (74-99) mg/dL Plasma Lactic Acid Adalberto (0.7-2.0) mmol/L Calcium (8.4-10.2) mg/dL Phosphorus (2.5-4.5) mg/dL Magnesium (1.6-2.3) mg/dL Total Bilirubin (0.2-1.3) mg/dL AST (14-36) U/L ALT (4-34) U/L Alkaline Phosphatase (38-126) U/L Creatine Kinase (30-135) U/L Total Protein (6.3-8.2) g/dL Albumin (3.5-5.0) g/dL Urine Color Colorless Urine Appearance Clear (Clear) Urine pH 6.5 (5.0-8.0) Ur Specific [place] 1.009 (1.001-1.035) Urine Protein Negative (Negative) Urine Glucose (UA) Negative (Negative) Urine Ketones Negative (Negative) Urine Blood Negative (Negative) Urine Nitrite Negative (Negative) Urine Bilirubin Negative (Negative) Urine Urobilinogen <2.0 (<2.0) mg/dL Ur Leukocyte Esterase Negative (Negative) - Radiology Data Radiology results: report reviewed, image reviewed Disposition Clinical Impression: Whole body pain Disposition: HOME SELF-CARE Additional Instructions: Return to the emergency department with any new, worsening, or concerning symptoms. Try taking the meloxicam once daily to help with your pain. If you choose to take this, do not take other anti-inflammatories such as ibuprofen, take one or the other. You may take it with Tylenol and your hydrocodone. Follow up with your primary care provider in 1-2 days. Prescriptions: Meloxicam [Mobic] 15 mg PO DAILY PRN #30 tab PRN Reason: Pain Is patient prescribed a controlled substance at d/c from ED?: No Referrals: Milvia Oliver MD [Primary Care Provider] - 1-2 days Time of Disposition: 15:48
[2024-12-25 11:53] VITALS: RESP 20; TEMP 97.9
[2024-12-25 12:15] LABS: HCT 35.2 % (37.2-46.3); HGB 11.9 g/dL (12.0-15.0); MCH 28.2 pg (27.0-32.0); MCHC 33.8 g/dL (32.0-37.0); MCV 83.4 fL (80.0-97.0); Mean Platelet Volume 10.5 fL (9.5-12.2); Platelet Count 320 10*3/uL (140-440); RBC 4.22 10*6/uL (4.10-5.20); RDW 15.3 % (11.5-14.5); WBC 3.42 10*3/uL (4.50-10.00)
[2024-12-25 12:25] LABS: ALT 16 U/L (4-34); AST 27 U/L (14-36); African American GFR (CKD) 71 (>60 ml/min/1.73 sqM); Albumin 3.6 g/dL (3.5-5.0); Alkaline Phosphatase 93 U/L (38-126); Anion Gap 11 mmol/L; Blood Urea Nitrogen 19 mg/dL (7-17); Calcium 9.7 mg/dL (8.4-10.2); Carbon Dioxide 24 mmol/L (22-30); Chloride 104 mmol/L (98-107); Creatine Kinase 113 U/L (30-135); Glucose 86 mg/dL (74-99); Magnesium 2.1 mg/dL (1.6-2.3); Non-African American GFR(CKD) 62 (>60 ml/min/1.73 sqM); Phosphorus 3.3 mg/dL (2.5-4.5); Potassium 3.4 mmol/L (3.5-5.1); Sodium 139 mmol/L (137-145); Total Bilirubin 0.8 mg/dL (0.2-1.3); Total Protein 6.8 g/dL (6.3-8.2)
--- NOTE | 2024-12-25 13:03 | XR ---
EXAMINATION TYPE: XR chest 1V DATE OF EXAM: 12/25/2024 12:59 PM COMPARISON: Chest radiographs from 08/29/2024 TECHNIQUE: XR chest 1V Portable AP radiograph of the chest. CLINICAL INDICATION:Female, 84 years old with history of Weakness; FINDINGS: Patient is rotated which limits evaluation. Lungs/Pleura: There is no evidence of pleural effusion, focal consolidation, or pneumothorax. Chroni c elevation of the right hemidiaphragm. Pulmonary vascularity: Unremarkable. Heart/mediastinum: Cardiomediastinal silhouette is unremarkable. Musculoskeletal: No acute osseous pathology. IMPRESSION: No acute cardiopulmonary disease/process. [facility], , 12/25/2024 1:01 PM
[2024-12-25] MEDS: KETOROLAC 15 MG/ML 1 ML VIAL IVP STA (13:10)
[2024-12-25] MEDS: MORPHINE SULFATE 4 MG/ML SYRINGE IVP STA (13:12)
[2024-12-25] MEDS: POTASSIUM CHLORIDE ER 20 MEQ TAB.ER PO STA (13:13)
[2024-12-25] MEDS: SODIUM CHLORIDE 0.9% 500 ML 500 ML IV ONE (13:14)
[2024-12-25 13:30] LABS: Basophils # (M) 0.03 k/uL (0-0.2); Eosinophils # (M) 0.03 k/uL (0-0.7); Lymphocytes # (M) 0.68 k/uL (1.0-4.8); Monocytes # (M) 0.44 k/uL (0-1.0); Neutrophils # (M) 2.22 k/uL (1.3-7.7); Neutrophils % (M) 65 %; Nucleated Red Blood Cells 0 /100 WBC (0-0); Total Cells Counted 100
[2024-12-25 13:31] LABS: Spherocytes Present
[2024-12-25 15:32] LABS: Appearance,Urine Clear (Clear); Bilirubin,Urine Negative (Negative); Blood,Urine Negative (Negative); Color,Urine Colorless; Glucose,Urine (UA) Negative (Negative); Ketones,Urine Negative (Negative); Leukocyte Esterase,Urine Negative (Negative); Nitrite,Urine Negative (Negative); PH, Urine 6.5 (5.0-8.0); Protein,Urine Negative (Negative); Specific Gravity,Urine 1.009 (1.001-1.035); Urobilinogen,Urine <2.0 mg/dL (<2.0)
[2024-12-25 16:06] VITALS: BP 125/69; PULSE 78
== END 2024-12-25 16:06 | disposition home or self-care (01) ==
LOC: EC 11:24
DX: R52 Pain, unspecified (principal); E87.6 Hypokalemia; E11.9 Type 2 diabetes mellitus without complications; E78.5 Hyperlipidemia, unspecified; I11.0 Hypertensive heart disease with heart failure; I50.9 Heart failure, unspecified; Z79.84 Long term (current) use of oral hypoglycemic drugs; Z79.82 Long term (current) use of aspirin; Z79.899 Other long term (current) drug therapy; Z88.0 Allergy status to penicillin; Z91.09 Other allergy status, other than to drugs and biological substances; Z91.041 Radiographic dye allergy status; Z88.8 Allergy status to other drugs, medicaments and biological substances; Z91.013 Allergy to seafood; Z88.1 Allergy status to other antibiotic agents; Z87.891 Personal history of nicotine dependence
CPT/HCPCS: 36415; 93005; 80053; 82550; 83605; 83735; 84100; 85025; 81003; 71045; 99284; 96374; 96375; 51701; J2270; J1885